=== PATIENT | female | born 1975 | race Caucasian/White ===

== ENCOUNTER 2021-09-09 14:38 | Emergency (ER) | payer BC, SELFPAY ==
[2021-09-09 14:47] VITALS: BP 154/91; PULSE 101; RESP 18; TEMP 36.1; O2SAT 96; BMI 39.4
[2021-09-09 15:07] LABS: MANUAL DIFF FLAG NO
[2021-09-09 15:17] LABS: Basophils Absolute Auto 0.1 X10*3/uL (0.0-0.2); Basophils Percent Auto 0.8 % (0-2); Eosinophils Absolute Auto 0.1 X10*3/uL (0.0-0.4); Eosinophils Percent Auto 1.2 % (0-4); Hematocrit 39.1 % (37.0-47.0); Hemoglobin 12.7 g/dl (12.0-16.0); Imm Gran Abs Auto 0.04 X10*3/uL (0.00-0.03); Imm Gran Pct Auto 0.4 % (0.0-0.4); Lymphocytes Absolute Auto 1.7 X10*3/uL (1.2-4.9); Lymphocytes Percent Auto 18.2 % (20-40); Mean Corpuscular HGB Conc 32.5 g/dl (31.0-35.0); Mean Corpuscular Hemoglobin 29.2 pg (27.0-33.0); Mean Corpuscular Volume 89.9 fL (80.0-98.0); Mean Platelet Volume 9.9 fL (9.4-12.3); Monocytes Absolute Auto 0.6 X10*3/uL (0.1-1.2); Monocytes Percent Auto 6.6 % (2-11); Neutrophils Absolute Auto 6.7 x10*3/uL (2.0-8.3); Neutrophils Percent Auto 72.8 % (45-73); Platelet Count 312 X10*3/uL (160-400); Red Blood Count 4.35 X10*6/uL (4.20-5.50); Red Cell Distribution Width 13.5 % (11.0-16.0); White Blood Count 9.3 X10*3/uL (4.8-10.8)
--- NOTE | 2021-09-09 15:17 | ED_ITS ---
HPI - Alcohol General Chief Complaint: ETOH/Substance Use Stated Complaint: Alcohol withdrawals sent by Alfreder Time Seen by Provider: 09/09/21 15:07 Source: patient and family Mode of arrival: ambulatory Limitations: no limitations History of Present Illness HPI narrative: 46 y/o female with history of chronic hypoxic respiratory failure on 2L NC at baseline, hx ARDS, hx PE in 2019 now off Coumadin, ADHD and alcohol use disorder who presents to the ER from her PCP's office seeking detox from alcohol. She re ports for almost one year now she has been drinking heavily, since the of her father. She drinks a bottle of tequila almost daily. It has had negative effects on her health and her marriage. Her psychiatrist recently started her on ativan PRN and she has been taking it while drinking. She was found on the bathroom floor 3 days in a row by her . Last drink was 4pm yesterday. She feels sweaty and like she may start to go through withdrawal soon. She has a history of withdrawal in the past but no alcohol related seizures. MD complaint: alcohol dependence, desires rehab and medical clearance for detox facility Last drink: Days (ago) (1) Amount of alcohol consumed: 1 bottle of tequila Chronic alcohol use: Yes Previous visits for alcohol intoxication: No Recent trauma: Yes Associated symptoms: diaphoresis and depression Treatments prior to arrival: none Related Data Allergies Allergy/AdvReac Type Severity Reaction Status Date / Time amoxicillin [AMOXICILLIN] Allergy Unknown RASH Verified 09/09/21 18:00 fluoxetine [From PROZAC] Allergy Unknown RASH Verified 09/09/21 18:00 heparin [HEPARIN] Allergy Unknown JAUN Verified 09/09/21 18:00 SYNDROME heparin (porcine) Allergy Unknown swelling, Verified 09/09/21 18:00 red hydrocodone [HYDROCODONE] Allergy Unknown PROJECTILE Verified 09/09/21 18:00 VOMITING omeprazole [OMEPRAZOLE] Allergy Unknown RASH, head Verified 09/09/21 18:00 to toe rash penicillin G [PENICILLIN G] Allergy Unknown RASH Verified 09/09/21 18:00 penicillin V Allergy Unknown rash Verified 09/09/21 18:00 piperacillin [From ZOSYN] Allergy Unknown RASH Verified 09/09/21 18:00 strawberry [STRAWBERRY] Allergy Unknown SOB,RASH, Verified 09/09/21 18:00 ANAPHYLAXISIS tazobactam [From ZOSYN] Allergy Unknown RASH Verified 09/09/21 18:00 walnut Allergy Unknown Difficulty Verified 09/09/21 18:00 Breathing Caramelized Food coloring Allergy Unknown Itching Uncoded 09/09/21 18:00 CARMALIZED FOOD COLORING Allergy Unknown RASH Uncoded 09/09/21 18:00 Hydrocodone Bitartrate Allergy Unknown severe Uncoded 09/09/21 18:00 vomiting Mangos Allergy Unknown Difficulty Uncoded 09/09/21 18:00 Breathing Piperacillin Sod-Tazobactam Allergy Unknown swelling Uncoded 09/09/21 18:00 So Strawberries Allergy Unknown Blister Uncoded 09/09/21 18:00 Review of Systems Review of Systems: Constitutional: No Fever, No Chills ENT/Mouth: No sore throat, No Rhinorrhea, No Swallowing Difficulty Eyes: No Eye Pain, No Swelling, No Redness Cardiovascular: No Chest Pain, + SOB, No Orthopnea, No Edema Respiratory: + Cough, No Sputum, No Wheezing, No dyspnea Gastrointestinal: No Nausea, No Vomiting, No Diarrhea, No abdominal Pain, No Hematochezia, No Melena Genitourinary: No Dysuria, No Urinary Frequency, No Hematuria Musculoskeletal: No joint pain, No Myalgias Skin: No Skin Lesions, No rash Neuro: No Weakness, No Numbness, No Dizziness, No Headache Psych: + Anxiety/Panic, + Depression Heme/Lymph: No Bruising, No Lymphadenopathy Endocrine: No Polyuria, No Polydipsia PMFSH Social History Social History Advance Directives: No Advance Directives Information Provided: No Physical Exam ED Vital Signs: Vital Signs - 24 hr 09/09/21 14:47 09/09/21 15:19 Temperature 97.0 F 98.4 F Pulse Rate 101 H 90 Respiratory Rate 18 18 Blood Pressure 154/91 H 140/85 H Pulse Oximetry 96 99 BMI result Body Mass Index 39.4 Appearance: Alert. Oriented X3. No acute distress. Eyes: Pupils equal, round and reactive to light. ENT: Pharynx normal. Neck: Normal inspection. Neck supple. CVS: Tachycardic, regular rhythm, HR 100s. Pulses normal. Respiratory: No respiratory distress. Breath sounds normal. Abdomen: Soft and nontender. +BS x4 Skin: Skin warm and dry. Normal skin color. Normal skin turgor. No rashes. Extremities: No lower extremity edema. Neuro: Oriented X 3. No motor deficit. No sensory deficit. CN II-XII intact. No tremor. Nonfocal. Makes eye contact. Appropriate insight and judgment Course Course Course Narrative: 46-year-old female with a history of alcohol use disorder who is seeking detox presents to the ER for evaluation. Her respiratory status is at her baseline, SpO2 on 2 L nasal cannula is 99%. Basic lab workup is pending. Jaguar from the recovery team is aware of her. Reevaluation(s) Reevaluation #1: Labs showing a mild transaminitis, likely related to alcohol abuse. Labs otherw ise unremarkable. She is hemodynamically stable and appropriate at this time. Physician observation started at 5pm. Patient placed in physician observation because patient is awaiting silver recovery operator evaluation for detox placement. At the time observation was started patient's vital signs were stable. Patient is alert and oriented. Neuro exam is non-focal. CV: RRR and lungs are clear. Will continue to monitor. MDM - Alcohol Lab Data Result diagrams: 09/09/21 15:01 09/09/21 15:01 Labs: Lab Results 09/09/21 09/09/21 09/09/21 Range/Units 15:01 15:01 15:01 WBC 9.3 (4.8-10.8) X10*3/uL RBC 4.35 (4.20-5.50) X10*6/uL Hgb 12.7 (12.0-16.0) g/dl Hct 39.1 (37.0-47.0) % MCV 89.9 (80.0-98.0) fL MCH 29.2 (27.0-33.0) pg MCHC 32.5 (31.0-35.0) g/dl RDW 13.5 (11.0-16.0) % Plt Count 312 (160-400) X10*3/uL MPV 9.9 (9.4-12.3) fL Immature Gran % (Auto) 0.4 (0.0-0.4) % Neut % (Auto) 72.8 (45-73) % Lymph % (Auto) 18.2 L (20-40) % [place] % (Auto) 6.6 (2-11) % Eos % (Auto) 1.2 (0-4) % Baso % (Auto) 0.8 (0-2) % Lymph # (Auto) 1.7 (1.2-4.9) X10*3/uL [place] # (Auto) 0.6 (0.1-1.2) X10*3/uL Eos # (Auto) 0.1 (0.0-0.4) X10*3/uL Baso # (Auto) 0.1 (0.0-0.2) X10*3/uL Abs Immat Gran (auto) 0.04 H (0.00-0.03) X10*3/uL Absolute Neuts (auto) 6.7 (2.0-8.3) x10*3/uL Absolute Nucleated RBC 0.000 (0.0-0.012) X10*3/uL Nucleated RBC % (auto) 0.0 (0.0-0.2) /100WBC Sodium 139 (135-145) mmol/L Potassium 4.1 (3.3-5.1) mmol/L Chloride 101 (96-108) mmol/L Carbon Dioxide 26 (22-29) mmol/L Anion Gap 16 (12-20) BUN 10 (9-16) mg/dL Creatinine 0.72 (0.5-1.4) mg/dL Estim Creat Clear Calc 112.5 Estimated GFR > 60 Random Glucose 112 (60-115) mg/dL Calcium 9.3 (8.4-10.2) mg/dL Total Bilirubin 0.8 (0.0-1.0) mg/dL AST 50 H (5-31) U/L ALT 38 H (0-31) U/L Alkaline Phosphatase 91 (39-117) U/L Total Protein 6.9 (6.5-8.0) g/dL Albumin 4.0 (3.5-5.0) g/dL Urine Test (NEGATIVE) Urine Opiates Screen (Not Detect) Urine Fentanyl Screen (Not Detect) Ur Barbiturates Screen (Not Detect) Ur Phencyclidine Scrn (Not Detect) Ur Amphetamines Screen (Not Detect) U Benzodiazepines Scrn (Not Detect) Urine Cocaine Screen (Not Detect) U Marijuana (THC) Screen (Not Detect) Ethyl Alcohol < 10 mg/dL 09/09/21 09/09/21 Range/Units 16:26 16:59 WBC (4.8-10.8) X10*3/uL RBC (4.20-5.50) X10*6/uL Hgb (12.0-16.0) g/dl Hct (37.0-47.0) % MCV (80.0-98.0) fL MCH (27.0-33.0) pg MCHC (31.0-35.0) g/dl RDW (11.0-16.0) % Plt Count (160-400) X10*3/uL MPV (9.4-12.3) fL Immature Gran % (Auto) (0.0-0.4) % Neut % (Auto) (45-73) % Lymph % (Auto) (20-40) % [place] % (Auto) (2-11) % Eos % (Auto) (0-4) % Baso % (Auto) (0-2) % Lymph # (Auto) (1.2-4.9) X10*3/uL [place] # (Auto) (0.1-1.2) X10*3/uL Eos # (Auto) (0.0-0.4) X10*3/uL Baso # (Auto) (0.0-0.2) X10*3/uL Abs Immat Gran (auto) (0.00-0.03) X10*3/uL Absolute Neuts (auto) (2.0-8.3) x10*3/uL Absolute Nucleated RBC (0.0-0.012) X10*3/uL Nucleated RBC % (auto) (0.0-0.2) /100WBC Sodium (135-145) mmol/L Potassium (3.3-5.1) mmol/L Chloride (96-108) mmol/L Carbon Dioxide (22-29) mmol/L Anion Gap (12-20) BUN (9-16) mg/dL Creatinine (0.5-1.4) mg/dL Estim Creat Clear Calc Estimated GFR Random Glucose (60-115) mg/dL Calcium (8.4-10.2) mg/dL Total Bilirubin (0.0-1.0) mg/dL AST (5-31) U/L ALT (0-31) U/L Alkaline Phosphatase (39-117) U/L Total Protein (6.5-8.0) g/dL Albumin (3.5-5.0) g/dL Urine Test NEGATIVE (NEGATIVE) Urine Opiates Screen Not Detected (Not Detect) Urine Fentanyl Screen Not Detected (Not Detect) Ur Barbiturates Screen Not Detected (Not Detect) Ur Phencyclidine Scrn Not Detected (Not Detect) Ur Amphetamines Screen POSITIVE H (Not Detect) U Benzodiazepines Scrn Not Detected (Not Detect) Urine Cocaine Screen Not Detected (Not Detect) U Marijuana (THC) Screen POSITIVE H (Not Detect) Ethyl Alcohol mg/dL Discharge Plan Discharge Clinical Impression: Alcohol use disorder, moderate, dependence Patient Disposition: Still a Patient
[2021-09-09 15:19] VITALS: BP 140/85; PULSE 90; RESP 18; TEMP 36.9; O2SAT 99
[2021-09-09 15:23] LABS: Ethanol < 10 mg/dL
[2021-09-09 15:25] LABS: Alanine Aminotransferase 38 U/L (0-31); Alkaline Phosphatase 91 U/L (39-117); Anion Gap 16 (12-20); Aspartate Amino Transferase 50 U/L (5-31); Bilirubin Total 0.8 mg/dL (0.0-1.0); Blood Urea Nitrogen 10 mg/dL (9-16); Calcium 9.3 mg/dL (8.4-10.2); Carbon Dioxide 26 mmol/L (22-29); Chloride 101 mmol/L (96-108); Creatinine Clr Calc Pharmacy 112.5; Estimated Glomerular Filt Rate > 60; Glucose Random 112 mg/dL (60-115); Potassium 4.1 mmol/L (3.3-5.1); Sodium 139 mmol/L (135-145); Total Protein 6.9 g/dL (6.5-8.0)
[2021-09-09 16:52] LABS: Amphetamine Screen Urine POSITIVE (Not Detect); Barbiturates, Urine Not Detected (Not Detect); Benzodiazepines Screen Urine Not Detected (Not Detect); Cannabinoid Screen Urine POSITIVE (Not Detect); Cocaine Screen Urine Not Detected (Not Detect); Fentanyl, urine Not Detected (Not Detect); Opiate Screen Urine Not Detected (Not Detect); Phencyclidine Screen Urine Not Detected (Not Detect)
[2021-09-09 17:09] LABS: UPreg QC Valid YES; Urine Pregnancy NEGATIVE (NEGATIVE)
--- NOTE | 2021-09-09 17:19 | MHC.RECOVSUP ---
Recovery Support note: Patient is a 46 year old Mauritian speaking female who presented to [facility] ED due to alcohol use and recent falls. Patient reports drinking half- a bottle of tequila a day. Patient is interested in going to detox. Patient is on oxygen due and for this reason will have to go to a level four detox. Patient referred to [facility] however no beds are available at this time. Discussed with patient and partner. Patient not comfortable discharging home to follow up with facility. Discussed case with ED provider. Plan for patient to remain in the ED overnight. This grant writer will follow up with patient and [facility] on 09/10.
[2021-09-09] MEDS: chlordiazePOXIDE HCl 25 MG CAPSULE PO (18:06)
[2021-09-09 18:48] VITALS: BP 143/75; PULSE 94; RESP 14; TEMP 36.7; O2SAT 96
[2021-09-09 23:57] VITALS: BP 139/79; PULSE 73; RESP 20; TEMP 36.8; O2SAT 100
[2021-09-10 04:01] VITALS: BP 114/64; PULSE 58; RESP 13; TEMP 36.7; O2SAT 98
[2021-09-10 06:02] VITALS: BP 124/69; PULSE 50; RESP 14; TEMP 36.8; O2SAT 97
[2021-09-10 07:12] LABS: COVID-19 Test Negative (Negative)
--- NOTE | 2021-09-10 09:05 | PHA.MEDREC ---
Pharmacy Consult ? Medication Reconciliation Pharmacy has completed the medication reconciliation. Patient just got started on adderal ir tid and escitalopram daily but hasn't taken any yet. She does want to start it here
--- NOTE | 2021-09-10 10:25 | MHC.RECOVSUP ---
Recovery Support note: Patient accepted to [facility]. Family to transport. Address and number provided to patient. Discussed with patient's RN.
== END 2021-09-10 10:33 | disposition other institution (70) ==
PROVIDERS: Emergency Provider Student in an Organized Health Care Education/Training Program; PCP Internal Medicine
DX: F10.20 Alcohol dependence, uncomplicated (principal); Y90.0 Blood alcohol level of less than 20 mg/100 ml; J96.10 Chronic respiratory failure, unspecified whether with hypoxia or hypercapnia; Z86.711 Personal history of pulmonary embolism; Z20.822 Contact with and (suspected) exposure to COVID-19
CPT/HCPCS: 80053; 80307; 81025; 82077; 85025; 87635; 99284

== ENCOUNTER 2023-01-25 08:42 | Inpatient (IN) | payer BC, MEDICARE, SELFPAY ==
--- NOTE | ~2023-01-25 | XR_ITS ---
EXAMINATION: XR BILATERAL HIPS WITH AP PELVIS CLINICAL INFORMATION: Psoriatic arthritis. COMPARISON: 01/16/2018. TECHNIQUE: AP view of the pelvis as well as AP and lateral views of the chest. FINDINGS: Possible degenerative changes and facet arthritis at the lower lumbar spine. Mild degenerative changes in the bilateral sacroiliac joints. Right Hip: Alignment preserved. Minimal degenerative changes. Minimal hypertrophic change. Left Hip: Alignment preserved. Minimal degenerative changes. Minimal hypertrophic change. XR/XR hips LYN min 3V IMPRESSION: Minimal degenerative changes in the bilateral hips. Additional imaging with CT scan or MRI should be considered for better visualization as these modalities are much more sensitive for detection of fracture or other underlying pathology.
--- NOTE | ~2023-01-25 | XR_ITS ---
EXAMINATION: XR KNEE, RIGHT CLINICAL INFORMATION: Psoriatic arthritis COMPARISON: 02/03/2019 TECHNIQUE: Four views of the right knee. FINDINGS: Suprapatellar effusion. Increased size of ossific bodies, largest 2.6 cm, along the superior lateral aspect of the patellofemoral compartment with persistent slight patellar tilt. Small marginal osteophytes at the knee. Tiny punctate density projecting over the medial femoral compartment, possibly representing a loose body. Mild lateral joint space narrowing. XR/XR knee RT 4V IMPRESSION: Suprapatellar effusion. Increased size of ossific bodies, largest 2.6 cm, along the superior lateral aspect of the patellofemoral compartment with degenerative changes as detailed above.
[2023-01-25 08:50] VITALS: BP 135/85; PULSE 92; RESP 18; TEMP 36.4; O2SAT 98; BMI 30.6
[2023-01-25 09:04] VITALS: O2SAT 98
--- NOTE | 2023-01-25 09:11 | ED.GENADULT ---
HPI - General Adult General Chief complaint: Psychiatric Symptoms Stated complaint: tried not to be here ? crisis Time Seen by Provider: 01/25/23 09:10 Source: patient and family (patient's ) Mode of arrival: ambulatory Limitations: no limitations History of Present Illness HPI narrative: Patient is a 47 year old assigned female at with a history of chronic oxygen use, ADHD, depression, and alcohol abuse presenting to the emergency department today with suicidal ideation. Patient states that she broke her 1 year of sobriety yesterday because she was very depressed and felt like talking to her father. Patient states that she has been having episodes of severe depression with days in a row of intense motivation to clean and be productive. Patient denies any dizziness, lightheadedness, abdominal pain, nausea, vomiting, fever, chills, blurry vision, double vision, loss of vision, chest pain, difficulty breathing, shortness of breath, back pain, night sweats, pain with urination, increased urinary frequency, increased urinary urgency, blood in her urine or stool, syncope or a near syncopal episode, recent trauma or falls, bowel incontinence, bladder incontinence, bowel retention, bladder retention, or any other complaints at this time. Relieving factors: none Exacerbating factors: none Associated symptoms: denies other symptoms Treatments prior to arrival: none Related Data Home Medications Medication Instructions Recorded Confirmed dextroamphetamine-amphetamine 10 1 tab PO TID 09/10/21 09/10/21 mg tablet escitalopram oxalate 10 mg tablet 1 tab PO QAM 09/10/21 09/10/21 Allergies Allergy/AdvReac Type Severity Reaction Status Date / Time amoxicillin [AMOXICILLIN] Allergy Unknown RASH Verified 09/09/21 18:00 fluoxetine [From PROZAC] Allergy Unknown RASH Verified 09/09/21 18:00 heparin [HEPARIN] Allergy Unknown JAUN Verified 09/09/21 18:00 SYNDROME heparin (porcine) Allergy Unknown swelling, Verified 09/09/21 18:00 red hydrocodone [HYDROCODONE] Allergy Unknown PROJECTILE Verified 09/09/21 18:00 VOMITING omeprazole [OMEPRAZOLE] Allergy Unknown RASH, head Verified 09/09/21 18:00 to toe rash penicillin G [PENICILLIN G] Allergy Unknown RASH Verified 09/09/21 18:00 penicillin V Allergy Unknown rash Verified 09/09/21 18:00 piperacillin [From ZOSYN] Allergy Unknown RASH Verified 09/09/21 18:00 strawberry [STRAWBERRY] Allergy Unknown SOB,RASH, Verified 09/09/21 18:00 ANAPHYLAXISIS tazobactam [From ZOSYN] Allergy Unknown RASH Verified 09/09/21 18:00 walnut Allergy Unknown Difficulty Verified 09/09/21 18:00 Breathing Caramelized Food coloring Allergy Unknown Itching Uncoded 09/09/21 18:00 CARMALIZED FOOD COLORING Allergy Unknown RASH Uncoded 09/09/21 18:00 Hydrocodone Bitartrate Allergy Unknown severe Uncoded 09/09/21 18:00 vomiting Mangos Allergy Unknown Difficulty Uncoded 09/09/21 18:00 Breathing Piperacillin Sod-Tazobactam Allergy Unknown swelling Uncoded 09/09/21 18:00 So Strawberries Allergy Unknown Blister Uncoded 09/09/21 18:00 Review of Systems Constitutional: Constitutional: Reports no additional constitutional complaints, Denies chills, Denies fever(s) and Denies night sweats Eyes: Eyes: Reports no additional eye complaints, Denies blurry vision, Denies change in vision, Denies diplopia, Denies eye discharge, Denies loss of vision and Denies eye pain ENT: Denies dizziness Cardiovascular: Cardiovascular: Reports no additional cardiovascular complaints, Denies chest pain, Denies lightheadedness, Denies Loss of Consciousness and Denies dyspnea Respiratory: Respiratory: Reports no additional respiratory complaints and Denies dyspnea Gastrointestinal: Gastrointestinal: Reports no additional gastrointestinal complaints, Denies abdominal pain, Denies melena, Denies hematochezia, Denies change in bowel habits and Denies change in stool character Genitourinary: Genitourinary: Denies hematuria, Denies urinary frequency, Denies dysuria, Denies urinary incontinence, Denies urinary hesitancy and Denies urinary urgency Musculoskeletal: Musculoskeletal: Reports no additional musculoskeletal complaints, Denies numbness and Denies tingling Neurologic: Denies dizziness, Denies loss of vision, Denies numbness and Denies tingling Psychiatric: Psychiatric: Reports depression, Reports mood swings and Reports suicidal ideation Endocrine: Endocrine: Reports no additional endocrine complaints Hematologic/Lymphatic: Hematologic/Lymphatic: Reports no additional hematologic/lymphatic complaints Allergic/Immunologic: Allergic/Immunologic: Reports no additional allergic/immunologic complaints PMFSH Past Medical History Attestation statement: The following information was validated with the patient. (all information validated with the patient's ) Source: old records reviewed, obtained from family (patient's provided additional history and confirmed the history provided by the patient.) and nursing notes reviewed Social History Social History Advance Directives: No Advance Directives Information Provided: Yes Physical Exam ED Vital Signs: Vital Signs - 24 hr 01/25/23 08:50 01/25/23 09:04 01/25/23 11:51 Temperature 97.5 F Pulse Rate 92 68 Respiratory Rate 18 16 Blood Pressure 135/85 130/84 Pulse Oximetry 98 98 100 Oxygen Delivery Method Room Air Nasal Cannula Nasal Cannula Oxygen Flow Rate 2 2 BMI result Body Mass Index 30.6 Const General: cooperative, no acute distress, alert and awake Nutritional Appearance: well nourished Orientation/consciousness: patient oriented x3 Limitations: no limitations HENMT Head: Yes normal to inspection and Yes atraumatic Ears: hearing grossly normal bilaterally and external ears normal General nose exam: Normal external nose present, no nasal discharge noted and no epistaxis Face and sinus: Yes normal facial exam, No abrasion and No laceration Mouth: Normal oral and palatal mucosa present, no drooling and no muffled voice Eyes General: appearance normal, both eyes and all related structures Periorbital: periorbital findings normal Eyelids: Yes eyelids normal Conjunctivae: conjunctivae normal Pupils: Equal, round and reactive pupils present EOM: EOMs intact bilaterally Neck Neck: Yes normal visual inspection, Yes full ROM and Yes no lymphadenopathy Chest Chest palpation & inspection: normal inspection of the chest Resp Other: patient on chronic nasal cannula oxygenation Effort & Inspection: normal respiratory effort and able to speak in complete sentences GI Inspection: Yes normal to inspection Neuro General: patient oriented x3 and moves all extremities Cranial nerves: Yes Equal, round and reactive pupils present Cognition (Neuro): normal cognition Motor exam (neuro): 5/5 motor strength present throughout Sensory Exam: Normal double simultaneous stimulation for sensation Coordination: [id number] test normal Extrem General: Yes normal to inspection, Yes full ROM and Yes capillary refill normal Psych Affect: Sad affect present Attitude: cooperative and Guarded attititude/behavior present Thought content: Suicidality present Medical Decision Making Medical Decision Making MDM Narrative: Patient is a 47 year old assigned female at with a history of ADHD, depression, anxiety, alcohol abuse, and oxygen dependence presenting to the emergency department today with suicidal ideation / depression. Patient's physical exam was as noted in the physical exam portion of this note. Patient's blood work was unremarkable. Patient's urine showed no acute process. Patient's EKG was unremarkable. I explained my physical exam findings as well as all test results to the patient and the patient's . I answered all questions asked by the patient and the patient's . Patient awaiting CARE team evaluation. CARE team evaluated patient and agrees to inpatient psychiatric admission. Differential Diagnosis Differential Diagnoses: The differential diagnosis associated with the presentation includes Suicidal ideation Depression Lab Data MDM Lab Attestation statement: I reviewed the patient's lab results. My interpretation of these studies and their corresponding values is that they are grossly normal. 01/25/23 10:21 01/25/23 10:21 Labs: Lab Results 01/25/23 01/25/23 Range/Units 10:21 11:49 WBC 9.5 (4.8-10.8) X10*3/uL RBC 4.33 (4.20-5.50) X10*6/uL Hgb 12.4 (12.0-16.0) g/dl Hct 38.3 (37.0-47.0) % MCV 88.5 (80.0-98.0) fL MCH 28.6 (27.0-33.0) pg MCHC 32.4 (31.0-35.0) g/dl RDW 14.6 (11.0-16.0) % Plt Count 243 (160-400) X10*3/uL MPV 9.5 (9.4-12.3) fL Immature Gran % (Auto) 0.4 (0.0-0.4) % Neut % (Auto) 72.5 (45-73) % Lymph % (Auto) 19.3 L (20-40) % [place] % (Auto) 6.4 (2-11) % Eos % (Auto) 1.0 (0-4) % Baso % (Auto) 0.4 (0-2) % Lymph # (Auto) 1.8 (1.2-4.9) X10*3/uL [place] # (Auto) 0.6 (0.1-1.2) X10*3/uL Eos # (Auto) 0.1 (0.0-0.4) X10*3/uL Baso # (Auto) 0.0 (0.0-0.2) X10*3/uL Abs Immat Gran (auto) 0.04 H (0.00-0.03) X10*3/uL Absolute Neuts (auto) 6.9 (2.0-8.3) x10*3/uL Absolute Nucleated RBC 0.000 (0.0-0.012) X10*3/uL Nucleated RBC % (auto) 0.0 (0.0-0.2) /100WBC Sodium 137 (135-145) mmol/L Potassium 4.2 (3.3-5.1) mmol/L Chloride 103 (96-108) mmol/L Carbon Dioxide 25 (22-29) mmol/L Anion Gap 13 (12-20) BUN 16 (9-16) mg/dL Creatinine 0.64 (0.5-1.4) mg/dL Estim Creat Clear Calc 109.2 Estimated GFR > 60 Random Glucose 91 (60-115) mg/dL Calcium 9.5 (8.4-10.2) mg/dL Total Bilirubin 0.5 (0.0-1.0) mg/dL AST 18 (5-31) U/L ALT 15 (0-31) U/L Alkaline Phosphatase 66 (39-117) U/L Total Protein 7.0 (6.5-8.0) g/dL Albumin 4.1 (3.5-5.0) g/dL Urine Color Yellow Urine Appearance Clear Urine pH 5.5 (5.0-9.0) Ur Specific [place] 1.025 (1.005-1.025) Urine Protein Negative (Neg-Trace) mg/dL Urine Glucose (UA) Negative (Negative) mg/dL Urine Ketones Trace (Negative) mg/dL Urine Blood Negative (Negative) Urine Nitrite Negative (Negative) Ur Leukocyte Esterase Negative (Negative) Urine Test NEGATIVE (NEGATIVE) Salicylates < 5.0 L (15-30) mg/dL Urine Opiates Screen Not Detected (Not Detect) Urine Fentanyl Screen Not Detected (Not Detect) Acetaminophen < 17 (<30) mcg/mL Ur Barbiturates Screen Not Detected (Not Detect) Ur Phencyclidine Scrn Not Detected (Not Detect) Ur Amphetamines Screen Not Detected (Not Detect) U Benzodiazepines Scrn Not Detected (Not Detect) Urine Cocaine Screen Not Detected (Not Detect) U Marijuana (THC) Screen Not Detected (Not Detect) Ethyl Alcohol < 10 mg/dL COVID-19 ([facility]LEY) Negative (Negative) COVID-19 Clin Com See Note Independent Interpretation I performed an independent interpretation of an: EKG Interpretation: Vent. Rate: 069 BPM Atrial Rate: 069 BPM P-R Int: 132 ms QRS Dur: 082 ms QT Int: 392 ms P-R-T Axes: 026 012 022 degrees QTc Int: 420 ms Normal sinus rhythm Normal ECG No previous ECGs available Electronically Signed By:DEZ KUMAR MD Dictated By: Kris Kumar MD Signed By: Electronically signed by Kris Kumar MD 01/25/23 3322 Independent Historian Clinical information obtained from an independent historian. History obtained from or confirmed by: Spouse (patient's provided additional history and confirmed the history provided by the patient.) Discharge Plan Discharge Clinical Impression: Suicidal ideation Patient Disposition: Still a Patient Prescriptions: No Action dextroamphetamine-amphetamine 10 mg tablet 1 tab PO TID escitalopram oxalate 10 mg tablet 1 tab PO QAM Interventions: [place]-Suicide Risk Severity Scale Last Done: 01/25/23 11:51
--- NOTE | 2023-01-25 09:16 | ECG_ITS ---
Test Reason : POLYPHARMACY Blood Pressure : / mmHG Vent. Rate : 069 BPM Atrial Rate : 069 BPM P-R Int : 132 ms QRS Dur : 082 ms QT Int : 392 ms P-R-T Axes : 026 012 022 degrees QTc Int : 420 ms Normal sinus rhythm Normal ECG No previous ECGs available Referred By: Alejandra Easton Electronically Signed By:DEZ KUMAR MD
--- OUTSIDE RECORDS SUMMARY | 2023-01-25 09:21 | XMS_ITS | Continuity of Care Document ---
Author Name Unknown Organization 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 shellfish projectile vomit sweating Ac tive Other Food Allergy face swells rash thr oat issues strawberries selwyn Active Egg Allergy itchy throat rash Active Medications Aerochamber USE WITH MDI'S FOR ASTHMA 493.9 ICD CODE, Inhalation, # 1 each, Maintenance, 02/23/11 15:39:21 Start Date: 02/23/11 Status: Ordered Concerta 27 mg oral tablet, extended release 1 tablet = 27 mg, By Mouth, Daily in AM, 0 Refills, Maintenance, 02/19/18 15:17:46 EST, ER Tablet Start Date: 02/19/18 Status: Ordered DULoxetine Capsule 1 tab, By Mouth, Daily at bedtime, 0 Refills, Maintenance, 02/19/18 15:18:33 EST Start Date: 02/19/18 Status: Ordered Lasix Tablet 1 tab, By Mouth, Daily, Maintenance, 12/12/12 14:21:02 EDT Start Date: 12/12/12 Status: Ordered LORazepam 0.5 mg oral tablet 2 tablet = 1 mg, By Mouth, 3 times a day, PRN for anxiety, 0 Refills, Maintenance, 02/19/18 15:20:10 EST, Tablet Start Date: 02/19/18 Status: Ordered meloxicam 7.5 mg oral tablet 1 tablet = 7.5 mg, By Mouth, Daily, PRN moderate pain, # 30 tablet, 0 Refills, Maintenance, Tablet Start Date: 05/12/11 Stop Date: 06/11/11 Status: Ordered Multivitamin 1 tab, By Mouth, Daily, 0 Refills, Maintenance, 02/19/18 15:20:34 EST Start Date: 02/19/18 Status: Ordered Potassium Chloride 1 tab, By Mouth, Daily, 0 Refills, Maintenance, 12/12/12 14:21:20 EDT Start Date: 12/12/12 Status: Ordered ProAir HFA 90 mcg/inh inhalation aerosol with adapter 2 puffs, Inhalation, 4 times a day, use with spacer chamber, # 1 each, 5 Refills, Maintenance Start Date: 02/23/11 Stop Date: 08/22/11 Status: Ordered Ritalin Tablet 10 mg, By Mouth, Daily, quick release, Refills 0, Tot. Refills 0, Maintenance, 12/12/12 14:20:55 EDT Start Date: 12/12/12 Status: Ordered Singulair 1 tab, By Mouth, Daily before dinner, 0 Refills, Maintenance, 12/12/12 14:20:35 EDT Start Date: 12/12/12 Status: Ordered tiZANidine 2 mg oral tablet 2 mg, By Mouth, 3 times a day, PRN, take one table by mouth every 8 hours for 5 days, then may takeevery 8 hours prn, # 30 tablet, Refills 0, Tot. Refills 0, Maintenance, Spasm, 03/05/18 10:26:03 EST, Print Requisition Start Date: 03/05/18 Status: Ordered Vitamin D3 oral tablet 1 tablet = 400 International_Units, By Mouth, Daily, # 30 tablet, 0 Refills, Maintenance, 02/19/18 15:20:56 EST, Tablet Start Date: 02/19/18 Status: Ordered Problem List Condition Confirmation Course Effective Dates Status Health St atus Informant ARDS Confirmed Active Morbid obesity Confirmed Active Respiratory failure Confirmed Active Restrictive lung disease Confirmed Active Patient Care team information Care Team Personnel Name: Félix Zelaya MD Position: Reference Physician Member Role: PCP Address: Address: [address] [place] [address] [place] [address]- Name: Jojo Castellano RN Position: S RN Member Role: Primary Care Nurse Care Team Related Persons Name: BLUEKIERRA Address: home [address] [place] [id number]
--- OUTSIDE RECORDS SUMMARY | 2023-01-25 09:21 | XMS_ITS | Patient Health Record ---
Author Name Unknown Organization Félix Zelaya MD Address [address] [place], [place] [id number] Care Team Providers Care Parole Supervisor Name Role Phone Félix Zelaya Primary Care Provider ALLERGIES Allergen (clinical drug ingredient) Drug/Non Drug Allergy documented on EMR Reaction Allergy Type Onset Date Status fluoxetine Prozac (uncoded) hives Allergy Ac tive sesame seed allergenic extract sesame seeds (uncoded) rash SOB Allergy Active walnuts (uncoded) rash SOB Allergy Ac tive amoxicillin amoxicillin (uncoded) rash Allergy Active ibuprofen Ibuprofen hives Drug Allergy Active [place] Flavor rash Drug Allergy Active piperacillin / tazobactam Piperacillin Sod-Tazobactam So swelling Drug Allergy Active Penicillin G Benzathine Rash Drug Allergy Active omeprazole Omeprazole only with the villa flavored Drug Allergy Active Lactose Diarrhea Drug Allergy Active Hydrocodone Bitartrate severe vomiting Drug Allergy Active Heparin (Porcine) in NaCl swelling Drug Allergy Active Caramel Flavor UTI Drug Allergy Ac tive selwyn (uncoded) hives Allergy Acti ve raspberries (uncoded) rash Allergy Active cherries (uncoded) tongue swelling Allergy Active REASON FOR REFERRAL No Information MEDICATIONS Medication SIG (Take, Route, Frequency, Duration) Notes Start Date End Date Status Escitalopram Oxalate 10 MG 1 tablet Orally Once a day for 30 day(s) Active LORazepam 0.5 MG 1 tablet at bedtime as needed Orally Once a day Active metOLazone 2.5 MG 1 tablet Orally Once a day for 30 Not-Taking DULoxetine HCl 60 MG TK 1 C PO QAM Oral for 60 Not-Taking Milk of Magnesia 400 MG/5ML 5 ml as needed Orally Four times a day Not-Taking Concerta 27 MG 1 tablet in the morn ing Orally Once a day Active Furosemide 20 MG 1 tablet Orally Once a day 10/02/2013 Not-Taking Tylenol Childrens 160 MG/5ML Orally Not-Taking traMADol HCl 50 MG TAKE 1 TABLET BY ISIAH TH EVERY DAY NEEDED for 7 01/22/2023 Active Tylenol 325 MG 1 tablet as needed Orally every 6 hrs Active Omeprazole 20 MG 1 capsule 30 minutes before morning meal Orally Once a day for 90 days 06/24/2020 Active Vitamin D-3 5000 UNIT 1 tablet Orally On ce a day Active Spiriva Respimat 2.5 MCG/ACT 2 puffs Inhalation Once a day for 30 days Active Vitron-C 65-125 MG Orally N ot-Taking Zithromax Z-Jose Cruz 250 MG 2 tablet on the irst day, then 1 tablet daily for 4 days Orally Once a day for 5 day(s) 07/28/2022 Active Clobetasol Propionate 0.05 % 1 application Externally Twice a day for 10 day(s) 11/23/2022 Active Symbicort 160-4.5 MCG/ACT 2 puffs Inhala tion Twice a day Not-Taking predniSONE 10 MG 1 tablet with food o r milk Orally 4 tabs for 3 days,3tabs for 3 days, 2 tabs for 3 days, and 1 tab for 3 days for 14 days 07/28/2022 Active Albuterol Sulfate (2.5 MG/3ML) 0.083% 3 ml as needed Inhalation every 4 hrs for 30 days 11/10/2010 Active EpiPen 2-Jose Cruz 0.3 MG/0.3ML as directed In jection once for 1 dose 08/14/2011 Not-Taking Diprolene AF 0.05 % 1 application to affected area Externally Once a day for 30 Not-Taking IMMUNIZATIONS Vaccine Route Administration Date Status Comme nts Flu Vaccine Unknown 12/08/2010 Administered PPSV23 (Pnemovax) Unknown 12/08/2010 Administered Flu Vaccine Unknown 01/28/[address] Trejo Passenger Interline Clerk Flu Vaccine IM Intramuscular 02/03/2014 Administered Fluarix Quadrivalent IM Intramuscular 01/04/2015 Administered PPSV23 (Pnemovax) IM Intramuscular 01/13/2016 Administered Flu Vaccine IM Intramuscular 01/25/2016 Administered pt wa s given the vaccine at [facility] in [place], it was multidose flu Fluarix Quadrivalent IM Intramuscular 02/26/2018 Administered pt was given th e vaccine at [facility] in [place]. Fluarix Quadrivalent Unknown 12/30/2019 Administered [facility] TDaP Unknown 12/30/2019 Administered [facility] Tetanus Unknown 12/30/2019 Administered SARS-COV-2 Moderna Unknown 07/23/2020 Administered SARS-COV-2 Moderna Unknown 08/20/2020 Administered Fluarix Quadrivalent IM Intramuscular 01/24/2022 Administered SOCIAL HISTORY Tobacco Use: Social History Observation Description Date Details (start date - stop date) Current Smoker NA - NA Sex Assigned At : Social History Observation Description Sex Assigned At Unknown Tobacco Use/Smoking Question Answer Notes Patient is a current smoker How often do you smoke cigarettes? some days, bu t not every day How many cigarettes a day do you smoke? 5 or les s How soon after you wake up d o you smoke your first cigarette? after 60 minutes Are you interested in quitting? Ready to quit Alcohol Screen Question Answer Notes Did you have a drink contain ing alcohol in the past year? Yes How often did you have a dri nk containing alcohol in the past year? 4 or more times a week (4 points) How many drinks did you have on a typical day when you were drinking in the past year? 10 or more drinks (4 points) Points 8 Interpretation Positive PROBLEMS Problem Type ICD Code Onset Dates Problem Status W/U Status Risk SNOMED Code Notes Problem Anxiety unspecified (300.00) Active confirmed Anxiety state (723072243) Problem Eczema (692.9) Active confirmed Eczema (31826869) Problem Hypokalemia (E87.6) Active confirmed 49529705 Problem Reflux esophagitis (K21.00) Active confirmed 705505874 Problem Vitamin D deficiency (E55.9) Active confirmed 64465814 Problem Chronic respiratory failure, unspecified whether with hypoxia or hypercapnia (J96.10) Active confirmed 29807255 Problem Other postprocedural complications and disorders of digestive system (K91.89) Active confirmed 919979016 Problem Loose body in knee, right knee (M23.41) Active confirmed 234414979472073 Problem Lumbar disc disease (M51.9) Active confirmed 244941394 Problem Psoriasis (L40.9) Active confirmed 9014 002 Problem History of pulmonary embolism (Z86.711) Active confirmed 454049971 Problem Environmental allergies (Z91.09) Active confirmed 703927075 Problem Alcohol abuse (F10.10) Active confirmed Alcohol abuse (60177457) Problem Psoriatic arthritis (L40.50) Active confirmed 855164263 Problem Morbid obesity due to excess calories (E66.01) Active confirmed 128102559 Problem Intrinsic eczema (L20.84) Active confirmed 92685540 Problem Leukocytosis, unspecified type (D72.829) Active confirmed 618712336 Problem Sleep apnea, unspecified type (G47.30) Active confirmed 07971641 Problem Moderate persistent asthmatic bronchitis with acute exacerbation (J45.41) Active confirmed 919096605778244 Problem Multiple subsegmental pulmonary emboli without acute cor pulmonale (I26.94) Active confirmed 59966524 Problem History of cholecystectomy (Z90.49) Active confirmed 665642223 Problem 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) Active confirmed 77608983 Problem Marginal ulcers (K28.9) Active confirmed 642913762 VITAL SIGNS Blood pressure diastolic 66 mm Hg 07/28/2022 markell ght at home is 171 Bp 119/66 no temp Height 66 in 07/28/2022 weight at home is 171 Bp 119/66 no temp Blood pressure systolic 119 mm Hg 07/28/2022 weig ht at home is 171 Bp 119/66 no temp Weight 171 lbs 07/28/2022 weight at home is 171 Bp 119/66 no temp BMI 27.60 kg/m2 07/28/2022 weight at home is 171 Bp 119/66 no temp Encounters Encounter Location Date Provider Diagnosis Félix Zelaya MD [address] [place] [address] [id number] 04/28/2022 Félix Zelaya COVID-19 U07.1 ; Psoriatic arthritis L40.50 and Marginal ulcers K28.9 Félix Zelaya MD [address] [place] [address] [id number] 03/13/2022 Félix Zelaya MD [address] [place] [address] [id number] 03/21/2022 Félix Zelaya MD [address] [place] [address] [id number] 11/24/2022 Félix Zelaya MD [address] [place] [address] [id number] 03/21/2022 Félix Zelaya Allergy, unspecified , initial encounter T78.40XA and COVID-19 U07.1 Félix Zelaya MD [address] [place] [address] [id number] 07/28/2022 Félix Zelaya Marginal ulcers K28. 9 and Moderate persistent asthmatic bronchitis with acute exacerbation J45.41 Félix Zelaya MD [address] [place] [address] [id number] 07/11/2022 Félix Zelaya Chronic respiratory failure, unspecified whether with hypoxia or hypercapnia J96.10 Félix Zelaya MD [address] [place] [address] [id number] 11/23/2022 Félix Zelaya Broken teeth S02.5XX A and Psoriasis L40.9 ASSESSMENTS Encounter Date Diagnosis Assessment Notes Treatment Notes Treatment Clinical Notes 04/28/2022 Psoriatic arthritis (ICD-10 - L40.50) taking tylenol. to watch her dosage 04/28/2022 COVID-19 (ICD-10 - U07.1) has recovered 03/21/2022 Allergy, unspecified, initial encounter (ICD-10 - T78.40XA) Patient verbalizes understanding of medications side effects, interactions and warnings. 03/21/2022 COVID-19 (ICD-10 - U07.1) will begin treatment with Paxlovid., Patient verbalizes understanding of medications side effects, interactions and warnings. 07/28/2022 Moderate persistent asthmatic bronchitis with acute exacerbation (ICD-10 - J45.41) will send in script and she won't use it unless she gets worse over the weekend 07/28/2022 Marginal ulcers (ICD-10 - K28.9) not having any problems 07/11/2022 Chronic respiratory failure, unspecified whether with hypoxia or hypercapnia (ICD-10 - J96.10) Patient verbalizes understanding of medications side effects, interactions and warnings. 11/23/2022 Psoriasis (ICD-10 - L40.9) Patient verbalizes understanding of medications side effects, interactions and warnings. 11/23/2022 Broken teeth (ICD-10 - S02.5XXA) is having difficulty getting the teeth removed. have discussed the concern with her previous alcohol abuse and the potential for restarting but the pain is too severe to not treat 04/28/2022 Marginal ulcers (ICD-10 - K28.9) will continue current regiment PLAN OF TREATMENT Pending Test Test Name Order Date MAMMOGRAM DIGITAL BILATERAL SCREEN 12/28 Insurance Providers Payer Name Payer Address Payer Phone Subscriber Number Group Number Insured Name Patient Relationship to Insured Coverage Start Date Coverage End Date [employer] [address] [place], [place] [phone] [id number] Dora Plunkett Self - patient is the insured MEDICARE NHIC [employer] [address] [place] [id number] Dora Plunkett Self - patient is the insured MEDICAL (GENERAL) HISTORY Medical History History ICD Code respiratory failure from flu Asthmatic bronchitis Nontraumatic rupture of tendons of bicep s (long head) Surgical History Surgery Date(Month/Year) Bariatric Operation 03/2016
[2023-01-25 10:26] LABS: MANUAL DIFF FLAG NO
[2023-01-25 10:29] LABS: Basophils Percent Auto 0.4 % (0-2); Eosinophils Absolute Auto 0.1 X10*3/uL (0.0-0.4); Hematocrit 38.3 % (37.0-47.0); Hemoglobin 12.4 g/dl (12.0-16.0); Imm Gran Abs Auto 0.04 X10*3/uL (0.00-0.03); Imm Gran Pct Auto 0.4 % (0.0-0.4); Lymphocytes Absolute Auto 1.8 X10*3/uL (1.2-4.9); Lymphocytes Percent Auto 19.3 % (20-40); Mean Corpuscular HGB Conc 32.4 g/dl (31.0-35.0); Mean Corpuscular Hemoglobin 28.6 pg (27.0-33.0); Mean Corpuscular Volume 88.5 fL (80.0-98.0); Mean Platelet Volume 9.5 fL (9.4-12.3); Monocytes Absolute Auto 0.6 X10*3/uL (0.1-1.2); Monocytes Percent Auto 6.4 % (2-11); Neutrophils Absolute Auto 6.9 x10*3/uL (2.0-8.3); Neutrophils Percent Auto 72.5 % (45-73); Platelet Count 243 X10*3/uL (160-400); Red Blood Count 4.33 X10*6/uL (4.20-5.50); Red Cell Distribution Width 14.6 % (11.0-16.0); White Blood Count 9.5 X10*3/uL (4.8-10.8)
[2023-01-25 10:44] LABS: Acetaminophen LAB < 17 mcg/mL (<30); Salicylate < 5.0 mg/dL (15-30)
[2023-01-25 10:45] LABS: COVID-19 Test Negative (Negative); IDNOW Serial# BCCEAD1C
[2023-01-25 10:46] LABS: Alanine Aminotransferase 15 U/L (0-31); Albumin Level 4.1 g/dL (3.5-5.0); Alkaline Phosphatase 66 U/L (39-117); Anion Gap 13 (12-20); Aspartate Amino Transferase 18 U/L (5-31); Bilirubin Total 0.5 mg/dL (0.0-1.0); Blood Urea Nitrogen 16 mg/dL (9-16); Calcium 9.5 mg/dL (8.4-10.2); Carbon Dioxide 25 mmol/L (22-29); Chloride 103 mmol/L (96-108); Creatinine Clr Calc Pharmacy 109.2; Estimated Glomerular Filt Rate > 60; Ethanol < 10 mg/dL; Glucose Random 91 mg/dL (60-115); Potassium 4.2 mmol/L (3.3-5.1); Sodium 137 mmol/L (135-145)
[2023-01-25 11:51] VITALS: BP 130/84; PULSE 68; RESP 16; O2SAT 100
--- NOTE | 2023-01-25 11:57 | PC.NURSE ---
ambulated to bathroom with steady gait to obtain urine sample, pending urine for care team to see patient. pt denies si/hi at this time, increased depression. family at bedside, call gonzalez within reach
[2023-01-25 12:06] LABS: Appearance Urine Clear; Color Urine Yellow; Glucose Urine UA Negative (Negative); Leukocyte Esterase Urine Negative (Negative); Nitrite Urine Negative (Negative); PH 5.5 (5.0-9.0); Specific Gravity - Urine 1.025 (1.005-1.025); Urine Blood Negative (Negative); Urine Ketones Trace mg/dL (Negative); Urine Protein Negative (Neg-Trace)
[2023-01-25 12:09] LABS: UPreg QC Valid YES; Urine Pregnancy NEGATIVE (NEGATIVE)
[2023-01-25 12:14] LABS: Amphetamine Screen Urine Not Detected (Not Detect); Barbiturates, Urine Not Detected (Not Detect); Benzodiazepines Screen Urine Not Detected (Not Detect); Cannabinoid Screen Urine Not Detected (Not Detect); Cocaine Screen Urine Not Detected (Not Detect); Fentanyl, urine Not Detected (Not Detect); Opiate Screen Urine Not Detected (Not Detect); Phencyclidine Screen Urine Not Detected (Not Detect)
--- NOTE | 2023-01-25 15:03 | MHC.CARE ---
Patient evaluated by the CARE Team and determined to need inpatient psychiatric treatment, she is voluntary for admission. Written assessment to follow. ED provider QUE Juarez updated and in agreement with plan.
[2023-01-25 17:00] VITALS: BP 133/87; PULSE 94; RESP 18; TEMP 36.2; O2SAT 98; BMI 30.6
[2023-01-25] MEDS: Acetaminophen 325 MG TABLET 650 MG PO (17:38)
--- NOTE | 2023-01-25 18:08 | PC.ADMIT ---
Dora is a 47 year old female who was admitted from the [facility] on a CV after presenting to the ED for depression and suicidal ideation. She is calm and cooperative with admission process and exhibits a linear, organized, and forward focused thought process. Dora reports recent life stress which has led to difficulty maintaining her house and managing day to day activities. Dora stated, I've been feeling useless lately, i let my life get out of order Reports that this led to a relapse in her alcohol use after 1 year of sobriety, states approximately 4 days of drinking over the past week and a half that culminated in buying vodka, driving home, and sitting in the bathroom and drinking until she passed out states, I didn't want to be on this earth anymore . Dora reports feeling better now that she knows that she is getting help, denies current SI, denies HI/AVH, states she would be able to engage with staff if she felt unsafe. Patient on close observation for equipment 2nd to chronic continuous oxygen dependence, skin check performed by Sun RN and [facility], patient oriented to unit.
[2023-01-25 20:20] VITALS: BP 112/60; PULSE 92; RESP 18; TEMP 36.3; O2SAT 99
[2023-01-25] MEDS: traZODone HCL 50 MG TABLET PO (21:37)
[2023-01-25] MEDS: LORazepam 0.5 MG TABLET PO (21:37)
[2023-01-26] MEDS: Omeprazole 20 MG CAPSULE.DR PO (07:16)
[2023-01-26 08:00] VITALS: BP 92/50; PULSE 87; RESP 20; TEMP 36.1; O2SAT 97
[2023-01-26] MEDS: Escitalopram Oxalate 10 MG TABLET PO (08:34)
[2023-01-26] MEDS: Acetaminophen 325 MG TABLET 650 MG PO ×3 (08:38→22:11)
[2023-01-26 09:00] LABS: Estimated Average Glucose 97 mg/dL
[2023-01-26 09:14] LABS: Alanine Aminotransferase 15 U/L (0-31); Albumin Level 3.8 g/dL (3.5-5.0); Alkaline Phosphatase 64 U/L (39-117); Anion Gap 14 (12-20); Aspartate Amino Transferase 18 U/L (5-31); Bilirubin Total 0.5 mg/dL (0.0-1.0); Blood Urea Nitrogen 13 mg/dL (9-16); Calcium 9.4 mg/dL (8.4-10.2); Carbon Dioxide 25 mmol/L (22-29); Chloride 104 mmol/L (96-108); Cholesterol 206 mg/dL (<200); Creatinine Clr Calc Pharmacy 120.5; Estimated Glomerular Filt Rate > 60; Glucose Fasting 90 mg/dL (60-99); HDL Cholesterol 79 mg/dL (>40); LDL Cholesterol Calculated 107 mg/dL (<100); Potassium 3.9 mmol/L (3.3-5.1); Sodium 139 mmol/L (135-145); Total Protein 6.5 g/dL (6.5-8.0); Triglycerides 101 mg/dL (<150)
[2023-01-26 09:24] LABS: Free T4 (Free Thyroxine) 0.87 ng/dL (0.71-1.85); Thyroid Stimulating Hormone 0.28 uIU/mL (0.32-4.0)
[2023-01-26 09:41] LABS: Folate 12.4 ng/mL (> or = 4.0); Vitamin B12 663 pg/mL (200-900)
--- NOTE | 2023-01-26 17:24 | HO.PSYADMNOT ---
HPI Date of Service: 01/26/23 Chief Complaint: SI Sources of Information: patient interviewed, chart reviewed and crisis/core team assessment reviewed HPI Subjective Notes: Conditional Voluntary Narrative: Patient is a 47 year old female with hx of MDD, ADHD and ETOH abuse who self presented to [facility] secondary to increased depression and suicidal ideation d/t relapsing on alcohol after a year in recovery. During admission assessment, pt presents alert and oriented, calm, cooperative. She reports increased feelings of depression d/t feeling disappointed in myself for relapsing . Patient stated, I relapsed on January 08 after finding a bottle of Vodka. My had found me passed out. After I relapsed I was worried everyone was disappointed in me. I went to the liquor store and bought 2 bottles of Vodka, drank a bottle of it then came to the hospital. I drank and didn't want to be alive because I'm disappointed . Patient denies any other substance use. denies any withdrawal symptoms. pt on chronic nasal cannula oxygenation. denies HI/VH/AH. Reports she would like to be connected with an outpatient therapist and attend a PHP. Past Psychiatric History: hx of detox in 2021. Does not have outpatient therapist. Prescriber: Aracely Pan Medical Evaluation Reviewed: Yes [facility] Family History: brother has bipolar d/o. Social History: Lives with . no children. unemployed. Substance History: ETOH abuse Trauma History: physical and verbal. Diagnostics Vital Signs (24Hr): Vital Signs - 24 hr 01/25/23 20:20 01/26/23 08:00 Temperature 97.4 F 97 F Pulse Rate 92 87 Respiratory Rate 18 20 Blood Pressure 112/60 92/50 L Pulse Oximetry 99 97 Oxygen Delivery Method Room Air BMI result Body Mass Index 30.6 Labs 01/25/23 10:21 01/26/23 08:21 Labs: Laboratory Results - last 48 hr 01/25/23 01/25/23 01/26/23 10:21 11:49 08:21 WBC 9.5 RBC 4.33 Hgb 12.4 Hct 38.3 MCV 88.5 MCH 28.6 MCHC 32.4 RDW 14.6 Plt Count 243 MPV 9.5 Immature Gran % (Auto) 0.4 Neut % (Auto) 72.5 Lymph % (Auto) 19.3 L [place] % (Auto) 6.4 Eos % (Auto) 1.0 Baso % (Auto) 0.4 Lymph # (Auto) 1.8 [place] # (Auto) 0.6 Eos # (Auto) 0.1 Baso # (Auto) 0.0 Abs Immat Gran (auto) 0.04 H Absolute Neuts (auto) 6.9 Absolute Nucleated RBC 0.000 Nucleated RBC % (auto) 0.0 Sodium 137 139 Potassium 4.2 3.9 Chloride 103 104 Carbon Dioxide 25 25 Anion Gap 13 14 BUN 16 13 Creatinine 0.64 0.58 Estim Creat Clear Calc 109.2 120.5 Estimated GFR > 60 > 60 Random Glucose 91 Fasting Glucose 90 Estimat Average Glucose 97 Hemoglobin A1c % 5.0 Calcium 9.5 9.4 Total Bilirubin 0.5 0.5 AST 18 18 ALT 15 15 Alkaline Phosphatase 66 64 Total Protein 7.0 6.5 Albumin 4.1 3.8 Triglycerides 101 Cholesterol 206 H LDL Cholesterol, Calc 107 H HDL Cholesterol 79 Vitamin B12 663 Folate 12.4 TSH 0.28 L Free T4 0.87 Urine Color Yellow Urine Appearance Clear Urine pH 5.5 Ur Specific [place] 1.025 Urine Protein Negative Urine Glucose (UA) Negative Urine Ketones Trace Urine Blood Negative Urine Nitrite Negative Ur Leukocyte Esterase Negative Urine Test NEGATIVE Salicylates < 5.0 L Urine Opiates Screen Not Detected Urine Fentanyl Screen Not Detected Acetaminophen < 17 Ur Barbiturates Screen Not Detected Ur Phencyclidine Scrn Not Detected Ur Amphetamines Screen Not Detected U Benzodiazepines Scrn Not Detected Urine Cocaine Screen Not Detected U Marijuana (THC) Screen Not Detected Ethyl Alcohol < 10 COVID-19 ([facility]) Negative COVID-19 Clin Com See Note Meds/Allergies Meds Home Medications Medication Instructions Recorded Confirmed Type escitalopram oxalate 10 mg tablet 10 mg PO DAILY 01/25/23 01/25/23 History lorazepam 0.5 mg tablet 0.5 mg PO DAILY PRN Anxiety 01/25/23 01/25/23 History methylphenidate HCl 27 mg 27 mg PO QAM 01/25/23 01/25/23 History tablet,extended release 24 hr (Concerta) methylphenidate HCl 27 mg 27 mg PO QAM 01/25/23 01/25/23 History tablet,extended release 24 hr (Concerta) omeprazole 20 mg capsule,delayed 10 mg PO DAILY 01/25/23 01/25/23 History release Allergies Allergies Allergy/AdvReac Type Severity Reaction Status Date / Time amoxicillin [AMOXICILLIN] Allergy Unknown RASH Verified 09/09/21 18:00 fluoxetine [From PROZAC] Allergy Unknown RASH Verified 09/09/21 18:00 heparin [HEPARIN] Allergy Unknown JAUN Verified 09/09/21 18:00 SYNDROME heparin (porcine) Allergy Unknown swelling, Verified 09/09/21 18:00 red hydrocodone [HYDROCODONE] Allergy Unknown PROJECTILE Verified 09/09/21 18:00 VOMITING omeprazole [OMEPRAZOLE] Allergy Unknown RASH, head Verified 09/09/21 18:00 to toe rash penicillin G [PENICILLIN G] Allergy Unknown RASH Verified 09/09/21 18:00 penicillin V Allergy Unknown rash Verified 09/09/21 18:00 piperacillin [From ZOSYN] Allergy Unknown RASH Verified 09/09/21 18:00 strawberry [STRAWBERRY] Allergy Unknown SOB,RASH, Verified 09/09/21 18:00 ANAPHYLAXISIS tazobactam [From ZOSYN] Allergy Unknown RASH Verified 09/09/21 18:00 walnut Allergy Unknown Difficulty Verified 09/09/21 18:00 Breathing Caramelized Food coloring Allergy Unknown Itching Uncoded 09/09/21 18:00 CARMALIZED FOOD COLORING Allergy Unknown RASH Uncoded 09/09/21 18:00 Hydrocodone Bitartrate Allergy Unknown severe Uncoded 09/09/21 18:00 vomiting Mangos Allergy Unknown Difficulty Uncoded 09/09/21 18:00 Breathing Piperacillin Sod-Tazobactam Allergy Unknown swelling Uncoded 09/09/21 18:00 So Strawberries Allergy Unknown Blister Uncoded 09/09/21 18:00 Mental Status Exam Mental Status Exam Narrative: Pt is alert and oriented; behavior is cooperative, friendly and calm; dressed in casual attire; mood is described as depressed ; eye contact appropriate; Speech is normal rate, volume and prosody and not pressured; no psychomotor agitation/retardation present; thought process is organized and goal directed; Thought content is on tx; otherwise pertinent to relevant topics and without any delusional content, paranoid ideations or grandiosity; denies HI. There is no evidence of perceptual disturbance. Patients insight and judgment are poor. Assessment & Plan Assessment & Plan (1) MDD (major depressive disorder): Status: Acute Code(s): F32.9 - Major depressive disorder, single episode, unspecified (2) ADHD (attention deficit hyperactivity disorder): Status: Acute Code(s): F90.9 - Attention-deficit hyperactivity disorder, unspecified type (3) Alcohol abuse: Status: Acute Code(s): F10.10 - Alcohol abuse, uncomplicated Plan Patient is a 47 year old female with hx of MDD, ADHD and ETOH abuse who self presented to [facility] secondary to increased depression and suicidal ideation d/t relapsing on alcohol after a year in recovery. Plan: CV continue home medications increase lexapro to 15mg PO daily referral to outpatient therapy referral to PHP. Patient educated on: diagnosis, medication risk/benefits, substance abuse, therapeutic strategies and medical condition Informed Consent: understands Reason for continued inpatient stay Substantial Risk for: harm to self and med/psych decompensation Statement Statement: I have reviewed the history and physical and performed a pertinent examination on my patient. No changes have occurred unless specified. If the History and Physical was not performed prior to admission, the Hospitalist's service will be consulted for completing the admission physical. Time Spent With Patient Time: Total time managing care of this patient today _60___ minutes.
[2023-01-26 19:20] VITALS: BP 111/51; PULSE 95; RESP 17; TEMP 36.2; O2SAT 96
[2023-01-26] MEDS: Milk of Magnesia 30 ML ORAL.SUSP PO (22:11)
[2023-01-26] MEDS: LORazepam 0.5 MG TABLET PO (22:11)
[2023-01-26] MEDS: traZODone HCL 50 MG TABLET PO (22:12)
[2023-01-27] MEDS: Omeprazole 20 MG CAPSULE.DR PO (06:39)
[2023-01-27] MEDS: Escitalopram Oxalate 5 MG TABLET 15 MG PO (08:36)
[2023-01-27 08:39] VITALS: BP 103/69; PULSE 77; RESP 20; O2SAT 98
[2023-01-27] MEDS: Acetaminophen 325 MG TABLET 650 MG PO ×2 (08:47→22:52)
[2023-01-27] MEDS: Milk of Magnesia 30 ML ORAL.SUSP PO (09:49)
--- NOTE | 2023-01-27 19:48 | HO.PSYCHPN ---
Subjective Subjective Date of Service: 01/27/23 Reason For Visit: SI Subjective Notes: Conditional Voluntary Interim History: pt severely depressed ruminating hopeless helpless despondent intense shame Mental Status Exam Mental Status Exam Narrative: preoccupied with guilt at relapse and multiple medical problems feeling overwhelmed stressed Patient Appearance: Well Grooomed Patient Orientation: Person, Place, Time and Situation Level of Consciousness: Awake and Appropriate Mood Description: Constricted, Depressed, Blunted and Apprehensive Affect Description: Appropriate, Constricted, Anxious and Sad Patient Cognition Impaired: No Ability to Follow Directions: Good Speech Pattern: Clear Memory Description: Intact Hallucinations: None Delusions: Not Present Thought Process: Intact and Goal Oriented Thought Content: positive for Goal Oriented, positive for Preoccupation, positive for Suicidal Ideation (Thoughts at times he might be better off overwhelmed stressed denies plan or intent in the setting) and negative for Homicidal Ideation Depressive Symptoms: Increased Anxiety, Increased Irritability, Hopelessness, Increased Fatigue, Loss of Energy and Difficulty Concentrating Judgement: Fair Judgement and Insight: In relation to intense shame difficulty asking for help Diagnostics Vital Signs (24Hr): Vital Signs - 24 hr 01/27/23 08:39 Pulse Rate 77 Respiratory Rate 20 Blood Pressure 103/69 Pulse Oximetry 98 Oxygen Delivery Method Room Air BMI result Body Mass Index 30.6 Labs 01/25/23 10:21 01/26/23 08:21 Labs: Laboratory Results - last 48 hr 01/26/23 08:21 Sodium 139 Potassium 3.9 Chloride 104 Carbon Dioxide 25 Anion Gap 14 BUN 13 Creatinine 0.58 Estim Creat Clear Calc 120.5 Estimated GFR > 60 Fasting Glucose 90 Estimat Average Glucose 97 Hemoglobin A1c % 5.0 Calcium 9.4 Total Bilirubin 0.5 AST 18 ALT 15 Alkaline Phosphatase 64 Total Protein 6.5 Albumin 3.8 Triglycerides 101 Cholesterol 206 H LDL Cholesterol, Calc 107 H HDL Cholesterol 79 Vitamin B12 663 Folate 12.4 TSH 0.28 L Free T4 0.87 Medications Medications Current Medications Acetaminophen (Acetaminophen 325 Mg Tablet) 650 mg PO Q6H PRN PRN Reason: Headache/Pain Mild Scale (1-3) Last Admin: 01/27/23 08:47 Dose: 650 mg Al Hydroxide/Mg Hydroxide (Magnesium Hydrox/Alum Hydrox 30 Ml Oral.Susp) 30 ml PO Q6H PRN PRN Reason: Heartburn/Nausea Escitalopram Oxalate (Escitalopram Oxalate 5 Mg Tablet) 15 mg PO DAILY [facility] Last Admin: 01/27/23 08:36 Dose: 15 mg Hydroxyzine HCl (Hydroxyzine Hcl 25 Mg Tablet) 25 mg PO Q6H PRN PRN Reason: Anxiety Lorazepam (Lorazepam 0.5 Mg Tablet) 0.5 mg PO DAILY PRN PRN Reason: Anxiety Last Admin: 01/26/23 22:11 Dose: 0.5 mg Magnesium Hydroxide (Milk Of Magnesia 30 Ml Oral.Susp) 30 ml PO DAILY PRN PRN Reason: Constipation Last Admin: 01/27/23 09:49 Dose: 30 ml Nicotine Polacrilex (Nicotine Polacrilex 2 Mg Gum) 4 mg BUCCAL Q2H PRN PRN Reason: Nicotine Cravings Non-Formulary Medication (Methylphenidate Hcl [Concerta]) 27 mg PO QAM [facility] Omeprazole (Omeprazole 20 Mg Capsule.Dr) 20 mg PO DAILY@0630 [facility] Last Admin: 01/27/23 06:39 Dose: 20 mg Trazodone HCl (Trazodone Hcl 50 Mg Tablet) 50 mg PO BEDTIME MRX1 PRN PRN Reason: Insomnia Last Admin: 01/26/23 22:12 Dose: 50 mg Allergies Allergies Allergy/AdvReac Type Severity Reaction Status Date / Time amoxicillin [AMOXICILLIN] Allergy Unknown RASH Verified 09/09/21 18:00 fluoxetine [From PROZAC] Allergy Unknown RASH Verified 09/09/21 18:00 heparin [HEPARIN] Allergy Unknown JAUN Verified 09/09/21 18:00 SYNDROME heparin (porcine) Allergy Unknown swelling, Verified 09/09/21 18:00 red hydrocodone [HYDROCODONE] Allergy Unknown PROJECTILE Verified 09/09/21 18:00 VOMITING omeprazole [OMEPRAZOLE] Allergy Unknown RASH, head Verified 09/09/21 18:00 to toe rash penicillin G [PENICILLIN G] Allergy Unknown RASH Verified 09/09/21 18:00 penicillin V Allergy Unknown rash Verified 09/09/21 18:00 piperacillin [From ZOSYN] Allergy Unknown RASH Verified 09/09/21 18:00 strawberry [STRAWBERRY] Allergy Unknown SOB,RASH, Verified 09/09/21 18:00 ANAPHYLAXISIS tazobactam [From ZOSYN] Allergy Unknown RASH Verified 09/09/21 18:00 walnut Allergy Unknown Difficulty Verified 09/09/21 18:00 Breathing Caramelized Food coloring Allergy Unknown Itching Uncoded 09/09/21 18:00 CARMALIZED FOOD COLORING Allergy Unknown RASH Uncoded 09/09/21 18:00 Hydrocodone Bitartrate Allergy Unknown severe Uncoded 09/09/21 18:00 vomiting Mangos Allergy Unknown Difficulty Uncoded 09/09/21 18:00 Breathing Piperacillin Sod-Tazobactam Allergy Unknown swelling Uncoded 09/09/21 18:00 So Strawberries Allergy Unknown Blister Uncoded 09/09/21 18:00 Assessment & Plan Assessment & Plan (1) MDD (major depressive disorder): Status: Acute Code(s): F32.9 - Major depressive disorder, single episode, unspecified (2) ADHD (attention deficit hyperactivity disorder): Status: Acute Code(s): F90.9 - Attention-deficit hyperactivity disorder, unspecified type (3) Alcohol abuse: Status: Acute Code(s): F10.10 - Alcohol abuse, uncomplicated Plan Patient is a 47 year old female with hx of MDD, ADHD and ETOH abuse who self presented to [facility] [place] [place] [facility] secondary to increased depression and suicidal ideation d/t relapsing on alcohol after a year in recovery. Plan: CV continue home medications increase lexapro to 15mg PO daily referral to outpatient therapy referral to [facility]. 01/27/2023 Patient quite depressed helpless hopeless overwhelmed with stress and recent relapse was feeling intensive suicidal thoughts in the context of overwhelming stress and despair. Patient with multiple medical concerns would most likely benefit from weekly psychotherapy partial hospital program referral consider Abilify for augmentation dealing with issues related to respiratory failure needing hip replacement psoriatic arthritis in managing medical system would benefit from case management if at all possible consider TMS Patient educated on: diagnosis, medication risk/benefits, therapeutic strategies and medical condition Reason for continued inpatient stay Substantial Risk for: harm to self and rapid decompensation Time Spent With Patient Time: Total time managing care of this patient today _36___ minutes.
[2023-01-27 22:36] VITALS: BP 125/73; PULSE 79; TEMP 36.5; O2SAT 98
[2023-01-27] MEDS: LORazepam 0.5 MG TABLET PO (22:52)
[2023-01-27] MEDS: traZODone HCL 50 MG TABLET PO (22:53)
[2023-01-28 06:00] VITALS: BP 100/59; PULSE 70; RESP 16; TEMP 36.3; O2SAT 100
[2023-01-28] MEDS: Omeprazole 20 MG CAPSULE.DR PO (06:40)
[2023-01-28] MEDS: Escitalopram Oxalate 5 MG TABLET 15 MG PO (08:22)
[2023-01-28] MEDS: Acetaminophen 325 MG TABLET 650 MG PO ×3 (08:31→23:30)
--- NOTE | 2023-01-28 10:45 | HO.PSYCHPN ---
Subjective Subjective Date of Service: 01/28/23 Reason For Visit: SI Subjective Notes: Conditional Voluntary Interim History: Patient present in the milieu active on continuous oxygen but does not appear in respiratory distress. Depressed anxious ruminating can get overwhelmed at times issues related to responsibilities shame regarding relapse and patient had recently drank with intention to overdose but passed out before she could. At present she states she is future oriented and is asking for help has neglected her health was being worked up for psoriatic arthritis treatment neglected hip treatment that have caused physical problems Medication Compliance: Yes Mental Status Exam Mental Status Exam Narrative: preoccupied with guilt at relapse and multiple medical problems feeling overwhelmed stressed ongoing Good eye contact cooperative with interview somewhat tearful at times denies active SI Patient Appearance: Well Grooomed Patient Orientation: Person, Place, Time and Situation Level of Consciousness: Awake and Appropriate Patient Behavior: Appropriate Mood Description: Constricted, Depressed, Blunted and Apprehensive Affect Description: Appropriate, Constricted, Anxious and Sad Patient Cognition Impaired: No Ability to Follow Directions: Good Speech Pattern: Clear Memory Description: Intact Hallucinations: None Delusions: Not Present Thought Process: Intact and Goal Oriented Thought Content: positive for Goal Oriented, positive for Preoccupation, positive for Suicidal Ideation (Thoughts at times he might be better off overwhelmed stressed denies plan or intent in the setting) and negative for Homicidal Ideation Depressive Symptoms: Increased Anxiety, Increased Irritability, Hopelessness, Increased Fatigue, Loss of Energy and Difficulty Concentrating Judgement: Fair Judgement and Insight: In relation to intense shame difficulty asking for help Diagnostics Vital Signs (24Hr): Vital Signs - 24 hr 01/27/23 22:36 01/28/23 06:00 Temperature 97.7 F 97.3 F Pulse Rate 79 70 Respiratory Rate 16 Blood Pressure 125/73 100/59 L Pulse Oximetry 98 100 Oxygen Delivery Method Room Air Nasal Cannula Oxygen Flow Rate 2 BMI result Body Mass Index 30.6 Labs 01/25/23 10:21 01/26/23 08:21 Medications Medications Current Medications Acetaminophen (Acetaminophen 325 Mg Tablet) 650 mg PO Q6H PRN PRN Reason: Headache/Pain Mild Scale (1-3) Last Admin: 01/28/23 08:31 Dose: 650 mg Al Hydroxide/Mg Hydroxide (Magnesium Hydrox/Alum Hydrox 30 Ml Oral.Susp) 30 ml PO Q6H PRN PRN Reason: Heartburn/Nausea Escitalopram Oxalate (Escitalopram Oxalate 5 Mg Tablet) 15 mg PO DAILY [facility] Last Admin: 01/28/23 08:22 Dose: 15 mg Hydroxyzine HCl (Hydroxyzine Hcl 25 Mg Tablet) 25 mg PO Q6H PRN PRN Reason: Anxiety Lorazepam (Lorazepam 0.5 Mg Tablet) 0.5 mg PO DAILY PRN PRN Reason: Anxiety Last Admin: 01/27/23 22:52 Dose: 0.5 mg Magnesium Hydroxide (Milk Of Magnesia 30 Ml Oral.Susp) 30 ml PO DAILY PRN PRN Reason: Constipation Last Admin: 01/27/23 09:49 Dose: 30 ml Nicotine Polacrilex (Nicotine Polacrilex 2 Mg Gum) 4 mg BUCCAL Q2H PRN PRN Reason: Nicotine Cravings Pt Own ( Methylphenidate Hcl [Concerta] 27 Mg Tablet Extended Release 24h 27 mg PO DAILY [facility] Last Admin: 01/28/23 08:25 Dose: 27 mg Omeprazole (Omeprazole 20 Mg Capsule.Dr) 20 mg PO DAILY@0630 [facility] Last Admin: 01/28/23 06:40 Dose: 20 mg Trazodone HCl (Trazodone Hcl 50 Mg Tablet) 50 mg PO BEDTIME MRX1 PRN PRN Reason: Insomnia Last Admin: 01/27/23 22:53 Dose: 50 mg Allergies Allergies Allergy/AdvReac Type Severity Reaction Status Date / Time amoxicillin [AMOXICILLIN] Allergy Unknown RASH Verified 09/09/21 18:00 fluoxetine [From PROZAC] Allergy Unknown RASH Verified 09/09/21 18:00 heparin [HEPARIN] Allergy Unknown JAUN Verified 09/09/21 18:00 SYNDROME heparin (porcine) Allergy Unknown swelling, Verified 09/09/21 18:00 red hydrocodone [HYDROCODONE] Allergy Unknown PROJECTILE Verified 09/09/21 18:00 VOMITING omeprazole [OMEPRAZOLE] Allergy Unknown RASH, head Verified 09/09/21 18:00 to toe rash penicillin G [PENICILLIN G] Allergy Unknown RASH Verified 09/09/21 18:00 penicillin V Allergy Unknown rash Verified 09/09/21 18:00 piperacillin [From ZOSYN] Allergy Unknown RASH Verified 09/09/21 18:00 strawberry [STRAWBERRY] Allergy Unknown SOB,RASH, Verified 09/09/21 18:00 ANAPHYLAXISIS tazobactam [From ZOSYN] Allergy Unknown RASH Verified 09/09/21 18:00 walnut Allergy Unknown Difficulty Verified 09/09/21 18:00 Breathing Caramelized Food coloring Allergy Unknown Itching Uncoded 09/09/21 18:00 CARMALIZED FOOD COLORING Allergy Unknown RASH Uncoded 09/09/21 18:00 Hydrocodone Bitartrate Allergy Unknown severe Uncoded 09/09/21 18:00 vomiting Mangos Allergy Unknown Difficulty Uncoded 09/09/21 18:00 Breathing Piperacillin Sod-Tazobactam Allergy Unknown swelling Uncoded 09/09/21 18:00 So Strawberries Allergy Unknown Blister Uncoded 09/09/21 18:00 Assessment & Plan Assessment & Plan (1) MDD (major depressive disorder): Status: Acute Code(s): F32.9 - Major depressive disorder, single episode, unspecified (2) ADHD (attention deficit hyperactivity disorder): Status: Acute Code(s): F90.9 - Attention-deficit hyperactivity disorder, unspecified type (3) Alcohol abuse: Status: Acute Code(s): F10.10 - Alcohol abuse, uncomplicated Plan Patient is a 47 year old female with hx of MDD, ADHD and ETOH abuse who self presented to [facility] [place] [facility] secondary to increased depression and suicidal ideation d/t relapsing on alcohol after a year in recovery. Plan: CV continue home medications increase lexapro to 15mg PO daily referral to outpatient therapy referral to PHP. 01/27/2023 Patient quite depressed helpless hopeless overwhelmed with stress and recent relapse was feeling intensive suicidal thoughts in the context of overwhelming stress and despair. Patient with multiple medical concerns would most likely benefit from weekly psychotherapy partial hospital program referral consider Abilify for augmentation dealing with issues related to respiratory failure needing hip replacement psoriatic arthritis in managing medical system would benefit from case management if at all possible consider TMS 01/28/2023 Continue plan of care increase Lexapro consider low-dose Abilify check hip films and right knee Reason for continued inpatient stay Substantial Risk for: harm to self Time Spent With Patient Time: Total time managing care of this patient today ____ minutes.
--- NOTE | 2023-01-28 10:46 | HO.OPPROGNO ---
Subjective Subjective Reason For Visit: SI Diagnostics Vital Signs (24Hr): Vital Signs - 24 hr 01/27/23 22:36 01/28/23 06:00 Temperature 97.7 F 97.3 F Pulse Rate 79 70 Respiratory Rate 16 Blood Pressure 125/73 100/59 L Pulse Oximetry 98 100 Oxygen Delivery Method Room Air Nasal Cannula Oxygen Flow Rate 2 BMI result Body Mass Index 30.6 Labs 01/25/23 10:21 01/26/23 08:21 Discharge Plan Discharge Referrals: Félix Zelaya MD [Primary Care Provider] - 1 Week Discharge Medications: No Action omeprazole 20 mg capsule,delayed release(DR/EC) 10 mg PO DAILY methylphenidate HCl [Concerta] 27 mg tablet extended release 24hr 27 mg PO QAM methylphenidate HCl [Concerta] 27 mg tablet extended release 24hr 27 mg PO QAM Patient Comments: last picked up on 01/08/23 escitalopram oxalate 10 mg tablet 10 mg PO DAILY lorazepam 0.5 mg tablet 0.5 mg PO DAILY PRN (Reason: Anxiety) Assessment & Plan Total time managing care of this patient today ____ minutes.
--- NOTE | 2023-01-28 10:51 | P.PNPSI_ITS ---
Subjective Subjective Reason For Visit: SI Diagnostics Vital Signs (24Hr): Vital Signs - 24 hr 01/27/23 22:36 01/28/23 06:00 Temperature 97.7 F 97.3 F Pulse Rate 79 70 Respiratory Rate 16 Blood Pressure 125/73 100/59 L Pulse Oximetry 98 100 Oxygen Delivery Method Room Air Nasal Cannula Oxygen Flow Rate 2 BMI result Body Mass Index 30.6 Labs 01/25/23 10:21 01/26/23 08:21 Medications Medications Current Medications Acetaminophen (Acetaminophen 325 Mg Tablet) 650 mg PO Q6H PRN PRN Reason: Headache/Pain Mild Scale (1-3) Last Admin: 01/28/23 08:31 Dose: 650 mg Al Hydroxide/Mg Hydroxide (Magnesium Hydrox/Alum Hydrox 30 Ml Oral.Susp) 30 ml PO Q6H PRN PRN Reason: Heartburn/Nausea Escitalopram Oxalate (Escitalopram Oxalate 5 Mg Tablet) 15 mg PO DAILY [facility] Last Admin: 01/28/23 08:22 Dose: 15 mg Hydroxyzine HCl (Hydroxyzine Hcl 25 Mg Tablet) 25 mg PO Q6H PRN PRN Reason: Anxiety Lorazepam (Lorazepam 0.5 Mg Tablet) 0.5 mg PO DAILY PRN PRN Reason: Anxiety Last Admin: 01/27/23 22:52 Dose: 0.5 mg Magnesium Hydroxide (Milk Of Magnesia 30 Ml Oral.Susp) 30 ml PO DAILY PRN PRN Reason: Constipation Last Admin: 01/27/23 09:49 Dose: 30 ml Nicotine Polacrilex (Nicotine Polacrilex 2 Mg Gum) 4 mg BUCCAL Q2H PRN PRN Reason: Nicotine Cravings Pt Own ( Methylphenidate Hcl [Concerta] 27 Mg Tablet Extended Release 24h 27 mg PO DAILY [facility] Last Admin: 01/28/23 08:25 Dose: 27 mg Omeprazole (Omeprazole 20 Mg Capsule.Dr) 20 mg PO DAILY@0630 [facility] Last Admin: 01/28/23 06:40 Dose: 20 mg Trazodone HCl (Trazodone Hcl 50 Mg Tablet) 50 mg PO BEDTIME MRX1 PRN PRN Reason: Insomnia Last Admin: 01/27/23 22:53 Dose: 50 mg Allergies Allergies Allergy/AdvReac Type Severity Reaction Status Date / Time amoxicillin [AMOXICILLIN] Allergy Unknown RASH Verified 09/09/21 18:00 fluoxetine [From PROZAC] Allergy Unknown RASH Verified 09/09/21 18:00 heparin [HEPARIN] Allergy Unknown JAUN Verified 09/09/21 18:00 SYNDROME heparin (porcine) Allergy Unknown swelling, Verified 09/09/21 18:00 red hydrocodone [HYDROCODONE] Allergy Unknown PROJECTILE Verified 09/09/21 18:00 VOMITING omeprazole [OMEPRAZOLE] Allergy Unknown RASH, head Verified 09/09/21 18:00 to toe rash penicillin G [PENICILLIN G] Allergy Unknown RASH Verified 09/09/21 18:00 penicillin V Allergy Unknown rash Verified 09/09/21 18:00 piperacillin [From ZOSYN] Allergy Unknown RASH Verified 09/09/21 18:00 strawberry [STRAWBERRY] Allergy Unknown SOB,RASH, Verified 09/09/21 18:00 ANAPHYLAXISIS tazobactam [From ZOSYN] Allergy Unknown RASH Verified 09/09/21 18:00 walnut Allergy Unknown Difficulty Verified 09/09/21 18:00 Breathing Caramelized Food coloring Allergy Unknown Itching Uncoded 09/09/21 18:00 CARMALIZED FOOD COLORING Allergy Unknown RASH Uncoded 09/09/21 18:00 Hydrocodone Bitartrate Allergy Unknown severe Uncoded 09/09/21 18:00 vomiting Mangos Allergy Unknown Difficulty Uncoded 09/09/21 18:00 Breathing Piperacillin Sod-Tazobactam Allergy Unknown swelling Uncoded 09/09/21 18:00 So Strawberries Allergy Unknown Blister Uncoded 09/09/21 18:00 Assessment & Plan Assessment & Plan (1) MDD (major depressive disorder): Status: Acute Code(s): F32.9 - Major depressive disorder, single episode, unspecified (2) ADHD (attention deficit hyperactivity disorder): Status: Acute Code(s): F90.9 - Attention-deficit hyperactivity disorder, unspecified type (3) Alcohol abuse: Status: Acute Code(s): F10.10 - Alcohol abuse, uncomplicated Plan Patient is a 47 year old female with hx of MDD, ADHD and ETOH abuse who self presented to [facility] secondary to increased depression and suicidal ideation d/t relapsing on alcohol after a year in recovery. Plan: CV continue home medications increase lexapro to 15mg PO daily referral to outpatient therapy referral to [facility]. 01/27/2023 Patient quite depressed helpless hopeless overwhelmed with stress and recent relapse was feeling intensive suicidal thoughts in the context of overwhelming stress and despair. Patient with multiple medical concerns would most likely benefit from weekly psychotherapy partial hospital program referral consider Abilify for augmentation dealing with issues related to respiratory failure needing hip replacement psoriatic arthritis in managing medical system would benefit from case management if at all possible consider TMS Time Spent With Patient Time: Total time managing care of this patient today ____ minutes.
[2023-01-28 20:00] VITALS: BP 118/77; PULSE 96; RESP 16; TEMP 36.7; O2SAT 98
[2023-01-28] MEDS: LORazepam 0.5 MG TABLET PO (23:29)
[2023-01-28] MEDS: traZODone HCL 50 MG TABLET PO (23:29)
[2023-01-29] MEDS: Omeprazole 20 MG CAPSULE.DR PO (06:48)
[2023-01-29 07:32] VITALS: BP 109/67; PULSE 72; RESP 16; TEMP 36.1; O2SAT 100
[2023-01-29] MEDS: Escitalopram Oxalate 5 MG TABLET 15 MG PO (08:30)
[2023-01-29] MEDS: Acetaminophen 325 MG TABLET 650 MG PO ×3 (09:19→23:35)
--- NOTE | 2023-01-29 14:34 | P.PNPSI_ITS ---
Subjective Subjective Date of Service: 01/29/23 Reason For Visit: SI Subjective Notes: Conditional Voluntary Interim History: Reviewed with . Patient reports she continues to feel depressed. Patient stated, I'm sad at myself then I don't think about it at all. It goes back and forth . She does report feeling better than when I first came here . Pt is hoping to attend [facility] once discharged; feels groups are helping. denies SI/HI/VH/AH. Medication Compliance: Yes Side effects from medications: No Attending Groups: Yes Review of Systems Constitutional: Reports as per HPI Eyes: Reports as per HPI Reports as per HPI Cardiovascular: Reports as per HPI Respiratory: Reports as per HPI Gastrointestinal: Reports as per HPI Genitourinary: Reports as per HPI Musculoskeletal: Reports as per HPI Skin/Breast: Reports as per HPI Reports as per HPI Psychiatric: Reports as per HPI Endocrine: Reports as per HPI Hematologic/Lymphatic: Reports as per HPI Allergic/Immunologic: Reports as per HPI Mental Status Exam Mental Status Exam Narrative: Pt is alert and oriented; behavior is cooperative, friendly and calm; dressed in casual attire; mood is described as sad ; eye contact appropriate; Speech is normal rate, volume and prosody and not pressured; no psychomotor agitation/retardation present; thought process is organized and goal directed; Thought content is on tx; otherwise pertinent to relevant topics and without any delusional content, paranoid ideations or grandiosity; denies SI/HI. There is no evidence of perceptual disturbance. Patients insight and judgment are poor but improving. Diagnostics Vital Signs (24Hr): Vital Signs - 24 hr 01/28/23 20:00 01/29/23 07:32 Temperature 98.0 F 97.0 F Pulse Rate 96 72 Respiratory Rate 16 16 Blood Pressure 118/77 109/67 Pulse Oximetry 98 100 Oxygen Delivery Method Nasal Cannula Nasal Cannula Oxygen Flow Rate 2 BMI result Body Mass Index 30.6 Labs 01/25/23 10:21 01/26/23 08:21 Medications Medications Current Medications Acetaminophen (Acetaminophen 325 Mg Tablet) 650 mg PO Q6H PRN PRN Reason: Headache/Pain Mild Scale (1-3) Last Admin: 01/29/23 09:19 Dose: 650 mg Al Hydroxide/Mg Hydroxide (Magnesium Hydrox/Alum Hydrox 30 Ml Oral.Susp) 30 ml PO Q6H PRN PRN Reason: Heartburn/Nausea Escitalopram Oxalate (Escitalopram Oxalate 5 Mg Tablet) 15 mg PO DAILY [facility] Last Admin: 01/29/23 08:30 Dose: 15 mg Hydroxyzine HCl (Hydroxyzine Hcl 25 Mg Tablet) 25 mg PO Q6H PRN PRN Reason: Anxiety Lorazepam (Lorazepam 0.5 Mg Tablet) 0.5 mg PO DAILY PRN PRN Reason: Anxiety Last Admin: 01/28/23 23:29 Dose: 0.5 mg Magnesium Hydroxide (Milk Of Magnesia 30 Ml Oral.Susp) 30 ml PO DAILY PRN PRN Reason: Constipation Last Admin: 01/27/23 09:49 Dose: 30 ml Nicotine Polacrilex (Nicotine Polacrilex 2 Mg Gum) 4 mg BUCCAL Q2H PRN PRN Reason: Nicotine Cravings Pt Own ( Methylphenidate Hcl [Concerta] 27 Mg Tablet Extended Release 24h 27 mg PO DAILY [facility] Last Admin: 01/29/23 08:30 Dose: 27 mg Omeprazole (Omeprazole 20 Mg Capsule.Dr) 20 mg PO DAILY@0630 [facility] Last Admin: 01/29/23 06:48 Dose: 20 mg Trazodone HCl (Trazodone Hcl 50 Mg Tablet) 50 mg PO BEDTIME MRX1 PRN PRN Reason: Insomnia Last Admin: 01/28/23 23:29 Dose: 50 mg Allergies Allergies Allergy/AdvReac Type Severity Reaction Status Date / Time amoxicillin [AMOXICILLIN] Allergy Unknown RASH Verified 09/09/21 18:00 fluoxetine [From PROZAC] Allergy Unknown RASH Verified 09/09/21 18:00 heparin [HEPARIN] Allergy Unknown JAUN Verified 09/09/21 18:00 SYNDROME heparin (porcine) Allergy Unknown swelling, Verified 09/09/21 18:00 red hydrocodone [HYDROCODONE] Allergy Unknown PROJECTILE Verified 09/09/21 18:00 VOMITING omeprazole [OMEPRAZOLE] Allergy Unknown RASH, head Verified 09/09/21 18:00 to toe rash penicillin G [PENICILLIN G] Allergy Unknown RASH Verified 09/09/21 18:00 penicillin V Allergy Unknown rash Verified 09/09/21 18:00 piperacillin [From ZOSYN] Allergy Unknown RASH Verified 09/09/21 18:00 strawberry [STRAWBERRY] Allergy Unknown SOB,RASH, Verified 09/09/21 18:00 ANAPHYLAXISIS tazobactam [From ZOSYN] Allergy Unknown RASH Verified 09/09/21 18:00 walnut Allergy Unknown Difficulty Verified 09/09/21 18:00 Breathing Caramelized Food coloring Allergy Unknown Itching Uncoded 09/09/21 18:00 CARMALIZED FOOD COLORING Allergy Unknown RASH Uncoded 09/09/21 18:00 Hydrocodone Bitartrate Allergy Unknown severe Uncoded 09/09/21 18:00 vomiting Mangos Allergy Unknown Difficulty Uncoded 09/09/21 18:00 Breathing Piperacillin Sod-Tazobactam Allergy Unknown swelling Uncoded 09/09/21 18:00 So Strawberries Allergy Unknown Blister Uncoded 09/09/21 18:00 Assessment & Plan Assessment & Plan (1) MDD (major depressive disorder): Status: Acute Code(s): F32.9 - Major depressive disorder, single episode, unspecified (2) ADHD (attention deficit hyperactivity disorder): Status: Acute Code(s): F90.9 - Attention-deficit hyperactivity disorder, unspecified type (3) Alcohol abuse: Status: Acute Code(s): F10.10 - Alcohol abuse, uncomplicated Plan Patient is a 47 year old female with hx of MDD, ADHD and ETOH abuse who self presented to [facility] secondary to increased depression and suicidal ideation d/t relapsing on alcohol after a year in recovery. Plan: CV continue home medications increase lexapro to 15mg PO daily referral to outpatient therapy referral to [facility]. 01/27: Patient quite depressed helpless hopeless overwhelmed with stress and recent relapse was feeling intensive suicidal thoughts in the context of overwhelming stress and despair. Patient with multiple medical concerns would most likely benefit from weekly psychotherapy partial hospital program referral consider Abilify for augmentation dealing with issues related to respiratory failure needing hip replacement psoriatic arthritis in managing medical system would benefit from case management if at all possible consider TMS. 01/29: Patient reports she continues to feel depressed. Patient stated, I'm sad at myself then I don't think about it at all. It goes back and forth . She does report feeling better than when I first came here . Pt is hoping to attend PHP once discharged; feels groups are helping. denies SI/HI/VH/AH. Patient educated on: diagnosis, medication risk/benefits, substance abuse and therapeutic strategies Informed Consent: understands Reason for continued inpatient stay Substantial Risk for: med/psych decompensation Time Spent With Patient Time: Total time managing care of this patient today _30___ minutes.
[2023-01-29 19:10] VITALS: BP 117/62; PULSE 85; RESP 15; TEMP 36.3; O2SAT 100
[2023-01-29] MEDS: hydrOXYzine HCL 25 MG TABLET PO (23:35)
[2023-01-29] MEDS: LORazepam 0.5 MG TABLET PO (23:35)
[2023-01-29] MEDS: traZODone HCL 50 MG TABLET PO (23:35)
[2023-01-30] MEDS: Omeprazole 20 MG CAPSULE.DR PO (06:52)
[2023-01-30] MEDS: Acetaminophen 325 MG TABLET 650 MG PO ×3 (09:14→22:40)
[2023-01-30] MEDS: Escitalopram Oxalate 5 MG TABLET 15 MG PO (09:15)
[2023-01-30 11:05] VITALS: BP 110/80; PULSE 92; RESP 18; TEMP 36.1; O2SAT 97
--- NOTE | 2023-01-30 11:46 | P.PNPSI_ITS ---
Subjective Subjective Date of Service: 01/30/23 Reason For Visit: SI Subjective Notes: Conditional Voluntary Interim History: Reviewed with . Patient reports she continues to feel depressed; reports anxiety low today. Pt reports she does not have a desire to drink alcohol at this time. Pt stated, I hope to go home soon because my will be home next week from work and I'd like to spend time with him . denies SI/HI. Medication Compliance: Yes Side effects from medications: No Attending Groups: Yes Review of Systems Constitutional: Reports as per HPI Eyes: Reports as per HPI Reports as per HPI Cardiovascular: Reports as per HPI Respiratory: Reports as per HPI Gastrointestinal: Reports as per HPI Genitourinary: Reports as per HPI Musculoskeletal: Reports as per HPI Skin/Breast: Reports as per HPI Reports as per HPI Psychiatric: Reports as per HPI Endocrine: Reports as per HPI Hematologic/Lymphatic: Reports as per HPI Allergic/Immunologic: Reports as per HPI Mental Status Exam Mental Status Exam Narrative: Pt is alert and oriented; behavior is cooperative, friendly and calm; dressed in casual attire; mood is described as okay ; eye contact appropriate; Speech is normal rate, volume and prosody and not pressured; no psychomotor agitation/retardation present; thought process is organized and goal directed; Thought content is on tx; otherwise pertinent to relevant topics and without any delusional content, paranoid ideations or grandiosity; denies SI/HI. There is no evidence of perceptual disturbance. Patients insight and judgment are poor but improving. Diagnostics Vital Signs (24Hr): Vital Signs - 24 hr 01/29/23 19:10 Temperature 97.3 F Pulse Rate 85 Respiratory Rate 15 Blood Pressure 117/62 Pulse Oximetry 100 Oxygen Delivery Method Room Air BMI result Body Mass Index 30.6 Labs 01/25/23 10:21 01/26/23 08:21 Medications Medications Current Medications Acetaminophen (Acetaminophen 325 Mg Tablet) 650 mg PO Q6H PRN PRN Reason: Headache/Pain Mild Scale (1-3) Last Admin: 01/30/23 09:14 Dose: 650 mg Al Hydroxide/Mg Hydroxide (Magnesium Hydrox/Alum Hydrox 30 Ml Oral.Susp) 30 ml PO Q6H PRN PRN Reason: Heartburn/Nausea Escitalopram Oxalate (Escitalopram Oxalate 5 Mg Tablet) 15 mg PO DAILY [facility] Last Admin: 01/30/23 09:15 Dose: 15 mg Hydroxyzine HCl (Hydroxyzine Hcl 25 Mg Tablet) 25 mg PO Q6H PRN PRN Reason: Anxiety Last Admin: 01/29/23 23:35 Dose: 25 mg Lorazepam (Lorazepam 0.5 Mg Tablet) 0.5 mg PO DAILY PRN PRN Reason: Anxiety Last Admin: 01/29/23 23:35 Dose: 0.5 mg Magnesium Hydroxide (Milk Of Magnesia 30 Ml Oral.Susp) 30 ml PO DAILY PRN PRN Reason: Constipation Last Admin: 01/27/23 09:49 Dose: 30 ml Nicotine Polacrilex (Nicotine Polacrilex 2 Mg Gum) 4 mg BUCCAL Q2H PRN PRN Reason: Nicotine Cravings Pt Own ( Methylphenidate Hcl [Concerta] 27 Mg Tablet Extended Release 24h 27 mg PO DAILY [facility] Last Admin: 01/30/23 09:16 Dose: 27 mg Omeprazole (Omeprazole 20 Mg Capsule.Dr) 20 mg PO DAILY@0630 [facility] Last Admin: 01/30/23 06:52 Dose: 20 mg Trazodone HCl (Trazodone Hcl 50 Mg Tablet) 50 mg PO BEDTIME MRX1 PRN PRN Reason: Insomnia Last Admin: 01/29/23 23:35 Dose: 50 mg Allergies Allergies Allergy/AdvReac Type Severity Reaction Status Date / Time amoxicillin [AMOXICILLIN] Allergy Unknown RASH Verified 09/09/21 18:00 fluoxetine [From PROZAC] Allergy Unknown RASH Verified 09/09/21 18:00 heparin [HEPARIN] Allergy Unknown JAUN Verified 09/09/21 18:00 SYNDROME heparin (porcine) Allergy Unknown swelling, Verified 09/09/21 18:00 red hydrocodone [HYDROCODONE] Allergy Unknown PROJECTILE Verified 09/09/21 18:00 VOMITING omeprazole [OMEPRAZOLE] Allergy Unknown RASH, head Verified 09/09/21 18:00 to toe rash penicillin G [PENICILLIN G] Allergy Unknown RASH Verified 09/09/21 18:00 penicillin V Allergy Unknown rash Verified 09/09/21 18:00 piperacillin [From ZOSYN] Allergy Unknown RASH Verified 09/09/21 18:00 strawberry [STRAWBERRY] Allergy Unknown SOB,RASH, Verified 09/09/21 18:00 ANAPHYLAXISIS tazobactam [From ZOSYN] Allergy Unknown RASH Verified 09/09/21 18:00 walnut Allergy Unknown Difficulty Verified 09/09/21 18:00 Breathing Caramelized Food coloring Allergy Unknown Itching Uncoded 09/09/21 18:00 CARMALIZED FOOD COLORING Allergy Unknown RASH Uncoded 09/09/21 18:00 Hydrocodone Bitartrate Allergy Unknown severe Uncoded 09/09/21 18:00 vomiting Mangos Allergy Unknown Difficulty Uncoded 09/09/21 18:00 Breathing Piperacillin Sod-Tazobactam Allergy Unknown swelling Uncoded 09/09/21 18:00 So Strawberries Allergy Unknown Blister Uncoded 09/09/21 18:00 Assessment & Plan Assessment & Plan (1) MDD (major depressive disorder): Status: Acute Code(s): F32.9 - Major depressive disorder, single episode, unspecified (2) ADHD (attention deficit hyperactivity disorder): Status: Acute Code(s): F90.9 - Attention-deficit hyperactivity disorder, unspecified type (3) Alcohol abuse: Status: Acute Code(s): F10.10 - Alcohol abuse, uncomplicated Plan Patient is a 47 year old female with hx of MDD, ADHD and ETOH abuse who self presented to [facility] secondary to increased depression and suicidal ideation d/t relapsing on alcohol after a year in recovery. Plan: CV continue home medications increase lexapro to 15mg PO daily referral to outpatient therapy referral to [facility]. 01/27: Patient quite depressed helpless hopeless overwhelmed with stress and recent relapse was feeling intensive suicidal thoughts in the context of overwhelming stress and despair. Patient with multiple medical concerns would most likely benefit from weekly psychotherapy partial hospital program referral consider Abilify for augmentation dealing with issues related to respiratory failure needing hip replacement psoriatic arthritis in managing medical system would benefit from case management if at all possible consider TMS. 01/29: Patient reports she continues to feel depressed. Patient stated, I'm sad at myself then I don't think about it at all. It goes back and forth . She does report feeling better than when I first came here . Pt is hoping to attend PHP once discharged; feels groups are helping. denies SI/HI/VH/AH. 01/30: Patient reports she continues to feel depressed; reports anxiety low today. Pt reports she does not have a desire to drink alcohol at this time. Pt stated, I hope to go home soon because my will be home next week from work and I'd like to spend time with him . denies SI/HI. Waiting on xray results. Patient educated on: diagnosis, medication risk/benefits, substance abuse and therapeutic strategies Informed Consent: understands Reason for continued inpatient stay Substantial Risk for: med/psych decompensation Time Spent With Patient Time: Total time managing care of this patient today _30___ minutes.
[2023-01-30 22:04] VITALS: BP 112/72; PULSE 88; TEMP 36.5; O2SAT 96
[2023-01-30] MEDS: traZODone HCL 50 MG TABLET PO (22:41)
[2023-01-30] MEDS: hydrOXYzine HCL 25 MG TABLET PO (22:41)
[2023-01-30] MEDS: LORazepam 0.5 MG TABLET PO (22:41)
--- NOTE | 2023-01-31 01:08 | PC.NURSE ---
xray of hips/knees still pending
[2023-01-31] MEDS: Omeprazole 20 MG CAPSULE.DR PO (06:50)
[2023-01-31] MEDS: Acetaminophen 325 MG TABLET 650 MG PO ×4 (06:50→22:42)
[2023-01-31 07:21] VITALS: BP 75/46; PULSE 64; RESP 16; TEMP 36.3; O2SAT 91
[2023-01-31 08:50] VITALS: BP 105/67; PULSE 75; RESP 18; TEMP 36.2; O2SAT 99
[2023-01-31] MEDS: Escitalopram Oxalate 5 MG TABLET 15 MG PO (08:52)
[2023-01-31] MEDS: ARIPiprazole 2 MG TABLET PO (08:52)
--- NOTE | 2023-01-31 12:21 | P.PNPSI_ITS ---
Subjective Subjective Date of Service: 01/31/23 Reason For Visit: SI Subjective Notes: Conditional Voluntary Interim History: Reviewed with . Patient reports she continues to feel depressed; pt stated, I felt sad when I woke up this morning and didn't want to get out of bed. I felt better after I came out of my room and started being social . T/W spoke with patients , Camron, who expressed concern about what he should do if patient is discharged and continues to present depressed. T/W stated that he should bring her to the nearest emergency room if he feels she is not safe at home. Medication Compliance: Yes Side effects from medications: No Attending Groups: Yes Review of Systems Constitutional: Reports as per HPI Eyes: Reports as per HPI Reports as per HPI Cardiovascular: Reports as per HPI Respiratory: Reports as per HPI Gastrointestinal: Reports as per HPI Genitourinary: Reports as per HPI Musculoskeletal: Reports as per HPI Skin/Breast: Reports as per HPI Reports as per HPI Psychiatric: Reports as per HPI Endocrine: Reports as per HPI Hematologic/Lymphatic: Reports as per HPI Allergic/Immunologic: Reports as per HPI Mental Status Exam Mental Status Exam Narrative: Pt is alert and oriented; behavior is cooperative and calm; dressed in casual attire; mood is described as sad ; eye contact appropriate; Speech is normal rate, volume and prosody and not pressured; no psychomotor agitation/retardation present; thought process is organized and goal directed; Thought content is on tx; otherwise pertinent to relevant topics and without any delusional content, paranoid ideations or grandiosity; denies SI/HI. There is no evidence of perceptual disturbance. Patients insight and judgment are poor but improving. Diagnostics Vital Signs (24Hr): Vital Signs - 24 hr 01/30/23 22:04 01/31/23 07:21 01/31/23 08:50 Temperature 97.7 F 97.4 F 97.2 F Pulse Rate 88 64 75 Respiratory Rate 16 18 Blood Pressure 112/72 75/46 L 105/67 Pulse Oximetry 96 91 L 99 Oxygen Delivery Method Nasal Cannula Nasal Cannula Nasal Cannula Oxygen Flow Rate 2 BMI result Body Mass Index 30.6 Labs 01/25/23 10:21 01/26/23 08:21 Imaging Radiology Impressions: ITS Impressions Knee X-Ray 01/29/23 22:35 IMPRESSION: Suprapatellar effusion. Increased size of ossific bodies, largest 2.6 cm, along the superior lateral aspect of the patellofemoral compartment with degenerative changes as detailed above. Medications Medications Current Medications Acetaminophen (Acetaminophen 325 Mg Tablet) 650 mg PO Q4H PRN PRN Reason: Headache/Pain Mild Scale (1-3) Last Admin: 01/31/23 11:36 Dose: 650 mg Al Hydroxide/Mg Hydroxide (Magnesium Hydrox/Alum Hydrox 30 Ml Oral.Susp) 30 ml PO Q6H PRN PRN Reason: Heartburn/Nausea Aripiprazole (Aripiprazole 2 Mg Tablet) 2 mg PO DAILY [facility] Last Admin: 01/31/23 08:52 Dose: 2 mg Escitalopram Oxalate (Escitalopram Oxalate 5 Mg Tablet) 15 mg PO DAILY [facility] Last Admin: 01/31/23 08:52 Dose: 15 mg Hydroxyzine HCl (Hydroxyzine Hcl 25 Mg Tablet) 25 mg PO Q6H PRN PRN Reason: Anxiety Last Admin: 01/30/23 22:41 Dose: 25 mg Lorazepam (Lorazepam 0.5 Mg Tablet) 0.5 mg PO DAILY PRN PRN Reason: Anxiety Last Admin: 01/30/23 22:41 Dose: 0.5 mg Magnesium Hydroxide (Milk Of Magnesia 30 Ml Oral.Susp) 30 ml PO DAILY PRN PRN Reason: Constipation Last Admin: 01/27/23 09:49 Dose: 30 ml Nicotine Polacrilex (Nicotine Polacrilex 2 Mg Gum) 4 mg BUCCAL Q2H PRN PRN Reason: Nicotine Cravings Pt Own ( Methylphenidate Hcl [Concerta] 27 Mg Tablet Extended Release 24h 27 mg PO DAILY [facility] Last Admin: 01/31/23 08:58 Dose: 27 mg Omeprazole (Omeprazole 20 Mg Capsule.Dr) 20 mg PO DAILY@0630 [facility] Last Admin: 01/31/23 06:50 Dose: 20 mg Trazodone HCl (Trazodone Hcl 50 Mg Tablet) 50 mg PO BEDTIME MRX1 PRN PRN Reason: Insomnia Last Admin: 01/30/23 22:41 Dose: 50 mg Allergies Allergies Allergy/AdvReac Type Severity Reaction Status Date / Time amoxicillin [AMOXICILLIN] Allergy Unknown RASH Verified 09/09/21 18:00 fluoxetine [From PROZAC] Allergy Unknown RASH Verified 09/09/21 18:00 heparin [HEPARIN] Allergy Unknown JAUN Verified 09/09/21 18:00 SYNDROME heparin (porcine) Allergy Unknown swelling, Verified 09/09/21 18:00 red hydrocodone [HYDROCODONE] Allergy Unknown PROJECTILE Verified 09/09/21 18:00 VOMITING ibuprofen [From Motrin] Allergy Unknown Shortness Verified 01/30/23 14:37 of Breath naproxen Allergy Unknown Stomach Verified 01/30/23 14:37 Upset omeprazole [OMEPRAZOLE] Allergy Unknown RASH, head Verified 09/09/21 18:00 to toe rash penicillin G [PENICILLIN G] Allergy Unknown RASH Verified 09/09/21 18:00 penicillin V Allergy Unknown rash Verified 09/09/21 18:00 piperacillin [From ZOSYN] Allergy Unknown RASH Verified 09/09/21 18:00 strawberry [STRAWBERRY] Allergy Unknown SOB,RASH, Verified 09/09/21 18:00 ANAPHYLAXISIS tazobactam [From ZOSYN] Allergy Unknown RASH Verified 09/09/21 18:00 walnut Allergy Unknown Difficulty Verified 09/09/21 18:00 Breathing Caramelized Food coloring Allergy Unknown Itching Uncoded 09/09/21 18:00 CARMALIZED FOOD COLORING Allergy Unknown RASH Uncoded 09/09/21 18:00 Hydrocodone Bitartrate Allergy Unknown severe Uncoded 09/09/21 18:00 vomiting Mangos Allergy Unknown Difficulty Uncoded 09/09/21 18:00 Breathing Piperacillin Sod-Tazobactam Allergy Unknown swelling Uncoded 09/09/21 18:00 So Strawberries Allergy Unknown Blister Uncoded 09/09/21 18:00 Assessment & Plan Assessment & Plan (1) MDD (major depressive disorder): Status: Acute Code(s): F32.9 - Major depressive disorder, single episode, unspecified (2) ADHD (attention deficit hyperactivity disorder): Status: Acute Code(s): F90.9 - Attention-deficit hyperactivity disorder, unspecified type (3) Alcohol abuse: Status: Acute Code(s): F10.10 - Alcohol abuse, uncomplicated Plan Patient is a 47 year old female with hx of MDD, ADHD and ETOH abuse who self presented to [facility] secondary to increased depression and suicidal ideation d/t relapsing on alcohol after a year in recovery. Plan: CV continue home medications increase lexapro to 15mg PO daily referral to outpatient therapy referral to PHP. 01/27: Patient quite depressed helpless hopeless overwhelmed with stress and recent relapse was feeling intensive suicidal thoughts in the context of overwhelming stress and despair. Patient with multiple medical concerns would most likely benefit from weekly psychotherapy partial hospital program referral consider Abilify for augmentation dealing with issues related to respiratory failure needing hip replacement psoriatic arthritis in managing medical system would benefit from case management if at all possible consider TMS. 01/29: Patient reports she continues to feel depressed. Patient stated, I'm sad at myself then I don't think about it at all. It goes back and forth . She does report feeling better than when I first came here . Pt is hoping to attend PHP once discharged; feels groups are helping. denies SI/HI/VH/AH. 01/30: Patient reports she continues to feel depressed; reports anxiety low today. Pt reports she does not have a desire to drink alcohol at this time. Pt stated, I hope to go home soon because my will be home next week from work and I'd like to spend time with him . denies SI/HI. Waiting on xray results. 01/31: Patient reports she continues to feel depressed; pt stated, I felt sad when I woke up this morning and didn't want to get out of bed. I felt better after I came out of my room and started being social . T/W spoke with patients , Camron, who expressed concern about what he should do if patient is discharged and continues to present depressed. T/W stated that he should bring her to the nearest emergency room if he feels she is not safe at home. Patient educated on: diagnosis, medication risk/benefits and therapeutic strategies Guardian/Caregiver educated on: diagnosis, medication risk/benefits and therapeutic strategies Informed Consent: understands Reason for continued inpatient stay Substantial Risk for: med/psych decompensation Time Spent With Patient Time: Total time managing care of this patient today _30___ minutes.
[2023-01-31 20:20] VITALS: BP 109/66; PULSE 77; RESP 16; TEMP 36.4; O2SAT 99
[2023-01-31] MEDS: traZODone HCL 50 MG TABLET PO (22:41)
[2023-01-31] MEDS: LORazepam 0.5 MG TABLET PO (22:41)
[2023-02-01] MEDS: Omeprazole 20 MG CAPSULE.DR PO (06:56)
[2023-02-01] MEDS: Acetaminophen 325 MG TABLET 650 MG PO ×4 (07:08→23:02)
[2023-02-01 07:10] VITALS: BP 100/60; PULSE 80; RESP 14; TEMP 36.2; O2SAT 99
[2023-02-01] MEDS: Escitalopram Oxalate 5 MG TABLET 15 MG PO (07:56)
[2023-02-01] MEDS: ARIPiprazole 2 MG TABLET PO (07:56)
--- NOTE | 2023-02-01 11:12 | P.PNPSI_ITS ---
Subjective Subjective Date of Service: 02/01/23 Reason For Visit: SI Subjective Notes: Conditional Voluntary Interim History: Patient seen psychiatric follow-up. Patient has lot of guilt and shame regarding recent relapse. She has never and a sponsor has done some of the steps. She is worried about how her family will react when she comes home. She of describes a history of intermittent significant depression words very hard to get out of bed motivate herself to function other periods where she is quite active and since she became more disabled has been very hard for her to distract herself appears she is to working many years week had a habit of overly pleasing others denies active SI mood anxious dysphoric Medication Compliance: Yes Mental Status Exam Mental Status Exam Narrative: Casually dressed using oxygen with nasal cannula Patient Orientation: Person, Place, Time and Situation Level of Consciousness: Awake and Appropriate Patient Behavior: Appropriate Mood Description: Depressed, Blunted, Nervous and Apprehensive Affect Description: Constricted and Apprehensive Patient Cognition Impaired: No Ability to Follow Directions: Good Speech Pattern: Clear Memory Description: Intact Hallucinations: None Delusions: Not Present Thought Process: Intact and Goal Oriented Thought Content: positive for Goal Oriented, positive for Preoccupation, negative for Suicidal Ideation or negative for Homicidal Ideation Depressive Symptoms: Increased Anxiety, Hopelessness, Feelings of Guilt, Thoughts of /Suicide and Difficulty Concentrating Judgement: Fair Judgement and Insight: Feelings of shame and guilt some degree of racing thoughts regarding how her family in will react to her Diagnostics Vital Signs (24Hr): Vital Signs - 24 hr 01/31/23 20:20 02/01/23 07:10 Temperature 97.6 F 97.2 F Pulse Rate 77 80 Respiratory Rate 16 14 Blood Pressure 109/66 100/60 Pulse Oximetry 99 99 Oxygen Delivery Method Room Air Nasal Cannula BMI result Body Mass Index 30.6 Labs 01/25/23 10:21 01/26/23 08:21 Imaging Radiology Impressions: ITS Impressions Hip X-Ray 01/29/23 21:58 IMPRESSION: Minimal degenerative changes in the bilateral hips. Additional imaging with CT scan or MRI should be considered for better visualization as these modalities are much more sensitive for detection of fracture or other underlying pathology. Knee X-Ray 01/29/23 22:35 IMPRESSION: Suprapatellar effusion. Increased size of ossific bodies, largest 2.6 cm, along the superior lateral aspect of the patellofemoral compartment with degenerative changes as detailed above. Medications Medications Current Medications Acetaminophen (Acetaminophen 325 Mg Tablet) 650 mg PO Q4H PRN PRN Reason: Headache/Pain Mild Scale (1-3) Last Admin: 02/01/23 07:08 Dose: 650 mg Al Hydroxide/Mg Hydroxide (Magnesium Hydrox/Alum Hydrox 30 Ml Oral.Susp) 30 ml PO Q6H PRN PRN Reason: Heartburn/Nausea Aripiprazole (Aripiprazole 2 Mg Tablet) 2 mg PO DAILY [facility] Last Admin: 02/01/23 07:56 Dose: 2 mg Escitalopram Oxalate (Escitalopram Oxalate 5 Mg Tablet) 15 mg PO DAILY [facility] Last Admin: 02/01/23 07:56 Dose: 15 mg Hydroxyzine HCl (Hydroxyzine Hcl 25 Mg Tablet) 25 mg PO Q6H PRN PRN Reason: Anxiety Last Admin: 01/30/23 22:41 Dose: 25 mg Lorazepam (Lorazepam 0.5 Mg Tablet) 0.5 mg PO DAILY PRN PRN Reason: Anxiety Last Admin: 01/31/23 22:41 Dose: 0.5 mg Magnesium Hydroxide (Milk Of Magnesia 30 Ml Oral.Susp) 30 ml PO DAILY PRN PRN Reason: Constipation Last Admin: 01/27/23 09:49 Dose: 30 ml Nicotine Polacrilex (Nicotine Polacrilex 2 Mg Gum) 4 mg BUCCAL Q2H PRN PRN Reason: Nicotine Cravings Pt Own ( Methylphenidate Hcl [Concerta] 27 Mg Tablet Extended Release 24h 27 mg PO DAILY [facility] Last Admin: 02/01/23 07:54 Dose: 27 mg Omeprazole (Omeprazole 20 Mg Capsule.Dr) 20 mg PO DAILY@0630 [facility] Last Admin: 02/01/23 06:56 Dose: 20 mg Trazodone HCl (Trazodone Hcl 50 Mg Tablet) 50 mg PO BEDTIME MRX1 PRN PRN Reason: Insomnia Last Admin: 01/31/23 22:41 Dose: 50 mg Allergies Allergies Allergy/AdvReac Type Severity Reaction Status Date / Time amoxicillin [AMOXICILLIN] Allergy Unknown RASH Verified 09/09/21 18:00 fluoxetine [From PROZAC] Allergy Unknown RASH Verified 09/09/21 18:00 heparin [HEPARIN] Allergy Unknown JAUN Verified 09/09/21 18:00 SYNDROME heparin (porcine) Allergy Unknown swelling, Verified 09/09/21 18:00 red hydrocodone [HYDROCODONE] Allergy Unknown PROJECTILE Verified 09/09/21 18:00 VOMITING ibuprofen [From Motrin] Allergy Unknown Shortness Verified 01/30/23 14:37 of Breath naproxen Allergy Unknown Stomach Verified 01/30/23 14:37 Upset omeprazole [OMEPRAZOLE] Allergy Unknown RASH, head Verified 09/09/21 18:00 to toe rash penicillin G [PENICILLIN G] Allergy Unknown RASH Verified 09/09/21 18:00 penicillin V Allergy Unknown rash Verified 09/09/21 18:00 piperacillin [From ZOSYN] Allergy Unknown RASH Verified 09/09/21 18:00 strawberry [STRAWBERRY] Allergy Unknown SOB,RASH, Verified 09/09/21 18:00 ANAPHYLAXISIS tazobactam [From ZOSYN] Allergy Unknown RASH Verified 09/09/21 18:00 walnut Allergy Unknown Difficulty Verified 09/09/21 18:00 Breathing Caramelized Food coloring Allergy Unknown Itching Uncoded 09/09/21 18:00 CARMALIZED FOOD COLORING Allergy Unknown RASH Uncoded 09/09/21 18:00 Hydrocodone Bitartrate Allergy Unknown severe Uncoded 09/09/21 18:00 vomiting Mangos Allergy Unknown Difficulty Uncoded 09/09/21 18:00 Breathing Piperacillin Sod-Tazobactam Allergy Unknown swelling Uncoded 09/09/21 18:00 So Strawberries Allergy Unknown Blister Uncoded 09/09/21 18:00 Assessment & Plan Assessment & Plan (1) MDD (major depressive disorder): Status: Acute Code(s): F32.9 - Major depressive disorder, single episode, unspecified (2) ADHD (attention deficit hyperactivity disorder): Status: Acute Code(s): F90.9 - Attention-deficit hyperactivity disorder, unspecified type (3) Alcohol abuse: Status: Acute Code(s): F10.10 - Alcohol abuse, uncomplicated Plan Patient is a 47 year old female with hx of MDD, ADHD and ETOH abuse who self presented to [facility] secondary to increased depression and suicidal ideation d/t relapsing on alcohol after a year in recovery. Plan: CV continue home medications increase lexapro to 15mg PO daily referral to outpatient therapy referral to PHP. 01/27: Patient quite depressed helpless hopeless overwhelmed with stress and recent relapse was feeling intensive suicidal thoughts in the context of overwhelming stress and despair. Patient with multiple medical concerns would most likely benefit from weekly psychotherapy partial hospital program referral consider Abilify for augmentation dealing with issues related to respiratory failure needing hip replacement psoriatic arthritis in managing medical system would benefit from case management if at all possible consider TMS. 01/29: Patient reports she continues to feel depressed. Patient stated, I'm sad at myself then I don't think about it at all. It goes back and forth . She does report feeling better than when I first came here . Pt is hoping to attend [facility] once discharged; feels groups are helping. denies SI/HI/VH/AH. 01/30: Patient reports she continues to feel depressed; reports anxiety low today. Pt reports she does not have a desire to drink alcohol at this time. Pt stated, I hope to go home soon because my will be home next week from work and I'd like to spend time with him . denies SI/HI. Waiting on xray results. 01/31: Patient reports she continues to feel depressed; pt stated, I felt sad when I woke up this morning and didn't want to get out of bed. I felt better after I came out of my room and started being social . T/W spoke with patients , Camron, who expressed concern about what he should do if patient is discharged and continues to present depressed. T/W stated that he should bring her to the nearest emergency room if he feels she is not safe at home. 02/01/2023 Patient seen psychiatric follow-up. Patient started on Abilify continues depressed anxious. There was no evidence of significant degenerative disease in hip patient does describe history of psoriatic arthritis but no marked inflammatory changes noted would benefit from for referral to Rheumatology at discharge Referral to [facility] dual diagnosis program consider Topamax for cravings and anxiety Abilify increased to 4 mg daily monitor for side effects Lexapro increased to 20 mg daily would benefit from anxiety management strategies to deal with family in 's reaction to her relapse denies active SI Reason for continued inpatient stay Substantial Risk for: harm to self Time Spent With Patient Time: Total time managing care of this patient today ____ minutes.
[2023-02-01] MEDS: hydrOXYzine HCL 25 MG TABLET PO ×2 (12:13→23:10)
[2023-02-01] MEDS: Milk of Magnesia 30 ML ORAL.SUSP PO (18:14)
[2023-02-01 19:50] VITALS: BP 109/67; PULSE 82; RESP 18; TEMP 36.2; O2SAT 99
[2023-02-01] MEDS: traZODone HCL 50 MG TABLET PO (23:03)
[2023-02-01] MEDS: LORazepam 0.5 MG TABLET PO (23:04)
[2023-02-02] MEDS: Acetaminophen 325 MG TABLET 650 MG PO ×4 (05:00→21:14)
[2023-02-02 08:06] VITALS: BP 98/52; PULSE 74; TEMP 36.1; O2SAT 99
[2023-02-02] MEDS: Omeprazole 20 MG CAPSULE.DR PO (08:32)
[2023-02-02] MEDS: ARIPiprazole 2 MG TABLET 4 MG PO (08:33)
[2023-02-02] MEDS: Escitalopram Oxalate 20 MG TABLET PO (08:34)
[2023-02-02] MEDS: hydrOXYzine HCL 25 MG TABLET PO ×2 (09:01→21:13)
--- NOTE | 2023-02-02 09:19 | HO.PSYCHPN ---
Subjective Subjective Date of Service: 02/02/23 Reason For Visit: SI Subjective Notes: Conditional Voluntary Interim History: Pt mostly focused on somatic complaints- chronic hip pain mostly on right side, asks about cortisone shot, pt explained she can follow up with outpatient pain management. She also reports dry skin, states she uses Eucerin- ordered. Pt reports she is starting to feel better in terms of her mood. Pt reports she has been working on identifying her triggers and writing them down, hopes her family will understand them better. She denies SI/HI. Tendency to divert conversation about her mood and improvement to more superficial conversations. Per nursing, pt slept through the night. Visible on the unit, social with select peers. Diagnostics Vital Signs (24Hr): Vital Signs - 24 hr 02/01/23 19:50 02/02/23 08:06 Temperature 97.1 F 96.9 F Pulse Rate 82 74 Respiratory Rate 18 Blood Pressure 109/67 98/52 L Pulse Oximetry 99 99 Oxygen Delivery Method Room Air High Flow Nasal Cannula BMI result Body Mass Index 30.6 Labs 01/25/23 10:21 01/26/23 08:21 Imaging Radiology Impressions: ITS Impressions Hip X-Ray 01/29/23 21:58 IMPRESSION: Minimal degenerative changes in the bilateral hips. Additional imaging with CT scan or MRI should be considered for better visualization as these modalities are much more sensitive for detection of fracture or other underlying pathology. Knee X-Ray 01/29/23 22:35 IMPRESSION: Suprapatellar effusion. Increased size of ossific bodies, largest 2.6 cm, along the superior lateral aspect of the patellofemoral compartment with degenerative changes as detailed above. Medications Medications Current Medications Acetaminophen (Acetaminophen 325 Mg Tablet) 650 mg PO Q4H PRN PRN Reason: Headache/Pain Mild Scale (1-3) Last Admin: 02/02/23 09:01 Dose: 650 mg Al Hydroxide/Mg Hydroxide (Magnesium Hydrox/Alum Hydrox 30 Ml Oral.Susp) 30 ml PO Q6H PRN PRN Reason: Heartburn/Nausea Aripiprazole (Aripiprazole 2 Mg Tablet) 4 mg PO DAILY PEGGY Last Admin: 02/02/23 08:33 Dose: 4 mg Escitalopram Oxalate (Escitalopram Oxalate 20 Mg Tablet) 20 mg PO DAILY PEGGY Last Admin: 02/02/23 08:34 Dose: 20 mg Hydroxyzine HCl (Hydroxyzine Hcl 25 Mg Tablet) 25 mg PO Q6H PRN PRN Reason: Anxiety Last Admin: 02/02/23 09:01 Dose: 25 mg Lorazepam (Lorazepam 0.5 Mg Tablet) 0.5 mg PO DAILY PRN PRN Reason: Anxiety Last Admin: 02/01/23 23:04 Dose: 0.5 mg Magnesium Hydroxide (Milk Of Magnesia 30 Ml Oral.Susp) 30 ml PO DAILY PRN PRN Reason: Constipation Last Admin: 02/01/23 18:14 Dose: 30 ml Nicotine Polacrilex (Nicotine Polacrilex 2 Mg Gum) 4 mg BUCCAL Q2H PRN PRN Reason: Nicotine Cravings Pt Own ( Methylphenidate Hcl [Concerta] 27 Mg Tablet Extended Release 24h 27 mg PO DAILY PEGGY Last Admin: 02/02/23 08:34 Dose: 27 mg Omeprazole (Omeprazole 20 Mg Capsule.Dr) 20 mg PO DAILY@0630 [facility] Last Admin: 02/02/23 08:32 Dose: 20 mg Trazodone HCl (Trazodone Hcl 50 Mg Tablet) 50 mg PO BEDTIME MRX1 PRN PRN Reason: Insomnia Last Admin: 02/01/23 23:03 Dose: 50 mg Allergies Allergies Allergy/AdvReac Type Severity Reaction Status Date / Time amoxicillin [AMOXICILLIN] Allergy Unknown RASH Verified 09/09/21 18:00 fluoxetine [From PROZAC] Allergy Unknown RASH Verified 09/09/21 18:00 heparin [HEPARIN] Allergy Unknown JAUN Verified 09/09/21 18:00 SYNDROME heparin (porcine) Allergy Unknown swelling, Verified 09/09/21 18:00 red hydrocodone [HYDROCODONE] Allergy Unknown PROJECTILE Verified 09/09/21 18:00 VOMITING ibuprofen [From Motrin] Allergy Unknown Shortness Verified 01/30/23 14:37 of Breath naproxen Allergy Unknown Stomach Verified 01/30/23 14:37 Upset omeprazole [OMEPRAZOLE] Allergy Unknown RASH, head Verified 09/09/21 18:00 to toe rash penicillin G [PENICILLIN G] Allergy Unknown RASH Verified 09/09/21 18:00 penicillin V Allergy Unknown rash Verified 09/09/21 18:00 piperacillin [From ZOSYN] Allergy Unknown RASH Verified 09/09/21 18:00 strawberry [STRAWBERRY] Allergy Unknown SOB,RASH, Verified 09/09/21 18:00 ANAPHYLAXISIS tazobactam [From ZOSYN] Allergy Unknown RASH Verified 09/09/21 18:00 walnut Allergy Unknown Difficulty Verified 09/09/21 18:00 Breathing Caramelized Food coloring Allergy Unknown Itching Uncoded 09/09/21 18:00 CARMALIZED FOOD COLORING Allergy Unknown RASH Uncoded 09/09/21 18:00 Hydrocodone Bitartrate Allergy Unknown severe Uncoded 09/09/21 18:00 vomiting Mangos Allergy Unknown Difficulty Uncoded 09/09/21 18:00 Breathing Piperacillin Sod-Tazobactam Allergy Unknown swelling Uncoded 09/09/21 18:00 So Strawberries Allergy Unknown Blister Uncoded 09/09/21 18:00 Assessment & Plan Assessment & Plan (1) MDD (major depressive disorder): Status: Acute Code(s): F32.9 - Major depressive disorder, single episode, unspecified (2) ADHD (attention deficit hyperactivity disorder): Status: Acute Code(s): F90.9 - Attention-deficit hyperactivity disorder, unspecified type (3) Alcohol abuse: Status: Acute Code(s): F10.10 - Alcohol abuse, uncomplicated Plan Patient is a 47 year old female with hx of MDD, ADHD and ETOH abuse who self presented to [facility] secondary to increased depression and suicidal ideation d/t relapsing on alcohol after a year in recovery. Plan: CV continue home medications increase lexapro to 15mg PO daily referral to outpatient therapy referral to [facility]. 01/27: Patient quite depressed helpless hopeless overwhelmed with stress and recent relapse was feeling intensive suicidal thoughts in the context of overwhelming stress and despair. Patient with multiple medical concerns would most likely benefit from weekly psychotherapy partial hospital program referral consider Abilify for augmentation dealing with issues related to respiratory failure needing hip replacement psoriatic arthritis in managing medical system would benefit from case management if at all possible consider TMS. 01/29: Patient reports she continues to feel depressed. Patient stated, I'm sad at myself then I don't think about it at all. It goes back and forth . She does report feeling better than when I first came here . Pt is hoping to attend PHP once discharged; feels groups are helping. denies SI/HI/VH/AH. 01/30: Patient reports she continues to feel depressed; reports anxiety low today. Pt reports she does not have a desire to drink alcohol at this time. Pt stated, I hope to go home soon because my will be home next week from work and I'd like to spend time with him . denies SI/HI. Waiting on xray results. 01/31: Patient reports she continues to feel depressed; pt stated, I felt sad when I woke up this morning and didn't want to get out of bed. I felt better after I came out of my room and started being social . T/W spoke with patients , Camron, who expressed concern about what he should do if patient is discharged and continues to present depressed. T/W stated that he should bring her to the nearest emergency room if he feels she is not safe at home. 02/01/2023 Patient seen psychiatric follow-up. Patient started on Abilify continues depressed anxious. There was no evidence of significant degenerative disease in hip patient does describe history of psoriatic arthritis but no marked inflammatory changes noted would benefit from for referral to Rheumatology at discharge Referral to [facility] dual diagnosis program consider Topamax for cravings and anxiety Abilify increased to 4 mg daily monitor for side effects Lexapro increased to 20 mg daily would benefit from anxiety management strategies to deal with family in 's reaction to her relapse denies active SI 02/02- continue tx. added eucerin for dry skin, plan for d/c next week. Reason for continued inpatient stay Substantial Risk for: inability to function Time Spent With Patient Time: Total time managing care of this patient today ____ minutes.
[2023-02-02 18:00] VITALS: BP 136/73; PULSE 69; TEMP 36.4; O2SAT 100
[2023-02-02] MEDS: Milk of Magnesia 30 ML ORAL.SUSP PO (18:17)
[2023-02-02] MEDS: Mineral Oil/Petrolatum,White 106 GM Tube 1 APPL TOPICAL (18:18)
[2023-02-02] MEDS: traZODone HCL 50 MG TABLET PO (21:13)
[2023-02-02] MEDS: LORazepam 0.5 MG TABLET PO (21:13)
[2023-02-03] MEDS: Acetaminophen 325 MG TABLET 650 MG PO ×2 (07:17→21:44)
[2023-02-03] MEDS: Omeprazole 20 MG CAPSULE.DR PO (07:17)
[2023-02-03 08:00] VITALS: BP 113/65; PULSE 81; RESP 16; TEMP 36.3; O2SAT 99
[2023-02-03] MEDS: Mineral Oil/Petrolatum,White 106 GM Tube 1 APPL TOPICAL (08:15)
[2023-02-03] MEDS: Escitalopram Oxalate 20 MG TABLET PO (08:28)
[2023-02-03] MEDS: ARIPiprazole 2 MG TABLET 4 MG PO (08:28)
--- NOTE | 2023-02-03 10:35 | P.PNPSI_ITS ---
Subjective Subjective Date of Service: 02/03/23 Reason For Visit: SI Subjective Notes: Conditional Voluntary Interim History: Patient was seen and discussed in rounds today. Records and plans were reviewed. She continues to be on one-to-one because of her oxygen. She has been feeling a little better eating and sleeping adequately. No complaints or side effects. No changes were made today Review of Systems Review of Systems Yes all other systems are reviewed and are negative Mental Status Exam Mental Status Exam Narrative: In today's visit she is alert, oriented and pleasant. Normal speech. Good eye contact. Affect is appropriate and constricted. No signs of psychosis. No SI. Cognitively intact. Judgment is intact Diagnostics Vital Signs (24Hr): Vital Signs - 24 hr 02/02/23 18:00 Temperature 97.6 F Pulse Rate 69 Blood Pressure 136/73 Pulse Oximetry 100 Oxygen Delivery Method Room Air BMI result Body Mass Index 30.6 Labs 01/25/23 10:21 01/26/23 08:21 Imaging Radiology Impressions: ITS Impressions Hip X-Ray 01/29/23 21:58 IMPRESSION: Minimal degenerative changes in the bilateral hips. Additional imaging with CT scan or MRI should be considered for better visualization as these modalities are much more sensitive for detection of fracture or other underlying pathology. Knee X-Ray 01/29/23 22:35 IMPRESSION: Suprapatellar effusion. Increased size of ossific bodies, largest 2.6 cm, along the superior lateral aspect of the patellofemoral compartment with degenerative changes as detailed above. Medications Medications Current Medications Acetaminophen (Acetaminophen 325 Mg Tablet) 650 mg PO Q4H PRN PRN Reason: Headache/Pain Mild Scale (1-3) Last Admin: 02/03/23 07:17 Dose: 650 mg Al Hydroxide/Mg Hydroxide (Magnesium Hydrox/Alum Hydrox 30 Ml Oral.Susp) 30 ml PO Q6H PRN PRN Reason: Heartburn/Nausea Aripiprazole (Aripiprazole 2 Mg Tablet) 4 mg PO DAILY PEGGY Last Admin: 02/03/23 08:28 Dose: 4 mg Escitalopram Oxalate (Escitalopram Oxalate 20 Mg Tablet) 20 mg PO DAILY PEGGY Last Admin: 02/03/23 08:28 Dose: 20 mg Hydroxyzine HCl (Hydroxyzine Hcl 25 Mg Tablet) 25 mg PO Q6H PRN PRN Reason: Anxiety Last Admin: 02/02/23 21:13 Dose: 25 mg Lorazepam (Lorazepam 0.5 Mg Tablet) 0.5 mg PO DAILY PRN PRN Reason: Anxiety Last Admin: 02/02/23 21:13 Dose: 0.5 mg Magnesium Hydroxide (Milk Of Magnesia 30 Ml Oral.Susp) 30 ml PO DAILY PRN PRN Reason: Constipation Last Admin: 02/02/23 18:17 Dose: 30 ml Multi-Ingred Cream/Lotion/Oil/Oint (Mineral Oil/Petrolatum,White 106 Gm Tube) 1 appl TOPICAL DAILY PEGGY; Protocol Last Admin: 02/03/23 08:15 Dose: 1 appl Nicotine Polacrilex (Nicotine Polacrilex 2 Mg Gum) 4 mg BUCCAL Q2H PRN PRN Reason: Nicotine Cravings Pt Own ( Methylphenidate Hcl [Concerta] 27 Mg Tablet Extended Release 24h 27 mg PO DAILY PEGGY Last Admin: 02/03/23 08:29 Dose: 27 mg Omeprazole (Omeprazole 20 Mg Capsule.Dr) 20 mg PO DAILY@0630 [facility] Last Admin: 02/03/23 07:17 Dose: 20 mg Trazodone HCl (Trazodone Hcl 50 Mg Tablet) 50 mg PO BEDTIME MRX1 PRN PRN Reason: Insomnia Last Admin: 02/02/23 21:13 Dose: 50 mg Allergies Allergies Allergy/AdvReac Type Severity Reaction Status Date / Time amoxicillin [AMOXICILLIN] Allergy Unknown RASH Verified 09/09/21 18:00 fluoxetine [From PROZAC] Allergy Unknown RASH Verified 09/09/21 18:00 heparin [HEPARIN] Allergy Unknown JAUN Verified 09/09/21 18:00 SYNDROME heparin (porcine) Allergy Unknown swelling, Verified 09/09/21 18:00 red hydrocodone [HYDROCODONE] Allergy Unknown PROJECTILE Verified 09/09/21 18:00 VOMITING ibuprofen [From Motrin] Allergy Unknown Shortness Verified 01/30/23 14:37 of Breath naproxen Allergy Unknown Stomach Verified 01/30/23 14:37 Upset omeprazole [OMEPRAZOLE] Allergy Unknown RASH, head Verified 09/09/21 18:00 to toe rash penicillin G [PENICILLIN G] Allergy Unknown RASH Verified 09/09/21 18:00 penicillin V Allergy Unknown rash Verified 09/09/21 18:00 piperacillin [From ZOSYN] Allergy Unknown RASH Verified 09/09/21 18:00 strawberry [STRAWBERRY] Allergy Unknown SOB,RASH, Verified 09/09/21 18:00 ANAPHYLAXISIS tazobactam [From ZOSYN] Allergy Unknown RASH Verified 09/09/21 18:00 walnut Allergy Unknown Difficulty Verified 09/09/21 18:00 Breathing Caramelized Food coloring Allergy Unknown Itching Uncoded 09/09/21 18:00 CARMALIZED FOOD COLORING Allergy Unknown RASH Uncoded 09/09/21 18:00 Hydrocodone Bitartrate Allergy Unknown severe Uncoded 09/09/21 18:00 vomiting Mangos Allergy Unknown Difficulty Uncoded 09/09/21 18:00 Breathing Piperacillin Sod-Tazobactam Allergy Unknown swelling Uncoded 09/09/21 18:00 So Strawberries Allergy Unknown Blister Uncoded 09/09/21 18:00 Assessment & Plan Assessment & Plan (1) MDD (major depressive disorder): Status: Acute Code(s): F32.9 - Major depressive disorder, single episode, unspecified (2) ADHD (attention deficit hyperactivity disorder): Status: Acute Code(s): F90.9 - Attention-deficit hyperactivity disorder, unspecified type (3) Alcohol abuse: Status: Acute Code(s): F10.10 - Alcohol abuse, uncomplicated Plan Patient is a 47 year old female with hx of MDD, ADHD and ETOH abuse who self presented to [facility] secondary to increased depression and suicidal ideation d/t relapsing on alcohol after a year in recovery. Plan: CV continue home medications increase lexapro to 15mg PO daily referral to outpatient therapy referral to [facility]. 01/27: Patient quite depressed helpless hopeless overwhelmed with stress and recent relapse was feeling intensive suicidal thoughts in the context of overwhelming stress and despair. Patient with multiple medical concerns would most likely benefit from weekly psychotherapy partial hospital program referral consider Abilify for augmentation dealing with issues related to respiratory failure needing hip replacement psoriatic arthritis in managing medical system would benefit from case management if at all possible consider TMS. 01/29: Patient reports she continues to feel depressed. Patient stated, I'm sad at myself then I don't think about it at all. It goes back and forth . She does report feeling better than when I first came here . Pt is hoping to attend [facility] once discharged; feels groups are helping. denies SI/HI/VH/AH. 01/30: Patient reports she continues to feel depressed; reports anxiety low today. Pt reports she does not have a desire to drink alcohol at this time. Pt stated, I hope to go home soon because my will be home next week from work and I'd like to spend time with him . denies SI/HI. Waiting on xray results. 01/31: Patient reports she continues to feel depressed; pt stated, I felt sad when I woke up this morning and didn't want to get out of bed. I felt better after I came out of my room and started being social . T/W spoke with patients , Camron, who expressed concern about what he should do if patient is discharged and continues to present depressed. T/W stated that he should bring her to the nearest emergency room if he feels she is not safe at home. 02/01/2023 Patient seen psychiatric follow-up. Patient started on Abilify continues depressed anxious. There was no evidence of significant degenerative disease in hip patient does describe history of psoriatic arthritis but no marked inflammatory changes noted would benefit from for referral to Rheumatology at discharge Referral to [facility] dual diagnosis program consider Topamax for cravings and anxiety Abilify increased to 4 mg daily monitor for side effects Lexapro increased to 20 mg daily would benefit from anxiety management strategies to deal with family in 's reaction to her relapse denies active SI 02/02- continue tx. added eucerin for dry skin, plan for d/c next week. 02/03: Continue current regimen and plans Reason for continued inpatient stay Substantial Risk for: med/psych decompensation Time Spent With Patient Time: Total time managing care of this patient today ____ minutes.
[2023-02-03] MEDS: hydrOXYzine HCL 25 MG TABLET PO ×2 (11:08→21:45)
[2023-02-03 11:14] VITALS: BP 102/67; BP 106/66; PULSE 94
[2023-02-03] MEDS: LORazepam 0.5 MG TABLET PO (13:34)
[2023-02-03 19:30] VITALS: BP 115/71; PULSE 81; RESP 16; TEMP 36.6; O2SAT 99
[2023-02-03] MEDS: traZODone HCL 50 MG TABLET PO (21:45)
[2023-02-04] MEDS: Omeprazole 20 MG CAPSULE.DR PO (06:47)
[2023-02-04 08:30] VITALS: BP 96/53; PULSE 68; RESP 16; TEMP 36.2; O2SAT 98
[2023-02-04] MEDS: ARIPiprazole 2 MG TABLET 4 MG PO (08:45)
[2023-02-04] MEDS: Escitalopram Oxalate 20 MG TABLET PO (08:45)
[2023-02-04] MEDS: Acetaminophen 325 MG TABLET 650 MG PO ×3 (08:52→22:54)
[2023-02-04] MEDS: hydrOXYzine HCL 25 MG TABLET PO ×3 (08:53→22:53)
[2023-02-04] MEDS: Mineral Oil/Petrolatum,White 106 GM Tube 1 APPL TOPICAL (08:53)
--- NOTE | 2023-02-04 09:28 | HO.PSYCHPN ---
Subjective Subjective Date of Service: 02/04/23 Reason For Visit: SI Subjective Notes: Conditional Voluntary Interim History: Patient was seen and discussed in rounds today. Records and plans were reviewed. She continues to be very somatically preoccupied. She is using Tylenol for his hip pain. Denies any side effects. Slept 6 hours but stated that she is not sleeping well!. Continues to be on oxygen on one-to-one observation. No changes were made today Review of Systems Review of Systems Hip pain Yes all other systems are reviewed and are negative Mental Status Exam Mental Status Exam Narrative: In today's visit she is alert, oriented and pleasant. Normal speech. Good eye contact. Affect is appropriate and constricted. No signs of psychosis. No SI. Cognitively intact. Judgment is intact Diagnostics Vital Signs (24Hr): Vital Signs - 24 hr 02/03/23 11:14 02/03/23 11:14 02/03/23 19:30 Temperature 97.8 F Pulse Rate 94 94 81 Respiratory Rate 16 Blood Pressure 106/66 102/67 115/71 Pulse Oximetry 99 Oxygen Delivery Method Room Air BMI result Body Mass Index 30.6 Labs 01/25/23 10:21 01/26/23 08:21 Imaging Radiology Impressions: ITS Impressions Hip X-Ray 01/29/23 21:58 IMPRESSION: Minimal degenerative changes in the bilateral hips. Additional imaging with CT scan or MRI should be considered for better visualization as these modalities are much more sensitive for detection of fracture or other underlying pathology. Knee X-Ray 01/29/23 22:35 IMPRESSION: Suprapatellar effusion. Increased size of ossific bodies, largest 2.6 cm, along the superior lateral aspect of the patellofemoral compartment with degenerative changes as detailed above. Medications Medications Current Medications Acetaminophen (Acetaminophen 325 Mg Tablet) 650 mg PO Q4H PRN PRN Reason: Headache/Pain Mild Scale (1-3) Last Admin: 02/04/23 08:52 Dose: 650 mg Al Hydroxide/Mg Hydroxide (Magnesium Hydrox/Alum Hydrox 30 Ml Oral.Susp) 30 ml PO Q6H PRN PRN Reason: Heartburn/Nausea Aripiprazole (Aripiprazole 2 Mg Tablet) 4 mg PO DAILY [facility] Last Admin: 02/04/23 08:45 Dose: 4 mg Escitalopram Oxalate (Escitalopram Oxalate 20 Mg Tablet) 20 mg PO DAILY [facility] Last Admin: 02/04/23 08:45 Dose: 20 mg Hydroxyzine HCl (Hydroxyzine Hcl 25 Mg Tablet) 25 mg PO Q6H PRN PRN Reason: Anxiety Last Admin: 02/04/23 08:53 Dose: 25 mg Lorazepam (Lorazepam 0.5 Mg Tablet) 0.5 mg PO DAILY PRN PRN Reason: Anxiety Last Admin: 02/03/23 13:34 Dose: 0.5 mg Magnesium Hydroxide (Milk Of Magnesia 30 Ml Oral.Susp) 30 ml PO DAILY PRN PRN Reason: Constipation Last Admin: 02/02/23 18:17 Dose: 30 ml Multi-Ingred Cream/Lotion/Oil/Oint (Mineral Oil/Petrolatum,White 106 Gm Tube) 1 appl TOPICAL DAILY PEGG[facility]; Protocol Last Admin: 02/04/23 08:53 Dose: 1 appl Nicotine Polacrilex (Nicotine Polacrilex 2 Mg Gum) 4 mg BUCCAL Q2H PRN PRN Reason: Nicotine Cravings Pt Own ( Methylphenidate Hcl [Concerta] 27 Mg Tablet Extended Release 24h 27 mg PO DAILY [facility] Last Admin: 02/04/23 08:47 Dose: 27 mg Omeprazole (Omeprazole 20 Mg Capsule.Dr) 20 mg PO DAILY@0630 [facility] Last Admin: 02/04/23 06:47 Dose: 20 mg Trazodone HCl (Trazodone Hcl 50 Mg Tablet) 50 mg PO BEDTIME MRX1 PRN PRN Reason: Insomnia Last Admin: 02/03/23 21:45 Dose: 50 mg Allergies Allergies Allergy/AdvReac Type Severity Reaction Status Date / Time amoxicillin [AMOXICILLIN] Allergy Unknown RASH Verified 09/09/21 18:00 fluoxetine [From PROZAC] Allergy Unknown RASH Verified 09/09/21 18:00 heparin [HEPARIN] Allergy Unknown JANU Verified 09/09/21 18:00 SYNDROME heparin (porcine) Allergy Unknown swelling, Verified 09/09/21 18:00 red hydrocodone [HYDROCODONE] Allergy Unknown PROJECTILE Verified 09/09/21 18:00 VOMITING ibuprofen [From Motrin] Allergy Unknown Shortness Verified 01/30/23 14:37 of Breath naproxen Allergy Unknown Stomach Verified 01/30/23 14:37 Upset omeprazole [OMEPRAZOLE] Allergy Unknown RASH, head Verified 09/09/21 18:00 to toe rash penicillin G [PENICILLIN G] Allergy Unknown RASH Verified 09/09/21 18:00 penicillin V Allergy Unknown rash Verified 09/09/21 18:00 piperacillin [From ZOSYN] Allergy Unknown RASH Verified 09/09/21 18:00 strawberry [STRAWBERRY] Allergy Unknown SOB,RASH, Verified 09/09/21 18:00 ANAPHYLAXISIS tazobactam [From ZOSYN] Allergy Unknown RASH Verified 09/09/21 18:00 walnut Allergy Unknown Difficulty Verified 09/09/21 18:00 Breathing Caramelized Food coloring Allergy Unknown Itching Uncoded 09/09/21 18:00 CARMALIZED FOOD COLORING Allergy Unknown RASH Uncoded 09/09/21 18:00 Hydrocodone Bitartrate Allergy Unknown severe Uncoded 09/09/21 18:00 vomiting Mangos Allergy Unknown Difficulty Uncoded 09/09/21 18:00 Breathing Piperacillin Sod-Tazobactam Allergy Unknown swelling Uncoded 09/09/21 18:00 So Strawberries Allergy Unknown Blister Uncoded 09/09/21 18:00 Assessment & Plan Assessment & Plan (1) MDD (major depressive disorder): Status: Acute Code(s): F32.9 - Major depressive disorder, single episode, unspecified (2) ADHD (attention deficit hyperactivity disorder): Status: Acute Code(s): F90.9 - Attention-deficit hyperactivity disorder, unspecified type (3) Alcohol abuse: Status: Acute Code(s): F10.10 - Alcohol abuse, uncomplicated Plan Patient is a 47 year old female with hx of MDD, ADHD and ETOH abuse who self presented to [facility] ER secondary to increased depression and suicidal ideation d/t relapsing on alcohol after a year in recovery. Plan: CV continue home medications increase lexapro to 15mg PO daily referral to outpatient therapy referral to [facility]. 01/27: Patient quite depressed helpless hopeless overwhelmed with stress and recent relapse was feeling intensive suicidal thoughts in the context of overwhelming stress and despair. Patient with multiple medical concerns would most likely benefit from weekly psychotherapy partial hospital program referral consider Abilify for augmentation dealing with issues related to respiratory failure needing hip replacement psoriatic arthritis in managing medical system would benefit from case management if at all possible consider TMS. 01/29: Patient reports she continues to feel depressed. Patient stated, I'm sad at myself then I don't think about it at all. It goes back and forth . She does report feeling better than when I first came here . Pt is hoping to attend [facility] once discharged; feels groups are helping. denies SI/HI/VH/AH. 01/30: Patient reports she continues to feel depressed; reports anxiety low today. Pt reports she does not have a desire to drink alcohol at this time. Pt stated, I hope to go home soon because my will be home next week from work and I'd like to spend time with him . denies SI/HI. Waiting on xray results. 01/31: Patient reports she continues to feel depressed; pt stated, I felt sad when I woke up this morning and didn't want to get out of bed. I felt better after I came out of my room and started being social . T/W spoke with patients , Camron, who expressed concern about what he should do if patient is discharged and continues to present depressed. T/W stated that he should bring her to the nearest emergency room if he feels she is not safe at home. 02/01/2023 Patient seen psychiatric follow-up. Patient started on Abilify continues depressed anxious. There was no evidence of significant degenerative disease in hip patient does describe history of psoriatic arthritis but no marked inflammatory changes noted would benefit from for referral to Rheumatology at discharge Referral to [facility] dual diagnosis program consider Topamax for cravings and anxiety Abilify increased to 4 mg daily monitor for side effects Lexapro increased to 20 mg daily would benefit from anxiety management strategies to deal with family in 's reaction to her relapse denies active SI 02/02- continue tx. added eucerin for dry skin, plan for d/c next week. 02/03: Continue current regimen and plans 02/04: Continue current plans and regimen Reason for continued inpatient stay Substantial Risk for: med/psych decompensation Time Spent With Patient Time: Total time managing care of this patient today ____ minutes.
[2023-02-04 22:30] VITALS: BP 121/70; PULSE 78; TEMP 36.7; O2SAT 98
[2023-02-04] MEDS: traZODone HCL 50 MG TABLET PO (22:54)
[2023-02-04] MEDS: LORazepam 0.5 MG TABLET PO (23:00)
[2023-02-05] MEDS: traZODone HCL 50 MG TABLET PO (02:32)
[2023-02-05] MEDS: Acetaminophen 325 MG TABLET 650 MG PO ×2 (06:36→11:14)
[2023-02-05] MEDS: Omeprazole 20 MG CAPSULE.DR PO (06:37)
[2023-02-05 07:25] VITALS: BP 100/63; PULSE 85; RESP 14; TEMP 36.2; O2SAT 100
[2023-02-05] MEDS: ARIPiprazole 2 MG TABLET 4 MG PO (08:09)
[2023-02-05] MEDS: Escitalopram Oxalate 20 MG TABLET PO (08:10)
[2023-02-05] MEDS: hydrOXYzine HCL 25 MG TABLET PO (08:10)
[2023-02-05] MEDS: Mineral Oil/Petrolatum,White 106 GM Tube 1 APPL TOPICAL (08:29)
--- NOTE | 2023-02-05 09:15 | HO.PSYCHPN ---
Subjective Subjective Reason For Visit: SI Diagnostics Vital Signs (24Hr): Vital Signs - 24 hr 02/04/23 22:30 02/05/23 07:25 Temperature 98.0 F 97.1 F Pulse Rate 78 85 Respiratory Rate 14 Blood Pressure 121/70 100/63 Pulse Oximetry 98 100 Oxygen Delivery Method Nasal Cannula Nasal Cannula BMI result Body Mass Index 30.6 Labs 01/25/23 10:21 01/26/23 08:21 Imaging Radiology Impressions: ITS Impressions Hip X-Ray 01/29/23 21:58 IMPRESSION: Minimal degenerative changes in the bilateral hips. Additional imaging with CT scan or MRI should be considered for better visualization as these modalities are much more sensitive for detection of fracture or other underlying pathology. Knee X-Ray 01/29/23 22:35 IMPRESSION: Suprapatellar effusion. Increased size of ossific bodies, largest 2.6 cm, along the superior lateral aspect of the patellofemoral compartment with degenerative changes as detailed above. Medications Medications Current Medications Acetaminophen (Acetaminophen 325 Mg Tablet) 650 mg PO Q4H PRN PRN Reason: Headache/Pain Mild Scale (1-3) Last Admin: 02/05/23 06:36 Dose: 650 mg Al Hydroxide/Mg Hydroxide (Magnesium Hydrox/Alum Hydrox 30 Ml Oral.Susp) 30 ml PO Q6H PRN PRN Reason: Heartburn/Nausea Aripiprazole (Aripiprazole 2 Mg Tablet) 4 mg PO DAILY [facility] Last Admin: 02/05/23 08:09 Dose: 4 mg Escitalopram Oxalate (Escitalopram Oxalate 20 Mg Tablet) 20 mg PO DAILY [facility] Last Admin: 02/05/23 08:10 Dose: 20 mg Hydroxyzine HCl (Hydroxyzine Hcl 25 Mg Tablet) 25 mg PO Q6H PRN PRN Reason: Anxiety Last Admin: 02/05/23 08:10 Dose: 25 mg Lorazepam (Lorazepam 0.5 Mg Tablet) 0.5 mg PO DAILY PRN PRN Reason: anxiety Last Admin: 02/04/23 23:00 Dose: 0.5 mg Magnesium Hydroxide (Milk Of Magnesia 30 Ml Oral.Susp) 30 ml PO DAILY PRN PRN Reason: Constipation Last Admin: 02/02/23 18:17 Dose: 30 ml Multi-Ingred Cream/Lotion/Oil/Oint (Mineral Oil/Petrolatum,White 106 Gm Tube) 1 appl TOPICAL DAILY [facility]GG[facility]; Protocol Last Admin: 02/05/23 08:29 Dose: 1 appl Nicotine Polacrilex (Nicotine Polacrilex 2 Mg Gum) 4 mg BUCCAL Q2H PRN PRN Reason: Nicotine Cravings Pt Own ( Methylphenidate Hcl [Concerta] 27 Mg Tablet Extended Release 24h 27 mg PO DAILY [facility] Last Admin: 02/05/23 08:10 Dose: 27 mg Omeprazole (Omeprazole 20 Mg Capsule.Dr) 20 mg PO DAILY@0630 [facility] Last Admin: 02/05/23 06:37 Dose: 20 mg Trazodone HCl (Trazodone Hcl 50 Mg Tablet) 50 mg PO BEDTIME MRX1 PRN PRN Reason: Insomnia Last Admin: 02/05/23 02:32 Dose: 50 mg Allergies Allergies Allergy/AdvReac Type Severity Reaction Status Date / Time amoxicillin [AMOXICILLIN] Allergy Unknown RASH Verified 09/09/21 18:00 fluoxetine [From PROZAC] Allergy Unknown RASH Verified 09/09/21 18:00 heparin [HEPARIN] Allergy Unknown JAUN Verified 09/09/21 18:00 SYNDROME heparin (porcine) Allergy Unknown swelling, Verified 09/09/21 18:00 red hydrocodone [HYDROCODONE] Allergy Unknown PROJECTILE Verified 09/09/21 18:00 VOMITING ibuprofen [From Motrin] Allergy Unknown Shortness Verified 01/30/23 14:37 of Breath naproxen Allergy Unknown Stomach Verified 01/30/23 14:37 Upset omeprazole [OMEPRAZOLE] Allergy Unknown RASH, head Verified 09/09/21 18:00 to toe rash penicillin G [PENICILLIN G] Allergy Unknown RASH Verified 09/09/21 18:00 penicillin V Allergy Unknown rash Verified 09/09/21 18:00 piperacillin [From ZOSYN] Allergy Unknown RASH Verified 09/09/21 18:00 strawberry [STRAWBERRY] Allergy Unknown SOB,RASH, Verified 09/09/21 18:00 ANAPHYLAXISIS tazobactam [From ZOSYN] Allergy Unknown RASH Verified 09/09/21 18:00 walnut Allergy Unknown Difficulty Verified 09/09/21 18:00 Breathing Caramelized Food coloring Allergy Unknown Itching Uncoded 09/09/21 18:00 CARMALIZED FOOD COLORING Allergy Unknown RASH Uncoded 09/09/21 18:00 Hydrocodone Bitartrate Allergy Unknown severe Uncoded 09/09/21 18:00 vomiting Mangos Allergy Unknown Difficulty Uncoded 09/09/21 18:00 Breathing Piperacillin Sod-Tazobactam Allergy Unknown swelling Uncoded 09/09/21 18:00 So Strawberries Allergy Unknown Blister Uncoded 09/09/21 18:00 Assessment & Plan Assessment & Plan (1) MDD (major depressive disorder): Status: Acute Code(s): F32.9 - Major depressive disorder, single episode, unspecified (2) ADHD (attention deficit hyperactivity disorder): Status: Acute Code(s): F90.9 - Attention-deficit hyperactivity disorder, unspecified type (3) Alcohol abuse: Status: Acute Code(s): F10.10 - Alcohol abuse, uncomplicated Plan Patient is a 47 year old female with hx of MDD, ADHD and ETOH abuse who self presented to [facility] ER secondary to increased depression and suicidal ideation d/t relapsing on alcohol after a year in recovery. Plan: CV continue home medications increase lexapro to 15mg PO daily referral to outpatient therapy referral to [facility]. 01/27: Patient quite depressed helpless hopeless overwhelmed with stress and recent relapse was feeling intensive suicidal thoughts in the context of overwhelming stress and despair. Patient with multiple medical concerns would most likely benefit from weekly psychotherapy partial hospital program referral consider Abilify for augmentation dealing with issues related to respiratory failure needing hip replacement psoriatic arthritis in managing medical system would benefit from case management if at all possible consider TMS. 01/29: Patient reports she continues to feel depressed. Patient stated, I'm sad at myself then I don't think about it at all. It goes back and forth . She does report feeling better than when I first came here . Pt is hoping to attend [facility] once discharged; feels groups are helping. denies SI/HI/VH/AH. 01/30: Patient reports she continues to feel depressed; reports anxiety low today. Pt reports she does not have a desire to drink alcohol at this time. Pt stated, I hope to go home soon because my will be home next week from work and I'd like to spend time with him . denies SI/HI. Waiting on xray results. 01/31: Patient reports she continues to feel depressed; pt stated, I felt sad when I woke up this morning and didn't want to get out of bed. I felt better after I came out of my room and started being social . T/W spoke with patients , Camron, who expressed concern about what he should do if patient is discharged and continues to present depressed. T/W stated that he should bring her to the nearest emergency room if he feels she is not safe at home. 02/01/2023 Patient seen psychiatric follow-up. Patient started on Abilify continues depressed anxious. There was no evidence of significant degenerative disease in hip patient does describe history of psoriatic arthritis but no marked inflammatory changes noted would benefit from for referral to Rheumatology at discharge Referral to [facility] dual diagnosis program consider Topamax for cravings and anxiety Abilify increased to 4 mg daily monitor for side effects Lexapro increased to 20 mg daily would benefit from anxiety management strategies to deal with family in 's reaction to her relapse denies active SI 02/02- continue tx. added eucerin for dry skin, plan for d/c next week. 02/03: Continue current regimen and plans 02/04: Continue current plans and regimen Time Spent With Patient Time: Total time managing care of this patient today ____ minutes.
--- NOTE | 2023-02-05 10:20 | P.DS_ITS ---
DS: Providers Provider Date of Service: 02/05/23 Date of admission: 01/25/23 16:13 Date of discharge: 02/05/23 Primary care physician: Félix Zelaya MD DS: Diagnosis Discharge Diagnosis (1) MDD (major depressive disorder): Status: Acute (2) ADHD (attention deficit hyperactivity disorder): Status: Acute (3) Alcohol abuse: Status: Acute DS: Medications Discharge Medications Home Medications: Home Medications Medication Instructions Recorded Confirmed lorazepam 0.5 mg tablet 0.5 mg PO DAILY PRN Anxiety 01/25/23 01/25/23 methylphenidate HCl 27 mg 27 mg PO QAM 01/25/23 01/25/23 tablet,extended release 24 hr (Concerta) methylphenidate HCl 27 mg 27 mg PO QAM 01/25/23 01/25/23 tablet,extended release 24 hr (Concerta) Previous Rx's Medication Instructions Recorded aripiprazole 2 mg tablet (Abilify) 4 mg (2 x 2 mg) PO DAILY #60 tabs 02/05/23 escitalopram oxalate 20 mg tablet 20 mg PO DAILY #30 tabs 02/05/23 omeprazole 20 mg capsule,delayed 20 mg PO DAILY@0630 #30 caps 02/05/23 release trazodone 50 mg tablet 50 mg PO BEDTIME PRN Insomnia #30 02/05/23 tabs white petrolatum-mineral oil 1 appl topical DAILY #0 grams 02/05/23 topical cream (Dermacerin topical cream) Mental Status Exam Mental Status Exam Narrative: No SI/HI future oriented Patient Appearance: Well Grooomed Patient Orientation: Person, Place, Time and Situation Level of Consciousness: Appropriate Patient Behavior: Appropriate and Cooperative Mood Description: Calm and Appropriate Affect Description: Calm Speech Pattern: Clear, Appropriate and Spontaneous Speech Memory Description: Intact Hallucinations: None Delusions: Not Present Thought Process: Intact Thought Content: positive for Intact (related to going home) Judgement: Fair Data Imaging Diagnostic Imaging Impressions Hip X-Ray 01/29/23 21:58 IMPRESSION: Minimal degenerative changes in the bilateral hips. Additional imaging with CT scan or MRI should be considered for better visualization as these modalities are much more sensitive for detection of fracture or other underlying pathology. Knee X-Ray 01/29/23 22:35 IMPRESSION: Suprapatellar effusion. Increased size of ossific bodies, largest 2.6 cm, along the superior lateral aspect of the patellofemoral compartment with degenerative changes as detailed above. DS: Summary Hospital Course Hospital Course: HPI: Patient is a 47 year old female with hx of MDD, ADHD and ETOH abuse who self presented to [facility] ER secondary to increased depression and suicidal ideation d/t relapsing on alcohol after a year in recovery. During admission assessment, pt presents alert and oriented, calm, cooperative. She reports increased feelings of depression d/t feeling disappointed in myself for relapsing . Patient stated, I relapsed on January 08 after finding a bottle of Vodka. My had found me passed out. After I relapsed I was worried everyone was disappointed in me. I went to the liquor store and bought 2 bottles of Vodka, drank a bottle of it then came to the hospital. I drank and didn't want to be alive because I'm disappointed . Patient denies any other substance use. denies any withdrawal symptoms. pt on chronic nasal cannula oxygenation. denies HI/VH/AH. Reports she would like to be connected with an outpatient therapist and attend a PHP. Past Psychiatric History: hx of detox in 2021. Does not have outpatient therapist. Prescriber: Aracely Pan Medical Evaluation Reviewed: Yes HOSPITAL COURSE On the unit, pt was admitted on a CV and placed on 15 minutes checks for safety. Pt was continued on lexapro which was titrated to 20mg po daily. She was also initiated on abilify 4mg po daily to boost antidepressant effect. She was visible on the unit, social with select peers. She denied SI/HI. No signs of psychosis or delusions. Collateral information gathered from her who denied any safety concerns at time of discharged. There were no incidences of disruptive behaviors nor need for restraints. Pt continue to report motivation to continue recovery. No medication to decrease alcohol cravings was prescribed. Pt advised to consider with outpatient provider. Time Spent with Patient Time attestation: Total time managing care of this patient today ____ minutes. Discharge Plan Discharge Anticipated Discharge Date/Time: 02/05/23 10:11 Patient Disposition: Home, Self-Care Discharge Diagnosis: MDD, recurrent, moderate Alcohol Use Disorder Referrals: Partial Hospitalization Program (PHP) [Other] - 02/16/23 1:00 pm (INTAKE APPOINTMENT -You will be placed on the cancellation list. Intake staff at the program will reach out to you on your cell phone if and when a sooner intake appointment becomes available. ) Skye Bryant (Therapy) [Other] - 02/08/23 3:00 pm (IN OFFICE INTAKE APPOINTMENT) Debo Pan (Psychiatry) [Other] - 1 Week (Please follow up with your prescriber to obtain a follow up appointment. ) Félix Zelaya MD [Primary Care Provider] - 1 Week Discharge Medications: New escitalopram oxalate 20 mg Tablet 20 mg PO DAILY Qty: 30 0RF aripiprazole [Abilify] 2 mg Tablet 4 mg PO DAILY Qty: 60 0RF omeprazole 20 mg Capsule,Delayed Release(Dr/Ec) 20 mg PO DAILY@0630 Qty: 30 0RF trazodone 50 mg Tablet 50 mg PO BEDTIME PRN (Reason: Insomnia) Qty: 30 0RF Dermacerin Cream 1 appl topical DAILY Qty: 0 0RF Protocol: Apply to: Apply to: face and other dry areas Continued methylphenidate HCl [Concerta] 27 mg tablet extended release 24hr 27 mg PO QAM methylphenidate HCl [Concerta] 27 mg tablet extended release 24hr 27 mg PO QAM Patient Comments: last picked up on 01/08/23 lorazepam 0.5 mg tablet 0.5 mg PO DAILY PRN (Reason: Anxiety) Discontinued omeprazole 20 mg capsule,delayed release(DR/EC) 10 mg PO DAILY escitalopram oxalate 10 mg tablet 10 mg PO DAILY Discharge Orders: Discharge Order (Routine); Ordered 02/05/23 Ordered By: Nakita Rashid Diet: Regular diet Activity on Discharge: As tolerated Stand Alone Forms: Patient Portal Discharge page Care Plan Goals: 1. Maintain mood 2. No SI/HI. 3. Harm reduction: continue working on recovery Health Concerns: Follow up with PCP Plan of Treatment: 1. Take medications as prescribed 2. Go to nearest ED or call 911 in event of emergency Assessment: Pt presents with brighter, non labile affect. No SI/HI. Future oriented. Sleep is fair. Eating well. No aggression towards self or others. continue working on recovery.
== END 2023-02-05 14:00 | disposition home or self-care (01) | DRG 751 ==
LOC: HO.ED 13:21 → HO.PADLT16 16:26
PROVIDERS: Physician Assistant Medical; Admitting Provider Psychiatry & Neurology Psychiatry; Emergency Provider Emergency Medicine Emergency Medical Services; PCP Internal Medicine; Responsible Provider Registered Nurse; Visit Provider Psychiatry & Neurology Psychiatry
DX: F33.1 Major depressive disorder, recurrent, moderate (principal); R45.851 Suicidal ideations; F10.10 Alcohol abuse, uncomplicated; F90.9 Attention-deficit hyperactivity disorder, unspecified type; F17.210 Nicotine dependence, cigarettes, uncomplicated; Z98.84 Bariatric surgery status; Z23 Encounter for immunization; Z20.822 Contact with and (suspected) exposure to COVID-19; Z71.6 Tobacco abuse counseling; Z79.899 Other long term (current) drug therapy
CPT/HCPCS: 36415; 73522; 73564; 80053; 80061; 80143; 80179; 80307; 81003; 81025; 82607; 82746; 83036; 84439; 84443; 85025; 87635; 90686; 93005; 99285; S9485

== ENCOUNTER → 2023-01-25 16:13 | Outpatient (BNV) | payer BC, MEDICARE, SELFPAY | PROVIDERS: Admitting Provider Psychiatry & Neurology Psychiatry; Emergency Provider Emergency Medicine Emergency Medical Services; PCP Internal Medicine; Responsible Provider Registered Nurse; Visit Provider Social Worker | DX: F33.2 Major depressive disorder, recurrent severe without psychotic features (principal); F90.9 Attention-deficit hyperactivity disorder, unspecified type; F10.10 Alcohol abuse, uncomplicated | CPT/HCPCS: 99231; 99238 ==

== ENCOUNTER → 2023-01-25 16:13 | Outpatient (BNV) | payer BC, MEDICARE, SELFPAY | PROVIDERS: Admitting Provider Psychiatry & Neurology Psychiatry; Emergency Provider Emergency Medicine Emergency Medical Services; PCP Internal Medicine; Responsible Provider Registered Nurse; Visit Provider Psychiatry & Neurology Psychiatry | DX: F33.2 Major depressive disorder, recurrent severe without psychotic features (principal); F90.9 Attention-deficit hyperactivity disorder, unspecified type; F10.10 Alcohol abuse, uncomplicated | CPT/HCPCS: 90792; 99231; 99232 ==

== ENCOUNTER → 2023-02-09 11:00 | Outpatient (BNV) | payer BC, MEDICARE, SELFPAY | PROVIDERS: Visit Provider Psychiatry & Neurology Psychiatry | DX: F33.2 Major depressive disorder, recurrent severe without psychotic features (principal) | CPT/HCPCS: 90792; 99213 ==

== ENCOUNTER 2023-02-22 12:00 | Outpatient (RCR) | payer BC, MEDICARE, SELFPAY ==
[2023-02-09 10:38] VITALS: BP 98/62; PULSE 84; TEMP 36.6
[2023-02-09 10:45] VITALS: BMI 30.6
--- NOTE | 2023-02-09 11:42 | PC.ADMIT ---
Patient is a 47 year old female who was referred to [facility] by [facility] inpatient behavioral health unit d/t increased depression and relapse on ETOH drinking Vodka daily from January 08-January 23 or 2022 after over a year sobriety. Stated she started drinking after seeing reminders of her father who in 2019. She also reported she stopped taking her medications in the begining of January 2023 with the exception of Ativan which she was mixing with ETOH. She stated she knew she should not be mixing these medications together. She also stated she was abusing OTC medications including Nyquil, Benadryl, and Tylenol. Dora stated her and her sister are administering her medications for the next few weeks to make sure she is taking them as prescribed. Per records patient was assessed by the care team on 09/28/22 seeking detox and was referred to detox at [facility] in [facility]. Patient on O2 continuous 2 liters. Reports history of COPD. Patient is alert and oriented x4. Calm and cooperative. Presented with depressed mood and affect. Denied SI. Patient given a copy of her safety plan if needed and I reviewed the plan with her. Medications reconciled with patient and patient's discharge inpatient medical record. She reports taking medications as prescribed.
--- NOTE | 2023-02-09 15:12 | HO.PS.ADMBH ---
HPI Date of Service: 02/09/23 Chief Complaint: MDD Sources of Information: patient interviewed, chart reviewed and crisis/core team assessment reviewed HPI Narrative: Patient is a 47 year old female with depression, alcoholism and complex medical problems including COPD/ARDS on O2 and mobility issues secondary to bilateral femoral necrosis, who is stepped down from [facility] at [facility] with diagnoses of MDD, ADHD, Alcohol Use Disorder. This was her first psychiatric hospitalization following a suicide attempt 3 weeks ago in context of recent relapse, medication non-compliance and complex bereavement. I haven't dealt with my dad's loss...I just wanted to talk to him. To be with him. I didn;t want to be on this Earth anymore . She reports that she had started drinking about 3 years as a means of coping with her father's . She found alcohol to be helpful way to numb the emotional pain from the loss and also with the overthinking related to OCD stuff , which she describes as more in line with OCPD tendencies rather than OCD. She reports she had had the intention and plan to end her life but wound up drinking until the point she passed out in her bathroom, ultimately waking up and confiding in her sister who encouraged her to get help. She is working through a lot of emotions with her family including her whom she lives at home with and had no clue she was suicidal nor that she had relapsed since Jan 08 (after being sober for past 15 months). She says she has a lot of work ahead of her including regaining the trust of her family. She continues to be monitored by her as well as her mother and sister who live close by. She has a psychaitrist that she sees regularly, though not frequently, but admits she did not disclose to her provider about her relapse nor did she reach out to the provider to inform her about worsening depression and suicidal thinking because I was embarrassed by my thoughts... I didnt want to tell anybody . Denies any current thoughts of harming self or others. Denies any AH or VH. Sleep issues are chronic, appetite variable. She is trying to take better care of herself she says. She expresses intention to stick to recovery and medication adherence. She had been prescribed Lexapro at 5 mg by her outpatient provider since 2020, and only since being inpatient these past couple of weeks was the dose of Lexapro increased to 20 mg and Abilify was added for augmentation. So far she has tolerated medications well and feels they are helpful. She also spent a considerable part of the discussion detailing her many acute medical issues which complicate her life and cause her considerable stress and physical and functional impairment. Current Medications: escitalopram 20 mg qd Abilify 4 mg qd Concerta 27 mg qd methylphenidate 10 mg qd PRN trazodone 100 mg qHS hydroxyzine 25 mg TID PRN anxiety omeprazole Tylenol 325 q 4-6 hrs PRN pain vitamin D3 vitamin B complex Mg-Ca-Zn complex Multivitamin Past Psychiatric History: History of one suicide attempt, which lead to first IPLOC in 01/2023 (@[facility] x 12 days) First time in [facility] Detox admission in 2021. Reportedly was dx with ADHD at age 6, neuropsych testing in childhood, currently treated for ADHD Prescriber: Aracely Pan Does not have outpatient therapist. Previous medication trials includes: escitalopram (current) duloxetine (AE) fluoxetine (in childhood) Wellbutrin (headaches) gabapentin (rxed for pain, weened self off) Zoloft clonazepam acamprosate (has not been on NTX, disulfarim) trazodone, hydroxyzine (current) Abilify (current) no other AED or NL mood stabilizers in the past [facility] Medical History (Updated 02/12/23 @ 09:13 by Nadia Perez MD) History of pulmonary embolism History of GI bleed History of sepsis Foreign body (FB) in soft tissue Psoriatic arthritis Avascular necrosis COPD (chronic obstructive pulmonary disease) ARDS (adult respiratory distress syndrome) Narrative: Also reports history: Osteoarthritis (in addition to Psoriatic Arthritis) Psoriasis Eczema Narcolepsy BETHANY Foreign body in knee, active issue (pending surgical repair) Multiple environmental and drug allergies (as noted below) Nulligravid G0 Surgical History History of cholecystectomy History of back surgery History of gastric bypass History of tracheostomy Family History: Brother has bipolar disorder. Aunt with schizophrenic illness. Uncle with bipolar disorder, alcoholism and hx of suicide attempts. No suicides in family. Social History: Lives with . no children. unemployed. Disabled. Other supports include sister and mother who live nearby. Substance History: Alcohol abuse starting around age 44. Prior to this she reports alcohol use was in moderation and social use. No legal history or DUIs. Had been sober for past year until relapse in Jan. Last drink Jan 23. Nicotine use: occasion cigarette use. Has had 4 cigs in past 2 months. Keeps pack in her fridge, turns off oxygen and will enjoy a few puffs outside on occasion to relax (limits self to 1/2 cig) Cannabis: occasionally has used THC gummies to help with pain, but causes moodiness Denies any cocaine, hallucinogen or other illicit substance use. No hx of IVDA No regular caffeine use. Trauma History: physical and verbal. Diagnostics Vital Signs (24Hr): Vital Signs - 24 hr 02/09/23 10:38 Temperature 98 F Pulse Rate 84 Blood Pressure 98/62 BMI result Body Mass Index 30.6 Meds/Allergies Meds Home Medications Medication Instructions Recorded Confirmed Type lorazepam 0.5 mg tablet 0.5 mg PO DAILY PRN Anxiety 01/25/23 02/09/23 History methylphenidate HCl 27 mg 27 mg PO QAM 01/25/23 02/09/23 History tablet,extended release 24 hr (Concerta) Allergies Allergies Allergy/AdvReac Type Severity Reaction Status Date / Time amoxicillin [AMOXICILLIN] Allergy Unknown RASH Verified 09/09/21 18:00 fluoxetine [From PROZAC] Allergy Unknown RASH Verified 09/09/21 18:00 heparin [HEPARIN] Allergy Unknown JAUN Verified 09/09/21 18:00 SYNDROME heparin (porcine) Allergy Unknown swelling, Verified 09/09/21 18:00 red hydrocodone [HYDROCODONE] Allergy Unknown PROJECTILE Verified 09/09/21 18:00 VOMITING ibuprofen [From Motrin] Allergy Unknown Shortness Verified 01/30/23 14:37 of Breath naproxen Allergy Unknown Stomach Verified 01/30/23 14:37 Upset omeprazole [OMEPRAZOLE] Allergy Unknown RASH, head Verified 09/09/21 18:00 to toe rash penicillin G [PENICILLIN G] Allergy Unknown RASH Verified 09/09/21 18:00 penicillin V Allergy Unknown rash Verified 09/09/21 18:00 piperacillin [From ZOSYN] Allergy Unknown RASH Verified 09/09/21 18:00 strawberry [STRAWBERRY] Allergy Unknown SOB,RASH, Verified 09/09/21 18:00 ANAPHYLAXISIS tazobactam [From ZOSYN] Allergy Unknown RASH Verified 09/09/21 18:00 walnut Allergy Unknown Difficulty Verified 09/09/21 18:00 Breathing Caramelized Food coloring Allergy Unknown Itching Uncoded 09/09/21 18:00 CARMALIZED FOOD COLORING Allergy Unknown RASH Uncoded 09/09/21 18:00 Hydrocodone Bitartrate Allergy Unknown severe Uncoded 09/09/21 18:00 vomiting Mangos Allergy Unknown Difficulty Uncoded 09/09/21 18:00 Breathing Piperacillin Sod-Tazobactam Allergy Unknown swelling Uncoded 09/09/21 18:00 So Strawberries Allergy Unknown Blister Uncoded 09/09/21 18:00 Mental Status Exam Mental Status Exam Narrative: Alert, oriented x3. On oxygen with nasal canula. Able to speak in complete sentances without dyspnea. In no acute distress. Pleasant, casually dressed in loose layered apparel. Grooming fair, unkempt, hygiene intact. Engaged, cooperative, forthcoming. Speech intact with regular rate and rhythm, moderate prosody, talkative but paced. No latency or pressure. Calm, moves slowly but deliberately, no neurovegetative retardation. Mood is depressed but improving , affect is subdued, congruent, reactive. Thought content linear, coherent. Thought content relative to stressors. No evidence of fox or psychosis. No perceptual disturbance. Cognition grossly intact. Sensorium clear. Insight fair, judgment fair but adequate. Assessment & Plan Assessment & Plan (1) MDD (major depressive disorder): Status: Acute Qualifiers: Active/Remission status: remission status unspecified Major depression recurrence: recurrent Qualified Code(s): F33.9 - Major depressive disorder, recurrent, unspecified Code(s): F32.9 - Major depressive disorder, single episode, unspecified (2) Alcohol abuse: Status: Acute Code(s): F10.10 - Alcohol abuse, uncomplicated (3) ADHD (attention deficit hyperactivity disorder): Status: Acute Qualifiers: Attention deficit-hyperactivity disorder type: unspecified Qualified Code(s): F90.9 - Attention-deficit hyperactivity disorder, unspecified type Code(s): F90.9 - Attention-deficit hyperactivity disorder, unspecified type Plan Admit to PHP Continue current medications for now (She is at ABilify 4 mg (two 2 mg tablets) which is awkward for dosing and will likely require 2 scripts. She is agreeable to bumping up to 5 mg when refill is due, given an adjustment on the Abilify is not warranted earlier) Will continue to monitor She has an outpatient psychaitry appointment with Debo Pan scheduled for March 07. Patient educated on: diagnosis and medication risk/benefits Informed Consent: understands Reason for continued partial hosp. stay Substantial Risk for: inability to function and med/psych decompensation Certification I certify that partial hospital treatment is medically necessary due to the symptoms and problems resulting from the patient's mental illness and the failure to treat the patient at the partial hospital level of care would likely result in the patient requiring inpatient psychiatric care which could not be prevented at a less intensive level of care. Time Spent With Patient Time: Total time managing care of this patient today _60___ minutes.
--- NOTE | 2023-02-15 15:19 | HO.PHP ---
The clients case was reviewed and opened in treatment team.
--- NOTE | 2023-02-16 22:15 | P.PNPSP_ITS ---
Subjective Subjective Date of Service: 02/16/23 Reason For Visit: MDD Interim History: Patient seen for follow-up today. No acute concerns or issues. Reports she is doing well, discusses struggles with ADHD and feels stimulants are very helpful and necessary for daily functioning. Says her provider neglected to refill the MPH correctly and is now running low. Says she is prescribed Concerta 27 mg/ MPH 10mg/ MPH 10 mg. Alternatively is allowed to take MPH 10 mg TID for days where she wakes too late to take the long-acting stimulant. She agree to contact her outpatient provider regarding the MPH refill, as she was seen recently and perhaps there may have been a miscommunication in dosing. She agrees to update me if there are any changes. She is also due for refill on Abilify and likes the idea of just being bumped up from 4 mg to 5 mg of Abilify for ease of dosing and feels she could benefit from the modest increase in terms of running thoughts, constant internal dialoguing and just wanting to feel a little more grounded and settled. Reports mood as euthymic, anxiety mostly in regards to stressors, and feeling family is constantly monitoring her, she feels good overall and expresses some frustration with monitoring feeling a little but too much , but says she understand why she is in this predicament. Denies any SI, HI. No evidence of fox or psychosis. Med compliant, family monitoring scripts as per safety planning. Well-tolerated, denies any adverse effects. Medication Compliance: Yes Side effects from medications: No Review of Systems Acute medical concerns: No Mental Status Exam Mental Status Exam Narrative: Alert, oriented x3. On oxygen with nasal canula. Speech in complete sentances without dyspnea. In no acute distress. Pleasant, casually dressed in loose layered apparel. Grooming fair, unkempt, hygiene intact. Engaged, cooperative, forthcoming. Speech as noted above, otherwise intact with regular rate and rhythm, moderate prosody, talkative but paced. No latency or pressure. Calm, moves slowly but deliberately, no neurovegetative retardation. Mood is neutral, affect is subdued, congruent with moments of brightening, reactive. Thought content linear, coherent. Thought content relative to stressors. No SI or HI on inquiry. No evidence of fox or psychosis. No perceptual disturbance. Cognition grossly intact. Sensorium clear. Insight fair, judgment fair but adequate. Diagnostics Vital Signs (24Hr): BMI result Body Mass Index 30.6 Assessment & Plan Assessment & Plan (1) MDD (major depressive disorder): Qualifiers: Active/Remission status: remission status unspecified Major depression recurrence: recurrent Qualified Code(s): F33.9 - Major depressive disorder, recurrent, unspecified Status: Acute Code(s): F32.9 - Major depressive disorder, single episode, unspecified (2) Alcohol abuse: Status: Acute Code(s): F10.10 - Alcohol abuse, uncomplicated (3) ADHD (attention deficit hyperactivity disorder): Qualifiers: Attention deficit-hyperactivity disorder type: unspecified Qualified Code(s): F90.9 - Attention-deficit hyperactivity disorder, unspecified type Status: Acute Code(s): F90.9 - Attention-deficit hyperactivity disorder, unspecified type Plan Abilify bumped to 5 mg, refill sent to pharmacy. No other changes to treatment plan Continue in PHP Continue to monitor Patient educated on: diagnosis, medication risk/benefits, substance abuse, therapeutic strategies and medical condition Informed Consent: understands Reason for contiued partial hosp. stay Substantial Risk for: inability to function, rapid decompensation and med/psych decompensation Certification I certify that partial hospital treatment is medically necessary due to the s ymptoms and problems resulting from the patient's mental illness and the failure to treat the patient at the partial hospital level of care would likely result in the patient requiring inpatient psychiatric care which could not be prevented at a less intensive level of care. Total time managing care of this patient today __30__ minutes. Discharge Plan Discharge Attending provider: Nadia Perez Medications: New nicotine 7 mg/24 hr patch 24 hour 1 patch transdermal Q24H 14 Days Qty: 14 0RF Rx Instructions: remove patch daily in evening aripiprazole 5 mg tablet 5 mg PO DAILY Qty: 14 0RF Continued methylphenidate HCl [Concerta] 27 mg tablet extended release 24hr 27 mg PO QAM Patient Comments: last picked up on 01/08/23 escitalopram oxalate 20 mg Tablet 20 mg PO DAILY Qty: 30 0RF omeprazole 20 mg Capsule,Delayed Release(Dr/Ec) 20 mg PO DAILY@0630 Qty: 30 0RF trazodone 50 mg Tablet 50 mg PO BEDTIME PRN (Reason: Insomnia) Qty: 30 0RF Dermacerin Cream 1 appl topical DAILY Qty: 0 0RF Protocol: Apply to: Apply to: face and other dry areas hydroxyzine HCl 25 mg tablet 25 mg PO TID PRN (Reason: anxiety) Qty: 90 0RF Discontinued aripiprazole [Abilify] 2 mg Tablet 4 mg PO DAILY Qty: 60 0RF No Action lorazepam 0.5 mg tablet 0.5 mg PO DAILY PRN (Reason: Anxiety)
--- NOTE | 2023-02-22 21:41 | HO.PHPPROGNO ---
Subjective Subjective Date of Service: 02/22/23 Reason For Visit: MDD Interim History: This is is a follow-up visit with Dora as part of her partial hospital engagement. She is being discharged today. Her mood is good, anxiety better. Denies any current thoughts of harming self or others. She is accompanied by her sister who came in to to pick her up. Sister has been managing Dora's medication due to safety concerns. Dora would like her sister to continue to hold/dispense her medications. She feels it improves medication complaince. Sister says she is okay with this plan for now. She continues on ABilify, Lexapro, and prn lorazepam, hydroxyzine and trazodone. We reviewed discussion re: benzodiazepine use, potentiala for addiction/dependence and relationship between alcohol and BZD use/abuse. She still has some lorazepam, I encourage her to discuss further with her OP provider. I will not be sendning any refills as she is not taking regularly, and still has supply at home. She also asking again for refill on short acting MPh, however I point out that, per [facility], this has not been filled since October, and in the interim only ER formulation has been filled by OP provider. I suggest she discuss this medication (and refill) with her provider. I will send refills on the Abilify and Lexapro. She denies any side effects. No changes were made today. Medication Compliance: Yes Side effects from medications: No Attending Groups: Yes Review of Systems Acute medical concerns: No Mental Status Exam Mental Status Exam Narrative: Alert, oriented x3. On oxygen with nasal canula. Speech in complete sentances without dyspnea. In no acute distress. Pleasant, casually dressed in loose layered apparel. Engaged, cooperative, forthcoming. Speech intact without latency or pressure. Calm, no psychomotor agitation or neurovegetative retardation. Mood euthymic, affect full range, reactive. No evidence of thought disorder. No SI or HI on inquiry. No evidence of fox or psychosis. No perceptual disturbance. Cognition grossly intact. Sensorium clear. Insight fair, judgment fair but adequate. Diagnostics Vital Signs (24Hr): BMI result Body Mass Index 30.6 Assessment & Plan Patient educated on: diagnosis, medication risk/benefits and substance abuse Informed Consent: understands Reason for contiued partial hosp. stay Substantial Risk for: stable for discharge Certification I certify that partial hospital treatment is medically necessary due to the symptoms and problems resulting from the patient's mental illness and the failure to treat the patient at the partial hospital level of care would likely result in the patient requiring inpatient psychiatric care which could not be prevented at a less intensive level of care. Total time managing care of this patient today __30__ minutes. Discharge Plan Discharge Attending provider: Nadia Perez Medications: New nicotine 7 mg/24 hr patch 24 hour 1 patch transdermal Q24H 14 Days Qty: 14 0RF Rx Instructions: remove patch daily in evening aripiprazole 5 mg tablet 5 mg PO DAILY Qty: 14 0RF Continued methylphenidate HCl [Concerta] 27 mg tablet extended release 24hr 27 mg PO QAM Patient Comments: last picked up on 01/08/23 escitalopram oxalate 20 mg Tablet 20 mg PO DAILY Qty: 30 0RF omeprazole 20 mg Capsule,Delayed Release(Dr/Ec) 20 mg PO DAILY@0630 Qty: 30 0RF trazodone 50 mg Tablet 50 mg PO BEDTIME PRN (Reason: Insomnia) Qty: 30 0RF Dermacerin Cream 1 appl topical DAILY Qty: 0 0RF Protocol: Apply to: Apply to: face and other dry areas hydroxyzine HCl 25 mg tablet 25 mg PO TID PRN (Reason: anxiety) Qty: 90 0RF Discontinued aripiprazole [Abilify] 2 mg Tablet 4 mg PO DAILY Qty: 60 0RF No Action lorazepam 0.5 mg tablet 0.5 mg PO DAILY PRN (Reason: Anxiety) Stand Alone Forms: Patient Portal Discharge page Patient Education: Depression (DC), Alcohol Use Disorder (DC)
== END 2023-02-22 23:59 | disposition home or self-care (01) ==
LOC: HO.PHPA 12:00
PROVIDERS: Visit Provider Psychiatry & Neurology Psychiatry
DX: F33.9 Major depressive disorder, recurrent, unspecified (principal); F90.9 Attention-deficit hyperactivity disorder, unspecified type; F10.10 Alcohol abuse, uncomplicated
CPT/HCPCS: 90791; 90853

== ENCOUNTER 2023-04-17 09:46 | Outpatient (AMB) | payer OTHER, BC, SELFPAY ==
--- NOTE | 2023-04-17 09:55 | A.OFFVIS_ITS ---
Intake Vital Signs 04/17/23 10:00 Height 5 ft 4 in Weight 180 lb BMI 30.9 Intake Visit Reasons: New Pt - bilateral hip pain Intake Note: Dora is a 47 year old who presents today as a new patient for a evaluation for her bilateral hip pain. Patient reports ongoing pain for 4 years. No hx of injections/PT. Hx of Avascular necrosis of the bone. She states that her left hip is worse then the right hip, however both are equal to pain. Pain is worse when laying down at night. Also she did ice baths and it gives her hips relief. Allergies amoxicillin [AMOXICILLIN] Allergy (Unknown, Verified 04/17/23 10:00) RASH fluoxetine [From PROZAC] Allergy (Unknown, Verified 04/17/23 10:00) RASH heparin [HEPARIN] Allergy (Unknown, Verified 04/17/23 10:00) JAUN SYNDROME heparin (porcine) Allergy (Unknown, Verified 04/17/23 10:00) swelling, red hydrocodone [HYDROCODONE] Allergy (Unknown, Verified 04/17/23 10:00) PROJECTILE VOMITING ibuprofen [From Motrin] Allergy (Unknown, Verified 04/17/23 10:00) Shortness of Breath naproxen Allergy (Unknown, Verified 04/17/23 10:00) Stomach Upset omeprazole [OMEPRAZOLE] Allergy (Unknown, Verified 04/17/23 10:00) RASH, head to toe rash penicillin G [PENICILLIN G] Allergy (Unknown, Verified 04/17/23 10:00) RASH penicillin V Allergy (Unknown, Verified 04/17/23 10:00) rash piperacillin [From ZOSYN] Allergy (Unknown, Verified 04/17/23 10:00) RASH strawberry [STRAWBERRY] Allergy (Unknown, Verified 04/17/23 10:00) SOB,RASH, ANAPHYLAXISIS tazobactam [From ZOSYN] Allergy (Unknown, Verified 04/17/23 10:00) RASH walnut Allergy (Unknown, Verified 04/17/23 10:00) Difficulty Breathing Caramelized Food coloring Allergy (Unknown, Uncoded 09/09/21 18:00) Itching CARMALIZED FOOD COLORING Allergy (Unknown, Uncoded 09/09/21 18:00) RASH Hydrocodone Bitartrate Allergy (Unknown, Uncoded 09/09/21 18:00) severe vomiting Mangos Allergy (Unknown, Uncoded 09/09/21 18:00) Difficulty Breathing Piperacillin Sod-Tazobactam So Allergy (Unknown, Uncoded 09/09/21 18:00) swelling Strawberries Allergy (Unknown, Uncoded 09/09/21 18:00) Blister HPI New Pt - bilateral hip pain HPI Details 47-year-old female who presents in the [facility] today, as a new patient, for an evaluation of bilateral hip pain. The patient reports ongoing pain for 4 years, since 2018. She states the left hip is worse then the right hip. However she states her pain level is equal. She states she has an increase in pain when laying down at night. She denies attending physical therapy or an attempting injections. She has tried ice baths which gives her some relief. She states the pain radiates into the groin. She states this pain has been this bad for the past year. She states she has difficulty with going down stairs due to pain and limited ROM. The patient reports pain in the right knee. She reports having clips in her stomach for a GI bleed. 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 She has a history of chronic oxygen use. Patient has a significant medical history of Pulmonary embolism, COPD, and Adult respiratory distress syndrome. [facility] Medical History (Updated 04/17/23 @ 10:19 by Coco Sotelo) History of pulmonary embolism History of GI bleed History of sepsis Foreign body (FB) in soft tissue Psoriatic arthritis Avascular necrosis COPD (chronic obstructive pulmonary disease) ARDS (adult respiratory distress syndrome) Surgical History History of cholecystectomy History of back surgery History of gastric bypass History of tracheostomy Social History Household Members: Spouse Housing: House Do you presently have visiting nurse or other home services: No Patient Tobacco Use Status: Current everyday Tobacco user Tobacco use type: Cigarette Cigarettes Per Day: 5 Second Hand Smoke Exposure: No service: No Sexual orientation: Straight/Heterosexual Review of Systems Const All systems reviewed & are unremarkable except as noted in HPI and below Physical Exam Vital Signs: BMI result Body Mass Index 30.9 Const General: cooperative and no acute distress Orientation/consciousness: patient oriented x3 Resp Effort & Inspection: normal respiratory effort and able to speak in complete sentences Cardio Peripheral pulses: Peripheral pulses 2+ throughout Skin General skin exam: no rashes or lesions noted Neuro General: patient oriented x3 Extrem Other: Bilateral hips: Normal to inspection. Full hip ROM in all planes but reports groin back and lower back pain with internal and external rotation. Tenderness to palpation over the greater trochanteric bursa bilaterally. Able to perform straight leg raise. NVI. Right knee: Palpable loose body to the lateral aspect of the superior patella. Tenderness to palpation over the loose body. Full extension and flexion. NVI. Assessment & Plan Assessment & Plan (1) Avascular necrosis of bone of right hip: Code(s): M87.051 - Idiopathic aseptic necrosis of right femur (2) Avascular necrosis of bone of left hip: Code(s): M87.052 - Idiopathic aseptic necrosis of left femur Plan Ms. Plunkett is a 47-year-old female who presents in the office today, as a new patient, for an evaluation of bilateral hip pain. The patient reports ongoing pain for 4 years, since 2018. She states the left hip is worse then the right hip. However she states her pain level is equal. She states she has an increase in pain when laying down at night. She denies attending physical therapy or an attempting injections. She has tried ice baths which gives her some relief. She states the pain radiates into the groin. She states this pain has been this bad for the past year. She states she has difficulty with going down stairs due to pain and limited ROM. The patient reports pain in the right knee. She reports having clips in her stomach for a GI bleed. 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 She has a history of chronic oxygen use. Patient has a significant medical history of Pulmonary embolism, COPD, and Adult respiratory distress syndrome. Bilateral hips: I will place a referral for an MRI. Should the patient having clips in her stomach make it to where she is unable to obtained the MRI we will order a CT scan. Follow up will be after the MRI is obtained with Dr. Bach, or sooner if needed. Right knee: The patient has seen Dr. Bach in the past for right knee calcium loose body. She requested a knee brace. She will be given a genumed knee brace, off the shelf, while in the office today. Follow up will be PRN, or sooner if needed. X-rays of the bilateral hips, obtained on 01/29/2023, revealed: Minimal degenerative changes in the bilateral hips. Additional imaging with CT scan or MRI should be considered for better visualization as these modalities are much more sensitive for detection of fracture or other underlying pathology. Orders: Orders MR pelvis wo con Today M87.00 - Idiopathic aseptic necrosis of unspecified bone Patient Instructions: Scribed for Sarah Montemayor PA-C by Coco Sotelo medical supply technician, on 04/17/2023 at 9:49 am, EST. Coding Level of Care Code New Pt Level 4 (47471) Diagnoses Avascular necrosis of bone of right hip M87.051 Avascular necrosis of bone of left hip M87.052
[2023-04-17 10:00] VITALS: BMI 30.9
== END 2023-04-17 10:29 | disposition home or self-care (01) ==
PROVIDERS: PCP Internal Medicine; Visit Provider Physician Assistant
DX: M87.051 Idiopathic aseptic necrosis of right femur (principal); M87.052 Idiopathic aseptic necrosis of left femur; M23.41 Loose body in knee, right knee
CPT/HCPCS: 99203

== ENCOUNTER → 2023-04-17 09:46 | Outpatient (BNVA) | payer BC, MEDICARE, SELFPAY | PROVIDERS: Visit Provider Physician Assistant ==

== ENCOUNTER 2023-04-30 13:21 | Outpatient (AMB) | payer BC, OTHER, SELFPAY ==
--- NOTE | 2023-04-30 13:25 | A.OFFVIS_ITS ---
Intake Vital Signs 04/30/23 13:32 Height 5 ft 4 in Weight 180 lb BMI 30.9 BP 112/60 Blood Pressure Location Lt brachial Position Sitting Pulse 89 Pulse Source Pulse Oximeter Pulse Oximetry (%) 99 Oxygen Delivery Method Nasal Cannula Intake Visit Reasons: ENP-BETHANY on CPAP CONF Intake Note: Patient presents for BETHANY. having trouble sleeping and breathing. CPAP machine was recalled Allergies amoxicillin [AMOXICILLIN] Allergy (Unknown, Verified 05/07/23 14:24) RASH fluoxetine [From PROZAC] Allergy (Unknown, Verified 05/07/23 14:24) RASH heparin [HEPARIN] Allergy (Unknown, Verified 05/07/23 14:24) JAUN SYNDROME heparin (porcine) Allergy (Unknown, Verified 05/07/23 14:24) swelling, red hydrocodone [HYDROCODONE] Allergy (Unknown, Verified 05/07/23 14:24) PROJECTILE VOMITING ibuprofen [From Motrin] Allergy (Unknown, Verified 05/07/23 14:24) Shortness of Breath naproxen Allergy (Unknown, Verified 05/07/23 14:24) Stomach Upset omeprazole [OMEPRAZOLE] Allergy (Unknown, Verified 05/07/23 14:24) RASH, head to toe rash penicillin G [PENICILLIN G] Allergy (Unknown, Verified 05/07/23 14:24) RASH penicillin V Allergy (Unknown, Verified 05/07/23 14:24) rash piperacillin [From ZOSYN] Allergy (Unknown, Verified 05/07/23 14:24) RASH strawberry [STRAWBERRY] Allergy (Unknown, Verified 05/07/23 14:24) SOB,RASH, ANAPHYLAXISIS tazobactam [From ZOSYN] Allergy (Unknown, Verified 05/07/23 14:24) RASH walnut Allergy (Unknown, Verified 05/07/23 14:24) Difficulty Breathing Caramelized Food coloring Allergy (Unknown, Uncoded 05/07/23 14:24) Itching CARMALIZED FOOD COLORING Allergy (Unknown, Uncoded 05/07/23 14:24) RASH Hydrocodone Bitartrate Allergy (Unknown, Uncoded 05/07/23 14:24) severe vomiting Mangos Allergy (Unknown, Uncoded 05/07/23 14:24) Difficulty Breathing Piperacillin Sod-Tazobactam So Allergy (Unknown, Uncoded 05/07/23 14:24) swelling Strawberries Allergy (Unknown, Uncoded 05/07/23 14:24) Blister HPI HPI Comments History of Present Illness Details 47 y/o female patient presents for new i n-person visit to manage sleep apnea. Pt reports she was diagnosed sleep apnea and used BiPAP. However, her BiPAP had recalled and she stopped using it. She had a repeat sleep study done during COVID pandemic, but did not get new BiPAP. Pt has hx of collapsed lung, and chronic O2 dependant. She uses continuous supplement O2 at 2 L. 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 She lost 150 lb since the first sleep study in 2010. Sleep questionnaire: Have you ever been diagnosed with a sleep disorder? Have you ever had a sleep study in the past? Have you ever been treated for a sleep disorder? Do you take medications for a sleep disorder? trazodone 100 mg. Do you snore? Yes. Do you wake up gasping at night? Yes. Do you have episodes of apneas? Yes. If yes, are they witnessed? Yes. Do you have episodes of nocturnal chest pain or dyspnea? No, she is on continuous O2. Do you have difficulty initiating sleep? Yes. Do you have difficulty maintaining sleep? Yes. Do you wake up tired? Yes. Do you have headaches upon awakening? Yes. Do you wake up with dry mouth or throat? Yes. Do you have GERD? No. Do you have nocturia? No. Do you have nocturnal leg cramps? Yes. Do you have symptoms of restless legs? Yes. Do you act out your dreams? No. Sleep hygiene questionnaire: What is your usual sleep routine? Usual bedtime is at 10 pm; Usual wake up time is at 5 am. Do you take naps? Yes, Is your sleep environment cool, dark, and quiet? Yes. Do you exercise? No. Do you take caffeine or other stimulants? Three cups of coffee throughout the day. Do you use electronics in bed? Yes. What is your work schedule? N/A. Hypersomnolence questionnaire: Do you have daytime tiredness or fatigue? Yes. Do you easily fall asleep when inactive? Yes. Have you ever had episodes of sudden weakness? No. Have you ever had episodes of sudden weakness associated with strong emotions? No. [facility] Medical History (Updated 05/16/23 @ 10:29 by Joan Fermin CNP) History of pulmonary embolism History of GI bleed History of sepsis Foreign body (FB) in soft tissue Psoriatic arthritis Avascular necrosis COPD (chronic obstructive pulmonary disease) ARDS (adult respiratory distress syndrome) Surgical History History of cholecystectomy History of back surgery History of gastric bypass History of tracheostomy Social History Household Members: Spouse Housing: House Do you presently have visiting nurse or other home services: No Patient Tobacco Use Status: Current everyday Tobacco user Tobacco use type: Cigarette Cigarettes Per Day: 5 Second Hand Smoke Exposure: No service: No Sexual orientation: Straight/Heterosexual Review of Systems Const All systems reviewed & are unremarkable except as noted in HPI and below Physical Exam Vital Signs: Last Vital Signs Pulse 89 04/30/23 13:32 BP 112/60 04/30/23 13:32 Pulse Ox 99 04/30/23 13:32 Oxygen Delivery Method Nasal Cannula 04/30/23 13:32 BMI result Body Mass Index 30.9 Const General: cooperative Nutritional Appearance: obese Orientation/consciousness: patient oriented x3 Neck Neck: Yes full ROM and Yes supple Neuro General: patient oriented x3 and moves all extremities Cranial nerves: Yes CN's II-XII intact bilaterally Cognition (Neuro): normal cognition Psych Appearance: grossly normal Mental Status: mental status grossly normal Speech and movement: Normal speech and movement present Affect: normal affect Attitude: cooperative Assessment & Plan Assessment & Plan (1) BETHANY (obstructive sleep apnea): Comment: Pt was on BiPAP Code(s): G47.33 - Obstructive sleep apnea (adult) (pediatric) Plan Pt is advised to undergo in lab sleep study to assess for sleep apnea. Will f/u with pt after study to discuss results and appropriate treatment options. Sleep hygiene education provided. Pt to call with any worsening concerns or questions. Orders: Orders RT PSG in-lab sleep study 04/30/23 G47.33 - Obstructive sleep apnea (adult) (pediatric), J80 - Acute respiratory distress syndrome Coding Level of Care Code New Pt Level 3 (76401) Diagnoses BETHANY (obstructive sleep apnea) G47.33
[2023-04-30 13:32] VITALS: BP 112/60; PULSE 89; O2SAT 99; BMI 30.9
== END 2023-04-30 14:09 | disposition home or self-care (01) ==
PROVIDERS: PCP Internal Medicine; Visit Provider Nurse Practitioner Family
DX: G47.33 Obstructive sleep apnea (adult) (pediatric) (principal)
CPT/HCPCS: 99203

== ENCOUNTER → 2023-04-30 13:21 | Outpatient (BNVA) | payer BC, OTHER, SELFPAY | PROVIDERS: Visit Provider Nurse Practitioner Family ==

== ENCOUNTER 2023-05-01 14:25 | Outpatient (REF) | payer BC, OTHER, SELFPAY ==
--- NOTE | ~2023-05-01 | MR_ITS ---
EXAMINATION: MR PELVIS WITHOUT CONTRAST CLINICAL INFORMATION: Avascular necrosis of both femurs. Pain in both hips. COMPARISON: Radiograph dated 01/29/2023. TECHNIQUE: Multiplanar MR was obtained through the pelvis on a 1.5 Ginny magnet without intravenous contrast administration. FINDINGS: BONES AND ARTICULAR CARTILAGE: Chronic avascular necrosis is evident at both femoral heads anterosuperiorly, measuring 2.2 x 3.5 cm in area on the right and 2 x 3.3 cm in area on the left. No findings of articular cortical collapse or fragmentation. No surrounding marrow edema signal. Articular cartilage at the hip joints appears relatively well-preserved. Mild chondral thinning is possible as sensitivity is somewhat limited on large [id number], whole pelvis images. Small osteophytes of the right acetabulum. No fractures or stress reactions. No aggressive osseous lesions. SI joints are unremarkable. Degenerative disc disease is evident in the lower lumbar spine at L5-S1 with associated facet arthropathy. MUSCLES AND TENDONS: There is [id number] fatty atrophy of the gluteus teresita muscles bilaterally. Tendons are intact without tears, tendinosis, or tenosynovitis. JOINT FLUID AND BURSAE: No bursitis. No apparent loose bodies within the joint. INTRAPELVIC SOFT TISSUES: Assessment of the central pelvic soft tissues is somewhat limited by susceptibility artifact, likely related to bowel gas. No intraperitoneal free fluid is identified. No adenopathy. SUPERFICIAL SOFT TISSUES: No adenopathy. MR/MR pelvis wo con IMPRESSION: 1. Chronic avascular necrosis of both femoral heads without evidence of articular cortical collapse or fragmentation. No significant marrow edema signal at the femoral heads to indicate impending collapse. 2. Minimal osteoarthritis in the hips. 3. Degenerative disc disease and facet arthropathy in the lower lumbar spine at L5-S1.
== END 2023-05-01 14:26 | disposition home or self-care (01) ==
LOC: HO.MRI 14:25
PROVIDERS: PCP Internal Medicine; Visit Provider Physician Assistant
DX: M87.9 Osteonecrosis, unspecified (principal)
CPT/HCPCS: 72195

== ENCOUNTER 2023-05-07 14:19 | Outpatient (AMB) | payer BC, OTHER, SELFPAY ==
--- NOTE | 2023-05-07 14:23 | MHC.OFFVIS ---
Intake Intake Visit Reasons: OV - MRI review Pelvis Per Intake Note: Dora is a 47 year old female who presents today for a MRI review of her pelvis for concerns of bilateral hip AVN Allergies amoxicillin [AMOXICILLIN] Allergy (Unknown, Verified 05/07/23 14:24) RASH fluoxetine [From PROZAC] Allergy (Unknown, Verified 05/07/23 14:24) RASH heparin [HEPARIN] Allergy (Unknown, Verified 05/07/23 14:24) JAUN SYNDROME heparin (porcine) Allergy (Unknown, Verified 05/07/23 14:24) swelling, red hydrocodone [HYDROCODONE] Allergy (Unknown, Verified 05/07/23 14:24) PROJECTILE VOMITING ibuprofen [From Motrin] Allergy (Unknown, Verified 05/07/23 14:24) Shortness of Breath naproxen Allergy (Unknown, Verified 05/07/23 14:24) Stomach Upset omeprazole [OMEPRAZOLE] Allergy (Unknown, Verified 05/07/23 14:24) RASH, head to toe rash penicillin G [PENICILLIN G] Allergy (Unknown, Verified 05/07/23 14:24) RASH penicillin V Allergy (Unknown, Verified 05/07/23 14:24) rash piperacillin [From ZOSYN] Allergy (Unknown, Verified 05/07/23 14:24) RASH strawberry [STRAWBERRY] Allergy (Unknown, Verified 05/07/23 14:24) SOB,RASH, ANAPHYLAXISIS tazobactam [From ZOSYN] Allergy (Unknown, Verified 05/07/23 14:24) RASH walnut Allergy (Unknown, Verified 05/07/23 14:24) Difficulty Breathing Caramelized Food coloring Allergy (Unknown, Uncoded 05/07/23 14:24) Itching CARMALIZED FOOD COLORING Allergy (Unknown, Uncoded 05/07/23 14:24) RASH Hydrocodone Bitartrate Allergy (Unknown, Uncoded 05/07/23 14:24) severe vomiting Mangos Allergy (Unknown, Uncoded 05/07/23 14:24) Difficulty Breathing Piperacillin Sod-Tazobactam So Allergy (Unknown, Uncoded 05/07/23 14:24) swelling Strawberries Allergy (Unknown, Uncoded 05/07/23 14:24) Blister HPI OV - MRI review Pelvis Per HPI Details Dora is a 47 year old woman who presents for an MRI review of her bilateral hip AVN. She complains of back pain and says hip pain but points to her SI region. She states she does have occasional groin pain. She describes a long history of back pain. She is oxygen dependant and has a history of PE, GI bleed and suicidal ideation. She describes difficulty with many daily tasks including stairs and ambulation. The discomfort, however, is identified with her back more than her hips. She obtained a MRI recently which showed bilateral hip AVN without collapse and without associated bony edema. [facility] Medical History (Updated 04/30/23 @ 13:51 by Joan Fermin CNP) History of pulmonary embolism History of GI bleed History of sepsis Foreign body (FB) in soft tissue Psoriatic arthritis Avascular necrosis COPD (chronic obstructive pulmonary disease) ARDS (adult respiratory distress syndrome) Surgical History History of cholecystectomy History of back surgery History of gastric bypass History of tracheostomy Social History Household Members: Spouse Housing: House Do you presently have visiting nurse or other home services: No Patient Tobacco Use Status: Current everyday Tobacco user Tobacco use type: Cigarette Cigarettes Per Day: 5 Second Hand Smoke Exposure: No service: No Sexual orientation: Straight/Heterosexual Review of Systems Const All systems reviewed & are unremarkable except as noted in HPI and below Physical Exam Const Other: Oxygen depoendant General: no acute distress, alert and awake Orientation/consciousness: patient oriented x3 HEENT Head: Yes normocephalic and Yes atraumatic Eyes EOM: EOMs intact bilaterally Resp Effort & Inspection: normal respiratory effort and able to speak in complete sentences Cardio Jugular venous distension: no JVD Skin General skin exam: turgor normal Rashes: no rashes Neuro General: patient oriented x3 Extrem Other: Mild groin pain with hyper IR while flexed and adducted on the left. Minimal on the right. No gait antalgia Psych Appearance: grossly normal Affect: normal affect Attitude: cooperative Results Reviewed Results Reviewed: I personally reviewed the MR images. Chronic avascular necrosis of both femoral heads without evidence of articular cortical collapse or fragmentation. No significant marrow edema signal at the femoral heads to indicate impending collapse. 2. Minimal osteoarthritis in the hips. 3. Degenerative disc disease and facet arthropathy in the lower lumbar spine at L5-S1. I personally reviewed relevant radiographs. No evidence of AVN or collaps on plain films Assessment & Plan Assessment & Plan (1) Avascular necrosis of bone of left hip: Code(s): M87.052 - Idiopathic aseptic necrosis of left femur Plan: No evidence of collapse and clinical symptoms are minimal. I have referred her to Spine for non operative treatment. (2) Avascular necrosis of bone of right hip: Code(s): M87.051 - Idiopathic aseptic necrosis of right femur Plan: No evidence of collapse and clinical symptoms are minimal. I have referred her to Spine for non operative treatment. Plan Prepared for Brandt Bach MD by Eyal Hagen, certified medical coding specialist, on 05/07/23 at 2:31 PM, EST. Coding Level of Care Code Est Pt Level 4 (80757) Diagnoses Avascular necrosis of bone of left hip M87.052 Avascular necrosis of bone of right hip M87.051
== END 2023-05-07 15:04 | disposition home or self-care (01) ==
PROVIDERS: PCP Internal Medicine; Visit Provider Orthopaedic Surgery
DX: M87.052 Idiopathic aseptic necrosis of left femur (principal); M87.051 Idiopathic aseptic necrosis of right femur
CPT/HCPCS: 99213

== ENCOUNTER → 2023-05-07 14:19 | Outpatient (BNVA) | payer BC, OTHER, SELFPAY | PROVIDERS: PCP Internal Medicine; Visit Provider Orthopaedic Surgery ==

== ENCOUNTER 2023-06-07 09:00 | Outpatient (AMB) | payer BC, OTHER, SELFPAY ==
--- NOTE | 2023-06-07 09:25 | A.OFFVIS_ITS ---
Intake Vital Signs 06/07/23 09:40 Height 5 ft 4 in Weight 185 lb BMI 31.8 BP 116/68 Blood Pressure Location Lt brachial Position Sitting Respiration 14 Pulse 85 Pulse Source Pulse Oximeter Pulse Oximetry (%) 98 Oxygen Delivery Method Nasal Cannula Oxygen Flow Rate 2 Intake Visit Reasons: aseptic necrosis of ann marie femur/ confirm Intake Note: Patient comes in for initial visit was referred by [facility]. Reports pain 11/16. Allergies amoxicillin [AMOXICILLIN] Allergy (Unknown, Verified 06/07/23 09:39) RASH fluoxetine [From PROZAC] Allergy (Unknown, Verified 06/07/23 09:39) RASH heparin [HEPARIN] Allergy (Unknown, Verified 06/07/23 09:39) JAUN SYNDROME heparin (porcine) Allergy (Unknown, Verified 06/07/23 09:39) swelling, red hydrocodone [HYDROCODONE] Allergy (Unknown, Verified 06/07/23 09:39) PROJECTILE VOMITING ibuprofen [From Motrin] Allergy (Unknown, Verified 06/07/23 09:39) Shortness of Breath naproxen Allergy (Unknown, Verified 06/07/23 09:39) Stomach Upset omeprazole [OMEPRAZOLE] Allergy (Unknown, Verified 06/07/23 09:39) RASH, head to toe rash penicillin G [PENICILLIN G] Allergy (Unknown, Verified 06/07/23 09:39) RASH penicillin V Allergy (Unknown, Verified 06/07/23 09:39) rash piperacillin [From ZOSYN] Allergy (Unknown, Verified 06/07/23 09:39) RASH strawberry [STRAWBERRY] Allergy (Unknown, Verified 06/07/23 09:39) SOB,RASH, ANAPHYLAXISIS tazobactam [From ZOSYN] Allergy (Unknown, Verified 06/07/23 09:39) RASH walnut Allergy (Unknown, Verified 06/07/23 09:39) Difficulty Breathing Caramelized Food coloring Allergy (Unknown, Uncoded 05/07/23 14:24) Itching CARMALIZED FOOD COLORING Allergy (Unknown, Uncoded 05/07/23 14:24) RASH Hydrocodone Bitartrate Allergy (Unknown, Uncoded 05/07/23 14:24) severe vomiting Mangos Allergy (Unknown, Uncoded 05/07/23 14:24) Difficulty Breathing Piperacillin Sod-Tazobactam So Allergy (Unknown, Uncoded 05/07/23 14:24) swelling Strawberries Allergy (Unknown, Uncoded 05/07/23 14:24) Blister HPI HPI Comments History of Present Illness Details Dora is very pleasant 47 years old female who presents in my office with complains on pain in the lower back with radiation into the bilateral hips more to the left and less to the right as well as into bilateral groins as well more to the left and less to the right. She reports that she is suffering from this pain for many years. She has difficulty walking sleeping at night climbing upstairs and downstairs. She was diagnosed with avascular necrosis, she was sent to orthopedic surgery, Dr. Bach referred her to us for further evaluation. Her avascular necrosis currently is stable. She reports that she can not sleep normally because of her pain can not do activities of daily living she can partially care of herself but she can not function normally she is on permanent disability. Last time she worked was March of 2011. Weather changes in movements aggravate her pain. Cold application decreases her pain. The pain is most severe in the morning and less severe in the afternoon. She reports her pain in terms of tissue damage as jumping, flushing, shooting, tingling, stinging, dull, hurting, heavy, tiring, exhausting, spreading, radiating, piercing. She had x-rays and MRIs dictated as below. She had physical therapy very extensive course without any significant help. She currently taking Tylenol for her pain. NSAIDs and steroids are contraindicated for this patient because of avascular necrosis of the hips. She is also currently on multiple psychiatric medications such as escitalopram Abilify and trazodone. She is also taking Methylphenidate. Her past medical history significant for headaches fatigue dizziness and fainting history of alcohol abuse anemia COPD and asthma history of UTIs history of gallstones history of psoriasis and psoriatic arthritis. Her past surgical history is significant for gallbladder surgery gastric surgery and surgery in the back . In 2010 she had ARDS secondary to the sepsis and infection. She was intubated and she was with tracheostomy and G-tube a long period of time. She stopped smoking 2 months ago, she stopped drinking alcohol for month ago. Apparently she was sober for 1 year but 1 month ago she took 2 drinks. She did not drink since. She drinks caffeinated beverage and she denies recreational drugs. [facility] Medical History (Updated 06/07/23 @ 10:03 by Lisandro Adam MD) History of pulmonary embolism History of GI bleed History of sepsis Foreign body (FB) in soft tissue Psoriatic arthritis Avascular necrosis COPD (chronic obstructive pulmonary disease) ARDS (adult respiratory distress syndrome) Surgical History History of cholecystectomy History of back surgery History of gastric bypass History of tracheostomy Social History Household Members: Spouse Housing: House Do you presently have visiting nurse or other home services: No Patient Tobacco Use Status: Current everyday Tobacco user Tobacco use type: Cigarette Cigarettes Per Day: 5 Second Hand Smoke Exposure: No service: No Sexual orientation: Straight/Heterosexual Review of Systems Const Denies chills and Denies fever(s) Eyes Denies blurry vision, Denies exophthalmos and Denies diplopia Card Denies chest pain, Denies chest pain at rest, Denies chest pain with activity, Reports diaphoresis, Denies rapid heart rate, Denies pedal edema and Denies edema Resp Denies chest congestion, Denies cough, Denies hemoptysis, Denies excessive phlegm production, Denies pain on inspiration and Denies pain with cough GI Denies abdominal pain, Denies belching, Denies melena and Denies bloating Denies urinary incontinence Musc Denies as per HPI and Reports back pain Neuro Reports behavioral changes Psych Reports anxiety, Reports behavioral changes and Reports suicidal ideation Physical Exam Vital Signs: Last Vital Signs Pulse 85 06/07/23 09:40 Resp 14 06/07/23 09:40 BP 116/68 06/07/23 09:40 Pulse Ox 98 06/07/23 09:40 Oxygen Delivery Method Nasal Cannula 06/07/23 09:40 Oxygen Flow Rate 2 06/07/23 09:40 BMI result Body Mass Index 31.8 Const Other: Oxygen depoendant General: no acute distress, alert and awake Orientation/consciousness: patient oriented x3 HEENT Head: Yes normocephalic and Yes atraumatic Eyes EOM: EOMs intact bilaterally Resp Effort & Inspection: normal respiratory effort and able to speak in complete sentences Cardio Jugular venous distension: no JVD Back/Spine/Pelvis Other: Tenderness on palpation and paraspinal spinal region of the most lower lumbar spine. Unable to stand on bilateral tiptoes mostly because of the severe pain in the lower back. Tenderness on palpation on the left sacroiliac joint. Fourteen finger test is positive. Gaenslen test is positive on the left. Ruben test is positive on the left. SLR is negative bilaterally. Less soaked test is negative bilaterally. Reports numbness of the left lower extremity/left foot. Skin General skin exam: turgor normal Rashes: no rashes Neuro General: patient oriented x3 Extrem Other: Mild groin pain with hyper IR while flexed and adducted on the left. Minimal on the right. No gait antalgia Psych Appearance: grossly normal Affect: normal affect Attitude: cooperative Results Reviewed Results Reviewed: Chronic avascular necrosis is evident at both femoral heads anterosuperiorly, measuring 2.2 x 3.5 cm in area on the right and 2 x 3.3 cm in area on the left. No findings of articular cortical collapse or fragmentation. No surrounding marrow edema signal. Articular cartilage at the hip joints appears relatively well-preserved. Mild chondral thinning is possible as sensitivity is somewhat limited on large [id number], whole pelvis images. Small osteophytes of the right acetabulum. No fractures or stress reactions. No aggressive osseous lesions. SI joints are unremarkable. Degenerative disc disease is evident in the lower lumbar spine at L5-S1 with associated facet arthropathy. MUSCLES AND TENDONS: There is [id number]-ompdahty fatty atrophy of the gluteus teresita muscles bilaterally. Tendons are intact without tears, tendinosis, or tenosynovitis. JOINT FLUID AND BURSAE: No bursitis. No apparent loose bodies within the joint. INTRAPELVIC SOFT TISSUES: Assessment of the central pelvic soft tissues is somewhat limited by susceptibility artifact, likely related to bowel gas. No intraperitoneal free fluid is identified. No adenopathy. SUPERFICIAL SOFT TISSUES: No adenopathy. IMPRESSION: 1. Chronic avascular necrosis of both femoral heads without evidence of articular cortical collapse or fragmentation. No significant marrow edema signal at the femoral heads to indicate impending collapse. 2. Minimal osteoarthritis in the hips. 3. Degenerative disc disease and facet arthropathy in the lower lumbar spine at L5-S1. Assessment & Plan Assessment & Plan (1) Avascular necrosis of bone of left hip: Code(s): M87.052 - Idiopathic aseptic necrosis of left femur (2) Chronic left sacroiliac joint pain: Code(s): M53.3 - Sacrococcygeal disorders, not elsewhere classified; G89.29 - Other c hronic pain (3) Sacroiliitis: Code(s): M46.1 - Sacroiliitis, not elsewhere classified (4) Spondylosis of lumbar region without myelopathy or radiculopathy: Code(s): M47.816 - Spondylosis without myelopathy or radiculopathy, lumbar region Plan I will schedule this patient for diagnostic left sacroiliac joint injection. I will evaluate her after the diagnostic sacroiliac joint injection. Her psychiatric conditions certainly presents a challenge for us in terms of neuromodulation. It remains to be seen whether she will be able to past psychological evaluation. If she will be able to past psychological evaluation we can discuss treatment of her lower back pain with neuromodulation. Treatment of the arthritis pain in bilateral hips maybe considered with platelet rich plasma. Coding Level of Care Code New Pt Level 4 (48637) Diagnoses Avascular necrosis of bone of left hip M87.052 Chronic left sacroiliac joint pain M53.3; G89.29 Sacroiliitis M46.1 Spondylosis of lumbar region without myelopathy or radiculopathy M47.816
[2023-06-07 09:40] VITALS: BP 116/68; PULSE 85; RESP 14; O2SAT 98; BMI 31.8
== END 2023-06-07 10:19 | disposition home or self-care (01) ==
PROVIDERS: PCP Internal Medicine; Referring Provider Orthopaedic Surgery; Visit Provider Anesthesiology
DX: M87.052 Idiopathic aseptic necrosis of left femur (principal); M53.3 Sacrococcygeal disorders, not elsewhere classified; G89.29 Other chronic pain; M46.1 Sacroiliitis, not elsewhere classified; M47.816 Spondylosis without myelopathy or radiculopathy, lumbar region
CPT/HCPCS: 99204

== ENCOUNTER → 2023-06-07 09:00 | Outpatient (BNVA) | payer BC, OTHER, SELFPAY | PROVIDERS: PCP Internal Medicine; Referring Provider Orthopaedic Surgery; Visit Provider Anesthesiology ==

== ENCOUNTER → 2023-06-08 20:30 | Outpatient (REF) | payer BC, OTHER, SELFPAY | LOC: HO.SL 20:30 | PROVIDERS: PCP Internal Medicine; Visit Provider Nurse Practitioner Family | DX: G47.33 Obstructive sleep apnea (adult) (pediatric) (principal); J80 Acute respiratory distress syndrome | CPT/HCPCS: 95810 ==

== ENCOUNTER → 2023-06-09 01:09 | Outpatient (BNV) | payer BC, OTHER, SELFPAY | PROVIDERS: PCP Internal Medicine; Visit Provider Psychiatry & Neurology Neurology | DX: R06.83 Snoring (principal) | CPT/HCPCS: 95810 ==

== ENCOUNTER 2023-07-03 06:15 | Outpatient (REF) | payer BC, OTHER, SELFPAY ==
--- NOTE | ~2023-07-03 | FL_ITS ---
EXAMINATION: XR FLUOROSCOPY WITH IMAGES CLINICAL INFORMATION: Sacroiliitis COMPARISON: None available. TECHNIQUE: Fluoroscopy Supervised By: Dr. Lisandro Adam. Fluoroscopy Time: 0.1 minutes. Cumulative Dose: 3.78 mGy. DAP: 0.0656 Gycm2. Images: 1. FINDINGS: Fluoroscopic imaging guidance was utilized for procedure. A needle is positioned over the left sacroiliac joint and there has been contrast injection. FL/FL guidance in treatment room IMPRESSION: Fluoroscopic guidance for procedure. For further detail regarding findings and procedure please refer to procedural report.
== END 2023-07-03 06:16 | disposition home or self-care (01) ==
LOC: CF 06:15
PROVIDERS: Visit Provider Anesthesiology
DX: M46.1 Sacroiliitis, not elsewhere classified (principal); M53.3 Sacrococcygeal disorders, not elsewhere classified; G89.29 Other chronic pain
CPT/HCPCS: 27096; J2795; Q9967

== ENCOUNTER 2023-07-03 13:11 | Outpatient (AMB) | payer BC, OTHER, SELFPAY ==
--- NOTE | 2023-07-03 13:20 | MHC.OFFVIS ---
Intake Vital Signs 07/03/23 13:21 07/03/23 14:06 Height 5 ft 4 in Weight 185 lb BMI 31.8 BP 122/64 116/76 Blood Pressure Location Lt brachial Lt brachial Position Sitting Sitting Respiration 18 18 Pulse 74 70 Pulse Source Pulse Oximeter Pulse Oximeter Pulse Oximetry (%) 100 98 Oxygen Delivery Method Room Air Room Air Comment Pre-Op Post-Op Intake Visit Reasons: LEFT DIAGNOSTIC SIJ INJECTION Allergies amoxicillin [AMOXICILLIN] Allergy (Unknown, Verified 06/07/23 09:39) RASH fluoxetine [From PROZAC] Allergy (Unknown, Verified 06/07/23 09:39) RASH heparin [HEPARIN] Allergy (Unknown, Verified 06/07/23 09:39) JAUN SYNDROME heparin (porcine) Allergy (Unknown, Verified 06/07/23 09:39) swelling, red hydrocodone [HYDROCODONE] Allergy (Unknown, Verified 06/07/23 09:39) PROJECTILE VOMITING ibuprofen [From Motrin] Allergy (Unknown, Verified 06/07/23 09:39) Shortness of Breath naproxen Allergy (Unknown, Verified 06/07/23 09:39) Stomach Upset omeprazole [OMEPRAZOLE] Allergy (Unknown, Verified 06/07/23 09:39) RASH, head to toe rash penicillin G [PENICILLIN G] Allergy (Unknown, Verified 06/07/23 09:39) RASH penicillin V Allergy (Unknown, Verified 06/07/23 09:39) rash piperacillin [From ZOSYN] Allergy (Unknown, Verified 06/07/23 09:39) RASH strawberry [STRAWBERRY] Allergy (Unknown, Verified 06/07/23 09:39) SOB,RASH, ANAPHYLAXISIS tazobactam [From ZOSYN] Allergy (Unknown, Verified 06/07/23 09:39) RASH walnut Allergy (Unknown, Verified 06/07/23 09:39) Difficulty Breathing Caramelized Food coloring Allergy (Unknown, Uncoded 05/07/23 14:24) Itching CARMALIZED FOOD COLORING Allergy (Unknown, Uncoded 05/07/23 14:24) RASH Hydrocodone Bitartrate Allergy (Unknown, Uncoded 05/07/23 14:24) severe vomiting Mangos Allergy (Unknown, Uncoded 05/07/23 14:24) Difficulty Breathing Piperacillin Sod-Tazobactam So Allergy (Unknown, Uncoded 05/07/23 14:24) swelling Strawberries Allergy (Unknown, Uncoded 05/07/23 14:24) Blister [facility] Medical History (Updated 06/07/23 @ 10:03 by Lisandro Adam MD) History of pulmonary embolism History of GI bleed History of sepsis Foreign body (FB) in soft tissue Psoriatic arthritis Avascular necrosis COPD (chronic obstructive pulmonary disease) ARDS (adult respiratory distress syndrome) Surgical History History of cholecystectomy History of back surgery History of gastric bypass History of tracheostomy Social History Household Members: Spouse Housing: House Do you presently have visiting nurse or other home services: No Patient Tobacco Use Status: Current everyday Tobacco user Tobacco use type: Cigarette Cigarettes Per Day: 5 Second Hand Smoke Exposure: No service: No Sexual orientation: Straight/Heterosexual Physical Exam Vital Signs: Last Vital Signs Pulse 70 07/03/23 14:06 Resp 18 07/03/23 14:06 BP 116/76 07/03/23 14:06 Pulse Ox 98 07/03/23 14:06 Oxygen Delivery Method Room Air 07/03/23 14:06 BMI result Body Mass Index 31.8 Assessment & Plan Assessment & Plan (1) Sacroiliitis: Code(s): M46.1 - Sacroiliitis, not elsewhere classified (2) Chronic left sacroiliac joint pain: Code(s): M53.3 - Sacrococcygeal disorders, not elsewhere classified; G89.29 - Other chronic pain Plan Left diagnostic sacroiliac joint injection Informed consent was explained thoroughly to the patient. All questions about benefits and risks for the procedure were answered. Patient came to the operating room and was positioned prone on the operating table with the pillow under the pelvis. Time out was performed delineating name and of the patient, allergies and the nature of the procedure. The lower back and buttocks of the patient were prepped with ChloraPrep prepped and draped with sterile utility towels. C-arm was brought over the operating field and sq picture of patient's pelvis was demonstrated on the screen. For the left joint tilting C-arm contralateral to the site of the joint the most posterior portion of the joints was superimposed with anterior silhouette of the joint. Skin was injected in the projection of the joint slightly medial to the location of the joint with 25 gauge 1/2 inch needle using local lidocaine 2% .After that 22 gauge 3 and 1/2 inch needle was driven to the right joint in tunnel vision fashion. When needle entered the joint capsule injection of the contrast was performed demonstrating intra-articular and minimally periarticular spread of the contrast. After that 4 cc. of ropivacaine 0.5% was injected into the joint. Upon completion of the injections the needle was removed Sterile dressing was applied. Upon completion of the injection patient was taken outside of the operating room to the recovery room where recovered uneventfully. Orders: Orders FL guidance in treatment room Today M46.1 - Sacroiliitis, not elsewhere classified Coding Level of Care Code Procedure Only Diagnoses Sacroiliitis M46.1 Chronic left sacroiliac joint pain M53.3; G89.29
[2023-07-03 13:21] VITALS: BP 122/64; PULSE 74; RESP 18; O2SAT 100; BMI 31.8
[2023-07-03 14:06] VITALS: BP 116/76; PULSE 70; RESP 18; O2SAT 98
== END 2023-07-03 14:05 | disposition home or self-care (01) ==
LOC: HO.PMCPRC 13:11
PROVIDERS: PCP Internal Medicine; Visit Provider Anesthesiology
DX: M46.1 Sacroiliitis, not elsewhere classified (principal); M53.3 Sacrococcygeal disorders, not elsewhere classified; G89.29 Other chronic pain
CPT/HCPCS: 27096

== ENCOUNTER 2023-07-09 13:22 | Outpatient (AMB) | payer BC, OTHER, SELFPAY ==
--- NOTE | 2023-07-09 13:31 | A.OFFVIS_ITS ---
Intake Vital Signs 07/09/23 13:35 Height 5 ft 4 in Weight 185 lb BMI 31.8 BP 126/74 Blood Pressure Location Lt radial Position Sitting Respiration 14 Pulse 81 Pulse Source Pulse Oximeter Pulse Oximetry (%) 96 Oxygen Delivery Method Room Air Intake Visit Reasons: LEFT DIAGNOSTIC SIJ INJECTION Intake Note: Patient comes in for post-op appointment. Reports pain 7.5/10. Allergies amoxicillin [AMOXICILLIN] Allergy (Unknown, Verified 07/09/23 13:35) RASH fluoxetine [From PROZAC] Allergy (Unknown, Verified 07/09/23 13:35) RASH heparin [HEPARIN] Allergy (Unknown, Verified 07/09/23 13:35) JAUN SYNDROME heparin (porcine) Allergy (Unknown, Verified 07/09/23 13:35) swelling, red hydrocodone [HYDROCODONE] Allergy (Unknown, Verified 07/09/23 13:35) PROJECTILE VOMITING ibuprofen [From Motrin] Allergy (Unknown, Verified 07/09/23 13:35) Shortness of Breath naproxen Allergy (Unknown, Verified 07/09/23 13:35) Stomach Upset omeprazole [OMEPRAZOLE] Allergy (Unknown, Verified 07/09/23 13:35) RASH, head to toe rash penicillin G [PENICILLIN G] Allergy (Unknown, Verified 07/09/23 13:35) RASH penicillin V Allergy (Unknown, Verified 07/09/23 13:35) rash piperacillin [From ZOSYN] Allergy (Unknown, Verified 07/09/23 13:35) RASH strawberry [STRAWBERRY] Allergy (Unknown, Verified 07/09/23 13:35) SOB,RASH, ANAPHYLAXISIS tazobactam [From ZOSYN] Allergy (Unknown, Verified 07/09/23 13:35) RASH walnut Allergy (Unknown, Verified 07/09/23 13:35) Difficulty Breathing Caramelized Food coloring Allergy (Unknown, Uncoded 05/07/23 14:24) Itching CARMALIZED FOOD COLORING Allergy (Unknown, Uncoded 05/07/23 14:24) RASH Hydrocodone Bitartrate Allergy (Unknown, Uncoded 05/07/23 14:24) severe vomiting Mangos Allergy (Unknown, Uncoded 05/07/23 14:24) Difficulty Breathing Piperacillin Sod-Tazobactam So Allergy (Unknown, Uncoded 05/07/23 14:24) swelling Strawberries Allergy (Unknown, Uncoded 05/07/23 14:24) Blister HPI HPI Comments History of Present Illness Details Dora is back in my office after diagnostic sacroiliac joint injection which was performed on 07/03/2023. She reports at least 60% of pain improvement for the 1st 5 hours after the procedure. After that pain started to slowly come back. 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 I explained to the patient that steroid injections most likely will not be main modality to treat her pain in this office. I will send her to psychological evaluation to prepare her for cure on X PNS. If she will not be able to past psychological evaluation I would like to consider fusion. Her pulmonary condition is getting better and her oxygen is more stable now. Therefore I do not mind to try SI joint fusion. Sacroiliac joint injection with platelet rich plasma also was mentioned in the conversation today. Prior: very pleasant 47 years old female who presents in my office with complains on pain in the lower back with radiation into the bilateral hips more to the left and less to the right as well as into bilateral groins as well more to the left and less to the right. She reports that she is suffering from this pain for many years. Dr. Bach referred her to us for further evaluation. Her av ascular necrosis currently is stable. . She had x-rays and MRIs dictated as below. She had physical therapy very extensive course without any significant help. She currently taking Tylenol for her pain. NSAIDs and steroids are contraindicated for this patient because of avascular necrosis of the hips. She is also currently on multiple psychiatric medications such as escitalopram Abilify and trazodone. She is also taking Methylphenidate. Her past medical history significant for headaches fatigue dizziness and fainting history of alcohol abuse anemia COPD and asthma history of UTIs history of gallstones history of psoriasis and psoriatic arthritis. Her past surgical history is significant for gallbladder surgery gastric surgery and surgery in the back . In 2010 she had ARDS secondary to the sepsis and infection. She was intubated and she was with tracheostomy and G-tube a long period of time. She stopped smoking 2 months ago, she stopped drinking alcohol for month ago. Apparently she was sober for 1 year but 1 month ago she took 2 drinks. She did not drink since. She drinks caffeinated beverage and she denies recreational drugs. [facility] Medical History (Updated 06/07/23 @ 10:03 by Lisandro Adam MD) History of pulmonary embolism History of GI bleed History of sepsis Foreign body (FB) in soft tissue Psoriatic arthritis Avascular necrosis COPD (chronic obstructive pulmonary disease) ARDS (adult respiratory distress syndrome) Surgical History History of cholecystectomy History of back surgery History of gastric bypass History of tracheostomy Social History Household Members: Spouse Housing: House Do you presently have visiting nurse or other home services: No Patient Tobacco Use Status: Current everyday Tobacco user Tobacco use type: Cigarette Cigarettes Per Day: 5 Second Hand Smoke Exposure: No service: No Sexual orientation: Straight/Heterosexual Review of Systems Const All systems reviewed & are unremarkable except as noted in HPI and below Physical Exam Vital Signs: Last Vital Signs Pulse 81 07/09/23 13:35 Resp 14 07/09/23 13:35 BP 126/74 07/09/23 13:35 Pulse Ox 96 07/09/23 13:35 Oxygen Delivery Method Room Air 07/09/23 13:35 BMI result Body Mass Index 31.8 Const Other: Oxygen depoendant General: no acute distress, alert and awake Orientation/consciousness: patient oriented x3 HEENT Head: Yes normocephalic and Yes atraumatic Eyes EOM: EOMs intact bilaterally Resp Effort & Inspection: normal respiratory effort and able to speak in complete sentences Cardio Jugular venous distension: no JVD Back/Spine/Pelvis Other: Tenderness on palpation and paraspinal spinal region of the most lower lumbar spine. Unable to stand on bilateral tiptoes mostly because of the severe pain in the lower back. Tenderness on palpation on the left sacroiliac joint. Fourteen finger test is positive. Gaenslen test is positive on the left. Ruben test is positive on the left. SLR is negative bilaterally. Less soaked test is negative bilaterally. Reports numbness of the left lower extremity/left foot. Skin General skin exam: turgor normal Rashes: no rashes Neuro General: patient oriented x3 Extrem Other: Mild groin pain with hyper IR while flexed and adducted on the left. Minimal on the right. No gait antalgia Psych Appearance: grossly normal Affect: normal affect Attitude: cooperative Results Reviewed Results Reviewed: Chronic avascular necrosis is evident at both femoral heads anterosuperiorly, measuring 2.2 x 3.5 cm in area on the right and 2 x 3.3 cm in area on the left. No findings of articular cortical collapse or fragmentation. No surrounding marrow edema signal. Articular cartilage at the hip joints appears relatively well-preserved. Mild chondral thinning is possible as sensitivity is somewhat limited on large [id number], whole pelvis images. Small osteophytes of the right acetabulum. No fractures or stress reactions. No aggressive osseous lesions. SI joints are unremarkable. Degenerative disc disease is evident in the lower lumbar spine at L5-S1 with associated facet arthropathy. MUSCLES AND TENDONS: There is [id number]-yflspixs fatty atrophy of the gluteus teresita muscles bilaterally. Tendons are intact without tears, tendinosis, or tenosynovitis. JOINT FLUID AND BURSAE: No bursitis. No apparent loose bodies within the joint. INTRAPELVIC SOFT TISSUES: Assessment of the central pelvic soft tissues is somewhat limited by susceptibility artifact, likely related to bowel gas. No intraperitoneal free fluid is identified. No adenopathy. SUPERFICIAL SOFT TISSUES: No adenopathy. IMPRESSION: 1. Chronic avascular necrosis of both femoral heads without evidence of articular cortical collapse or fragmentation. No significant marrow edema signal at the femoral heads to indicate impending collapse. 2. Minimal osteoarthritis in the hips. 3. Degenerative disc disease and facet arthropathy in the lower lumbar spine at L5-S1. Assessment & Plan Assessment & Plan (1) Avascular necrosis of bone of left hip: Code(s): M87.052 - Idiopathic aseptic necrosis of left femur (2) Chronic left sacroiliac joint pain: Code(s): M53.3 - Sacrococcygeal disorders, not elsewhere classified; G89.29 - Other chronic pain (3) Sacroiliitis: Code(s): M46.1 - Sacroiliitis, not elsewhere classified (4) Spondylosis of lumbar region without myelopathy or radiculopathy: Code(s): M47.816 - Spondylosis without myelopathy or radiculopathy, lumbar region Plan Diagnostic left SI joint injection 60% of pain improvement for the 1st 5 hours c orresponding to the time ropivacaine usually works. Now a personally believe that left sacroiliac joint inflammation/sacroiliitis is the main cause of this patient. I will schedule her for sacroiliac joint injection with steroids now. I also will schedule her for psychological evaluation to prepare her for cure on X PNS. I will see this patient in my office after she will past psychological ev aluation, sooner if needed. Coding Level of Care Code Est Pt Level 3 (93741) Diagnoses Avascular necrosis of bone of left hip M87.052 Chronic left sacroiliac joint pain M53.3; G89.29 Sacroiliitis M46.1 Spondylosis of lumbar region without myelopathy or radiculopathy M47.816
[2023-07-09 13:35] VITALS: BP 126/74; PULSE 81; RESP 14; O2SAT 96; BMI 31.8
== END 2023-07-09 13:55 | disposition home or self-care (01) ==
PROVIDERS: PCP Internal Medicine; Visit Provider Anesthesiology
DX: M87.052 Idiopathic aseptic necrosis of left femur (principal); M53.3 Sacrococcygeal disorders, not elsewhere classified; G89.29 Other chronic pain; M46.1 Sacroiliitis, not elsewhere classified; M47.816 Spondylosis without myelopathy or radiculopathy, lumbar region
CPT/HCPCS: 99213

== ENCOUNTER → 2023-07-09 13:22 | Outpatient (BNVA) | payer BC, OTHER, SELFPAY | PROVIDERS: PCP Internal Medicine; Visit Provider Anesthesiology ==

== ENCOUNTER 2023-08-14 06:06 | Outpatient (REF) | payer BC, OTHER, SELFPAY ==
--- NOTE | ~2023-08-14 | FL_ITS ---
EXAMINATION: XR FLUOROSCOPY WITH IMAGES CLINICAL INFORMATION: Sacroiliitis. COMPARISON: None available. TECHNIQUE: Fluoroscopy Supervised By: Dr. Lisandro Adam. Fluoroscopy Time: 0.2 min. Cumulative Dose: 2.95 mGy. DAP: 0.0512 Gycm2. Images: 2. FINDINGS: Intraoperative fluoroscopy and spot films were performed during a procedure in the OR. Images demonstrate needles in the left SI joint with surrounding contrast. Please see Dr. Lisandro Adam's report for complete details. FL/FL guidance in treatment room IMPRESSION: Intraoperative fluoroscopy and spot films were obtained. Please see Dr. Lisandro Adam's report for complete details.
== END 2023-08-14 06:07 | disposition home or self-care (01) ==
LOC: CF 06:06
PROVIDERS: Visit Provider Anesthesiology
DX: M46.1 Sacroiliitis, not elsewhere classified (principal); M53.3 Sacrococcygeal disorders, not elsewhere classified; G89.29 Other chronic pain
CPT/HCPCS: 27096; J2795; J3301; Q9967

== ENCOUNTER 2023-08-14 07:10 | Outpatient (AMB) | payer BC, OTHER, SELFPAY ==
--- NOTE | 2023-08-14 07:44 | A.OFFVIS_ITS ---
Vital Signs 08/14/23 08:02 08/14/23 08:03 Height 5 ft 4 in Weight 185 lb BMI 31.8 BP 130/76 120/70 Blood Pressure Location Lt brachial Lt brachial Position Sitting Sitting Respiration 16 18 Pulse 92 90 Pulse Source Pulse Oximeter Pulse Oximeter Pulse Oximetry (%) 98 97 Oxygen Delivery Method Room Air Room Air Comment Pre-Op Post-Op Intake Visit Reasons: Left theraputic SIJ inj Allergies amoxicillin [AMOXICILLIN] Allergy (Unknown, Verified 07/09/23 13:35) RASH fluoxetine [From PROZAC] Allergy (Unknown, Verified 07/09/23 13:35) RASH heparin [HEPARIN] Allergy (Unknown, Verified 07/09/23 13:35) JAUN SYNDROME heparin (porcine) Allergy (Unknown, Verified 07/09/23 13:35) swelling, red hydrocodone [HYDROCODONE] Allergy (Unknown, Verified 07/09/23 13:35) PROJECTILE VOMITING ibuprofen [From Motrin] Allergy (Unknown, Verified 07/09/23 13:35) Shortness of Breath naproxen Allergy (Unknown, Verified 07/09/23 13:35) Stomach Upset omeprazole [OMEPRAZOLE] Allergy (Unknown, Verified 07/09/23 13:35) RASH, head to toe rash penicillin G [PENICILLIN G] Allergy (Unknown, Verified 07/09/23 13:35) RASH penicillin V Allergy (Unknown, Verified 07/09/23 13:35) rash piperacillin [From ZOSYN] Allergy (Unknown, Verified 07/09/23 13:35) RASH strawberry [STRAWBERRY] Allergy (Unknown, Verified 07/09/23 13:35) SOB,RASH, ANAPHYLAXISIS tazobactam [From ZOSYN] Allergy (Unknown, Verified 07/09/23 13:35) RASH walnut Allergy (Unknown, Verified 07/09/23 13:35) Difficulty Breathing Caramelized Food coloring Allergy (Unknown, Uncoded 05/07/23 14:24) Itching CARMALIZED FOOD COLORING Allergy (Unknown, Uncoded 05/07/23 14:24) RASH Hydrocodone Bitartrate Allergy (Unknown, Uncoded 05/07/23 14:24) severe vomiting Mangos Allergy (Unknown, Uncoded 05/07/23 14:24) Difficulty Breathing Piperacillin Sod-Tazobactam So Allergy (Unknown, Uncoded 05/07/23 14:24) swelling Strawberries Allergy (Unknown, Uncoded 05/07/23 14:24) Blister [facility] Medical History (Updated 06/07/23 @ 10:03 by Lisandro Adam MD) History of pulmonary embolism History of GI bleed History of sepsis Foreign body (FB) in soft tissue Psoriatic arthritis Avascular necrosis COPD (chronic obstructive pulmonary disease) ARDS (adult respiratory distress syndrome) Surgical History History of cholecystectomy History of back surgery History of gastric bypass History of tracheostomy Social History Household Members: Spouse Housing: House Do you presently have visiting nurse or other home services: No Patient Tobacco Use Status: Current everyday Tobacco user Tobacco use type: Cigarette Cigarettes Per Day: 5 Second Hand Smoke Exposure: No service: No Sexual orientation: Straight/Heterosexual Physical Exam Vital Signs: Last Vital Signs Pulse 90 08/14/23 08:03 Resp 18 08/14/23 08:03 BP 120/70 08/14/23 08:03 Pulse Ox 97 08/14/23 08:03 Oxygen Delivery Method Room Air 08/14/23 08:03 BMI result Body Mass Index 31.8 Assessment & Plan Assessment & Plan (1) Sacroiliitis: Code(s): M46.1 - Sacroiliitis, not elsewhere classified Category: Medical (2) Chronic left sacroiliac joint pain: Code(s): M53.3 - Sacrococcygeal disorders, not elsewhere classified; G89.29 - Other chronic pain Category: Medical Plan Left therapeutic sacroiliac joint injection Informed consent was explained thoroughly to the patient. All questions about benefits and risks for the procedure were answered. Patient came to the operating room and was positioned prone on the operating table with the pillow under the pelvis. Time out was performed delineating name and of the patient, allergies and the nature of the procedure. The lower back and buttocks of the patient were prepped with ChloraPrep prepped and draped with sterile utility towels. C-arm was brought over the operating field and sq picture of patient's pelvis was demonstrated on the screen. For the left joint tilting C-arm contralateral to the site of the joint the most posterior portion of the joints was superimposed with anterior silhouette of the joint. Skin was injected in the projection of the joint slightly medial to the location of the joint with 25 gauge 1/2 inch needle using local lidocaine 2% .After that 22 gauge 3 and 1/2 inch needle was driven to the right joint in tunnel vision fashion. When needle entered the joint capsule injection of the contrast was performed demonstrating intra-articular and minimally periarticular spread of the contrast. After that 4 cc. of ropivacaine 0.5% mixed with Kenalog 40 mg was injected into the joint. Upon completion of the injections the needle was removed Sterile dressing was applied. Upon completion of the injection patient was taken outside of the operating room to the recovery room where recovered uneventfully. Orders: Orders FL guidance in treatment room Today M46.1 - Sacroiliitis, not elsewhere classified Coding Level of Care Code Procedure Only Diagnoses Sacroiliitis M46.1 Chronic left sacroiliac joint pain M53.3; G89.29
[2023-08-14 08:02] VITALS: BP 130/76; PULSE 92; RESP 16; O2SAT 98; BMI 31.8
[2023-08-14 08:03] VITALS: BP 120/70; PULSE 90; RESP 18; O2SAT 97
== END 2023-08-14 08:07 | disposition home or self-care (01) ==
LOC: HO.PMCPRC 07:10
PROVIDERS: PCP Internal Medicine; Visit Provider Anesthesiology
DX: M46.1 Sacroiliitis, not elsewhere classified (principal); M53.3 Sacrococcygeal disorders, not elsewhere classified; G89.29 Other chronic pain
CPT/HCPCS: 27096

== ENCOUNTER 2023-09-13 13:16 | Outpatient (AMB) | payer BC, OTHER, SELFPAY ==
--- NOTE | 2023-09-13 13:21 | A.OFFVIS_ITS ---
Vital Signs 09/13/23 13:28 Height 5 ft 4 in Weight 190 lb BMI 32.6 BP 108/68 Blood Pressure Location Lt brachial Position Sitting Respiration 16 Pulse 89 Pulse Source Pulse Oximeter Pulse Oximetry (%) 95 Oxygen Delivery Method Room Air Intake Visit Reasons: s/p left theraputic SIJ inj Intake Note: Patient comes in for post-op appointment. Reports pain 07/17. Allergies amoxicillin [AMOXICILLIN] Allergy (Unknown, Verified 09/13/23 13:28) RASH fluoxetine [From PROZAC] Allergy (Unknown, Verified 09/13/23 13:28) RASH heparin [HEPARIN] Allergy (Unknown, Verified 09/13/23 13:28) JAUN SYNDROME heparin (porcine) Allergy (Unknown, Verified 09/13/23 13:28) swelling, red hydrocodone [HYDROCODONE] Allergy (Unknown, Verified 09/13/23 13:28) PROJECTILE VOMITING ibuprofen [From Motrin] Allergy (Unknown, Verified 09/13/23 13:28) Shortness of Breath naproxen Allergy (Unknown, Verified 09/13/23 13:28) Stomach Upset omeprazole [OMEPRAZOLE] Allergy (Unknown, Verified 09/13/23 13:28) RASH, head to toe rash penicillin G [PENICILLIN G] Allergy (Unknown, Verified 09/13/23 13:28) RASH penicillin V Allergy (Unknown, Verified 09/13/23 13:28) rash piperacillin [From ZOSYN] Allergy (Unknown, Verified 09/13/23 13:28) RASH strawberry [STRAWBERRY] Allergy (Unknown, Verified 09/13/23 13:28) SOB,RASH, ANAPHYLAXISIS tazobactam [From ZOSYN] Allergy (Unknown, Verified 09/13/23 13:28) RASH walnut Allergy (Unknown, Verified 09/13/23 13:28) Difficulty Breathing Caramelized Food coloring Allergy (Unknown, Uncoded 05/07/23 14:24) Itching CARMALIZED FOOD COLORING Allergy (Unknown, Uncoded 05/07/23 14:24) RASH Hydrocodone Bitartrate Allergy (Unknown, Uncoded 05/07/23 14:24) severe vomiting Mangos Allergy (Unknown, Uncoded 05/07/23 14:24) Difficulty Breathing Piperacillin Sod-Tazobactam So Allergy (Unknown, Uncoded 05/07/23 14:24) swelling Strawberries Allergy (Unknown, Uncoded 05/07/23 14:24) Blister HPI Comments Details: Dora is back in my office after therapeutic sacroiliac joint injection which was performed on 08/14/2023. She reports excellent pain relief related to her sacroiliac joint. She reports on the background of relief sacroiliac joint pain she has exacerbated pain in bilateral knees and bilateral hips. She has bilateral avascular necrosis of bilateral hips. She reports clicking sensation in bilateral knees she states that this is annoying. She received diagnostic sacroiliac joint injection which was performed on 07/03/2023. She reports at least 60% of pain improvement for the 1st 5 hours after the procedure. After that pain started to slowly come back. We agreed that she will go for psychological evaluation and after that I will be scheduling her for trial of curonix PNS Prior: very pleasant 47 years old female who presents in my office with complains on pain in the lower back with radiation into the bilateral hips more to the left and less to the right as well as into bilateral groins as well more to the left and less to the right. She reports that she is suffering from this pain for many years. Dr. Bach referred her to us for further evaluation. Her avascular necrosis currently is stable. . She had x-rays and MRIs dictated as below. She had physical therapy very extensive course without any significant help. She currently taking Tylenol for her pain. NSAIDs and steroids are contraindicated for this patient because of avascular necrosis of the hips. She is also currently on multiple psychiatric medications such as escitalopram Abilify and trazodone. She is also taking Methylphenidate. Her past medical history significant for headaches fatigue dizziness and fainting history of alcohol abuse anemia COPD and asthma history of UTIs history of gallstones history of psoriasis and psoriatic arthritis. Her past surgical history is significant for gallbladder surgery gastric surgery and surgery in the back . In 2010 she had ARDS secondary to the sepsis and infection. She was intubated and she was with tracheostomy and G-tube a long period of time. She stopped smoking 2 months ago, she stopped drinking alcohol for month ago. Apparently she was sober for 1 year but 1 month ago she took 2 drinks. She did not drink since. She drinks caffeinated beverage and she denies recreational drugs. [facility] Medical History (Updated 06/07/23 @ 10:03 by Lisandro Adam MD) History of pulmonary embolism History of GI bleed History of sepsis Foreign body (FB) in soft tissue Psoriatic arthritis Avascular necrosis COPD (chronic obstructive pulmonary disease) ARDS (adult respiratory distress syndrome) Surgical History History of cholecystectomy History of back surgery History of gastric bypass History of tracheostomy Social History Household Members: Spouse Housing: House Do you presently have visiting nurse or other home services: No Patient Tobacco Use Status: Current everyday Tobacco user Tobacco use type: Cigarette Cigarettes Per Day: 5 Second Hand Smoke Exposure: No service: No Sexual orientation: Straight/Heterosexual Review of Systems Const All systems reviewed & are unremarkable except as noted in HPI and below Physical Exam Vital Signs: Last Vital Signs Pulse 89 09/13/23 13:28 Resp 16 09/13/23 13:28 BP 108/68 09/13/23 13:28 Pulse Ox 95 09/13/23 13:28 Oxygen Delivery Method Room Air 09/13/23 13:28 BMI result Body Mass Index 32.6 Const Other: Oxygen depoendant General: no acute distress, alert and awake Orientation/consciousness: patient oriented x3 HEENT Head: Yes normocephalic and Yes atraumatic Eyes EOM: EOMs intact bilaterally Resp Effort & Inspection: normal respiratory effort and able to speak in complete sentences Cardio Jugular venous distension: no JVD Back/Spine/Pelvis Other: Tenderness on palpation and paraspinal spinal region of the most lower lumbar spine. Unable to stand on bilateral tiptoes mostly because of the severe pain in the lower back. Tenderness on palpation on the left sacroiliac joint. Fourteen finger test is positive. Gaenslen test is positive on the left. Ruben test is positive on the left. SLR is negative bilaterally. Lassegue test is negative bilaterally. Reports numbness of the left lower extremity/left foot. Skin General skin exam: turgor normal Rashes: no rashes Neuro General: patient oriented x3 Extrem Other: Mild groin pain with hyper IR while flexed and adducted on the left. Minimal on the right. No gait antalgia Psych Appearance: grossly normal Affect: normal affect Attitude: cooperative Results Reviewed Results Reviewed: Chronic avascular necrosis is evident at both femoral heads anterosuperiorly, measuring 2.2 x 3.5 cm in area on the right and 2 x 3.3 cm in area on the left. No findings of articular cortical collapse or fragmentation. No surrounding marrow edema signal. Articular cartilage at the hip joints appears relatively well-preserved. Mild chondral thinning is possible as sensitivity is somewhat limited on large [id number], whole pelvis images. Small osteophytes of the right acetabulum. No fractures or stress reactions. No aggressive osseous lesions. SI joints are unremarkable. Degenerative disc disease is evident in the lower lumbar spine at L5-S1 with associated facet arthropathy. MUSCLES AND TENDONS: There is [id number] fatty atrophy of the gluteus teresita muscles bilaterally. Tendons are intact without tears, tendinosis, or tenosynovitis. JOINT FLUID AND BURSAE: No bursitis. No apparent loose bodies within the joint. INTRAPELVIC SOFT TISSUES: Assessment of the central pelvic soft tissues is somewhat limited by susceptibility artifact, likely related to bowel gas. No intraperitoneal free fluid is identified. No adenopathy. SUPERFICIAL SOFT TISSUES: No adenopathy. IMPRESSION: 1. Chronic avascular necrosis of both femoral heads without evidence of articular cortical collapse or fragmentation. No significant marrow edema signal at the femoral heads to indicate impending collapse. 2. Minimal osteoarthritis in the hips. 3. Degenerative disc disease and facet arthropathy in the lower lumbar spine at L5-S1. Assessment & Plan Assessment & Plan (1) Avascular necrosis of bone of left hip: Code(s): M87.052 - Idiopathic aseptic necrosis of left femur Category: Medical (2) Chronic left sacroiliac joint pain: Code(s): M53.3 - Sacrococcygeal disorders, not elsewhere classified; G89.29 - Other chronic pain Category: Medical (3) Sacroiliitis: Code(s): M46.1 - Sacroiliitis, not elsewhere classified Category: Medical (4) Spondylosis of lumbar region without myelopathy or radiculopathy: Code(s): M47.816 - Spondylosis without myelopathy or radiculopathy, lumbar region Category: Medical Plan Diagnostic left SI joint injection 60% of pain improvement for the 1st 5 hours corresponding to the time ropivacaine usually works. Therapeutic left sacroiliac joint injection resulted in 1 month of the pain relief, she reports pain in sacroiliac joint is 1/10. She reports on the background of reduced sacroiliac joint pain significant aggravation of the pain in her bilateral knees and bilateral hips where she has avascular necrosis. We discussed in the past treatment of her sacroiliac joint pain with cure on X PNS, she needs to go for psychological evaluation. The referral was made. She was given today the telephone number to call [facility] to schedule the psychological evaluation. After that will schedule her for the trial of left sacroiliac joint innervation stimulation by curonix. Patient Instructions: I hereby testify that I spent 30 minutes in conversation with this patient, evaluating her prior records, evaluating her diagnostic studies, planning her care, organizing this note. Coding Level of Care Code Est Pt Level 4 (06428) Diagnoses Avascular necrosis of bone of left hip M87.052 Chronic left sacroiliac joint pain M53.3; G89.29 Sacroiliitis M46.1 Spondylosis of lumbar region without myelopathy or radiculopathy M47.816
[2023-09-13 13:28] VITALS: BP 108/68; PULSE 89; RESP 16; O2SAT 95; BMI 32.6
== END 2023-09-13 13:46 | disposition home or self-care (01) ==
PROVIDERS: PCP Internal Medicine; Visit Provider Anesthesiology
DX: M87.052 Idiopathic aseptic necrosis of left femur (principal); M53.3 Sacrococcygeal disorders, not elsewhere classified; G89.29 Other chronic pain; M46.1 Sacroiliitis, not elsewhere classified; M47.816 Spondylosis without myelopathy or radiculopathy, lumbar region
CPT/HCPCS: 99214

== ENCOUNTER → 2023-09-13 13:16 | Outpatient (BNVA) | payer BC, OTHER, SELFPAY | PROVIDERS: PCP Internal Medicine; Visit Provider Anesthesiology ==

== ENCOUNTER 2024-06-15 13:12 | Emergency (ER) | payer BC, OTHER, SELFPAY ==
--- NOTE | ~2024-06-15 | XR_ITS ---
CLINICAL HISTORY: RME: SHoulder pain 3 view right shoulder Comparison: None Findings: Coarse calcification within the soft tissues adjacent to the greater tuberosity of the humerus. No acute fracture. No dislocation. No significant loss of joint space or osteophytes. No erosions. No radiopaque foreign body. IMPRESSION: Calcific tendinitis of the rotator cuff. This document has been electronically signed by: Kamilla Gonzalez MD on 06/15/2024 15:02:29
--- NOTE | ~2024-06-15 | XR_ITS ---
CLINICAL HISTORY: pain 3 view right elbow Comparison: None Findings: No acute fractures or dislocations. No significant arthritic change or erosions. No joint effusion. No radiopaque foreign body. IMPRESSION: 1. No acute findings This document has been electronically signed by: Kamilla Gonzalez MD on 06/15/2024 15:00:59
--- NOTE | ~2024-06-15 | XR_ITS ---
CLINICAL HISTORY: pain 2 view right forearm Comparison: None Findings: No fractures or dislocations. No joint effusion. No significant arthritic change. No radiopaque foreign body. IMPRESSION: 1. Normal right forearm This document has been electronically signed by: Kamilla Gonzalez MD on 06/15/2024 14:59:57
[2024-06-15 13:20] VITALS: BP 117/69; PULSE 70; RESP 20; TEMP 36.8; O2SAT 100; BMI 30.9
--- NOTE | 2024-06-15 13:27 | ED_ITS ---
HPI - Extremity Problem General Chief complaint: Extremity Injury, Upper Stated complaint: arm inj Time Seen by Provider: 06/15/24 16:10 Source: patient Mode of arrival: ambulatory Limitations: no limitations History of Present Illness ED Provider: David Fountain HPI Narrative: 48 yold female with pmh of BETHANY, avascular necrosis, ARDS, ADHD, Depression presents to the ED for right shoulder pain for the past 4 days without any trauma. Patient states right shoulder pain that is now difficult to move due to pain. Patient states pain radiating down arm. Related Data Home Medications ?Medication ?Instructions ?Recorded ?Confirmed methylphenidate HCl 27 mg 27 mg PO QAM 01/25/23 02/09/23 tablet,extended release 24 hr (Concerta) fluticasone fur. 200 mcg-umeclid 1 ea inhalation DAILY 06/07/23 62.5 mcg-vilant 25 mcg inhalat.powder (Trelegy Ellipta) Previous Rx's ?Medication ?Instructions ?Recorded escitalopram oxalate 20 mg tablet 20 mg PO DAILY #30 tabs 02/05/23 hydroxyzine HCl 25 mg tablet 25 mg PO TID PRN anxiety #90 tabs 02/05/23 omeprazole 20 mg capsule,delayed 20 mg PO DAILY@0630 #30 caps 02/05/23 release trazodone 50 mg tablet 50 mg PO BEDTIME PRN Insomnia #30 02/05/23 tabs white petrolatum-mineral oil 1 appl topical DAILY #0 grams 02/05/23 topical cream (Dermacerin topical cream) nicotine 7 mg/24 hr daily 1 patch transdermal Q24H 14 days 02/12/23 transdermal patch #14 ea aripiprazole 5 mg tablet 5 mg PO DAILY #14 tabs 02/16/23 acetaminophen 325 mg tablet 650 mg (2 x 325 mg) PO QID PRN 06/15/24 (Tylenol) pain #56 tabs prednisone 20 mg tablet 40 mg (2 x 20 mg) PO DAILY 5 days 06/15/24 #10 tabs Allergies Allergy/AdvReac Type Severity Reaction Status Date / Time amoxicillin [AMOXICILLIN] Allergy Unknown RASH Verified 06/15/24 13:23 fluoxetine [From PROZAC] Allergy Unknown RASH Verified 06/15/24 13:23 heparin [HEPARIN] Allergy Unknown JAUN Verified 06/15/24 13:23 SYNDROME heparin (porcine) Allergy Unknown swelling, Verified 06/15/24 13:23 red hydrocodone [HYDROCODONE] Allergy Unknown PROJECTILE Verified 06/15/24 13:23 VOMITING ibuprofen [From Motrin] Allergy Unknown Shortness Verified 06/15/24 13:23 of Breath naproxen Allergy Unknown Stomach Verified 06/15/24 13:23 Upset omeprazole [OMEPRAZOLE] Allergy Unknown RASH, head Verified 06/15/24 13:23 to toe rash penicillin G [PENICILLIN G] Allergy Unknown RASH Verified 06/15/24 13:23 penicillin V Allergy Unknown rash Verified 06/15/24 13:23 piperacillin [From ZOSYN] Allergy Unknown RASH Verified 06/15/24 13:23 strawberry [STRAWBERRY] Allergy Unknown SOB,RASH, Verified 06/15/24 13:23 ANAPHYLAXISIS tazobactam [From ZOSYN] Allergy Unknown RASH Verified 06/15/24 13:23 walnut Allergy Unknown Difficulty Verified 06/15/24 13:23 Breathing Caramelized Food coloring Allergy Unknown Itching Uncoded 05/07/23 14:24 CARMALIZED FOOD COLORING Allergy Unknown RASH Uncoded 05/07/23 14:24 Hydrocodone Bitartrate Allergy Unknown severe Uncoded 05/07/23 14:24 vomiting Mangos Allergy Unknown Difficulty Uncoded 05/07/23 14:24 Breathing Piperacillin Sod-Tazobactam Allergy Unknown swelling Uncoded 05/07/23 14:24 So Strawberries Allergy Unknown Blister Uncoded 05/07/23 14:24 Review of Systems 2 Review of Systems: Right shoulder pain Yes all other systems are reviewed and are negative PMFSH Past Medical History Medical History (Updated 06/15/24 @ 16:29 by QUE Taylor) History of pulmonary embolism History of GI bleed History of sepsis Foreign body (FB) in soft tissue Psoriatic arthritis Avascular necrosis COPD (chronic obstructive pulmonary disease) ARDS (adult respiratory distress syndrome) Surgical History History of cholecystectomy History of back surgery History of gastric bypass History of tracheostomy Social History Social History Household Members: Spouse Housing: House Do you presently have visiting nurse or other home services: No Patient Tobacco Use Status: Current everyday Tobacco user Tobacco use type: Cigarette Cigarettes Per Day: 5 Second Hand Smoke Exposure: No Advance Directives: No Advance Directives Information Provided: Yes Do you have a plan to hurt others: No Plan service: No Sexual orientation: Straight/Heterosexual Physical Exam 2 Vital Signs: Vital Signs: Last Vital Signs Temp 98.3 F 06/15/24 16:42 Pulse 70 06/15/24 16:42 Resp 20 06/15/24 16:42 BP 117/69 06/15/24 16:42 Pulse Ox 100 06/15/24 16:42 O2 Del Method Room Air 06/15/24 16:42 BMI result Body Mass Index 30.9 Const: General: cooperative, healthy appearing, comfortable, no acute distress, well developed, alert, awake and Physically active O rientation/consciousness: patient oriented x3 HEENT: Head: Yes normal to inspection, Yes No palpable skull fracture present, Yes normocephalic and Yes atraumatic Eyes: General: appearance normal, both eyes and all related structures Neck: Neck: Yes normal visual inspection, Yes full ROM, Yes no lymphadenopathy, Yes no meningeal signs, Yes trachea midline, Yes supple, No anterior neck swelling and No tender Chest: Chest palpation & inspection: normal inspection of the chest and normal palpation of entire chest wall Resp: Effort & Inspection: normal respiratory effort and able to speak in complete sentences Auscultation: clear to auscultation bilaterally Cardio: Jugular venous distension: no JVD Heart sounds: S1 normal heart sound present and S2 normal heart sound present GI: Inspection: Yes normal to inspection Palpation (GI): Soft to palpation, not firm, nontender, no guarding and not rigid : General: Yes no CVA tenderness Back/Spine/Pelvis: Back: no CVA tenderness and No back tenderness Skin: General skin exam: no rashes or lesions noted, elasticity normal and turgor normal Neuro: General: patient oriented x3, gait normal, tone normal, moves all extremities, Normal light touch and pain sensation, no meningeal signs, no focal motor deficits, CN's II-XI intact bilaterally and normal sensation to monofilament Extrem: General: Yes normal to inspection, Yes full ROM and Yes capillary refill normal Shoulder/upper arm images: 1. Positive for tenderness on palpation. Vascular neuro exam is intact. Motor exam limited due to pain. Negative for any swelling, erythema, or ecchymosis. Negative for crepitus 2. Positive for slight tenderness on pal pation. Vascular motor neuro exam intact. Negative for any swelling or erythema or ecchymosis. Negative for crepitus. Psych: Appearance: grossly normal, well kempt and not disheveled Course Course Course Narrative: RME: 48 yold female presents to the ED for Right shoulder arm pain since sunday without any trauma. Patient denies any swelling. Patient states now severe pain in the shoulder with frozen not able to move shoulder radiating down elbow into wrist. Patient denies any fever chills. Images x-ray ordered. Vascular neuro exam intact. Motor exam limited due to pain Medical Decision Making Medical Decision Making MDM Narrative: 48 yold female presents to ED for right shoulder pain without any trauma. Patient denies any swelling, redness, red streaks, fever, chills, abdominal/tingling. Vascular neuro exam intact. Motor exam limited due to pain. X-ray shows calcific tendinitis. Not suspecting DVT, septic joint, compartment syndrome, arterial occlusion, necrotizing fasciitis, osteomyelitis, or any other life threatneing etiologies. Patient explained worrisome signs and informed to return to the ED immediately. Patient informed to follow up with PCP and orthopedic surgeon. Differential Diagnosis Differential Diagnoses: The differential diagnosis associated with the presentation includes (Fracture, dislocation, arthritis) Admission/Observation Consideration of admission/observation: Escalation of care including admission/observation considered Independent Interpretation I performed an independent interpretation of an: Plain X-Ray Radiology Impression Discussion of test interpretation with radiology: I have reviewed the radiologist's reading. Independent Historian Clinical information obtained from an independent historian. History obtained from or confirmed by: Other (Patient) Prescription Management I considered prescription management with: Pain Medication Discharge Plan Discharge Clinical Impression: Rotator cuff tendonitis Patient Disposition: Home, Self-Care Instructions: Rotator Cuff Tendinitis (ED), Shoulder Manipulation (DC) Additional Instructions: X-ray shows rotator cuff tendinitis. Recommend follow up with primary care provider and orthopedic surgeon. You will need to be referred to physical therapy. Recommend doing daily movement of shoulder to prevent stiffness. Return to the ED immediately right upper extremity swelling, severe pain, redness, fever, chills, bluish black discoloration, numbness/tingling, or any other concerning symptoms. CLINICAL HISTORY: RME: [place]oulder pain 3 view right shoulder Comparison: None Findings: Coarse calcification within the soft tissues adjacent to the greater tuberosity of the humerus. No acute fracture. No dislocation. No significant loss of joint space or osteophytes. No erosions. No radiopaque foreign body. IMPRESSION: Calcific tendinitis of the rotator cuff. This document has been electronically signed by: Kamilla Gonzalez MD on 06/15/2024 15:02:29 Prescriptions: New prednisone 20 mg tablet 40 mg PO DAILY 5 Days Qty: 10 0RF acetaminophen [Tylenol] 325 mg tablet 650 mg PO QID PRN (Reason: pain) Qty: 56 0RF No Action methylphenidate HCl [Concerta] 27 mg tablet extended release 24hr 27 mg PO QAM Patient Comments: last picked up on 01/08/23 escitalopram oxalate 20 mg Tablet 20 mg PO DAILY Qty: 30 0RF omeprazole 20 mg Capsule,Delayed Release(Dr/Ec) 20 mg PO DAILY@0630 Qty: 30 0RF trazodone 50 mg Tablet 50 mg PO BEDTIME PRN (Reason: Insomnia) Qty: 30 0RF Dermacerin Cream 1 appl topical DAILY Qty: 0 0RF Protocol: Apply to: Apply to: face and other dry areas hydroxyzine HCl 25 mg tablet 25 mg PO TID PRN (Reason: anxiety) Qty: 90 0RF nicotine 7 mg/24 hr patch 24 hour 1 patch transdermal Q24H 14 Days Qty: 14 0RF Rx Instructions: remove patch daily in evening aripiprazole 5 mg tablet 5 mg PO DAILY Qty: 14 0RF Trelegy Ellipta 200-62.5-25 mcg blister with device 1 ea inhalation DAILY Referrals: [facility] [place] Group] (Rotator cuff tendinitis) Félix Zelaya MD [Primary Care Provider] - (Rotator cuff tendinitis) Stand Alone Forms: Work/School Release Interventions: ED Discharge Assessment Last Done: 06/15/24 16:42 Discharge Date/Time: 06/15/24 16:42 Print Language: Tunisian
[2024-06-15 16:42] VITALS: BP 117/69; PULSE 70; RESP 20; TEMP 36.8; O2SAT 100
== END 2024-06-15 16:42 | disposition home or self-care (01) ==
PROVIDERS: Emergency Provider Emergency Medicine; PCP Internal Medicine
DX: M75.31 Calcific tendinitis of right shoulder (principal); M25.511 Pain in right shoulder; F17.210 Nicotine dependence, cigarettes, uncomplicated; Z79.899 Other long term (current) drug therapy
CPT/HCPCS: 73030; 73080; 73090; 99282; 99283

== ENCOUNTER → 2024-06-15 13:27 | Outpatient (BNV) | payer BC, OTHER, SELFPAY | PROVIDERS: PCP Internal Medicine; Visit Provider Radiology Diagnostic Radiology | DX: M25.521 Pain in right elbow (principal); M75.31 Calcific tendinitis of right shoulder; M79.631 Pain in right forearm | CPT/HCPCS: 73030; 73080; 73090 ==

== ENCOUNTER 2024-08-22 09:34 | Outpatient (AMB) | payer BC, SELFPAY ==
--- NOTE | 2024-08-22 09:38 | MHC.OFFVIS ---
Vital Signs 08/22/24 09:47 Height 5 ft 4 in Weight 180 lb BMI 30.9 Handedness Right Intake Visit Reasons: New prob - right shoulder pain Intake Note: Dora is a 49 year old right hand dominant female who presents today for a evaluation of her right shoulder pain. Hx of being in a coma for 3 months back in 2010. No hx of injury. Patient reports ongoing pain for about 2 - 3 months. She mentions that her pain is on the lateral aspect of the shoulder. Patient notices that her ROM is limited. She states that she has been doing at home exercises and it gave her mild improvement. Patient hasn't tried any medications to help with the pain. IMPRESSION: Calcific tendinitis of the rotator cuff. Allergies amoxicillin [AMOXICILLIN] Allergy (Unknown, Verified 08/22/24 09:41) RASH fluoxetine [From PROZAC] Allergy (Unknown, Verified 08/22/24 09:41) RASH heparin [HEPARIN] Allergy (Unknown, Verified 08/22/24 09:41) JAUN SYNDROME heparin (porcine) Allergy (Unknown, Verified 08/22/24 09:41) swelling, red hydrocodone [HYDROCODONE] Allergy (Unknown, Verified 08/22/24 09:41) PROJECTILE VOMITING ibuprofen [From Motrin] Allergy (Unknown, Verified 08/22/24 09:41) Shortness of Breath naproxen Allergy (Unknown, Verified 08/22/24 09:41) Stomach Upset omeprazole [OMEPRAZOLE] Allergy (Unknown, Verified 08/22/24 09:41) RASH, head to toe rash penicillin G [PENICILLIN G] Allergy (Unknown, Verified 08/22/24 09:41) RASH penicillin V Allergy (Unknown, Verified 08/22/24 09:41) rash piperacillin [From ZOSYN] Allergy (Unknown, Verified 08/22/24 09:41) RASH strawberry [STRAWBERRY] Allergy (Unknown, Verified 08/22/24 09:41) SOB,RASH, ANAPHYLAXISIS tazobactam [From ZOSYN] Allergy (Unknown, Verified 08/22/24 09:41) RASH walnut Allergy (Unknown, Verified 08/22/24 09:41) Difficulty Breathing Caramelized Food coloring Allergy (Unknown, Uncoded 05/07/23 14:24) Itching CARMALIZED FOOD COLORING Allergy (Unknown, Uncoded 05/07/23 14:24) RASH Hydrocodone Bitartrate Allergy (Unknown, Uncoded 05/07/23 14:24) severe vomiting Mangos Allergy (Unknown, Uncoded 05/07/23 14:24) Difficulty Breathing Piperacillin Sod-Tazobactam So Allergy (Unknown, Uncoded 05/07/23 14:24) swelling Strawberries Allergy (Unknown, Uncoded 05/07/23 14:24) Blister HPI HPI New prob - right shoulder pain: Details: Ms. Plunkett is a 49 year old right hand dominant female who presents today for a evaluation of right shoulder pain. Patient denies any injury or trauma to the right shoulder. She reports the patient has been present for the past 2-3 months. Pain is located along the lateral aspect of the shoulder causing limitations with her range of motion. She did state that she is doing a home exercise program. She did have a trial of prednisone which helped her slightly. After she had completed the trial of prednisone her pain returned. [facility] Medical History (Updated 08/22/24 @ 10:14 by Sarah Montemayor PA-C) History of pulmonary embolism History of GI bleed History of sepsis Foreign body (FB) in soft tissue Psoriatic arthritis Avascular necrosis COPD (chronic obstructive pulmonary disease) ARDS (adult respiratory distress syndrome) Surgical History History of cholecystectomy History of back surgery History of gastric bypass History of tracheostomy Social History (Updated 08/22/24 @ 09:47 by Jaylen Loya) Household Members: Spouse Housing: House Do you presently have visiting nurse or other home services: No Alcohol intake: never Patient Tobacco Use Status: Former Tobacco user Tobacco use type: Cigarette Second Hand Smoke Exposure: No service: No Current occupational status: unemployed Current occupation: right hand dominant Sexual orientation: Straight/Heterosexual Physical Exam Vital Signs: BMI result Body Mass Index 30.9 Const General: cooperative, healthy appearing and no acute distress Resp Effort & Inspection: normal respiratory effort and able to speak in complete sentences Extrem Other: Right shoulder: Forward flexion and abduction to 90 degrees. Pain with cross-body reach. 3-5 strength with empty can. NVI. Office Procedures AMB Joint Injection/Aspiration Joint Injection/Aspiration Primary Site: right shoulder Prep: site was prepped using aseptic technique, ethochloride spray was applied and injection warnings given Injected: 80 mg of, DepoMedrol, with 8 mL of (2% plain lido ) and in the joint Approach Used: posterolateral Procedure: The patient tolerated the procedure well, but had some pain with the injection and there was some relief with the local anesthesia Coding - Large joint Procedure code (CPT) selection complete Assessment & Plan Assessment & Plan (1) Calcific tendinitis of right shoulder: Code(s): M75.31 - Calcific tendinitis of right shoulder Category: Medical Plan The patient was offered a cortisone injection in the right shoulder with 80 mg of DepoMedrol. The patient was explained the risks, benefits, and alternatives to receiving this injection. After receiving consent for the injection, the patient had the procedure done while in the office today. The patient tolerated the procedure well with no complications. Additionally, I recommended physical therapy however the patient states that she is doing a home exercise program that she has found online. I have printed off shoulder exercises for her to follow at home. Follow-up will be PRN, or sooner if needed X-rays that were obtained on June 15 2024 are negative for any acute fracture dislocation but do show calcific tendinitis. Coding Level of Care Code Est Pt Level 3 (40040) Diagnoses Calcific tendinitis of right shoulder M75.31 CPT Codes Coding - Large joint: 57311 - Large joint ([id number])
[2024-08-22 09:47] VITALS: BMI 30.9
--- OUTSIDE RECORDS SUMMARY | 2024-08-22 09:52 | XMS_ITS | Encounter Summary ---
Author Organization [employer] Address [address] [place] [address] [address] [place] [address] Care Team Providers Care Hemmer Lockstitch Name Role Phone Unavailable Primary Care Provider Unavailabl e Reason for Visit * Reason Onset Date Comments insurance 10/31/2022 Encounter Details Date Type Department Care Team ([facility] st Contact Info) Description 10/31/2022 Telephone C [facility] [address] [place] [address] Nolan Morrison DDS [address] [place] [address] insurance Social History Tobacco Use Types Packs/Day Years Used Date Smoking Tobacco: Never Assessed Comments Unknown Sex and Gender Information Value Date Recorded Sex Assigned at Female 10/31/2022 10:06 AM EDT Legal Sex Female 10:05 AM EDT Gender Identity Female 10/31/2022 10:06 AM EDT Sexual Orientation Choose not to disclose 2022 8:30 AM EDT documented as of this encounter Miscellaneous Notes * Telephone Encounter - Debby Ravi - 11/02/2022 11:48 AM EDT Tc from pt requesting for a referral to be sent to a different facility to get extraction done . Ptrequested referral to be sent to [facility] located on [address] [place] [address] [address] [place] [address] . and fax # [phone]. Please call pt once referral is completed . * Telephone Encounter - Brii Kirby - 10/31/2022 10:09 AM EDT I recahed out to billing because the patient states to have [facility] and provided ID number [id number] but when I went to add the insurance only [facility] was coming up as an option, unless Walt missing something. Mykel told me to reach out to Elida to open a ticket so that the [facility] option could be added. Patient is calling in tomorrow morning for an emergency visit and was getting chart ready for her pending visit. documented in this encounter Plan of Treatment Not on file documented as of this encounter Visit Diagnoses Not on filedocumented in this encounter
--- OUTSIDE RECORDS SUMMARY | 2024-08-22 09:53 | XMS_ITS | Clinical Summary ---
Author Organization [employer] Address [address] [place] [address] [address] [place] [address] Care Team Providers Care Shipping & Receiving Lead Name Role Phone Unavailable Primary Care Provider Unavailabl e Allergies Active Allergy Reactions Criticality Noted Date Comments [place] Flavoring Agent (Non-Screening) Rash Low 07/27/2022 Hydrocodone 07/27/2022 Other reaction(s): severe vomiting Penicillin G Benzathine Rash Low 07/27/2022 Shellfish Allergy 11/01/2022 Other reaction(s): projectile vomit sweating [place] Flavoring Agent (Non-Screening) Rash Low 07/27/2022 Medications omeprazole (PriLOSEC) [address] capsule 10/25/2022 Activ e tiotropium (Spiriva Respimat) 2.5 MCG/ACT inhaler daily. Acti ve methylphenidate ER (Concerta) 27 MG CR tablet Take 27 mg by mouth in the morning. 09/20/2022 Active LORazepam (Ativan) 0.5 MG tablet daily. 02/19/2018 Active albuterol (2.5 MG/3ML) 0.083% nebulizer solution 3 ml as needed 11/10/2010 Active azithromycin (Zithromax) 250 MG tablet Take 2 tabs on day one followed by one tab once daily from day two until gone. 6 tablet 11/01/2022 Active Social History Tobacco Use Types Packs/Day Years Used Date Smoking Tobacco: Never Assessed Comments Unknown Sex and Gender Information Value Date Recorded Sex Assigned at Female 10/31/2022 10:06 AM EDT Legal Sex Female 10:05 AM EDT Gender Identity Female 10/31/2022 10:06 AM EDT Sexual Orientation Choose not to disclose 2022 8:30 AM EDT Plan of Treatment Health Maintenance Due Date Last Done Comments CT Colonography 1973 Colonoscopy 1973 Colorectal Cancer Screening 1973 Dental Oral Exam 1973 Dental Prophylaxis 1973 Dental X-Ray: Full Mouth 1973 Depression Screening 1973 FIT DNA/Cologuard 1973 FIT 1975 FOBT 1975 HIV Screening 1975 Lipid Panel 1973 SDOH Screening 1973 Sigmoidoscopy 1973 Alcohol/Substance Use Screening 1985 Tobacco Screening 1985 Family Planning (PISQ) 1988 Hepatitis C Screening 07/19/1991 Hepatitis B Vaccines (1 of 3 - 19+ 3-dose series) 1992 Pap Smear 1994 Cervical Cancer Screening 07/19/2003 HPV/Cotest 07/19/2003 Mammogram 2013 Pneumococcal Vaccine: 50+ Years (2 of 2 - PCV) 07/19/2023 01/13/2016 Zoster Vaccines (1 of 2) 07/19/2023 Dental X-Ray: Bitewings 11/03/2023 11/01/2022, 11/01 COVID-19 Vaccine ( - season) 2023 08/20/2020, 07/23/2020 Influenza Vaccine (#1) 2023 , 12/30/2019, 02/26/2018, Additional history exists DTaP/Tdap/Td Vaccines (2 - Td or Tdap) 12/29/2029 12/30/2019 RSV Patients and Patients Aged 60 years or older (1 - 1-dose 75+ series) 2048 HIB Vaccines Aged Out No longer eligi ble based on patient's age to complete this topic HPV Vaccines Aged Out No longer eligi ble based on patient's age to complete this topic Hepatitis A Vaccines Aged Out No long er eligible based on patient's age to complete this topic IPV Vaccines Aged Out No longer eligi ble based on patient's age to complete this topic Meningococcal B Vaccine Aged Out No l onger eligible based on patient's age to complete this topic Meningococcal Vaccine Aged Out No robert viviane eligible based on patient's age to complete this topic RSV under 20 months Aged Out No longe r eligible based on patient's age to complete this topic Rotavirus Vaccines Aged Out No longer eligible based on patient's age to complete this topic Procedures Procedure Name Priority Date/Time Associated Diagnosis Comments BITEWING - SINGLE RADIOGRAPHIC IMAGE Routine 11/01/2022 11:30 AM EDT from Last 3 Months or Most Recently Relevant to Health Maintenance Insurance DENTAL - [facility]
--- OUTSIDE RECORDS SUMMARY | 2024-08-22 09:53 | XMS_ITS ---
Author Organization Félix Zelaya MD Address [address] [place], [place] [id number] Care Team Providers Care Nuclear Medicine Specialist Name Role Phone Félix Zelaya Primary Care Provider Allergies Allergen (clinical drug ingredient) Drug/Non Drug Allergy documented on EMR Reaction Allergy Type Onset Date Status cherries (uncoded) tongue swelling Allergy Active fluoxetine Prozac (uncoded) hives Allergy Ac tive sesame seed allergenic extract sesame seeds (uncoded) rash SOB Allergy Active walnuts (uncoded) rash SOB Allergy Ac tive amoxicillin amoxicillin (uncoded) rash Allergy Active ibuprofen Ibuprofen hives Drug Allergy Active [place] Flavor rash Drug Allergy Active piperacillin / [...] Acti ve raspberries (uncoded) rash Allergy Active REASON FOR VISIT 3 month, c/o productive cough, SOB, diarrhea. tested negative for Covid this AM but friend tested positive 2 dysa ago, Video [phone], c/o whole body rash appeared 2 days ago Medications Medication SIG (Take, Route, Frequency, Duration) Notes Start Date End Date Status traZODone HCl 100 MG 1 tablet at bedtime Orally Once a day for 30 day(s) Active hydrOXYzine HCl 25 MG 1 tablet as needed Orally Once a day for 30 day(s) Active Methylphenidate HCl 10 MG 3tablet on emp ty stomach Orally Once a day Active Abilify 2 MG 0.5 tablet Orally On ce a day Active Concerta 27 MG 1 tablet in the morning Orally Once a day Active DULoxetine HCl 60 MG TK 1 C PO QAM Oral for 60 Not-Taking Furosemide 20 MG 1 tablet Orally Once a day 10/02/2013 Not-Taking Gabapentin 100 MG 1 capsule Orally twi ce a day Active metOLazone 2.5 MG 1 tablet Orally Once a day for 30 Not-Taking Diprolene AF 0.05 % 1 application to affected area Externally Once a day for 30 Not-Taking Vitron-C 65-125 MG Orally N ot-Taking Milk of Magnesia 400 MG/5ML 5 ml as needed Orally Four times a day Not-Taking Omeprazole 20 MG 1 capsule 30 minutes before morning meal Orally Once a day for 90 days 06/24/2020 Active Spiriva Respimat 2.5 MCG/ACT 2 puffs Inhalation Once a day for 30 days Active Clobetasol Propionate 0.05 % 1 application Externally Twice a day for 10 day(s) 11/23/2022 Active Symbicort 160-4.5 MCG/ACT 2 puffs Inhala tion Twice a day Active Tylenol Childrens 160 MG/5ML Orally Active EpiPen 2-Jose Cruz 0.3 MG/0.3ML as directed In jection once for 1 dose 08/14/2011 Active Zithromax Z-Jose Cruz 250 MG 2 tablet on the f irst day, then 1 tablet daily for 4 days Orally Once a day for 5 day(s) 10/30/2023 Active Albuterol Sulfate (2.5 MG/3ML) 0.083% 3 ml as needed Inhalation every 4 hrs for 30 days 11/10/2010 Active predniSONE 10 MG 1 tablet with food o r milk Orally 4 tabs for 4 days, 3 tabs for 4 days, 2 tbs for 4 days, and 1 tab for 4 days for 14 days 10/30/2023 Active Vitamin D-3 5000 UNIT 1 tablet Orally On ce a day Active Tylenol 325 MG 1 tablet as needed Orally every 6 hrs Active Escitalopram Oxalate 20 MG 1 tablet Oral ly Once a day Active Vital Signs Height 66 in 10/30/2023 Weight 184 lbs 10/30/2023 BMI 29.70 kg/m2 10/30/2023 weight at home is 184 BP not taken at home today no temp Encounters Encounter Location Date Provider Diagnosis Félix Zelaya MD [address] [place] [address] [address] [place], [place] [id number] 10/30/2023 Félix Zelaya Acute bronchitis, unspecified organism J20.9 and Pruritic rash L28.2 Assessments Encounter Date Diagnosis (ICD Code) Assessment Notes Treatment Notes Treatment Clinical Notes Section Notes 10/30/2023 Acute bronchitis, unspecified organism (ICD-10 - J20.9) should also check covid again in next few days/ would use molnupiravir if necessary. patient verbalized understanding of medications and directions for use 10/30/2023 Pruritic rash (ICD-10 - L28.2) Plan Of Treatment Medication Medication Name Sig Start Date Stop Date Notes Zithromax Z-Jose Cruz 250 MG 2 tablet on the f irst day, then 1 tablet daily for 4 days Orally Once a day for 5 day(s) 10/30/2023 predniSONE 10 MG 1 tablet with food o r milk Orally 4 tabs for 4 days, 3 tabs for 4 days, 2 tbs for 4 days, and 1 tab for 4 days for 14 days 10/30/2023 Treatment Notes Assessment Notes Acute bronchitis, unspecified organism s hould also check covid again in next few days/ would use molnupiravir if necessary. patient verbalized understanding of medications and directions for use Progress Notes * Nina PLUNKETT:1975 (48 yo F)Acc No.[id number]:10/30/2023 Patient:?Dora Plunkett Provider:?Félix Zelaya MD :1975???Age:48 Y???Sex:Female D ate:10/30/2023 Address:[facility] [address], [facility] Subjective: * Chief Complaints: * ???3 monthc/o productive cou gh, SOB, diarrhea. tested negative for Covid this AM but friend tested positive 2 dysa agoVideo [phone]/o whole body rash appeared 2 days ago * HPI: ???Symptom(s):?Telehealth?Location of provider rendering services:?[address], [address],?Location of patient:?at address listed in demographics for today's visit,?Patient identification confirmed using:?Name, , SSN, Insurance information,?Telehealth method:?Video conference where patient is visible to the provider of care,?Consent:?Patient verbally consented to treatment, Patient verbally consented to billing insurance company, Patient informed of any privacy concerns related to method of visit.? patient is a 48 yo female video telehealth visit, scheduled for 3 month follow up visit, now complaoning she started to get sick 3 days ago. friend has covid but she has not been near her for 10 days. complaining of cough, SOB, diarrhea, tested negative fr covid, also body rash that appeared two days ago. * ROS:?General/Constitutional:?Denies?Chills.?Denies?Fatigue.?Denies?Fever.?Denies?Headache.?ENT:?Patient denies?decreased sense of smell, any loss of taste, sore throat.?Denies?Sore throat.?Respiratory:?Admits?Cough.?Admits?Shortness of breath at rest.?Admits?Shortness of breath with exertion.?Admits?Sputum production.?Admits?Wheezing.?Gastrointestinal:?Denies?Diarrhea.?Denies?Nausea.?Musculoskeletal:?Patient denies?muscle aches.?Peripheral Vascular:?Patient denies?red and blue toes.? * Medical History:? * Surgical History:? * Hospitalization/Major Diagno stic Procedure:? * Medications:?TakingGabapenti n 100 MG Capsule 1 capsule Orally twice a daytraZODone HCl 100 MG Tablet 1 tablet at bedtime Orally Once a dayhydrOXYzine HCl 25 MG Tablet 1 tablet as needed Orally Once a dayMethylphenidate HCl 10 MG Tablet 3tablet on empty stomach Orally Once a dayAbilify 2 MG Tablet 0.5 tablet Orally Once a dayConcerta 27 MG Tablet Extended Release 1 tablet in the morning Orally Once a dayEscitalopram Oxalate 20 MG Tablet 1 tablet Orally Once a dayAlbuterol Sulfate (2.5 MG/3ML) 0.083% Nebulization Solution 3 ml as needed Inhalation every 4 hrsVitamin D-3 5000 UNIT Tablet 1 tablet Orally Once a dayTylenol 325 MG Tablet 1 tablet as needed Orally every 6 hrsSpiriva Respimat 2.5 MCG/ACT Aerosol Solution 2 puffs Inhalation Once a dayClobetasol Propionate 0.05 % Cream 1 application Externally Twice a daySymbicort 160-4.5 MCG/ACT Aerosol 2 puffs Inhalation Twice a dayTylenol Childrens 160 MG/5ML Suspension Orally EpiPen 2-Jose Cruz 0.3 MG/0.3ML Device as directed Injection onceOmeprazole 20 MG Capsule Delayed Release 1 capsule 30 minutes before morning meal Orally Once a dayTaking Gabapentin 100 MG Capsule 1 capsule Orally twice a dayTaking traZODone HCl 100 MG Tablet 1 tablet at bedtime Orally Once a dayTaking hydrOXYzine HCl 25 MG Tablet 1 tablet as needed Orally Once a dayTaking Methylphenidate HCl 10 MG Tablet 3tablet on empty stomach Orally Once a dayTaking Abilify 2 MG Tablet 0.5 tablet Orally Once a dayTaking Concerta 27 MG Tablet Extended Release 1 tablet in the morning Orally Once a dayTaking Escitalopram Oxalate 20 MG Tablet 1 tablet Orally Once a dayTaking Albuterol Sulfate (2.5 MG/3ML) 0.083% Nebulization Solution 3 ml as needed Inhalation every 4 hrsTaking Vitamin D-3 5000 UNIT Tablet 1 tablet Orally Once a dayTaking Tylenol 325 MG Tablet 1 tablet as needed Orally every 6 hrsTaking Spiriva Respimat 2.5 MCG/ACT Aerosol Solution 2 puffs Inhalation Once a dayTaking Clobetasol Propionate 0.05 % Cream 1 application Externally Twice a dayTaking Symbicort 160-4.5 MCG/ACT Aerosol 2 puffs Inhalation Twice a dayTaking Tylenol Childrens 160 MG/5ML Suspension Orally Taking EpiPen 2-Jose Cruz 0.3 MG/0.3ML Device as directed Injection onceTaking Omeprazole 20 MG Capsule Delayed Release 1 capsule 30 minutes before morning meal Orally Once a dayNot-Taking/PRNVitron-C 65-125 MG Tablet Orally Milk of Magnesia 400 MG/5ML Suspension 5 ml as needed Orally Four times a dayDULoxetine HCl 60 MG Capsule Delayed Release Particles TK 1 C PO QAM Oral Furosemide 20 MG Tablet 1 tablet Orally Once a daymetOLazone 2.5 MG Tablet 1 tablet Orally Once a dayDiprolene AF 0.05 % Cream 1 application to affected area Externally Once a dayNot- Taking/PRN Vitron-C 65-125 MG Tablet Orally Not-Taking/PRN Milk of Magnesia 400 MG/5ML Suspension 5 ml as needed Orally Four times a dayNot-Taking/PRN DULoxetine HCl 60 MG Capsule Delayed Release Particles TK 1 C PO QAM Oral Not-Taking/PRN Furosemide 20 MG Tablet 1 tablet Orally Once a dayNot-Taking/PRN metOLazone 2.5 MG Tablet 1 tablet Orally Once a dayNot-Taking/PRN Diprolene AF 0.05 % Cream 1 application to affected area Externally Once a dayDiscontinuedNicoderm CQ 14 MG/24HR Patch 24 Hour 1 patch to skin Transdermal Once a dayNicoderm CQ 7 MG/24HR Patch 24 Hour 1 patch to skin Transdermal Once a dayMedication List reviewed and reconciled with the patientDiscontinued Nicoderm CQ 14 MG/24HR Patch 24 Hour 1 patch to skin Transdermal Once a dayDiscontinued Nicoderm CQ 7 MG/24HR Patch 24 Hour 1 patch to skin Transdermal Once a dayMedication List reviewed and reconciled with the patient * Allergies:?Caramel Flavor: U TILactose: DiarrheaPiperacillin Sod-Tazobactam So: swellingHeparin (Porcine) in NaCl: swellingStrawberry Flavor: rashamoxicillin: rashwalnuts: rash SOBsesame seeds: rash SOBProzac: hivescherries: tongue swellingraspberries: rashPenicillin G Benzathine: RashHydrocodone Bitartrate: severe vomitingOmeprazole: only with the [place] flavoredmango: hivesIbuprofen: hivesyes[Allergies Verified] Objective: * Vitals:?Ht: 66, Wt:184, BMI: 29.70 weight at home is 184 BP not taken at home today no temp. * Examination: ???General Examination: ?GENERAL APPEARANCE:? alert, well hydrated, in no distress .?HEAD:?normocephalic.?SKIN:? abnormal with diffuse rash on arms and legs.? Assessment: * Assessment: 1.?Acute bronchitis, unspeci fied organism - J20.9 (Primary)?2.?Pruritic rash - L28.2? Plan: * Treatment: * Procedure Codes:? * * Sign off status: Completed true * Provider:?Félix Zelaya MD Date:?0 10/30/2023 Generated for Ofe garza/Sarina/eTransmitting on:?08/22/2024 09:53 AM EDT History and Physical Notes * HPI (History of Present Illness) Category Sub-Category Detail Notes Category Not es Symptom(s) Telehealth Location of [facility] services:: [address], [address] patient is a 48 yo female video telehealth visit, scheduled for 3 month follow up visit, now complaoning she started to get sick 3 days ago. friend has covid but she has not been near her for 10 days. complaining of cough, SOB, diarrhea, tested negative fr covid, also body rash that appeared two days ago Location of patient:: at address listed in demographics for today's visit Patient identification confirmed using:: Name, , SSN, Insurance information Telehealth method:: Video co nference where patient is visible to the provider of care Consent:: Patient verbally c onsented to treatment, Patient verbally consented to billing insurance company, Patient informed of any privacy concerns related to method of visit Examination Category Sub-Category Detail Notes Category Not es General Examination GENERAL APPEARANCE: alert, w ell hydrated, in no distress HEAD: normocephalic SKIN: abnormal with diffus e rash on arms and legs
--- OUTSIDE RECORDS SUMMARY | 2024-08-22 09:53 | XMS_ITS ---
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 Name Role Phone Félix Zelaya Primary Care [...] Active ibuprofen Ibuprofen hives Drug Allergy Active [place] Flavor rash Drug Allergy Active piperacillin / [...] (uncoded) rash Allergy Active REASON FOR VISIT follow up appt for [facility] visit/ Right shoulder pain, went to [facility] Er 06-15-24 Medications Medication SIG (Take, Route, Frequency, Duration) Notes Start Date End Date Status predniSONE 10 MG 1 tablet with food o r milk Orally 4 tabs for 3 days,3tabs for 3 days, 2 tabs for 3 days, and 1 tab for 3 days for 14 days 06/19/2024 Active Diprolene AF 0.05 % 1 application to affected area Externally Once a day for 30 Not-Taking metOLazone 2.5 MG 1 tablet Orally Once a day for 30 Not-Taking Furosemide 20 MG 1 tablet Orally Once a day 10/02/2013 Not-Taking DULoxetine HCl 60 MG TK 1 C PO QAM Oral for 60 Not-Taking Milk of Magnesia 400 MG/5ML 5 ml as needed Orally Four times a day Not-Taking Abilify 2 MG 0.5 tablet Orally On ce a day Not-Taking Omeprazole 20 MG 1 capsule 30 minutes before morning meal Orally Once a day for 90 days 06/24/2020 Active EpiPen 2-Jose Cruz 0.3 MG/0.3ML as directed In jection once for 1 dose 08/14/2011 Active Tylenol Childrens 160 MG/5ML Orally Active Spiriva Respimat 2.5 MCG/ACT 2 puffs Inhalation Once a day for 30 days Active Tylenol 325 MG 1 tablet as needed Orally every 6 hrs Active Vitamin D-3 5000 UNIT 1 tablet Orally On ce a day Active Symbicort 160-4.5 MCG/ACT 2 puffs Inhala tion Twice a day Active Clobetasol Propionate 0.05 % 1 application Externally Twice a day for 10 day(s) 11/23/2022 Active Escitalopram Oxalate 20 MG 1 tablet Oral ly Once a day Active Concerta 27 MG 1 tablet in the morning Orally Once a day Active Methylphenidate HCl 10 MG 3tablet on emp ty stomach Orally Once a day Active hydrOXYzine HCl 25 MG 1 tablet as needed Orally Once a day for 30 day(s) Active Albuterol Sulfate (2.5 MG/3ML) 0.083% 3 ml as needed Inhalation every 4 hrs for 30 days 11/10/2010 Active traZODone HCl 100 MG 1 tablet at bedtime Orally Once a day for 30 day(s) Active Gabapentin 100 MG 1 capsule Orally twi ce a day Active predniSONE 20 MG 1 tablet with food o r milk Orally Once a day Active Vital Signs Blood pressure systolic 118 mm Hg 06/20/19 25 Blood pressure diastolic 76 mm Hg 025 Height 66 in 06/19/2024 Weight 180 lbs 06/19/2024 BMI 29.05 kg/m2 06/19/2024 weight is down 4 pounds [facility] e 10-30-23 Encounters Encounter Location Date Provider Diagnosis Félix Zelaya MD [address] [place] [address] Drive [address] [place] [phone] 06/19/2024 Félix Zelaya Shoulder pain M25.519 Assessments Encounter Date Diagnosis (ICD Code) Assessment Notes Treatment Notes Treatment Clinical Notes Section Notes 06/19/2024 Shoulder pain (ICD-10 - M25.519) has improved with the prednisone so will taper off and send her to walkin at [facility] Plan Of Treatment Medication Medication Name Sig Start Date Stop Date Notes predniSONE 10 MG 1 tablet with food o r milk Orally 4 tabs for 3 days,3tabs for 3 days, 2 tabs for 3 days, and 1 tab for 3 days for 14 days 06/19/2024 Treatment Notes Assessment Notes Shoulder pain has improved with th e prednisone so will taper off and send her to walkin at [facility] Progress Notes * Stacey PLUNKETTB:1975 (48 yo F)Acc No.[id number]:06/19/2024 Progress Notes Patient:?Dora PLUNKETT Provider:?Félix Zelaya MD :1975???Age:48 Y???Sex:Female D ate:06/19/2024 Address:[facility] [id number] Subjective: * Chief Complaints: * ???follow up appt for [facility] visit/ Right shoulder painwent to [facility] 06-15-24 * HPI: ???Symptom(s):?patient is a 48 yo female here for follow up to recent ER visit, went to er because could not? move her arm in the middle of night. * ROS:?General/Constitutional:?Denies?Chills.?Denies?Fatigue.?Denies?Fever.?Denies?Headache.?ENT:?Patient denies?decreased sense of smell, any loss of taste, sore throat.?Denies?Sore throat.?Respiratory:?Denies?Cough.?Denies?Shortness of breath at rest.?Denies?Shortness of breath with exertion.?Gastrointestinal:?Denies?Diarrhea.?Denies?Nausea.?Musculoskeletal:?Patient denies?muscle aches.?Peripheral Vascular:?Patient denies?red and blue toes.? * Medical History:? * Surgical History:? * Hospitalization/Major Diagno stic Procedure:? * Medications:?TakingpredniSON E 20 MG Tablet 1 tablet with food or milk Orally Once a day Gabapentin 100 MG Capsule 1 capsule Orally twice a day traZODone HCl 100 MG Tablet 1 tablet at bedtime Orally Once a day hydrOXYzine HCl 25 MG Tablet 1 tablet as needed Orally Once a day Methylphenidate HCl 10 MG Tablet 3tablet on empty stomach Orally Once a day Concerta 27 MG Tablet Extended Release 1 tablet in the morning Orally Once a day Escitalopram Oxalate 20 MG Tablet 1 tablet Orally Once a day Albuterol Sulfate (2.5 MG/3ML) 0.083% Nebulization Solution 3 ml as needed Inhalation every 4 hrs Vitamin D-3 5000 UNIT Tablet 1 tablet Orally Once a day Tylenol 325 MG Tablet 1 tablet as needed Orally every 6 hrs Spiriva Respimat 2.5 MCG/ACT Aerosol Solution 2 puffs Inhalation Once a day Clobetasol Propionate 0.05 % Cream 1 application Externally Twice a day Symbicort 160-4.5 MCG/ACT Aerosol 2 puffs Inhalation Twice a day Tylenol Childrens 160 MG/5ML Suspension Orally EpiPen 2- Jose Cruz 0.3 MG/0.3ML Device as directed Injection once Omeprazole 20 MG Capsule Delayed Release 1 capsule 30 minutes before morning meal Orally Once a day Taking predniSONE 20 MG Tablet 1 tablet with food or milk Orally Once a day Taking Gabapentin 100 MG Capsule 1 capsule Orally twice a day Taking traZODone HCl 100 MG Tablet 1 tablet at bedtime Orally Once a day Taking hydrOXYzine HCl 25 MG Tablet 1 tablet as needed Orally Once a day Taking Methylphenidate HCl 10 MG Tablet 3tablet on empty stomach Orally Once a day Taking Concerta 27 MG Tablet Extended Release 1 tablet in the morning Orally Once a day Taking Escitalopram Oxalate 20 MG Tablet 1 tablet Orally Once a day Taking Albuterol Sulfate (2.5 MG/3ML) 0.083% Nebulization Solution 3 ml as needed Inhalation every 4 hrs Taking Vitamin D-3 5000 UNIT Tablet 1 tablet Orally Once a day Taking Tylenol 325 MG Tablet 1 tablet as needed Orally every 6 hrs Taking Spiriva Respimat 2.5 MCG/ACT Aerosol Solution 2 puffs Inhalation Once a day Taking Clobetasol Propionate 0.05 % Cream 1 application Externally Twice a day Taking Symbicort 160-4.5 MCG/ACT Aerosol 2 puffs Inhalation Twice a day Taking Tylenol Childrens 160 MG/5ML Suspension Orally Taking EpiPen 2-Jose Cruz 0.3 MG/0.3ML Device as directed Injection once Taking Omeprazole 20 MG Capsule Delayed Release 1 capsule 30 minutes before morning meal Orally Once a day Not-Taking/PRNAbilify 2 MG Tablet 0.5 tablet Orally Once a day Milk of Magnesia 400 MG/5ML Suspension 5 ml as needed Orally Four times a day DULoxetine HCl 60 MG Capsule Delayed Release Particles TK 1 C PO QAM Oral Furosemide 20 MG Tablet 1 tablet Orally Once a day metOLazone 2.5 MG Tablet 1 tablet Orally Once a day Diprolene AF 0.05 % Cream 1 application to affected area Externally Once a day Medication List reviewed and reconciled with the patientNot-Taking/PRN Abilify 2 MG Tablet 0.5 tablet Orally Once a day Not- Taking/PRN Milk of Magnesia 400 MG/5ML Suspension 5 ml as needed Orally Four times a day Not-Taking/PRN DULoxetine HCl 60 MG Capsule Delayed Release Particles TK 1 C PO QAM Oral Not-Taking/PRN Furosemide 20 MG Tablet 1 tablet Orally Once a day Not- Taking/PRN metOLazone 2.5 MG Tablet 1 tablet Orally Once a day Not-Taking/PRN Diprolene AF 0.05 % Cream 1 application to affected area Externally Once a day Medication List reviewed and reconciled with the patient * Allergies:?Caramel Flavor: U TILactose: DiarrheaPiperacillin Sod-Tazobactam So: swellingHeparin (Porcine) in NaCl: swellingStrawberry Flavor: rashamoxicillin: rashwalnuts: rash SOBsesame seeds: rash SOBProzac: hivescherries: tongue swellingraspberries: rashPenicillin G Benzathine: RashHydrocodone Bitartrate: severe vomitingOmeprazole: only with the villa flavoredmango: hivesIbuprofen: hivesyes[Allergies Verified] Objective: * Vitals:?Ht: 66, Wt: 180, BMI :29.05, BP:118/76, Wt-k.65. weight is down 4 pounds since 10-30-23. * Examination: ???General Examination: ?GENERAL APPEARANCE:?alert, well hydrated, in no distress.?HEAD:?normocephalic.?SKIN:?good turgor.?HEART:?no murmurs, rubs, gallops, regular rate and rhythm.?LUNGS:?no wheezes, rales, rhonchi, good air movement, clear to auscultation bilaterally.?MUSCULOSKELETAL:?severe pain with movement of shoulder.? Assessment: * Assessment: 1.?Shoulder pain - M25.519 ( Primary)??? Plan: * Treatment: * Procedure Codes:? * * Sign off status: Completed true * Provider:?Félix Zelaya MD Date:?0 06/19/2024 Generated for Ofe garza/Sarina/Mary Carmen on:?08/22/2024 09:53 AM EDT History and Physical Notes * HPI (History of Present Illness) Category Sub-Category Detail Notes Category Not es Symptom(s) patient is a 48 yo female here for follow up to recent ER visit, went to er because could not move her arm in the middle of night. Examination Category Sub-Category Detail Notes Category Not es General Examination GENERAL APPEARANCE: alert, w ell hydrated, in no distress HEAD: normocephalic HEART: no murmurs, rubs, ga llops, regular rate and rhythm LUNGS: no wheezes, rales, r honchi, good air movement, clear to auscultation bilaterally SKIN: good turgor MUSCULOSKELETAL: severe pain with mov ement of shoulder
--- OUTSIDE RECORDS SUMMARY | 2024-08-22 09:53 | XMS_ITS | Data Portability ---
Author Organization [facility] [address] Address [address] [place] [address] Assessment No assessment recorded. Plan of Treatment Reminders Order Date Submit Date Provider Last Modified By Organization Details Last Modified Time Details Appointments None recorded. Lab None recorded. Referral None recorded. Procedures None recorded. Surgeries None recorded. Imaging None recorded. Medication Orders prednisone 20 mg tablet 2022 023 [facility]/Pharmacy #[id number], [address] [place], [address], 18:10:49 Zithromax Z-Jose Cruz 250 mg tablet 2022 023 [facility]/Pharmacy #[id number], [address] [place], [address], 18:10:49 Patient TargetsNo targets recorded. Patient Instructions Encounter Date Encounter Id Patient Instructions Last Modified By Organization Details Last Modified Time 01/11/2023 [id number] Treatment is antibiotics as prescribed, inhaler and cough medication as needed, supportive, including, rest, fluids, humidifier, and sometimes cough suppressants and/or nasal decongestants to help reduce symptoms until your body's immune system kills the virus and the both self-recovers Breathing warm, moist air helps loosen the sticky mucus that may make you feel like you are choking. Other things that may also help include: Placing a warm, wet washcloth loosely near your nose and mouth. Filling a humidifier with warm water and breathing in the warm mist. Coughing helps clear your airways. Take a couple of deep breaths, 2 to 3 times every hour. Deep breaths help open up your lungs. While lying down, tap your chest gently a few times a day. This helps bring up mucus from the lungs. If you smoke, now is the time to quit. Do not allow smoking in your home. Drink plenty of liquids, as long as your provider says it is OK. Drink water, juice, or weak tea. Drink at least 6 to 10 cups (1.5 to 2.5 liters) a day. Do not drink alcohol. Get plenty of rest when you go home. If you have trouble sleeping at night, take naps during the day. Go to Emergency room for new or worsening concerning symptoms. If breathing is: Getting harder Faster than before Shallow and you cannot get a deep breath Also call your provider if you have any of the following: Need to lean forward when sitting to breathe more easily Have chest pain when you take a deep breath Headaches more often than usual Feel sleepy or confused Fever returns Coughing up dark mucus or blood Fingertips or the skin around your fingernails is blue If symptoms worsen, return to clinic. If you develop any chest pain, worsening symptoms, worsening shortness of breath, fevers unrelieved with OTC tylenol or ibuprofen go to the nearest emergency room, or call 911. Contact office for any questions. Follow-up with your PCP in 2 weeks for a recheck. If you are not seeing improvement within 48-72 hours I would recommend a reevaluation with a chest xray. Recheck chest xray in 1 month with PCP is recommended to verify pneumonia has resolved. [email or web address] Not available 01/11/2023 18:10:46 Reason for Referral None Reported. Problems Name Problem SNOMED Code Status Onset Date Resolution Date Notes Provider Name and Address Organization Details Recorded Time Disorder of lung 37529933 Active 2022 h/o pneumonia, scarring cdc couldn;t figure out since 2010--pt is on O2 continuous BUDDY roca PA Rai [facility] 17:49:53 Attention deficit hyperactiv ity disorder 444735726 Active 2022 BUDDY roca PA - [facility] 17:52:47 Osteonecro sis 528503816 Active 2022 BUDDY roca PA - [facility] 17:53:07 Psoriatic arthritis 618449250 Active 2022 BUDDY roca, PA - [facility] 17:53:15 Problem Notes None recorded. Medical Equipment None Reported. Allergies Allergen ID Allergen Name Allergen Category Reaction Reaction Severity Criticality Documentation Date Start Date Code Code System Note Provider Name and Address Organization Details Recorded Time 758886 ibuprofen medicatio n anaphylax is Not available Not available 01/11/2023 5640 RxNorm BUDDY roca, PA - [facility] 17:50:23 107091 heparin medicatio n other Not available Not available 01/11/2023 5224 RxNorm whole body swell ed redm an syndr ome BUDDY roca, PA - [facility] 17:51:01 Medications Name Sig Start Date Stop Date Status Note LastModified by Organization Details LastModified Time fluconazole 100 mg tablet TAKE 1 TABLET BY MOUTH EVERY DAY FOR 5 DAYS active Not Available Not Available No t Available prednisone 10 mg tablet PLEASE SEE ATTACHED FOR DETAILED DIRECTION S 01/11 completed Not Available Not Available Not Available doxycycline hyclate 100 mg capsule TAKE 1 CAPSULE BY MOUTH EVERY DAY FOR 10 DAYS 01/11 completed Not Available Not Available Not Available methylpheni date 10 mg tablet TAKE 1 TABLET BY MOUTH THREE TIMES A DAY active Not Available Not Available No t Available prednisone 20 mg tablet Take 2 tablets every day by oral route in the morning for 4 days. 2022 active Not Available Not Available Not Avai lable clobetasol 0.05 % topical cream APPLY TO AFFECTED AREA TWICE A DAY active Not Available Not Available No t Available Zithromax Z-Jose Cruz 250 mg tablet Take 2 tablets 1 time a day for 1 day then one tablet daily for 4 days 2022 active Not Available Not Available Not Avai lable tramadol 50 mg tablet TAKE 1 TABLET BY MOUTH EVERY DAY NEEDED 01/11 completed Not Available Not Available Not Available acetaminoph en 500 mg tablet TAKE 1 TABLET (500 MG) BY MOUTH EVERY 8 (EIGHT) HOURS IF NEEDED FOR MILD PAIN FOR UP TO 7 DAYS. active Not Available Not Available No t Available lorazepam 0.5 mg tablet TAKE 1 TABLET BY MOUTH EVERY DAY NEEDED active Not Available Not Available No t Available omeprazole 20 mg capsule,del ayed release TAKE 1 CAPSULE BY MOUTH EVERY DAY 30 MINUTES BEFORE MORNING MEAL FOR 90 DAYS active Not Available Not Available No t Available Concerta 27 mg tablet,exte nded release TAKE 1 TABLET BY MOUTH EVERY DAY IN THE MORNING active Not Available Not Available No t Available escitalopra m 10 mg tablet TAKE 1 TABLET BY MOUTH EVERY DAY IN THE MORNING active Not Available Not Available No t Available Spiriva Respimat 2.5 mcg/actuati on solution for inhalation INHALE 2 PUFFS INTO THE LUNGS EVERY DAY FOR 30 DAYS active Not Available Not Available No t Available Paxlovid 300 mg (150 mg x 2)-100 mg tablets in a dose pack TAKE 3 TABLETS BY MOUTH TWICE A DAY DIRECTED FOR 5 DAYS 01/11 completed Not Available Not Available Not Available Vitals Date Recorded Body height Body mass index (BMI) Body weight Respiratory rate Body temperature Oxygen saturation Oxygen saturation in Arterial blood by Pulse oximetry Inhaled oxygen flow rate Heart rate Pain severity - 0-10 verbal numeric rating [Score] - Reported Systolic blood pressure Diastolic blood pressure Provider Name and Address Organization Details Last Updated DateTime 3 162.56 cm 29.5 kg/m2 13023.8 9 g 18 /min 97.3 [degF] 95 % 95 % 2 L/min 99 /min 5 107 mm[Hg] 77 mm[Hg] BUDDY GOMEZ PA [facility] 17:56:59 Social History Question Answer Notes LastModified by [employer] Details LastModified Time Tobacco Smoking Status Never Smoker BUDDY roca PA [facility] 01/11/2023 17:54:31 Have You Recently Traveled Abroad? No [email or web address] Information not available 01/11/2023 Sex: Unknown Functional Status Question Answer Note LastModified by [employer] Details LastModified Time Do you use any illicit or recreational drugs? No [email or web address] Information not available 01/11/2023 Do you or have you ever used any other forms of tobacco or nicotine? No [email or web address] Information not available 01/11/2023 What is your level of alcohol consumption? None [email or web address] Information not available 01/11/2023 Mental Status None recorded. Family History Relationship Description Onset Age of this Age Resolved Age Notes LastModified by Organization Details LastModified Time Brother Bipolar disorder [email or web address] Not available 2022 17:53:36 Father Heart disease iscemi c heart valve d/t agent orange [email or web address] Not available 01/11/2023 17:54:14 Medical History No medical history recorded. Gynecological History Statement/Question Response Date of LMP Obstetrics History GPAL:G 0 P 0 0 0 0 Past Encounters Encounter ID Performer Location Encounter Start Date Encounter Closed Date Diagnosis/Indication Diagnosis SNOMED-CT Code Diagnosis ICD10 Code Diagnosis Note [id number] [address] [place] [address] 03/07/2021 12:21:54 03/07/2021 15:44:35 [id number] [place] [address] [place] [address] 01/11/2023 17:27:57 01/11/2023 18:14:11 Acute lower respiratory tract infection 674780948 J22 Health Concerns Section Related Observation LastModified by Organization Detai ls LastModified Time None Recorded Concern Status LastModified by Organization Details LastModified Time None Recorded Advance Directives Directive None Recorded Payers Insurance Date Sequence Insurance Name Policy Number Policy Sunshine Covered Member ID Sunshine Member ID Guarantor Name 01/11/2023 1 [facility] [employer] ([employer]) Camron Plunkett [id number] Dora Plunkett 01/11/2023 2 MEDICARE B-[place]: [facility] Dora Plunkett [id number] Dora Plunkett Notes Date Note Type Note Provider Name and Address Organization Details Recorded Time 01/11/2023 text/html Ear Pain Brief HPIReported bypatient.Location :bilateral; 47 year old female presented stating she has chronic lung disease and is on oxygen continuous 2 liters. explaining when she get allergies ,sinusitis or productive cough she is usually put on 12 day prednisone taper and z-jose cruz otherwise there is high risk of developing pneumonia. her PCP on vacation. denies any fever or SOB, chest pain. Onset/Timing:new onset; started 3days ago; sudden onset Duration:occurs daily Quality:no itching; no discharge from the ears; no burning;aching pain Severity:getting worse; no fever;interferes with daily activities;interfe res with ability to sleep Context:no recent trauma; no recent swimming; no dental problems; no recent airplane travel; no scuba diving; non-smoker;recent URI;recent ear infection;immunoco mpromise Alleviating factors:oral antibiotics; antihistamine; decongestant Aggravating factors:cold weather; sinus infections; allergies Associated Symptoms:no jaw popping or clicking; No decreased appetite; no discharge from ear; no hearing loss; no sore throat; no dental pain; no jaw pain; no tinnitus;Cough;christian al congestion;sense of fullness/pressure; no decreased hearing; no muffled hearing Greald Grullon NP [address] [place], [address], PA - [facility] 01/11/2023 18:11:20 OBGyn Episode No OBEpisode recorded.
--- OUTSIDE RECORDS SUMMARY | 2024-08-22 09:53 | XMS_ITS | Clinical Summary ---
Author Organization [facility] Address [address] [place] [address] Care Team Providers Care Carpet Finishing Supervisor Name Role Phone Félix Zelaya MD Primary Care Provider Surgical History Surgery Date Site/Laterality Comments OTHER SURGICAL HISTORY 04/2010 PROCEDURE: HISTORY OTHER; COMMENT: tracheotomy OTHER SURGICAL HISTORY 04/2010 PROCEDURE: GASTROSTOMY/JEJUNOSTOMY TUBE OTHER SURGICAL HISTORY PROCEDURE: HISTORY OTHER; COMMENT: bariatric surgery Medical History Medical History Date Comments History of bariatric surgery 05/08/2018 DX: History of bariatric surgery Interstitial lung disease (C PR/HCC V24, CMS/HCC V28) 02/20/2018 DX:Interstitial lung disease (HCC) BETHANY (obstructive sleep apnea) 02/20/2018 DX :BETHANY (obstructive sleep apnea); COMMENT: [facility] [place] study. Date 04/17/2018. SE 78 % SM 91 %; spent 22 % of the study in REM. On CPAP @ 12; RDI 1.7 (AHI 1.7), Central apneas 1; Obstructive apneas 0; Mixed apneas 0; hypopneas 0; RERAs 0; and, average oxygen saturation was 95%. For the entire study, PLMs -21. Psoriatic arthritis (CMS/HCC V24, CMS/HCC V28) 02/20/2018 DX:Psoriatic arthritis (HCC) Restrictive lung disease 02/20/2018 DX:Rest rictive lung disease Supplemental oxygen dependent 05/08/2018 DX :Supplemental oxygen dependent; COMMENT: 02/2018 With moderate activity and at night only Family History Medical History Relation Name Comments Stomach cancer Aunt w/metastasis Other: Other, reverse chest Brother at 1month Coronary artery disease Father [place] Relation Name Status Comments Aunt Brother Father Alive Mother Alive Social History Tobacco Use Types Packs/Day Years Used Date Smoking Tobacco: Former Smokeless Tobacco: Never Alcohol Use Standard Drinks/Week Comments No 0 (1 standard drink = 0.6 oz pur e alcohol) Comments Unknown Sex and Gender Information Value Date Recorded Sex Assigned at Not on file Legal Sex Female 9:21 PM EST Gender Identity Not on file Sexual Orientation Not on file Obstetrics History Last Filed Vital Signs Vital Sign Reading Time Taken Comments Blood Pressure 116/80 07/20/2023 11:54 AM EDT Pulse 79 07/20/2023 11:54 AM EDT Temperature - - Respiratory Rate - - Oxygen Saturation 98% 05/31/2023 2:28 PM EST on 2L Inhaled Oxygen Concentration - - Weight 83.9 kg (185 lb) 07/20/2023 11:54 AM EDT Height 162.6 cm (5' 4 ) 07/20/2023 11:54 AM EDT Body Mass Index 31.75 07/20/2023 11:54 AM EDT Plan of Treatment Health Maintenance Due Date Last Done Comments Breast Cancer Screening 1975 DTaP,Tdap,and Td Vaccines (1 - Tdap) 1992 Hepatitis B Vaccines (1 of 3 - 19+ 3-dose series) 1992 Cervical Cancer Screening: P ap Smear 1994 Colorectal Cancer Screening: Colonoscopy 03/11/2022 Depression Screening 03/11/2022 HIV Screening 03/11/2022 Hepatitis C Screening 03/11/2022 Social Influencers of Health Screening 03/11/2022 Pneumococcal Vaccine: 50+ Ye ars (1 of 1 - PCV) 07/19/2023 Zoster Vaccines (1 of 2) 07/19/2023 COVID-19 Vaccine ( - 2023-2 5 season) 2023 Influenza Vaccine (Season Ended) 2024 HIB Vaccines Aged Out No longer eligi [...] on patient's age to complete this topic MMR Vaccines Aged Out No longer eligi ble based on patient's age to complete this topic Meningococcal ACWY Vaccine Aged Out N o longer eligible based on patient's age to complete this topic Meningococcal B Vaccine Aged Out No l onger eligible based on patient's age to complete this topic Pneumococcal Vaccine: Pediat rics (0 to 5 Years) and At-Risk Patients (6 to 64 Years) Aged Out No longer eligible b ased on patient's age to complete this topic RSV Immunization Patients Un yenny 20 months Aged Out No longer eligible b ased on patient's age to complete this topic Varicella Vaccines Aged Out No longer eligible based on patient's age to complete this topic Advance Directives Documents on File Type Date Recorded Patient Slip Cover Sewer Expl anation Health Care Decision (hx) 06/02/2010 AD MARTINEZ DIRECTIVE Health Care Decision (hx) 06/02/2010 AD MARTINEZ DIRECTIVE Health Care Decision (hx) 06/02/2010 AD MARTINEZ DIRECTIVE Care Teams Carpet Finishing Supervisor Relationship Specialty Start Date End Date Félix Zelaya MD PCP - General Internal Medicine 01/17/18
--- OUTSIDE RECORDS SUMMARY | 2024-08-22 09:53 | XMS_ITS ---
Author Organization Félix Zelaya MD Address [address] [place] [phone] Care Team Providers Care Heating And Ventilating Drafter Name Role Phone Félix Zelaya Primary Care Provider REASON FOR VISIT referral Encounters Encounter Location Date Provider Diagnosis Félix Zelaya MD [address] [place] [phone] 11/02/2023 Félix Zelaya Plan Of Treatment No Information Progress Notes * Nina PLUNKETT:1975 (48 yo F)Acc No.[id number]:11/02/2023 Patient:?Kiarra Dora :1975???Age:48 Y???Sex:Female Address:[address] [place], [place] [address]ns [facility] [place] [address] * true * Date:? Generated for Ofe garza/Sarina/Christianitting on:?08/22/2024 09:53 AM EDT
--- OUTSIDE RECORDS SUMMARY | 2024-08-22 09:54 | XMS_ITS | Patient Health Record ---
Author Organization Félix Zelaya MD Address [address] [place], [place] [id number] Care Team Providers Care Planning Division Superintendent Name Role Phone Félix Zelaya Primary Care [...] Active ibuprofen Ibuprofen hives Drug Allergy Active [place] Flavor rash Drug Allergy Active piperacillin / [...] Acti ve raspberries (uncoded) rash Allergy Active Results Component Value Reference Range Notes XR shoulder RT min 2V Reviewed date:06/16/2024 12:46:55 PM Interpretation: Performing Lab: Notes/Report: [address] [address] XRay Report Signed Patient: Dora Plunkett MR#: [id number] : 1975 Acct:[id number] Age/Sex: 48 / F ADM Date: 06/15/24 Loc: .ED Attending Dr: Ordering Physician: David Fountain Date of Service: 06/15/24 Procedure(s): XR shoulder RT min 2V Accession Number(s): [id number] cc: David Fountain; Félix Zelaya MD CLINICAL HISTORY: RME: SHoulder pain 3 view right shoulder Comparison: None Findings: Coarse calcification within the soft tissues adjacent to the greater tuberosity of the humerus. No acute fracture. No dislocation. No significant loss of joint space or osteophytes. No erosions. No radiopaque foreign body. IMPRESSION: Calcific tendinitis of the rotator cuff. This document has been electronically signed by: Kamilla Gonzalez MD on 06/15/2024 15:02:29 Dictated By: Kamilla Gonzalez MD Signed By: <Electronically signed by Kamilla Gonzalez MD in OV> 06/15/24 1503 DD/ 1502 TD/TT: 06/15/24 1502 Hand Paint Mixer: [address] [address] XRay Report Signed Patient: Chris Plunkett MR#: [id number] : 1975 Acct:[id number] Age/Sex: 48 / F ADM Date: 06/15/24 Loc: .ED Attending Dr: Ordering Physician: David Fountain Date of Service: 06/15/24 Procedure(s): XR rishi ulder RT min 2V Accession Number(s): [id number] cc: David Fountain; Félix Zelaya MD CLINICAL HISTORY: RM E: SHoulder pain 3 view right shoulder Comparison: None Findings: Coarse calcification within the soft tissues adjacent to the greater tuberosity of the hu merus. No acute fracture. No dislocation. No significant loss of joint space or osteophytes. No erosions. No radi opaque foreign body. IMPRESSION: Calcific tendinitis of the rotator cuff. This document has be en electronically signed by: Kamilla Gonzalez MD on 06/15/2024 15:02:29 Dictated By: Kamilla Gonzalez MD Signed By: <Electro nically signed by Kamilla Gonzalez MD in OV> 06/15/24 1503 DD/ 1502 TD/TT: 06/15/24 1502 Hand Paint Mixer: XR forearm RT 2V Reviewed date:06/16/2024 12:47:32 PM Interpretation: Performing Lab: Notes/Report: [address] [address] XRay Report Signed Patient: Dora Plunkett MR#: [id number] : 1975 Acct:[id number] Age/Sex: 48 / F ADM Date: 06/15/24 Loc: HO.ED Attending Dr: Ordering Physician: David Fountain Date of Service: 06/15/24 Procedure(s): XR forearm RT 2V Accession Number(s): [id number] cc: David Fountain; Félix Zelaya MD CLINICAL HISTORY: pain 2 view right forearm Comparison: None Findings: No fractures or dislocations. No joint effusion. No significant arthritic change. No radiopaque foreign body. IMPRESSION: 1. Normal right forearm This document has been electronically signed by: Kamilla Gonzalez MD on 06/15/2024 14:59:57 Dictated By: Kamilla Gonzalez MD Signed By: <Electronically signed by Kamilla Gonzalez MD in OV> 06/15/24 1501 DD/ 1459 TD/TT: 06/15/24 145 Hand Paint Mixer: [address] [address] XRay Report Signed Patient: Chris Plunkett MR#: [id number] : 1975 Acct:[id number] Age/Sex: 48 / F ADM Date: 06/15/24 Loc: HO.ED Attending Dr: Ordering Physician: David Fountain Date of Service: 06/15/24 Procedure(s): XR forearm RT 2V Accession Number(s): [id number] cc: David Fountain; Félix Zelaya MD CLINICAL HISTORY: pain 2 view right forearm Comparison: None Findings: No fractures or dislocations. No joint effusion. No significant arthr itic change. No radiopaque foreign body. IMPRESSION: 1. Normal right forearm This document has be en electronically signed by: Kamilla Gonzalez MD on 06/15/2024 14:59:57 Dictated By: Kamilla Gonzalez MD Signed By: <Electron juan carlos signed by Kamilla Gonzalez MD in OV> 06/15/24 1501 DD/ 1459 TD/TT: 06/15/24 1459 Hand Paint Mixer: XR elbow RT min 3V Reviewed date:06/16/2024 12:47:14 PM Interpretation: Performing Lab: Notes/Report: [address] [address] XRay Report Signed Patient: Dora Plunkett MR#: [id number] : 1975 Acct:[id number] Age/Sex: 48 / F ADM Date: 06/15/24 Loc: HO.ED Attending Dr: Ordering Physician: David Fountain Date of Service: 06/15/24 Procedure(s): XR elbow RT min 3V Accession Number(s): [id number] cc: David Fountain; Félix Zelaya MD CLINICAL HISTORY: pain 3 view right elbow Comparison: None Findings: No acute fractures or dislocations. No significant arthritic change or erosions. No joint effusion. No radiopaque foreign body. IMPRESSION: 1. No acute findings This document has been electronically signed by: Kamilla Gonzalez MD on 06/15/2024 15:00:59 Dictated By: Kamilla Gonzalez MD Signed By: <Electronically signed by Kamilla Gonzalez MD in OV> 06/15/24 1502 DD/ 1500 TD/TT: 06/15/24 1500 Hand Paint Mixer: [address] [address] XRay Report Signed Patient: Chris Plunkett MR#: [id number] : 1975 Acct:[id number] Age/Sex: 48 / F ADM Date: 06/15/24 Loc: HO.ED Attending Dr: Ordering Physician: David Fountain Date of Service: 06/15/24 Procedure(s): XR elb ow RT min 3V Accession Number(s): [id number] cc: David Fountain; Félix Zelaya MD CLINICAL HISTORY: pain 3 view right elbow Comparison: None Findings: No acute fractures o r dislocations. No significant arthr itic change or erosions. No joint effusion. No radiopaque foreign body. IMPRESSION: 1. No acute findings This document has be en electronically signed by: Kamilla Gonzalez MD on 06/15/2024 15:00:59 Dictated By: Kamilla Gonzalez MD Signed By: <Florencio rangel signed by Kamilla Gonzalez MD in OV> 06/15/24 1502 DD/ 1500 TD/TT: 06/15/24 1500 Hand Paint Mixer: Reason For Referral No Information Medications Medication SIG (Take, Route, Frequency, Duration) Notes Start Date End Date Status traZODone HCl 100 MG 1 tablet at bedtime Orally Once a day for 30 day(s) Active Gabapentin 100 MG 1 capsule Orally twi ce a day Active Symbicort 160-4.5 MCG/ACT 2 puffs Inhala tion Twice a day Active predniSONE 20 MG 1 tablet with food o r milk Orally Once a day Active Clobetasol Propionate 0.05 % 1 application Externally Twice a day for 10 day(s) 11/23/2022 Active Escitalopram Oxalate 20 MG 1 tablet Oral ly Once a day Active Milk of Magnesia 400 MG/5ML 5 ml as needed Orally Four times a day Not-Taking Concerta 27 MG 1 tablet in the morning Orally Once a day Active Abilify 2 MG 0.5 tablet Orally On ce a day Not-Taking predniSONE 10 MG 1 tablet with food o r milk Orally 4 tabs for 3 days,3tabs for 3 days, 2 tabs for 3 days, and 1 tab for 3 days for 14 days 06/19/2024 Active Methylphenidate HCl 10 MG 3tablet on emp ty stomach Orally Once a day Active Omeprazole 20 MG 1 capsule 30 minutes before morning meal Orally Once a day for 90 days 06/24/2020 Active hydrOXYzine HCl 25 MG 1 tablet as needed Orally Once a day for 30 day(s) Active EpiPen 2-Jose Cruz 0.3 MG/0.3ML as directed In jection once for 1 dose 08/14/2011 Active Spiriva Respimat 2.5 MCG/ACT 2 puffs Inhalation Once a day for 30 days Active Diprolene AF 0.05 % 1 application to affected area Externally Once a day for 30 Not-Taking Tylenol 325 MG 1 tablet as needed Orally every 6 hrs Active metOLazone 2.5 MG 1 tablet Orally Once a day for 30 Not-Taking Vitamin D-3 5000 UNIT 1 tablet Orally On ce a day Active Furosemide 20 MG 1 tablet Orally Once a day 10/02/2013 Not-Taking Albuterol Sulfate (2.5 MG/3ML) 0.083% 3 ml as needed Inhalation every 4 hrs for 30 days 11/10/2010 Active DULoxetine HCl 60 MG TK 1 C PO QAM Oral for 60 Not-Taking Tylenol Childrens 160 MG/5ML Orally Active Immunizations Vaccine Route Administration Date Status Comme nts Flu Vaccine Unknown 12/08/2010 Administered PPSV23 (Pnemovax) Unknown 12/08/2010 Administered Flu Vaccine Unknown 01/28/[address] Trejo Certified Phlebotomy Technician Flu Vaccine IM Intramuscular 02/03/2014 Administered Fluarix Quadrivalent IM Intramuscular 01/04/2015 Administered PPSV23 (Pnemovax) IM Intramuscular 01/13/2016 Administered Flu Vaccine IM Intramuscular 01/25/2016 Administered pt wa s given the vaccine at [facility] [place] [facility], it was multidose flu Fluarix Quadrivalent IM Intramuscular 02/26/2018 Administered pt was given th e vaccine at [facility] [place] [facility]. Fluarix Quadrivalent Unknown 12/30/2019 Administered [facility] TDaP Unknown 12/30/2019 Administered [facility] Tetanus Unknown 12/30/2019 Administered SARS-COV-2 Moderna Unknown 07/23/2020 Administered SARS-COV-2 Moderna Unknown 08/20/2020 Administered Fluarix Quadrivalent IM Intramuscular 01/24/2022 Administered Social History Tobacco Use: Social History Observation Description Date Details (start date - stop date) Current Smoker NA - NA Tobacco Use/Smoking Question Answer Notes Patient is [...] drinks (4 points) Points 8 Interpretation Positive Section Notes: Drinks Tequila 1 bottle a da y straight out of the bottle x 1 year Problems Problem Type SNOMED Code ICD Code Onset Dates Problem Status W/U Status Risk Notes Problem Anxiety state (882476654) Anxiety unspecified (300.00) Active confirmed Problem Eczema (91920568) Eczema (692.9) Active confirm ed Problem 30518969 Hypokalemia (E87.6) Active confirmed Problem 268201414 Reflux esophagit is (K21.00) Active confirmed Problem 18233540 Vitamin D deficiency (E55.9) Active confirmed Problem 69348207 Chronic respiratory failure, unspecified whether with hypoxia or hypercapnia (J96.10) Active confirmed Problem 984546169 Other postprocedural complications and disorders of digestive system (K91.89) Active confirmed Problem 330429428892050 Loose body in knee, right knee (M23.41) Active confirmed Problem 288159680 Lumbar disc disease (M51.9) Active confirmed Problem 631454059 AVN (avascular necrosis of bone) (M87.00) Active confirmed Problem 5150480 Psoriasis (L40.9) Active confirmed Problem 802749883 History of pulmonary embolism (Z86.711) Active confirmed Problem 542302271 Environmental allergies (Z91.09) Active confirmed Problem Alcohol abuse (14014322) Alcohol abuse (F10.10) Active confirmed Problem 575023211 Psoriatic arthritis (L40.50) Active confirmed Problem 538239102 Morbid obesity d ue to excess calories (E66.01) Active confirmed Problem 88280457 Intrinsic eczema (L20.84) Active confirmed Problem 92801511 Current smoker (F17.200) Active confirmed Problem 563260566 Leukocytosis, unspecified type (D72.829) Active confirmed Problem 68754939 Sleep apnea, unspecified type (G47.30) Active confirmed Problem 965041054694912 Moderate persistent asthmatic bronchitis with acute exacerbation (J45.41) Active confirmed Problem 96326386 Multiple subsegmental pulmonary emboli without acute cor pulmonale (I26.94) Active confirmed Problem 988183467 History of cholecystectomy (Z90.49) Active confirmed Problem 71912037 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) Active confirmed Problem 797514538 Marginal ulcers (K28.9) Active confirmed Problem 93083464 BETHANY on CPAP (G47.33) Active confirmed Vital Signs Blood pressure diastolic 76 mm Hg 06/19/2024 markell ght is down 4 pounds since 10-30-23 Height 66 in 06/19/2024 weight is down 4 pounds since 10-30-23 Blood pressure systolic 118 mm Hg 06/19/2024 weig ht is down 4 pounds since 10-30-23 Weight 180 lbs 06/19/2024 weight is down 4 pounds since 10-30-23 BMI 29.05 kg/m2 06/19/2024 weight is down 4 pounds since 10-30-23 Encounters Encounter Location Date Provider Diagnosis Félix Zelaya MD [address] [place] [phone] 10/30/2023 Félix Zelaya Acute bronchitis, unspecified organism J20.9 and Pruritic rash L28.2 Félix Zelaya MD [address] [place] [phone] 06/19/2024 Félix Zelaya Shoulder pain M25.519 Félix Zelaya MD [address] [place] [id number] 09/25/2023 Félix Zelaya MD [address] [place] [address] Drive [address] [place] [phone] 11/02/2023 Félix Zelaya Assessments Encounter Date Diagnosis (ICD Code) Assessment Notes Treatment Notes Treatment Clinical Notes Section Notes 10/30/2023 Acute bronchitis, unspecified organism (ICD-10 - J20.9) should also check covid again in next few days/ would use molnupiravir if necessary. patient verbalized understanding of medications and directions for use 10/30/2023 Pruritic rash (ICD-10 - L28.2) 06/19/2024 Shoulder pain (ICD-10 - M25.519) has improved with the prednisone so will taper off and send her to walkin at [facility] Plan Of Treatment Pending Test Test Name Order Date MAMMOGRAM DIGITAL BILATERAL SCREEN 12/28 Insurance Providers Payer Name Payer Address Payer Phone Subscriber Number Group Number Insured Name Patient Relationship to Insured Coverage Start Date Coverage End Date [employer] [address] [place], [place] [phone] [id number] Dora Plunkett Self - patient is the insured [facility] [place] [employer] [address] [place] [phone] [id number] Dora Plunkett Self - patient is the insured Medical (General) History Medical History History ICD Code respiratory failure from flu Asthmatic bronchitis Nontraumatic rupture of tendons of bicep s (long head) Surgical History Surgery Date(Month/Year) Bariatric Operation 03/2016
== END 2024-08-22 10:39 | disposition home or self-care (01) ==
LOC: HO.HOS 09:35
PROVIDERS: PCP Internal Medicine; Visit Provider Physician Assistant
DX: M75.31 Calcific tendinitis of right shoulder (principal)
CPT/HCPCS: 20610; 99213

== ENCOUNTER → 2024-08-22 09:34 | Outpatient (BNVA) | payer BC, SELFPAY | PROVIDERS: PCP Internal Medicine; Visit Provider Physician Assistant | DX: M75.31 Calcific tendinitis of right shoulder (principal) | CPT/HCPCS: 20610; J1010; J2003 ==

== ENCOUNTER 2024-09-22 15:07 | Emergency (ER) | payer BC, MEDICARE, SELFPAY ==
--- NOTE | ~2024-09-22 | XR_ITS ---
EXAMINATION: XR ABDOMEN KUB CLINICAL INDICATION: Constipation. COMPARISON: None available. TECHNIQUE: AP view of the abdomen. FINDINGS: Bowel gas pattern is normal/nonspecific. There is no focally dilated loop. There is no significant stool burden present within the colon. No organomegaly. Lung bases are clear. No abnormal soft tissue calcifications. Numerous surgical clips in the epigastric region, right mid abdomen, and right upper quadrant. No bony abnormalities. XR/XR KUB IMPRESSION: No significant constipation or evidence of bowel obstruction. No acute findings. Electronically signed by: Jaguar Velasquez MD 09/22/2024 04:02 PM EDT
--- NOTE | ~2024-09-22 | CT_ITS ---
CLINICAL HISTORY: upper abd miles CT abdomen and pelvis with IV contrast. COMPARISON: None FINDINGS: Mild bronchiectasis and septal thickening along the lung bases. Small hiatal hernia. No focal hepatic lesion. Cholecystectomy. Normal spleen. Normal adrenal glands. Symmetric renal enhancement. No hydronephrosis. Status post gastric bypass. There is mild edema along the gastric remnant and pancreas. Pancreatic duct is not dilated. No pancreatic head mass identified Normal appendix. Mild colonic stool burden. No bowel obstruction. Multiple normal-sized and enlarged mesenteric lymph nodes primarily along the mesenteric root. For example mesenteric lymph node measuring 1.5 x 1.3 x 2.6 cm (series 4, image 301). Mild aortoiliac atherosclerotic vascular calcifications. Normal appearance of the urinary bladder. No adnexal mass. No acute fracture or suspicious bone lesion. Mild lower lumbar spondylosis. IMPRESSION: 1. Mild edema along the gastric remnant and pancreas may possibly represent gastritis (favored) versus mild pancreatitis. No free intraperitoneal air or organizing fluid collection. Pancreatic duct is not dilated. No evidence of pancreatic head mass. 2. Multiple normal-sized and enlarged mesenteric lymph nodes primarily along the mesenteric root. These are most likely reactive in the absence of known malignancy. Recommend correlation clinically. 3. Mild pulmonary fibrosis along the partially visualized lung bases. This document has been electronically signed by: Urbano Steward MD on 09/22/2024 18:41:43
[2024-09-22 15:22] VITALS: BP 145/78; PULSE 66; RESP 18; O2SAT 97; BMI 36.8
--- NOTE | 2024-09-22 15:39 | ECG_ITS ---
Test Reason : epigastric pain Blood Pressure : */* mmHG Vent. Rate : 63 BPM Atrial Rate : 63 BPM P-R Int : 138 ms QRS Dur : 80 ms QT Int : 396 ms P-R-T Axes : 36 3 16 degrees QTcB Int : 405 ms Normal sinus rhythm Nonspecific T wave abnormality Abnormal ECG When compared with ECG of 25-Jan-2023 09:39, No significant change was found Referred By: Alejandra Easton Electronically Signed By: Alexi Sanchez
--- NOTE | 2024-09-22 15:39 | ED.ABDPAIN ---
HPI - Abdominal Pain General Chief Complaint: Abdominal Pain Stated Complaint: abd and rib pain constipation x2 wks Time Seen by Provider: 09/22/24 16:56 Source: patient Mode of arrival: ambulatory Limitations: no limitations History of Present Illness ED Provider: HPI narrative: Patient with History of anxiety depression sleep apnea status post gastric sleeve surgery in 2016 and cholecystectomy comes here for diffuse upper abdominal pain mostly in the left side for last 2 weeks unable to move her bowels having only small amount of stool not eating much fever no chills no urinary complaints no blood in his Related Data Home Medications ?Medication ?Instructions ?Recorded ?Confirmed methylphenidate HCl 27 mg 27 mg PO QAM 01/25/23 02/09/23 tablet,extended release 24 hr (Concerta) fluticasone fur. 200 mcg-umeclid 1 ea inhalation DAILY 06/07/23 62.5 mcg-vilant 25 mcg inhalat.powder (Trelegy Ellipta) dextroamphetamine-amphetamine ER 1 cap PO DAILY 08/22/24 30 mg 24hr capsule,extend release gabapentin 100 mg capsule mg PO 08/22/24 Previous Rx's ?Medication ?Instructions ?Recorded escitalopram oxalate 20 mg tablet 20 mg PO DAILY #30 tabs 02/05/23 hydroxyzine HCl 25 mg tablet 25 mg PO TID PRN anxiety #90 tabs 02/05/23 omeprazole 20 mg capsule,delayed 20 mg PO DAILY@0630 #30 caps 02/05/23 release trazodone 50 mg tablet 50 mg PO BEDTIME PRN Insomnia #30 02/05/23 tabs white petrolatum-mineral oil 1 appl topical DAILY #0 grams 02/05/23 topical cream (Dermacerin topical cream) nicotine 7 mg/24 hr daily 1 patch transdermal Q24H 14 days 02/12/23 transdermal patch #14 ea aripiprazole 5 mg tablet 5 mg PO DAILY #14 tabs 02/16/23 acetaminophen 325 mg tablet 650 mg (2 x 325 mg) PO QID PRN 06/15/24 (Tylenol) pain #56 tabs prednisone 20 mg tablet 40 mg (2 x 20 mg) PO DAILY 5 days 06/15/24 #10 tabs sucralfate 100 mg/mL oral 10 ml PO QID #500 mL 09/22/24 suspension (Carafate) Allergies Allergy/AdvReac Type Severity Reaction Status Date / Time amoxicillin [AMOXICILLIN] Allergy Unknown RASH Verified 09/22/24 15:24 fluoxetine [From PROZAC] Allergy Unknown RASH Verified 09/22/24 15:24 heparin [HEPARIN] Allergy Unknown JAUN Verified 09/22/24 15:24 SYNDROME heparin (porcine) Allergy Unknown swelling, Verified 09/22/24 15:24 red hydrocodone [HYDROCODONE] Allergy Unknown PROJECTILE Verified 09/22/24 15:24 VOMITING ibuprofen [From Motrin] Allergy Unknown Shortness Verified 09/22/24 15:24 of Breath naproxen Allergy Unknown Stomach Verified 09/22/24 15:24 Upset omeprazole [OMEPRAZOLE] Allergy Unknown RASH, head Verified 09/22/24 15:24 to toe rash penicillin G [PENICILLIN G] Allergy Unknown RASH Verified 09/22/24 15:24 penicillin V Allergy Unknown rash Verified 09/22/24 15:24 piperacillin [From ZOSYN] Allergy Unknown RASH Verified 09/22/24 15:24 strawberry [STRAWBERRY] Allergy Unknown SOB,RASH, Verified 09/22/24 15:24 ANAPHYLAXISIS tazobactam [From ZOSYN] Allergy Unknown RASH Verified 09/22/24 15:24 walnut Allergy Unknown Difficulty Verified 09/22/24 15:24 Breathing Caramelized Food coloring Allergy Unknown Itching Uncoded 05/07/23 14:24 CARMALIZED FOOD COLORING Allergy Unknown RASH Uncoded 05/07/23 14:24 Hydrocodone Bitartrate Allergy Unknown severe Uncoded 05/07/23 14:24 vomiting Mangos Allergy Unknown Difficulty Uncoded 05/07/23 14:24 Breathing Piperacillin Sod-Tazobactam Allergy Unknown swelling Uncoded 05/07/23 14:24 So Strawberries Allergy Unknown Blister Uncoded 05/07/23 14:24 Review of Systems Review of Systems Yes all other systems are reviewed and are negative PMFSH Past Medical History Medical History History of pulmonary embolism History of GI bleed History of sepsis Foreign body (FB) in soft tissue Psoriatic arthritis Avascular necrosis COPD (chronic obstructive pulmonary disease) ARDS (adult respiratory distress syndrome) Surgical History History of cholecystectomy History of back surgery History of gastric bypass History of tracheostomy Social History Social History Household Members: Spouse Housing: House Do you presently have visiting nurse or other home services: No Alcohol intake: never Patient Tobacco Use Status: Former Tobacco user Tobacco use type: Cigarette Smoked in Last 30 Days: Yes Second Hand Smoke Exposure: No Use of substances other than those prescribed or required for medical reasons: No Advance Directives: No Advance Directives Information Provided: No service: No Current occupational status: unemployed Current occupation: right hand dominant Sexual orientation: Straight/Heterosexual Physical Exam ED Vital Signs: Vital Signs - 24 hr 09/22/24 15:22 09/22/24 17:00 09/22/24 18:13 Temperature 97.8 F 97.6 F Pulse Rate 66 64 64 Respiratory Rate 18 18 16 Blood Pressure 145/78 H 143/80 H 123/67 Pulse Oximetry 97 99 92 Oxygen Delivery Method Room Air Room Air Room Air BMI result Body Mass Index 36.8 Appearance: Alert. Oriented X3. No acute distress. Eyes: No pallor or icterus ENT: Pharynx normal. Oral Mucosa moist Neck: Normal inspection. Neck supple. CVS: Normal heart rate and rhythm. Pulses normal. Respiratory: No respiratory distress. Equal air entry bilateral, no wheezing/rales/rhonchi Abdomen: Soft and tenderness in epigastric and left upper abdomen no rebound tenderness or guarding Bowel sounds are present, no mass palpable, no CVA tenderness Skin: Skin warm and dry. Normal skin color. Normal skin turgor. Extremities: No lower extremity edema. No calf tenderness Neuro: Oriented X 3. No motor deficit. No sensory deficit.No cerebellar signs , cranial nerves II-XII intact Course Course Course Narrative: RME performed by Alejandra Easton PA-C. Patient is a 49 year old assigned female at presenting to the emergency department with abdominal pain. Detailed physical exam and review of systems are deferred to the day treatment clinician/art therapist. Labs ordered. Patient placed back in the waiting room pending room availability and results. Medical Decision Making Lab Data MDM Lab Attestation statement: I reviewed the patient's lab results. 09/22/24 15:34 09/22/24 15:34 Labs: Lab Results 09/22/24 09/22/24 09/22/24 Range/Units 15:34 15:57 16:59 WBC 6.5 (4.8-10.8) X10*3/uL RBC 4.19 L (4.20-5.50) X10*6/uL Hgb 12.1 (12.0-16.0) g/dl Hct 35.9 L (37.0-47.0) % MCV 85.7 (80.0-98.0) fL MCH 28.9 (27.0-33.0) pg MCHC 33.7 (31.0-35.0) g/dl RDW 13.2 (11.0-16.0) % Plt Count 248 (160-400) X10*3/uL MPV 9.2 L (9.4-12.3) fL Immature Gran % (Auto) 0.5 H (0.0-0.4) % Neut % (Auto) 58.9 (45-73) % Lymph % (Auto) 29.3 (20-40) % Caswell % (Auto) 8.4 (2-11) % Eos % (Auto) 2.3 (0-4) % Baso % (Auto) 0.6 (0-2) % Lymph # (Auto) 1.9 (1.2-4.9) X10*3/uL Caswell # (Auto) 0.5 (0.1-1.2) X10*3/uL Eos # (Auto) 0.2 (0.0-0.4) X10*3/uL Baso # (Auto) 0.0 (0.0-0.2) X10*3/uL Abs Immat Gran (auto) 0.03 (0.00-0.03) X10*3/uL Absolute Neuts (auto) 3.8 (2.0-8.3) x10*3/uL Absolute Nucleated RBC 0.000 (0.0-0.012) X10*3/uL Nucleated RBC % (auto) 0.0 (0.0-0.2) /100WBC Sodium 143 (135-145) mmol/L Potassium 4.2 (3.3-5.1) mmol/L Chloride 107 (96-108) mmol/L Carbon Dioxide 28 (22-29) mmol/L Anion Gap 12 (12-20) BUN 8 L (9-16) mg/dL Creatinine 0.73 (0.5-1.4) mg/dL Estim Creat Clear Calc 103.2 Estimated GFR > 60 Random Glucose 90 (60-115) mg/dL Calcium 8.9 (8.4-10.2) mg/dL Magnesium 1.8 (1.6-2.6) mg/dL Total Bilirubin 0.3 (0.0-1.0) mg/dL AST 18 (5-31) U/L ALT 10 (0-31) U/L Alkaline Phosphatase 65 (39-117) U/L Troponin I High Sens < 2.7 (<3.5-17.0) ng/L Total Protein 6.1 L (6.5-8.0) g/dL Albumin 3.6 (3.5-5.0) g/dL Lipase 11 (8-78) U/L Urine Color Yellow Urine Appearance Clear Urine pH >= 9.0 (5.0-9.0) Ur Specific [place] 1.020 (1.005-1.025) Urine Protein 30 (1+) H (Neg-Trace) mg/dL Urine Glucose (UA) Negative (Negative) mg/dL Urine Ketones Negative (Negative) mg/dL Urine Blood Negative (Negative) Urine Nitrite Negative (Negative) Ur Leukocyte Esterase Negative (Negative) Urine RBC 0-2 (0-2) /HPF Urine WBC 0-5 (0-5) /HPF Ur Squamous Epith Cells 6-10 (0-2) /HPF Urine Bacteria None Seen (None Seen) Hyaline Casts 0-2 (0-2) /LPF Medications Administered Discontinued Medications Generic Name Dose Route Start Last Admin Trade Name Freq PRN Reason Stop Dose Admin Al Hydroxide/Mg Hydroxide 30 ml 09/22/24 19:43 09/22/24 19:47 Magnesium Hydrox/Alum Hydrox 30 Ml Oral.Susp PO 09/22/24 19:44 30 ml ONCE ONE Administration Famotidine 20 mg 09/22/24 17:16 09/22/24 17:28 Famotidine/Pf 20 Mg/2 Ml Vial IVPUSH 09/22/24 17:17 20 mg ONCE ONE Administration Sodium Chloride 1,000 mls @ 999 mls/hr 09/22/24 17:16 09/22/24 19:51 Ns IV 06/16/25 18:16 Infused .Q1H1M ONE Infusion Iohexol 100 ml 09/22/24 18:07 09/22/24 18:07 Iohexol 350 Mg/Ml 100 Ml Infus..Btl IV 09/22/24 18:08 85 ml ONCE ONE Administration Lidocaine HCl 15 ml 09/22/24 19:43 09/22/24 19:47 Lidocaine Hcl Viscous 2 % 15 Ml Solution MUCOUS MEM 09/22/24 19:44 15 ml ONCE ONE Administration Morphine Sulfate 4 mg 09/22/24 17:16 09/22/24 17:28 Morphine Sulfate 4 Mg/Ml Cartridge IVPUSH 09/22/24 17:17 4 mg ONCE ONE Administration Protocol Ondansetron HCl 4 mg 09/22/24 17:16 09/22/24 17:28 Ondansetron Hcl 4 Mg/2 Ml Vial IVPUSH 09/22/24 17:17 4 mg ONCE ONE Administration Discharge Plan Discharge Clinical Impression: Acute gastritis, Abdominal pain Patient Disposition: Home, Self-Care Instructions: Gastritis (ED), Abdominal Pain (ED) Additional Instructions: Increase the dose of omeprazole to 40 mg daily Also start taking sucralfate 10 ml 4 times a day before half an before meals Follow up your alarm installation technician/bariatric surgeon Prescriptions: New sucralfate [Carafate] 100 mg/mL suspension 10 ml PO QID Qty: 500 0RF Rx Instructions: swish in mouth and swallow; use after food/drink No Action methylphenidate HCl [Concerta] 27 mg tablet extended release 24hr 27 mg PO QAM Patient Comments: last picked up on 01/08/23 escitalopram oxalate 20 mg Tablet 20 mg PO DAILY Qty: 30 0RF omeprazole 20 mg Capsule,Delayed Release(Dr/Ec) 20 mg PO DAILY@0630 Qty: 30 0RF trazodone 50 mg Tablet 50 mg PO BEDTIME PRN (Reason: Insomnia) Qty: 30 0RF Dermacerin Cream 1 appl topical DAILY Qty: 0 0RF Protocol: Apply to: Apply to: face and other dry areas hydroxyzine HCl 25 mg tablet 25 mg PO TID PRN (Reason: anxiety) Qty: 90 0RF prednisone 20 mg tablet 40 mg PO DAILY 5 Days Qty: 10 0RF acetaminophen [Tylenol] 325 mg tablet 650 mg PO QID PRN (Reason: pain) Qty: 56 0RF nicotine 7 mg/24 hr patch 24 hour 1 patch transdermal Q24H 14 Days Qty: 14 0RF Rx Instructions: remove patch daily in evening aripiprazole 5 mg tablet 5 mg PO DAILY Qty: 14 0RF Trelegy Ellipta 200-62.5-25 mcg blister with device 1 ea inhalation DAILY dextroamphetamine-amphetamine 30 mg capsule,extended release 24hr 1 cap PO DAILY gabapentin 100 mg capsule PO Print Language: Romanian
[2024-09-22 15:41] LABS: MANUAL DIFF FLAG NO
[2024-09-22 15:42] LABS: Basophils Percent Auto 0.6 % (0-2); Eosinophils Absolute Auto 0.2 X10*3/uL (0.0-0.4); Eosinophils Percent Auto 2.3 % (0-4); Hematocrit 35.9 % (37.0-47.0); Hemoglobin 12.1 g/dl (12.0-16.0); Imm Gran Abs Auto 0.03 X10*3/uL (0.00-0.03); Imm Gran Pct Auto 0.5 % (0.0-0.4); Lymphocytes Absolute Auto 1.9 X10*3/uL (1.2-4.9); Lymphocytes Percent Auto 29.3 % (20-40); Mean Corpuscular HGB Conc 33.7 g/dl (31.0-35.0); Mean Corpuscular Hemoglobin 28.9 pg (27.0-33.0); Mean Corpuscular Volume 85.7 fL (80.0-98.0); Mean Platelet Volume 9.2 fL (9.4-12.3); Monocytes Absolute Auto 0.5 X10*3/uL (0.1-1.2); Monocytes Percent Auto 8.4 % (2-11); Neutrophils Absolute Auto 3.8 x10*3/uL (2.0-8.3); Neutrophils Percent Auto 58.9 % (45-73); Platelet Count 248 X10*3/uL (160-400); Red Blood Count 4.19 X10*6/uL (4.20-5.50); Red Cell Distribution Width 13.2 % (11.0-16.0); White Blood Count 6.5 X10*3/uL (4.8-10.8)
[2024-09-22 15:56] LABS: Alanine Aminotransferase 10 U/L (0-31); Albumin Level 3.6 g/dL (3.5-5.0); Alkaline Phosphatase 65 U/L (39-117); Anion Gap 12 (12-20); Aspartate Amino Transferase 18 U/L (5-31); Bilirubin Total 0.3 mg/dL (0.0-1.0); Blood Urea Nitrogen 8 mg/dL (9-16); Calcium 8.9 mg/dL (8.4-10.2); Carbon Dioxide 28 mmol/L (22-29); Chloride 107 mmol/L (96-108); Creatinine Clr Calc Pharmacy 103.2; Estimated Glomerular Filt Rate > 60; Glucose Random 90 mg/dL (60-115); Lipase 11 U/L (8-78); Magnesium 1.8 mg/dL (1.6-2.6); Potassium 4.2 mmol/L (3.3-5.1); Sodium 143 mmol/L (135-145); Total Protein 6.1 g/dL (6.5-8.0)
[2024-09-22 16:28] LABS: Troponin-I High Sensitivity < 2.7 ng/L (<3.5-17.0)
[2024-09-22 17:00] VITALS: BP 143/80; PULSE 64; RESP 18; TEMP 36.6; O2SAT 99
[2024-09-22 17:07] LABS: Appearance Urine Clear; Color Urine Yellow; Glucose Urine UA Negative (Negative); Leukocyte Esterase Urine Negative (Negative); Nitrite Urine Negative (Negative); PH >= 9.0 (5.0-9.0); UMIC TRIGGER UACC YES; Urine Blood Negative (Negative); Urine Ketones Negative (Negative); Urine Protein 30 (1+) mg/dL (Neg-Trace)
[2024-09-22 17:12] LABS: Bacteria Urine None Seen (None Seen); Hyaline Casts Urine 0-2 /LPF (0-2); RBC Urine 0-2 /HPF (0-2); WBC Urine 0-5 /HPF (0-5)
[2024-09-22] MEDS: 0.9 % Sodium Chloride 1,000 ML 999 ML IV (17:22)
[2024-09-22] MEDS: ondansetron HCL 4 MG/2 ML VIAL IVPUSH (17:28)
[2024-09-22] MEDS: Famotidine/PF 20 MG/2 ML VIAL IVPUSH (17:28)
[2024-09-22] MEDS: Morphine Sulfate 4 MG/ML CARTRIDGE IVPUSH (17:28)
--- NOTE | 2024-09-22 17:46 | PC.NURSE ---
Pt to ED for abd pain x 2 weeks, a/o x 3. Calm and cooperative with care, reports pain in abdomen 10/10. Reports nausea and vomiting. #20IV placed in LFA, IVF infusing per MAR.
--- OUTSIDE RECORDS SUMMARY | 2024-09-22 18:06 | XMS_ITS ---
Author Organization Félix Zelaya MD Address [address] [place], [place] [id number] Care Team Providers Care Landcare Officer Name Role Phone Félix Zelaya Primary Care Provider [phone] Allergies Allergen (clinical drug ingredient) Drug/Non Drug Allergy documented on EMR Reaction Allergy Type Onset Date Status cherries (uncoded) tongue swelling Allergy Active fluoxetine Prozac (uncoded) hives Allergy Ac tive sesame seed allergenic extract sesame seeds (uncoded) rash SOB Allergy Active walnuts (uncoded) rash SOB Allergy Ac tive amoxicillin amoxicillin (uncoded) rash Allergy Active ibuprofen Ibuprofen hives Drug Allergy Active Burr Flavor rash Drug Allergy Active piperacillin / [...] (uncoded) rash Allergy Active REASON FOR VISIT constipation x 2 weeks slivers or liquid Medications Medication SIG (Take, Route, Frequency, Duration) Notes Start Date End Date Status Furosemide 20 MG 1 tablet Orally Once a day 10/02/2013 Not-Taking DULoxetine HCl 60 MG TK 1 C PO QAM Oral for 60 Not-Taking Milk of Magnesia 400 MG/5ML 5 ml as needed Orally Four times a day Not-Taking Diprolene AF 0.05 % 1 application to affected area Externally Once a day for 30 Not-Taking metOLazone 2.5 MG 1 tablet Orally Once a day for 30 Not-Taking Abilify 2 MG 0.5 tablet Orally On ce a day Not-Taking EpiPen 2-Jose Cruz 0.3 MG/0.3ML as directed In jection once for 1 dose 08/14/2011 Active Tylenol Childrens 160 MG/5ML Orally Active Tylenol 325 MG 1 tablet as needed Orally every 6 hrs Active Vitamin D-3 5000 UNIT 1 tablet Orally On ce a day Active Clobetasol Propionate 0.05 % 1 application Externally Twice a day for 10 day(s) 11/23/2022 Active Spiriva Respimat 2.5 MCG/ACT 2 puffs Inhalation Once a day for 30 days Active Albuterol Sulfate (2.5 MG/3ML) 0.083% 3 ml as needed Inhalation every 4 hrs for 30 days 11/10/2010 Active Escitalopram Oxalate 20 MG 1 tablet Oral ly Once a day Active Concerta 27 MG 1 tablet in the morning Orally Once a day Active Methylphenidate HCl 10 MG 3tablet on emp ty stomach Orally Once a day Active hydrOXYzine HCl 25 MG 1 tablet as needed Orally Once a day for 30 day(s) Active traZODone HCl 100 MG 1 tablet at bedtime Orally Once a day for 30 day(s) Active Problems Problem Type SNOMED Code ICD Code Onset Dates Problem Status W/U Status Risk Notes Problem Constipation (40489382) Constipation (K59.00) Active confirmed Vital Signs Blood pressure systolic 128 mm Hg 09/23/19 25 Blood pressure diastolic 84 mm Hg 025 Height 66 in 09/22/2024 Weight 214 lbs 09/22/2024 BMI 34.54 kg/m2 09/22/2024 weight is up 34 pounds since 06-19-24 Encounters Encounter Location Date Provider Diagnosis Félix Zelaya MD [address] [facility] [address] [place], [place] [id number] 09/22/2024 Félix Zelaya Abdominal pain R10.9 ; Constipation K59.00 and Dehydration E86.0 Assessments Encounter Date Diagnosis (ICD Code) Assessment Notes Treatment Notes Treatment Clinical Notes Section Notes 09/22/2024 Abdominal pain (ICD-10 - R10.9) needs iv fluids 09/22/2024 Constipation (ICD-10 - K59.00) will need some xrays 09/22/2024 Dehydration (ICD-10 - E86.0) will send to the er for evaluation Plan Of Treatment Treatment Notes Assessment Notes Abdominal pain needs iv fluids Constipation will need some xrays Dehydration will send to the er for evaluation Progress Notes * Stacey PLUNKETTB:1975 (49 yo F)Acc No.[id number]:09/22/2024 Progress Notes Patient:?Dora PLUNKETT Provider:?Félix Zelaya MD :1975???Age:49 Y???Sex:Female D ate:09/22/2024 Address:[address] [place], [place] [id number] Subjective: * Chief Complaints: * ???1. Constipation x 2 weeks slivers or liquid. * HPI: ???Symptom(s):?patient is a 49 yo female here for complaint of constipation/ having pain in epigastrum to ribs. is vomiting as well. taking na bicarb. * ROS:?General/Constitutional:?Denies?Chills.?Denies?Fatigue.?Denies?Fever.?Denies?Headache.?ENT:?Denies?Sore throat.?Respiratory:?Denies?Cough.?Denies?Shortness of breath at rest.?Denies?Shortness of breath with exertion.?Gastrointestinal:?Admits?Abdominal pain.?Admits?Change in bowel habits.?Admits?Constipation.?Admits?Decreased appetite.?Denies?Diarrhea.?Admits?Heartburn.?Admits?Nausea.?Admits?Vomiting,?dry heeves.? * Medical History:?Respiratory failure from flu, Asthmatic bronchitis, Nontraumatic rupture of tendons of biceps (long head). * Medications:?Taking traZODon e HCl 100 MG Tablet 1 tablet at bedtime Orally Once a day , Taking hydrOXYzine HCl 25 MG Tablet 1 tablet as needed Orally Once a day , Taking Methylphenidate HCl 10 MG Tablet 3tablet on empty stomach Orally Once a day , Taking Concerta 27 MG Tablet Extended Release 1 tablet in the morning Orally Once a day , Taking Escitalopram Oxalate 20 MG Tablet 1 tablet Orally Once a day , Taking Albuterol Sulfate (2.5 MG/3ML) 0.083% Nebulization Solution 3 ml as needed Inhalation every 4 hrs , Taking Vitamin D-3 5000 UNIT Tablet 1 tablet Orally Once a day , Taking Tylenol 325 MG Tablet 1 tablet as needed Orally every 6 hrs , Taking Spiriva Respimat 2.5 MCG/ACT Aerosol Solution 2 puffs Inhalation Once a day , Taking Clobetasol Propionate 0.05 % Cream 1 application Externally Twice a day , Taking Tylenol Childrens 160 MG/5ML Suspension Orally , Taking EpiPen 2-Jose Cruz 0.3 MG/0.3ML Device as directed Injection once , Not-Taking/PRN Abilify 2 MG Tablet 0.5 tablet Orally Once a day , Not-Taking/PRN Milk of Magnesia 400 MG/5ML Suspension 5 ml as needed Orally Four times a day , Not-Taking/PRN DULoxetine HCl 60 MG Capsule Delayed Release Particles TK 1 C PO QAM Oral , Not-Taking/PRN Furosemide 20 MG Tablet 1 tablet Orally Once a day , Not-Taking/PRN metOLazone 2.5 MG Tablet 1 tablet Orally Once a day , Not-Taking/PRN Diprolene AF 0.05 % Cream 1 application to affected area Externally Once a day , Discontinued predniSONE 20 MG Tablet 1 tablet with food or milk Orally Once a day , Discontinued Gabapentin 100 MG Capsule 1 capsule Orally twice a day , Discontinued Symbicort 160-4.5 MCG/ACT Aerosol 2 puffs Inhalation Twice a day , Discontinued Omeprazole 20 MG Capsule Delayed Release 1 capsule 30 minutes before morning meal Orally Once a day , Discontinued predniSONE 10 MG Tablet 1 tablet with food or milk Orally 4 tabs for 3 days,3tabs for 3 days, 2 tabs for 3 days, and 1 tab for 3 days , Medication List reviewed and reconciled with the patient * Allergies:?Caramel Flavor: U TI, Lactose: Diarrhea, Piperacillin Sod-Tazobactam So: swelling, Heparin (Porcine) in NaCl: swelling, Burr Flavor: rash, amoxicillin: rash, walnuts: rash SOB, sesame seeds: rash SOB, Prozac: hives, cherries: tongue swelling, raspberries: rash, Penicillin G Benzathine: Rash, Hydrocodone Bitartrate: severe vomiting, Omeprazole: only with the villa flavored, selwyn: hives, Ibuprofen: hives. Objective: * Vitals:?Ht: 66, Wt: 214, BMI :34.54, BP:128/84, Wt-k.07. weight is up 34 pounds since 06-19-24. * Examination: ???General Examination: ?GENERAL APPEARANCE:?alert, well hydrated, in no distress.?HEAD:?normocephalic.?HEART:?regular rate and rhythm, no murmurs, rubs, gallops.?LUNGS:?no wheezes, rales, rhonchi, good air movement, clear to auscultation bilaterally.?ABDOMEN:?abnormal with tenderness in the epigastrum.? Assessment: * Assessment: 1.?Abdominal pain - R10.9 (P rimary)???2.?Constipation - K59.00???3.?Dehydration - E86.0??? Plan: * Treatment: 2.?Constipation? Notes: will need some xrays?? 3.?Dehydration? Notes: will send to the er for evaluation?? * * The named appointment provid er may or may not be the originator of this progress note, and it is not deemed complete until electronically signed by the appointment provider. Sign off status: Pending * Provider:?Félix Zelaya MD Date:?0 09/22/2024 Generated for Ofe garza/Sarina/Christianitting on:?09/22/2024 06:06 PM EDT History and Physical Notes * HPI (History of Present Illness) Category Sub-Category Detail Notes Category Not es Symptom(s) patient is a 49 yo female here for complaint of constipation/ having pain in epigastrum to ribs. is vomiting as well. taking na bicarb Examination Category Sub-Category Detail Notes Category Not es General Examination GENERAL APPEARANCE: alert, w ell hydrated, in no distress HEAD: normocephalic HEART: regular rate and rhy thm, no murmurs, rubs, gallops LUNGS: no wheezes, rales, r honchi, good air movement, clear to auscultation bilaterally ABDOMEN: abnormal with tender ness in the epigastrum
[2024-09-22] MEDS: iohexoL 350 MG/ML 100 ML INFUS..BTL IV (18:07)
[2024-09-22 18:13] VITALS: BP 123/67; PULSE 64; RESP 16; TEMP 36.4; O2SAT 92
--- NOTE | 2024-09-22 19:33 | PC.NURSE ---
this rn assumed care of pt, pt resting in stretcher, no acute distress noted, awaiting ct results
[2024-09-22] MEDS: Magnesium Hydrox/Alum Hydrox 30 ML ORAL.SUSP PO (19:47)
[2024-09-22] MEDS: Lidocaine HCl Viscous 2 % 15 ML SOLUTION MUCOUS MEM (19:47)
--- NOTE | 2024-09-22 19:50 | PC.NURSE ---
pt medicated per mar, tolerated well
[2024-09-22 20:04] VITALS: BP 132/77; PULSE 66; RESP 17; TEMP 36.6; O2SAT 96
== END 2024-09-22 20:05 | disposition home or self-care (01) ==
PROVIDERS: Physician Assistant Medical; Emergency Provider Internal Medicine; PCP Internal Medicine
DX: K29.00 Acute gastritis without bleeding (principal); R10.12 Left upper quadrant pain; Z87.891 Personal history of nicotine dependence
CPT/HCPCS: 36415; 74018; 74177; 80053; 81001; 83690; 83735; 84484; 85025; 93005; 96361; 96374; 96375; 99284; 99285; J1308; J2270; J2405; Q9967

== ENCOUNTER → 2024-09-22 15:39 | Outpatient (BNV) | payer BC, MEDICARE, SELFPAY | PROVIDERS: Emergency Provider Internal Medicine; PCP Internal Medicine; Visit Provider Internal Medicine Cardiovascular Disease | DX: R94.31 Abnormal electrocardiogram [ECG] [EKG] (principal); R10.13 Epigastric pain | CPT/HCPCS: 93010 ==

== ENCOUNTER → 2024-09-22 15:45 | Outpatient (BNV) | payer BC, OTHER, SELFPAY | PROVIDERS: Emergency Provider Internal Medicine; PCP Internal Medicine; Visit Provider Radiology Diagnostic Radiology | DX: R10.84 Generalized abdominal pain (principal); K59.00 Constipation, unspecified | CPT/HCPCS: 74018; 74177 ==

== ENCOUNTER 2024-10-06 10:44 | Outpatient (REF) | payer BC, MEDICARE, SELFPAY ==
--- OUTSIDE RECORDS SUMMARY | 2024-09-26 07:50 | XMS_ITS ---
Author Organization Félix Zelaya MD Address [address] [place] [id number] Care Team Providers Care Sales Floor Manager Name Role Phone Félix Zelaya Primary Care Provider [phone] REASON FOR VISIT ER Encounters Encounter Location Date Provider Diagnosis Félix Zelaya MD [address] [facility] [address] [place] [phone] 09/26/2024 Félix Zelaya Plan Of Treatment Next Appt Details Provider Name:Félix guardado, 10/13/2024 11:30:00 AM, [address], [address] [facility], [place], [place], [phone], Progress Notes * Stacey PLUNKETTB:1975 (49 yo F)Acc No.[id number]:09/26/2024 Patient: Dora DOUGLAS :1975 A ge:49 Y S ex:Female Address:[address] [place] [id number] * true * Date: Generated for Ofe garza/Sarina/Mary Carmen on: 0 10/06/2024 11:30 AM EDT
[2024-10-06 10:49] LABS: MANUAL DIFF FLAG NO
[2024-10-06 11:01] LABS: Basophils Absolute Auto 0.1 X10*3/uL (0.0-0.2); Basophils Percent Auto 0.8 % (0-2); Eosinophils Absolute Auto 0.2 X10*3/uL (0.0-0.4); Eosinophils Percent Auto 2.3 % (0-4); Hematocrit 42.6 % (37.0-47.0); Hemoglobin 13.9 g/dl (12.0-16.0); Imm Gran Abs Auto 0.03 X10*3/uL (0.00-0.03); Imm Gran Pct Auto 0.3 % (0.0-0.4); Lymphocytes Absolute Auto 2.4 X10*3/uL (1.2-4.9); Lymphocytes Percent Auto 24.8 % (20-40); Mean Corpuscular HGB Conc 32.6 g/dl (31.0-35.0); Mean Corpuscular Volume 85.9 fL (80.0-98.0); Mean Platelet Volume 10.9 fL (9.4-12.3); Monocytes Absolute Auto 0.6 X10*3/uL (0.1-1.2); Monocytes Percent Auto 6.6 % (2-11); Neutrophils Absolute Auto 6.2 x10*3/uL (2.0-8.3); Neutrophils Percent Auto 65.2 % (45-73); Platelet Count 312 X10*3/uL (160-400); Red Blood Count 4.96 X10*6/uL (4.20-5.50); Red Cell Distribution Width 12.9 % (11.0-16.0); White Blood Count 9.5 X10*3/uL (4.8-10.8)
[2024-10-06 11:19] LABS: Alanine Aminotransferase 15 U/L (0-31); Albumin Level 4.4 g/dL (3.5-5.0); Alkaline Phosphatase 84 U/L (39-117); Amylase 24 U/L (28-100); Anion Gap 13 (12-20); Aspartate Amino Transferase 27 U/L (5-31); Bilirubin Total 0.5 mg/dL (0.0-1.0); Blood Urea Nitrogen 8 mg/dL (9-16); Calcium 9.8 mg/dL (8.4-10.2); Carbon Dioxide 23 mmol/L (22-29); Chloride 105 mmol/L (96-108); Estimated Glomerular Filt Rate > 60; Glucose Fasting 94 mg/dL (60-99); Lipase 14 U/L (8-78); Potassium 4.4 mmol/L (3.3-5.1); Sodium 137 mmol/L (135-145); Total Protein 7.6 g/dL (6.5-8.0)
== END 2024-10-06 10:45 | disposition home or self-care (01) ==
LOC: HO.LNP 10:44
PROVIDERS: Visit Provider Internal Medicine
DX: K29.70 Gastritis, unspecified, without bleeding (principal)
CPT/HCPCS: 80053; 82150; 83690; 85025

== ENCOUNTER 2024-10-22 07:25 | Outpatient (REF) | payer BC, MEDICARE, SELFPAY ==
--- NOTE | ~2024-10-22 | FL_ITS ---
EXAMINATION: XR FLUOROSCOPY UPPER GI SERIES CLINICAL INFORMATION: Epigastric abdominal pain. Patient also complaining of regurgitation of solid food x2-3 weeks. History of gastric bypass. COMPARISON: No prior. Correlation made with CT abdomen and pelvis 09/22/2024. TECHNIQUE: Fluoroscopic air contrast upper GI examination was performed utilizing standard techniques with thin and thick barium and effervescent granules. Numerous spot images were obtained. Several fluoroscopic image hold cine sequences were also obtained. FINDINGS: UPPER GI SERIES: Lateral cine images of the oropharynx and hypopharynx demonstrate normal swallow mechanism with normal epiglottic inversion and soft palate elevation. No laryngeal penetration, glottic or subglottic aspiration identified. No nasopharyngeal reflux present. Hypopharyngeal structures appear normal without evidence of mass or diverticulum. There was no significant cricopharyngeal achalasia. Dual and single contrast images of the esophagus demonstrate normal caliber, contour, and mucosal pattern. No evidence of stricture, mass, or ulcerations identified. Esophageal peristalsis mild to moderately disordered. Small to moderate-sized type I hiatus hernia. Episodic gastroesophageal reflux to the level of the aortic arch noted during the exam. Imaging of the gastric remnant is somewhat limited due to postoperative appearance. Expected postoperative changes of gastric bypass procedure. The gastric pouch and gastrojejunostomy demonstrated expected appearance, with no gross ulceration, mass, or postoperative stricture. There was gastric rugal fold thickening involving the pouch, suggesting gastritis. Contrast freely passed into the gastrojejunostomy and proximal small bowel without delay. Imaging of the proximal small bowel demonstrates normal mucosal fold pattern and caliber. The distal anastomosis has an unremarkable appearance. No reflux of contrast into the gastric remnant. There are cholecystectomy clips noted. FLUOROSCOPY TIME: 2 minutes, 36 seconds Number of Spot Images:9 Number of cines obtained: 10 DOSE AREA PRODUCT: 3252 uGy-m2 (microgray-meter squared) FL/FL upper GI w air IMPRESSION: 1. Mild to moderately disordered esophageal peristalsis. 2. Small to moderate-sized type I hiatus hernia. 3. Episodic gastroesophageal reflux to the level of the aortic arch. 4. Expected appearance of the gastric pouch secondary to gastric bypass procedure. Gastric rugal fold thickening involving the pouch suggests underlying gastritis. Correlation with EGD may be of benefit. 5. Normal-appearing proximal small bowel and distal anastomosis. No reflux of contrast into the gastric remnant. Electronically signed by: Jaguar Velasquez MD 10/22/2024 08:51 AM EDT RP
== END 2024-10-22 07:26 | disposition home or self-care (01) ==
LOC: HO.XRAY 07:25
PROVIDERS: PCP Internal Medicine; Visit Provider Internal Medicine
DX: K29.70 Gastritis, unspecified, without bleeding (principal)
CPT/HCPCS: 74246

== ENCOUNTER → 2024-10-22 07:27 | Outpatient (BNV) | payer BC, MEDICARE, SELFPAY | PROVIDERS: PCP Internal Medicine; Visit Provider Radiology Diagnostic Radiology | DX: K22.4 Dyskinesia of esophagus (principal) | CPT/HCPCS: 74246 ==

== ENCOUNTER 2024-10-30 12:42 | Day surgery (SDC) | payer BC, MEDICARE, SELFPAY ==
--- OUTSIDE RECORDS SUMMARY | 2024-10-27 05:15 | XMS_ITS ---
Author Organization Félix Zelaya MD Address [address] [place], [place] [id number] Care Team Providers Care Political Researcher Name Role Phone Félix Zelaya Primary Care [...] Active ibuprofen Ibuprofen hives Drug Allergy Active [place] Flavor rash Drug Allergy Active piperacillin [...] (uncoded) rash Allergy Active REASON FOR VISIT 2 week Medications Medication SIG (Take, Route, Frequency, Duration) Notes Start Date End Date Status Diprolene AF 0.05 % 1 application to affected area Externally Once a day for 30 Not-Taking DULoxetine HCl 60 MG TK 1 C PO QAM Oral for 60 Not-Taking Milk of Magnesia 400 MG/5ML 5 ml as needed Orally Four times a day Not-Taking metOLazone 2.5 MG 1 tablet Orally Once a day for 30 Not-Taking Furosemide 20 MG 1 tablet Orally Once a day 10/02/2013 Not-Taking Tylenol Childrens 160 MG/5ML Orally Active Clobetasol Propionate 0.05 % 1 application Externally Twice a day for 10 day(s) 11/23/2022 Active Spiriva Respimat 2.5 MCG/ACT 2 puffs Inhalation Once a day for 30 days Active Abilify 2 MG 0.5 tablet Orally On ce a day Not-Taking EpiPen 2-Jose Cruz 0.3 MG/0.3ML as directed In jection once for 1 dose 08/14/2011 Active Tylenol 325 MG 1 tablet as needed Orally every 6 hrs Active Concerta 27 MG 1 tablet in the morning Orally Once a day Active Vitamin D-3 5000 UNIT 1 tablet Orally On ce a day Active Albuterol Sulfate (2.5 MG/3ML) 0.083% 3 ml as needed Inhalation every 4 hrs for 30 days 11/10/2010 Active Escitalopram Oxalate 20 MG 1 tablet Oral ly Once a day Active Carafate 1 GM/10ML 10 mL 1 hour before meals and at bedtime on an empty stomach Orally Four times a day Active Omeprazole 40 MG 1 capsule 1/2 to 1 hour before morning meal Orally Once a day for 30 days Active Methylphenidate HCl 10 MG 3tablet on emp ty stomach Orally Once a day Active hydrOXYzine HCl 25 MG 1 tablet as needed Orally Once a day for 30 day(s) Active traZODone HCl 100 MG 1 tablet at bedtime Orally Once a day for 30 day(s) Active Vital Signs Blood pressure systolic 92 mm Hg 10/28/19 25 Blood pressure diastolic 66 mm Hg 025 Height 66 in 10/27/2024 Weight 195 lbs 10/27/2024 BMI 31.47 kg/m2 10/27/2024 weight is down 3 pounds sinc e 10-13-24 Encounters Encounter Location Date Provider Diagnosis Félix Zelaya MD [address] [place], [place] [id number] 10/27/2024 Félix Zelaya Gastritis K29.70 and Mesenteric adenitis I88.0 Assessments Encounter Date Diagnosis (ICD Code) Assessment Notes Treatment Notes Treatment Clinical Notes Section Notes 10/27/2024 Gastritis (ICD-10 - K29.70) seems a little better with omeprazole increased 10/27/2024 Mesenteric adenitis (ICD-10 - I88.0) awaiting gi consult Plan Of Treatment Treatment Notes Assessment Notes Gastritis seems a little chantell r with omeprazole increased Mesenteric adenitis awaiting gi consult Next Appt Details Follow Up: 4 Weeks, Reason: Provider Name:Félix Matthews ier, 11/28/2024 09:15:00 AM, [address] [place] [address] Drive, [address], [place], [place], [id number], Progress Notes * Chris PLUNKETTFloriB:1975 (49 yo F)Acc No.[id number]:10/27/2024 Progress Notes Patient: Dora DOUGLAS Provider: Naomi Zelaya MD :1975 A ge:49 Y S ex:Female Date:10/27/2024 Address:[address] [place], [place] [id number] Subjective: * Chief Complaints: * 1 . 2 week. * HPI: S ymptom(s): patient is a 49 yo female here for 2 week follow up visit. * ROS: G eneral/Constitutional: Denies C hills. D enies F atigue. D enies F ever. D enies H eadache. E NT: Denies S ore throat. R espiratory: Denies C ough. D enies S hortness of breath at rest. A dmits S hortness of breath with exertion. G astrointestinal: Admits A bdominal pain. D enies B lood in stool.?Denies C onstipation. A dmits D iarrhea. D enies N ausea. * Medical History: R espiratory failure from flu, Asthmatic bronchitis, Nontraumatic rupture of tendons of biceps (long head). * Medications: T aking Omeprazole 40 MG Capsule Delayed Release 1 capsule 1/2 to 1 hour before morning meal Orally Once a day , Taking Carafate 1 GM/10ML Suspension 10 mL 1 hour before meals and at bedtime on an empty stomach Orally Four times a day , Taking traZODone HCl 100 MG Tablet 1 [...] affected area Externally Once a day , Medication List reviewed and reconciled with the patient * Allergies: C aramel Flavor: UTI, Lactose: Diarrhea, Piperacillin Sod-Tazobactam So: swelling, Heparin (Porcine) in NaCl: swelling, [place] Flavor: rash, amoxicillin: rash, walnuts: rash SOB, sesame seeds: rash SOB, Prozac: hives, cherries: tongue swelling, raspberries: rash, Penicillin G Benzathine: Rash, Hydrocodone Bitartrate: severe vomiting, Omeprazole: only with the villa flavored, [place]: hives, Ibuprofen: hives. Objective: * Vitals: H t: 66, Wt: 195, BMI:31.47, BP:92/66, Wt-k.45. weight is down 3 pounds since 10-13-24. * Examination: G eneral Examination: GENERAL APPEARANCE: a lert, well hydrated, in no distress.? HEAD: n ormocephalic. SKIN: g ood turgor. HEART: r egular rate and rhythm, no murmurs, rubs, gallops.? LUNGS: n o wheezes, rales, rhonchi, good air movement, clear to auscultation bilaterally. ABDOMEN: s oft, nontender, nondistended, no rebound tenderness, no organomegaly. Assessment: * Assessment: 1. G astritis - K29.70 (Primary) 2 . M esenteric adenitis - I88.0 ? Plan: * Treatment: 2. M esenteric adenitis Notes: awaiting gi consult * Follow Up: 4 Weeks * * The named appointment provid er may or may not be the originator of this progress note, and it is not deemed complete until electronically signed by the appointment provider. Sign off status: Pending * Provider: Naomi Zelaya MD Date: 0 10/27/2024 Generated for Ofe garza/Sarina/Christianitting on: 10/30/2024 05:59 AM EDT History and Physical Notes * HPI (History of Present Illness) Category Sub-Category Detail Notes Category Not es Symptom(s) patient is a 49 yo female here for 2 week follow up visit Examination Category Sub-Category Detail Notes Category Not es General Examination GENERAL APPEARANCE: alert, w ell hydrated, in no distress HEAD: normocephalic HEART: regular rate and rhy thm, no murmurs, rubs, gallops LUNGS: no wheezes, rales, r honchi, good air movement, clear to auscultation bilaterally ABDOMEN: soft, nontender, non distended, no rebound tenderness, no organomegaly SKIN: good turgor
--- OUTSIDE RECORDS SUMMARY | 2024-10-30 06:00 | XMS_ITS | Encounter Summary ---
Author Organization [employer] Address [address] [place] [address] [address] [place] [address] Care Team Providers Care Tool Grinder Operator Surface Name Role Phone Unavailable Primary Care Provider Unavailabl e Reason for Visit * Reason Onset Date Comments insurance 10/31/2022 Encounter Details Date Type Department Care Team ([facility] st Contact Info) Description 10/31/2022 Telephone [facility] [address] [place] [address] Nolan Morrison DDS [address] [place] [address] insurance Social History Tobacco Use Types Packs/Day [...] sent to [facility] located on [address] [place] [address] [address] [place] [address] . and fax # [phone]. Please call pt once referral is completed . * Telephone Encounter - Brii Kirby - 10/31/2022 10:09 AM EDT I recahed out to billing because the patient states to have [facility] and provided ID number [id number] but when I went to add the [...]
--- OUTSIDE RECORDS SUMMARY | 2024-10-30 06:00 | XMS_ITS | Clinical Summary ---
Author Organization [facility] Address [address] [place] [address] Care Team Providers Care Plastic Tile Layer Name Role Phone Félix Zelaya MD Primary Care Provider Surgical History Surgery Date Site/Laterality Comments OTHER SURGICAL HISTORY 04/2010 PROCEDURE: HISTORY OTHER; COMMENT: tracheotomy OTHER SURGICAL HISTORY 04/2010 PROCEDURE: GASTROSTOMY/JEJUNOSTOMY TUBE OTHER SURGICAL HISTORY PROCEDURE: HISTORY OTHER; COMMENT: bariatric surgery Medical History Medical History Date Comments History of bariatric surgery 05/08/2018 DX: History of bariatric surgery Interstitial lung disease ([place]/HCC V24, [place]/HCC V28) 02/20/2018 DX:Interstitial lung disease (HCC) BETHANY (obstructive sleep apnea) 02/20/2018 DX :BETHANY (obstructive sleep apnea); COMMENT: [facility] [place] Polysomnogram treatment study. Date 04/17/2018. SE 76 [...] Brother at 1month Coronary artery disease Father [place] Relation Name Status Comments Aunt Brother Father [...] Smear 1994 Colorectal Cancer Screening: Colonoscopy 03/11/2022 HIV Screening 03/11/2022 Hepatitis C Screening 03/11/2022 Social Influencers of Health Screening 03/11/2022 Pneumococcal Vaccine: 50+ Ye ars (1 of 1 - PCV) 07/19/2023 Zoster Vaccines (1 of 2) 07/19/2023 COVID-19 Vaccine ( - 2023-2 5 season) 2023 Depression Screening 04/09/2024 Influenza Vaccine (#1) 2024 HIB Vaccines Aged Out No longer [...] Documents on File Type Date Recorded Patient Network Contract Manager Expl anation Health Care Decision (hx) 06/02/2010 AD MARTINEZ DIRECTIVE Health Care Decision (hx) 06/02/2010 AD MARTINEZ DIRECTIVE Health Care Decision (hx) 06/02/2010 AD MARTINEZ DIRECTIVE Care Teams Plastic Tile Layer Relationship Specialty Start Date End Date Félix Zelaya MD PCP - General Internal Medicine 01/17/18
--- OUTSIDE RECORDS SUMMARY | 2024-10-30 06:00 | XMS_ITS | Patient Health Record ---
Author Organization [facility] Address [address] [place] [address] Care Team Providers Care Vocal Teacher Name Role Phone Félix Zelaya MD Primary Care Provider Jose Solis [phone] Allergies Allergen (clinical drug ingredient) Drug/Non Drug Allergy documented on EMR Reaction Allergy Type Onset Date Status Heparin Unknown Drug Allergy Active ibuprofen Ibuprofen Unknown Drug Allergy Active Strawberries Unknown Allergy Active Reason For Referral No Information Medications Medication SIG (Take, Route, Frequency, Duration) Notes Start Date End Date Status Sucralfate 1 GM/10ML TAKE 10 ML ORALLY 4 TIMES A DAY SWISH IN MOUTH AND SWALLOW USE AFTER FOOD/DRINK Oral for 13 Days Not-Taking Amphetamine-Dextroamphet ER 30 MG Oral for 30 Days Active Albuterol Sulfate 108 (90 Base) MCG/ACT 1 puff as needed Inhalation every 4 hrs 10/29/2024 Active Trelegy Ellipta 100-62.5-25 MCG/ACT 1 puff Inhalation Once a day Active Tylenol 325 MG 1 tablet as needed Orally every 6 hrs 10/29/2024 Active Dextroamphetamine Sulfate ER 5 MG 1 capsule in the morning Orally Once a day Active Omeprazole 40 MG Oral for 90 Days Active hydrOXYzine HCl 25 MG Oral for 90 Days Active Escitalopram Oxalate 20 MG Oral for 90 Days Active traZODone HCl 100 MG Oral for 90 Days Active traZODone HCl 100 MG TAKE 1 TABLET BY MOUTH EVERY DAY AT BEDTIME NEEDED Oral for 90 Days Active Topiramate 25 MG TAKE 1 TABLET BY MOUTH TWICE A DAY Oral for 90 Days Active Immunizations Vaccine Route Administration Date Status Comme nts Influenza Unknown 01/29/2024 Administered Social History Tobacco Use: Social History Observation Description Date Details (start date - stop date) Current Smoker NA - NA Tobacco Control (Standard) Question Answer Notes Tobacco use: Current smoker AUDIT-C (Standard) Question Answer Notes Did you have a drink containing alcohol in the p ast year? No Points 0 Interpretation Negative Section Notes: Recovering alcoholic since 2 022 Problems Problem Type SNOMED Code ICD Code Onset Dates Problem Status W/U Status Risk Notes Problem Colon cancer screening (217745123) Colon cancer screening (Z12.11) Active confirmed Problem Epigastric pain (87457198) Epigastric abdominal pain (R10.13) Active confirmed Problem Dysphagia (55976679) Dysphagia (R13.10) Active confirmed Problem Gastroesophageal reflux disease (536395905) GERD (gastroesophag eal reflux disease) (K21.9) Active confirmed Problem Vomiting (920316049) Vomiting (R11.10) Active confirmed Vital Signs Temperature 98.4 degrees Fahrenheit 10/29/2024 Blood pressure diastolic 01 mm Hg 10/29/2024 Height 64 in 10/29/2024 Blood pressure systolic 001 mm Hg 10/29/2024 Weight 193.4 lbs 10/29/2024 BMI 33.19 kg/m2 10/29/2024 Procedures Procedure Date Ordered Date Performed Result Body Sit e UPPER GI ENDOSCOPY BALLOOON DILATION OF ESOPH 10/29/2024 N/A Encounters Encounter Location Date Provider Diagnosis [facility] [address] [place] [address] 10/29/2024 Jose Ferro Colon cancer screening Z12.11 ; GERD (gastroesophageal reflux disease) K21.9 ; Epigastric abdominal pain R10.13 ; Dysphagia R13.10 and Vomiting R11.10 Assessments Encounter Date Diagnosis (ICD Code) Assessment Notes Treatment Notes Treatment Clinical Notes Section Notes 10/29/2024 Colon cancer screening (ICD-10 - Z12.11) We will do your colonoscopy down the road after we settle the upper GI issues Given Todd's ongoing upper GI complaints I did recommend an upper endoscopy for evaluation to rule out any component of an esophageal stricture, anastomotic ulcer, or any other upper GI pathology that may not have been seen on her recent imaging studies including the CT scan and upper GI series. If she happens to have an esophageal stricture I can perform balloon dilation at that time. Full consent has been obtained from her for this, including risks of bleeding and perforation. The procedure will be done with monitored anesthesia care. We shall try to get the procedure done in the very near future. I did advise her that once we have settled her upper GI issues I would then recommend a screening colonoscopy as she has never had one and she is now over 48 years old. We did review the rationale for that in regard to colorectal cancer prevention. Todd was comfortable with this plan. Thank you again for allowing me to participate in Todd's care. I shall continue to keep you advised of her progress. 10/29/2024 GERD (gastroesophag eal reflux disease) (ICD-10 - K21.9) Given Todd's ongoing upper GI complaints I did recommend an upper endoscopy for evaluation to rule out any component of an esophageal stricture, anastomotic ulcer, or any other upper GI pathology that may not have been seen on her recent imaging studies including the CT scan and upper GI series. If she happens to have an esophageal stricture I can perform balloon dilation at that time. Full consent has been obtained from her for this, including risks of bleeding and perforation. The procedure will be done with monitored anesthesia care. We shall try to get the procedure done in the very near future. I did advise her that once we have settled her upper GI issues I would then recommend a screening colonoscopy as she has never had one and she is now over 48 years old. We did review the rationale for that in regard to colorectal cancer prevention. Todd was comfortable with this plan. Thank you again for allowing me to participate in Todd's care. I shall continue to keep you advised of her progress. 10/29/2024 Epigastric abdominal pain (ICD-10 - R10.13) Given Todd's ongoing upper GI complaints I did recommend an upper endoscopy for evaluation to rule out any component of an esophageal stricture, anastomotic ulcer, or any other upper GI pathology that may not have been seen on her recent imaging studies including the CT scan and upper GI series. If she happens to have an esophageal stricture I can perform balloon dilation at that time. Full consent has been obtained from her for this, including risks of bleeding and perforation. The procedure will be done with monitored anesthesia care. We shall try to get the procedure done in the very near future. I did advise her that once we have settled her upper GI issues I would then recommend a screening colonoscopy as she has never had one and she is now over 48 years old. We did review the rationale for that in regard to colorectal cancer prevention. Todd was comfortable with this plan. Thank you again for allowing me to participate in Todd's care. I shall continue to keep you advised of her progress. 10/29/2024 Dysphagia (ICD-10 - R13.10) Given Todd's ongoing upper GI complaints I did recommend an upper endoscopy for evaluation to rule out any component of an esophageal stricture, anastomotic ulcer, or any other upper GI pathology that may not have been seen on her recent imaging studies including the CT scan and upper GI series. If she happens to have an esophageal stricture I can perform balloon dilation at that time. Full consent has been obtained from her for this, including risks of bleeding and perforation. The procedure will be done with monitored anesthesia care. We shall try to get the procedure done in the very near future. I did advise her that once we have settled her upper GI issues I would then recommend a screening colonoscopy as she has never had one and she is now over 48 years old. We did review the rationale for that in regard to colorectal cancer prevention. Todd was comfortable with this plan. Thank you again for allowing me to participate in Todd's care. I shall continue to keep you advised of her progress. 10/29/2024 Vomiting (ICD-10 - R11.10) Given Todd's ongoing upper GI complaints I did recommend an upper endoscopy for evaluation to rule out any component of an esophageal stricture, anastomotic ulcer, or any other upper GI pathology that may not have been seen on her recent imaging studies including the CT scan and upper GI series. If she happens to have an esophageal stricture I can perform balloon dilation at that time. Full consent has been obtained from her for this, including risks of bleeding and perforation. The procedure will be done with monitored anesthesia care. We shall try to get the procedure done in the very near future. I did advise her that once we have settled her upper GI issues I would then recommend a screening colonoscopy as she has never had one and she is now over 48 years old. We did review the rationale for that in regard to colorectal cancer prevention. Todd was comfortable with this plan. Thank you again for allowing me to participate in Tawnys care. I shall continue to keep you advised of her progress. Plan Of Treatment Pending Test Test Name Order Date UPPER GI ENDOSCOPY BALLOOON DILATION OF ESOPH 10/29/2024 Next Appt Details Provider Name:Jose Ferro , 10/30/2024 02:00:00 PM, [address] , [place], [place], [id number], Insurance Providers Payer Name Payer Address Payer Phone Subscriber Number Group Number Insured Name Patient Relationship to Insured Coverage Start Date Coverage End Date [facility] [address] [place] [phone] [id number] MIRZA TODD Self - patient is the insured 6 [employer] [address] [place] [address] [id number] Self - patient is the insured 6 Medical (General) History Medical History History ICD Code ARDS--3 month hospitalization at [facility] 2010 with Trach and PEG COPD Denies UT,DM,CVA,renal disease Depression/Bipolar/ADHD Recovering alcoholic since 2021 Pulmonary embolism GI bleed 2016 Surgical History Surgery Date(Month/Year) Back CC2018 Gastric Bypass at [facility] 2016 G-tube and Trach during an ICU stay 2010
[2024-10-30 12:58] VITALS: BMI 33.0
[2024-10-30 13:01] VITALS: BP 105/76; PULSE 85; RESP 16; TEMP 36.4; O2SAT 95
[2024-10-30] MEDS: Lactated Ringers 1,000 ML 50 ML IVCONT (13:18)
--- NOTE | 2024-10-30 14:23 | HO.ANESPROP2 ---
[facility] Active Problems Active Problems: All Active Problems Calcific tendinitis of right shoulder (Acute) Spondylosis of lumbar region without myelopathy or radiculopathy (Acute) Sacroiliitis (Acute) Chronic left sacroiliac joint pain (Acute) BETHANY (obstructive sleep apnea) (Acute) Avascular necrosis of bone of left hip (Acute) Avascular necrosis of bone of right hip (Acute) Alcohol abuse (Acute) ADHD (attention deficit hyperactivity disorder) (Acute) MDD (major depressive disorder) (Acute) ARDS (adult respiratory distress syndrome) (Acute) Past Medical History Medical History DDD (degenerative disc disease), lumbar Mass of shoulder region Bipolar 1 disorder GERD (gastroesophageal reflux disease) ADHD Depression History of pulmonary embolism History of GI bleed History of sepsis Foreign body (FB) in soft tissue Psoriatic arthritis Avascular necrosis COPD (chronic obstructive pulmonary disease) ARDS (adult respiratory distress syndrome) Functional capacity: independent ambulation Patient : No Family History Family history of problems with anesthesia: No Surgical History Surgical History History of cholecystectomy History of back surgery History of gastric bypass History of tracheostomy History of Problems with Anesthesia: No Social History Social History Household Members: Spouse Housing: House Do you presently have visiting nurse or other home services: No Alcohol intake: never Patient Tobacco Use Status: Current someday Tobacco user Tobacco use type: Cigarette Second Hand Smoke Exposure: No service: No Current occupational status: unemployed Current occupation: right hand dominant Sexual orientation: Straight/Heterosexual Meds Allergies Allergy/AdvReac Type Severity Reaction Status Date / Time amoxicillin (AMOXICILLIN) Allergy Unknown RASH Verified 09/22/24 15:24 fluoxetine (From PROZAC) Allergy Unknown RASH Verified 09/22/24 15:24 heparin (HEPARIN) Allergy Unknown JAUN Verified 09/22/24 15:24 SYNDROME heparin (porcine) Allergy Unknown swelling, Verified 09/22/24 15:24 red hydrocodone (HYDROCODONE) Allergy Unknown PROJECTILE Verified 09/22/24 15:24 VOMITING ibuprofen (From Motrin) Allergy Unknown Shortness Verified 09/22/24 15:24 of Breath naproxen Allergy Unknown Stomach Verified 09/22/24 15:24 Upset omeprazole (OMEPRAZOLE) Allergy Unknown RASH, head Verified 10/30/24 12:58 to toe rash penicillin G (PENICILLIN G) Allergy Unknown RASH Verified 09/22/24 15:24 penicillin V Allergy Unknown rash Verified 09/22/24 15:24 piperacillin (From ZOSYN) Allergy Unknown RASH Verified 09/22/24 15:24 strawberry (STRAWBERRY) Allergy Unknown SOB,RASH, Verified 09/22/24 15:24 ANAPHYLAXISIS tazobactam (From ZOSYN) Allergy Unknown RASH Verified 09/22/24 15:24 walnut Allergy Unknown Difficulty Verified 09/22/24 15:24 Breathing Caramelized Food coloring Allergy Unknown Itching Uncoded 05/07/23 14:24 CARMALIZED FOOD COLORING Allergy Unknown RASH Uncoded 05/07/23 14:24 Hydrocodone Bitartrate Allergy Unknown severe Uncoded 05/07/23 14:24 vomiting Mangos Allergy Unknown Difficulty Uncoded 05/07/23 14:24 Breathing Piperacillin Sod-Tazobactam Allergy Unknown swelling Uncoded 05/07/23 14:24 So Strawberries Allergy Unknown Blister Uncoded 05/07/23 14:24 Active Medications: Current Medications Lactated Ringer's (Lr) 1,000 mls @ 50 mls/hr IVCONT .Q20H PEGGY Last Admin: 10/30/24 13:18 Dose: 50 mls/hr Home Medications ?Medication ?Instructions ?Recorded ?Confirmed ?Last Taken ?Type fluticasone fur. 200 mcg-umeclid 1 ea inhalation DAILY 06/07/23 10/30/24 Unknown History 62.5 mcg-vilant 25 mcg inhalat.powder (Trelegy Ellipta) dextroamphetamine-amphetamine ER 1 cap PO DAILY 08/22/24 10/30/24 Unknown History 30 mg 24hr capsule,extend release dextroamphetamine-amphetamine 10 1 tab PO BID 10/30/24 10/30/24 Unknown History mg tablet topiramate 25 mg tablet 25 mg PO BID 10/30/24 10/30/24 Unknown History Exam Height,Weight and Vital Signs: Height 5 ft 4 in Weight 87.3 kg Last Vital Signs Temp 97.6 F 10/30/24 13:01 Pulse 85 10/30/24 13:01 Resp 16 10/30/24 13:01 BP 105/76 10/30/24 13:01 Pulse Ox 95 10/30/24 13:01 O2 Del Method Room Air 10/30/24 13:01 Airway Mallampati Class: III TM Dist: >3cm Neck ROM: Full Heart: RRR Lungs: CTA Assessment and Plan Assessment Anesthesia Assessment: Anesthesia Plan Discussed and Chart Reviewed Final Anesthetic Review Family History of Problems with Anesthesia: No History of Problems with Anesthesia: No ASA Class: III Final Preanesthetic Review: Meds/Allgs Chart Reviewed, Consent Obtained/Reviewed and Anes Risks/Benef Reviewed Patient Risk: Intermediate Procedure Risk: Low Anesthetic Plan Anesthetic Plan: MAC: Disposition: Standard PACU
[2024-10-30 15:11] VITALS: BP 115/94; PULSE 70; RESP 16; TEMP 36.7; O2SAT 98
--- NOTE | 2024-10-30 15:19 | P.BOP_ITS ---
Brief Operative Note Date of Service: 10/30/24 Pre-op diagnosis: Abdominal pain, vomiting Post-op diagnosis: other (Anastomotic ulcer, Hiatal hernia, GERD) Procedure: EGD with biopsies Surgeon: Jose Ferro MD Anesthesia: MAC Was an Nuclear Design Engineer used for this Procedure?: No Estimated blood loss (mL): 2.0 Pathology: other (A. Gastric remnant B. EG Junction at 33cm) Condition: stable Disposition: PACU
--- NOTE | 2024-10-30 15:28 | HO.POSTANES ---
Post Anesthesia Evaluation Post Anesthesia Evaluation Date of Service: 10/30/24 Vital Signs: Vital Signs Temp Pulse Resp BP Pulse Ox O2 Del Method 10/30/24 15:11 98.1 F 70 16 115/94 H 98 Room Air 10/30/24 13:01 97.6 F 85 16 105/76 95 Room Air Anesthesia: Monitored Mental Status: Awake Pain Control: Satisfactory Nausea/Vomiting: None Hydration: Adequate Anesthesia-Related Issues: No Anes. Related Issues
[2024-10-30 15:30] VITALS: BP 111/76; PULSE 71; RESP 18; TEMP 36.7; O2SAT 100
--- NOTE | 2024-10-31 01:09 | OP_ITS ---
DATE OF SERVICE: 10/30/2024 SURGEON: Jose Ferro MD INDICATIONS: The patient presents for evaluation of epigastric discomfort, postprandial abdominal pain, and sense of dysphagia. Full consent has been obtained from her for this, including risks of bleeding and perforation. PREOPERATIVE DIAGNOSIS: Abdominal pain, postprandial abdominal discomfort, and dysphagia. POSTOPERATIVE DIAGNOSIS: Abdominal pain, postprandial abdominal discomfort, and dysphagia, anastomotic ulcer with narrowing of anastomosis and inflammatory changes of small bowel. PROCEDURE PERFORMED: Esophagogastroduodenoscopy with biopsies. ESTIMATED BLOOD LOSS: COMPLICATIONS: ANESTHESIA: Monitored anesthesia care. ASSISTANTS: SPECIMENS: DESCRIPTION OF PROCEDURE: The patient was placed in the left lateral decubitus position. The Olympus video gastroscope was passed in the posterior oropharynx and upper esophagus under direct vision. The scope was passed slowly to the distal esophagus. The gastroesophageal junction appeared at 33 cm. There was some slight irregularity consistent with reflux, but no evidence of any esophagitis nor any definitive Peter's esophagus. The scope entered the stomach. There was a small hiatal hernia. The gastric remnant was carefully inspected. At approximately 40 cm was the anastomosis, but this was narrowed and associated with ulceration. With insufflation of air, the anastomosis did open and then allowed fairly easy passage of the scope into the small bowel. The proximal portion of the small bowel had some overlying ulcerations, but more the distal bowel appeared normal. The scope was withdrawn back to the region of the anastomosis. There was an ulcer crater with overlying exudate, but no sign of any bleeding. Some suture material was noted as well. The scope was withdrawn back into the gastric remnant. The gastric remnant appeared normal both in the forward viewing and retroflexed positions. Biopsies were obtained. Given the ulceration of the anastomosis, no dilation of the anastomosis was performed. The scope was withdrawn back in the esophagus. Biopsies were obtained at the EG junction at 33 cm. Proximal to that the esophageal mucosa appeared normal. The scope was withdrawn from the patient. She tolerated the procedure well and was returned to recovery area in stable condition. IMPRESSION: 1. Anastomotic ulceration and relative narrowing of the anastomosis with associated inflammatory changes of proximal small bowel just distal to the anastomosis. 2. Hiatal hernia, gastroesophageal reflux. PLAN: The results of the biopsies will be checked. Given this finding, I suspect this is certainly the cause of her ongoing upper GI complaints of postprandial pain and vomiting. She has been on omeprazole 40 mg daily. She had recently been given a prescription for sucralfate from the ER but has not been using that. I will have her resume that at 1 g 4 times a day and will give her a new prescription for that. She does smoke and I suspect that is contributing to the anastomotic ulceration. I did advise her to stop smoking. I will plan to have her be seen by Dr. Gómez such that if this does not resolve and her symptoms persist she may need a surgical revision of the anastomosis. She was advised to avoid all aspirin and NSAIDs long-term. She needs to avoid alcohol as well. She has now been reportedly abstinent from alcohol since 2021. Hopefully that will continue. This has all been discussed with her in detail as well. MD MCKENZIE Arriaga/MIRI / [id number] MTDD
== END 2024-10-30 15:33 | disposition home or self-care (01) ==
PROVIDERS: PCP Internal Medicine; Visit Provider Internal Medicine
PROC: (CPT 43239; principal; 2024-10-30 14:00)
DX: R10.13 Epigastric pain (principal); R10.84 Generalized abdominal pain; R11.10 Vomiting, unspecified; R13.10 Dysphagia, unspecified; K91.89 Other postprocedural complications and disorders of digestive system; K28.9 Gastrojejunal ulcer, unspecified as acute or chronic, without hemorrhage or perforation; Z98.0 Intestinal bypass and anastomosis status; K44.9 Diaphragmatic hernia without obstruction or gangrene; J44.9 Chronic obstructive pulmonary disease, unspecified; K21.9 Gastro-esophageal reflux disease without esophagitis; F32.A Depression, unspecified; F10.21 Alcohol dependence, in remission; Z86.711 Personal history of pulmonary embolism; Z79.51 Long term (current) use of inhaled steroids; Z79.899 Other long term (current) drug therapy; Z88.6 Allergy status to analgesic agent; Z88.8 Allergy status to other drugs, medicaments and biological substances; F17.210 Nicotine dependence, cigarettes, uncomplicated
CPT/HCPCS: 43239; 88305; 88313; 88342; J2003; J2250; J2704

== ENCOUNTER 2024-11-03 14:18 | Outpatient (AMB) | payer BC, MEDICARE, SELFPAY ==
--- OUTSIDE RECORDS SUMMARY | 2024-10-13 07:30 | XMS_ITS ---
Author Organization Félix Zelaya MD Address [address] [place], [place] [id number] Care Team Providers Care Chiseler Head Name Role Phone Félix Zelaya Primary Care [...] Active ibuprofen Ibuprofen hives Drug Allergy Active [place] Flavor rash Drug Allergy Active piperacillin / [...] (uncoded) rash Allergy Active REASON FOR VISIT 1 week Medications Medication SIG (Take, Route, Frequency, Duration) Notes Start Date End Date Status metOLazone 2.5 MG 1 tablet Orally Once a day for 30 Not-Taking Diprolene AF 0.05 % 1 application to affected area Externally Once a day for 30 Not-Taking DULoxetine HCl 60 MG TK 1 C PO QAM Oral for 60 Not-Taking Furosemide 20 MG 1 tablet Orally Once a day 10/02/2013 Not-Taking Milk of Magnesia 400 MG/5ML 5 ml as needed Orally Four times a day Not-Taking Tylenol Childrens 160 MG/5ML Orally Active EpiPen 2-Jose Cruz 0.3 MG/0.3ML as directed In jection once for 1 dose 08/14/2011 Active Spiriva Respimat 2.5 MCG/ACT 2 puffs Inhalation Once a day for 30 days Active Clobetasol Propionate 0.05 % 1 application Externally Twice a day for 10 day(s) 11/23/2022 Active Abilify 2 MG 0.5 tablet Orally On ce a day Not-Taking Concerta 27 MG 1 tablet in the morning Orally Once a day Active Vitamin D-3 5000 UNIT 1 tablet Orally On ce a day Active Tylenol 325 MG 1 tablet as needed Orally every 6 hrs Active Escitalopram Oxalate 20 MG 1 tablet Oral ly Once a day Active Albuterol Sulfate (2.5 MG/3ML) 0.083% 3 ml as needed Inhalation every 4 hrs for 30 days 11/10/2010 Active Methylphenidate HCl 10 MG 3tablet on emp ty stomach Orally Once a day Active hydrOXYzine HCl 25 MG 1 tablet as needed Orally Once a day for 30 day(s) Active Carafate 1 GM/10ML 10 mL 1 hour before meals and at bedtime on an empty stomach Orally Four times a day Active traZODone HCl 100 MG 1 tablet at bedtime Orally Once a day for 30 day(s) Active Omeprazole 40 MG 1 capsule 1/2 to 1 hour before morning meal Orally Once a day for 30 days Active Vital Signs Blood pressure systolic 102 mm Hg 10/14/19 25 Blood pressure diastolic 70 mm Hg 025 Height 66 in 10/13/2024 Weight 198 lbs 10/13/2024 BMI 31.95 kg/m2 10/13/2024 weight is down 5 pounds sinc e 10-06-24 Encounters Encounter Location Date Provider Diagnosis Félix Zelaya MD [address] [place], [place] [id number] 10/13/2024 Félix Zelaya Gastritis K29.70 and Mesenteric adenitis I88.0 Assessments Encounter Date Diagnosis (ICD Code) Assessment Notes Treatment Notes Treatment Clinical Notes Section Notes 10/13/2024 Gastritis (ICD-10 - K29.70) try calling her surgeon for the intestinal 10/13/2024 Mesenteric adenitis (ICD-10 - I88.0) Plan Of Treatment Treatment Notes Assessment Notes Gastritis try calling her surg osman for the intestinal Next Appt Details Follow Up: 2 Weeks, Reason: Provider Name:Félix Matthews ier, 11/28/2024 09:15:00 AM, [address], [address], [place], [place], [id number], Progress Notes * Chris PLUNKETTFloriB:1975 (49 yo F)Acc No.[id number]:10/13/2024 Progress Notes Patient: Dora DOUGLAS Provider: Naomi Zelaya MD :1975 A ge:49 Y S ex:Female Date:10/13/2024 Address:[address] [place], [place] [id number] Subjective: * Chief Complaints: * 1 week * HPI: S ymptom(s): patient is a 49 yo female here for one week follow up visit/ still not hearing from gi. they are booking in january/ able to keep fluids down. taking protein shakes using info from after surgery. is going to try [place]. * ROS: G eneral/Constitutional: Denies C hills. D enies F atigue. D enies F ever. D enies H eadache. E NT: Denies S ore throat. R espiratory: Denies C ough. D enies S hortness of breath at rest. D enies S hortness of breath with exertion. G astrointestinal: Admits A bdominal pain. D enies B lood in stool.?Denies C onstipation. A dmits D iarrhea. A dmits N ausea. D enies V omiting. A dmits W eight loss. * Medical History: * Surgical History: * Hospitalization/Major Diagno stic Procedure: * Medications: T akingOmeprazole 40 MG Capsule Delayed Release 1 capsule 1/2 to 1 hour before morning meal Orally Once a day Carafate 1 GM/10ML Suspension 10 mL 1 hour before meals and at bedtime on an empty stomach Orally Four times a day traZODone HCl 100 MG Tablet [...] Cream 1 application Externally Twice a day Tylenol Childrens 160 MG/5ML Suspension Orally EpiPen 2- Jose Cruz 0.3 MG/0.3ML Device as directed Injection once Taking Omeprazole 40 MG Capsule Delayed Release 1 capsule 1/2 to 1 hour before morning meal Orally Once a day Taking Carafate 1 GM/10ML Suspension 10 mL 1 hour before meals and at bedtime on an empty stomach Orally Four times a day Taking traZODone HCl 100 MG [...] 1 application Externally Twice a day Taking Tylenol Childrens 160 MG/5ML Suspension Orally Taking EpiPen 2-Jose Cruz 0.3 MG/0.3ML Device as directed Injection once Not-Taking/PRNAbilify 2 MG Tablet 0.5 tablet Orally [...] Medication List reviewed and reconciled with the patientNot- Taking/PRN Abilify 2 MG Tablet 0.5 tablet Orally Once a day Not-Taking/PRN Milk of Magnesia 400 MG/5ML Suspension 5 ml as needed Orally Four times a day Not-Taking/PRN DULoxetine HCl 60 MG Capsule Delayed Release Particles TK 1 C PO QAM Oral Not-Taking/PRN Furosemide 20 MG Tablet 1 tablet Orally Once a day Not-Taking/PRN metOLazone 2.5 MG Tablet 1 tablet Orally Once a day Not-Taking/PRN Diprolene AF 0.05 % Cream 1 application to affected area Externally Once a day Medication List reviewed and reconciled with the patient * Allergies: C aramel Flavor: UTILactose: DiarrheaPiperacillin Sod-Tazobactam So: swellingHeparin (Porcine) in NaCl: swellingStrawberry Flavor: rashamoxicillin: rashwalnuts: rash SOBsesame seeds: rash SOBProzac: hivescherries: tongue swellingraspberries: rashPenicillin G Benzathine: RashHydrocodone Bitartrate: severe vomitingOmeprazole: only with the villa flavoredmango: hivesIbuprofen: hivesyes[Allergies Verified] Objective: * Vitals: H t: 66, Wt: 198, BMI:31.95, BP:102/70, Wt-k.81. weight is down 5 pounds since 10-06-24. * Examination: G eneral Examination: GENERAL APPEARANCE: a lert, well hydrated, in no distress.? HEAD: n ormocephalic. SKIN: g ood turgor, abnormal with eczema on foot and arm and psoriasis. HEART: r egular rate and rhythm, no murmurs, rubs, gallops.? LUNGS: n o wheezes, rales, rhonchi, good air movement, clear to auscultation bilaterally. ABDOMEN: s oft, nontender, nondistended. ? Assessment: * Assessment: 1. G astritis - K29.70 (Primary) 2 . M esenteric adenitis - I88.0 ? Plan: * Treatment: * Procedure Codes: * Follow Up: 2 Weeks * * Sign off status: Completed true * Provider: Naomi Zelaya MD Date: 10/13/2024 Generated for Ofe garza/Sarina/Mayasmitting on: 11/03/2024 03:03 PM EDT History and Physical Notes * HPI (History of Present Illness) Category Sub-Category Detail Notes Category Not es Symptom(s) patient is a 49 yo female here for one week follow up visit/ still not hearing from gi. they are booking in january/ able to keep fluids down. taking protein shakes using info from after surgery. is going [place] try [place] Examination Category Sub-Category Detail Notes Category Not es General Examination GENERAL APPEARANCE: alert, w ell hydrated, in no distress HEAD: normocephalic HEART: regular rate and rhy thm, no murmurs, rubs, gallops LUNGS: no wheezes, rales, r honchi, good air movement, clear to auscultation bilaterally ABDOMEN: soft, nontender, non distended SKIN: good turgor, abnorma l with eczema on foot and arm and psoriasis
--- NOTE | 2024-11-03 14:20 | MHC.OFFVISWM ---
VS Expanded 11/03/24 14:28 BP 119/79 Blood Pressure Location Rt brachial Blood Pressure Position Sitting Pulse 122 H Pulse Source Pulse Oximeter Temp 95.1 F L Temperature Source Temporal Artery Scan Pulse Oximetry 93 Oxygen Delivery Method Room Air Height 5 ft 4 in Weight 188 lb 12.8 oz BMI 32.4 Body Fat % 46.3 Body Fat Mass 88.4 Fat Free Mass 100.4 Visceral Fat Rating 11.0 Body Water % 37.37 Body Water Mass 71.4 Muscle Mass/Score 95.2 Basal Metabolic Rate/Score 1,426 Intake Visit Reasons: OV PO LSG LRYGBP 2015 Allergies amoxicillin (AMOXICILLIN) Allergy (Unknown, Verified 11/03/24 14:24) RASH fluoxetine (From PROZAC) Allergy (Unknown, Verified 11/03/24 14:24) RASH heparin (HEPARIN) Allergy (Unknown, Verified 11/03/24 14:24) JAUN SYNDROME heparin (porcine) Allergy (Unknown, Verified 11/03/24 14:24) swelling, red hydrocodone (HYDROCODONE) Allergy (Unknown, Verified 11/03/24 14:24) PROJECTILE VOMITING ibuprofen (From Motrin) Allergy (Unknown, Verified 11/03/24 14:24) Shortness of Breath naproxen Allergy (Unknown, Verified 11/03/24 14:24) Stomach Upset omeprazole (OMEPRAZOLE) Allergy (Unknown, Verified 11/03/24 14:24) RASH, head to toe rash penicillin G (PENICILLIN G) Allergy (Unknown, Verified 11/03/24 14:24) RASH penicillin V Allergy (Unknown, Verified 11/03/24 14:24) rash piperacillin (From ZOSYN) Allergy (Unknown, Verified 11/03/24 14:24) RASH strawberry (STRAWBERRY) Allergy (Unknown, Verified 11/03/24 14:24) SOB,RASH, ANAPHYLAXISIS tazobactam (From ZOSYN) Allergy (Unknown, Verified 11/03/24 14:24) RASH walnut Allergy (Unknown, Verified 11/03/24 14:24) Difficulty Breathing Caramelized Food coloring Allergy (Unknown, Uncoded 05/07/23 14:24) Itching CARMALIZED FOOD COLORING Allergy (Unknown, Uncoded 05/07/23 14:24) RASH Hydrocodone Bitartrate Allergy (Unknown, Uncoded 01/29/24 14:24) severe vomiting Mangos Allergy (Unknown, Uncoded 05/07/23 14:24) Difficulty Breathing Piperacillin Sod-Tazobactam So Allergy (Unknown, Uncoded 05/07/23 14:24) swelling Strawberries Allergy (Unknown, Uncoded 05/07/23 14:24) Blister HPI Comments Details: 49-year-old female returns to the office today in follow-up. She is status post gastric bypass in 2016. She has not been seen since at least 2019. She was seen by GI last week for complaints of abdominal pain. [place] text was received from Dr Ferro: She had a gastric bypass with you in approximately 2016. She has a history of alcohol abuse, although with sobriety for about three years, as well as continued smoking. I met her yesterday yesterday in the office as she was referred by her PCP, Félix Zelaya, for abdominal pain and vomiting. She had an upper G.I. series and CT scan that weren?t particularly revealing. Due to her symptoms when I saw her yesterday I had her undergo an upper endoscopy with me today. I found what looks like a significant anastomotic ulcer on the small bowel side with some definite narrowing of the anastomosis. However, I was able to get the scope past it into the small bowel. The gastric remnant and esophagus looked OK, although I did biopsies of each. She has been on omeprazole right along and did receive some Carafate from the ER recently so I told her to continue both of those, and advised her to obviously try to stop smoking, continue to avoid alcohol, and avoid all NSAIDs. She really can?t tolerate any solid food as she gets almost immediate postprandial fullness, pain, and vomiting. I told her to stay on full liquids with nutritional supplements for now. I told her that I would be in touch with you such that you could arrange follow up as I think she may need to be evaluated by you for a possible revision of the anastomosis if this doesn?t heal relatively soon,although obviously that would be a big deal. I did review all of this with her and her today after the procedure. The contact number I have for her is [phone]. Please let me know if you need me to do anything else for her in the meantime. Thanks very much. Discussed the case with Dr. Gómez and then spoke with the patient. She is agreeable to be seen in our clinic. She has not been seen since at least 2018. She was advised very clearly and explicitly to immediately stop smoking and start 5 shakes per day using 2 premier protein ready to drink shakes, 8 oz per shake and 2 celebrate rebuild powder shakes with 2 scoops each in 8 oz of water (her preferred liquid of choice) and 1 celebrate rebuild powder 1 scoop in 8 oz of water. She was prescribed pantoprazole 40 mg p.o. b.i.d. and sucralfate 10 mL p.o. q.i.d.. She may have water, Gatorade 0 although no soup no broth no yogurt no solids. She was made aware that if she is unable to tolerate the shakes or worsens in any way she will need a PICC line for TPN and lipids. Additionally, she will be scheduled for repeat upper endoscopy in 1 month. I will have the office call her to arrange for follow-up appointment in the office next week. Additionally, I gave her my cell phone number to communicate by text if she is having any problems and I made her aware that I would be calling her daily over the next several days. She was in agreement with the plan. Since the plan was initiated on Sunday, I spoke with the patient daily and she has been tolerating the meal plan without any difficulty. No complaints of abdominal pain, nausea, vomiting. Meal plan: Using premier protein ready to drink shake 8 oz 8 oz Celebrate rebuild protein powder Two scoops in 8 oz of water Two scoops in 8 oz of water One scoop in 8 oz of water. [facility] Medical History (Updated 11/03/24 @ 14:48 by UQE Sanders) DDD (degenerative disc disease), lumbar Mass of shoulder region Bipolar 1 disorder GERD (gastroesophageal reflux disease) ADHD Depression History of pulmonary embolism History of GI bleed History of sepsis Foreign body (FB) in soft tissue Psoriatic arthritis Avascular necrosis COPD (chronic obstructive pulmonary disease) ARDS (adult respiratory distress syndrome) Surgical History (Updated 11/03/24 @ 14:25 by Betsy Goodrich CMA) Hx of bladder endoscopy History of cholecystectomy History of back surgery History of gastric bypass History of tracheostomy Social History (Updated 11/03/24 @ 14:26 by RACHEL Vega Household Members: Spouse Housing: House Do you presently have visiting nurse or other home services: No Alcohol intake: never Patient Tobacco Use Status: Former Tobacco user Tobacco use type: Cigarette Second Hand Smoke Exposure: No service: No Current occupational status: unemployed Current occupation: right hand dominant Sexual orientation: Straight/Heterosexual Physical Exam Vital Signs: Last Vital Signs Temp 95.1 F L 11/03/24 14:28 Pulse 122 H 11/03/24 14:28 BP 119/79 11/03/24 14:28 Pulse Ox 93 11/03/24 14:28 Oxygen Delivery Method Room Air 11/03/24 14:28 BMI result Body Mass Index 32.4 Const General: healthy appearing and no acute distress Resp Effort & Inspection: normal respiratory effort Auscultation: clear to auscultation bilaterally Cardio Rate: regular rate Rhythm: regular rhythm GI Auscultation: normal bowel sounds Extrem General: Yes normal to inspection Assessment & Plan Assessment & Plan (1) Marginal ulcer: Code(s): K28.9 - Gastrojejunal ulcer, unspecified as acute or chronic, without hemorrhage or perforation Category: Medical Plan: Patient is tolerating high-dose PPI and sucralfate. She is tolerating her shakes. She is having no soups, no broth, no solids. She is drinking adequate fluids. She is not having any further nausea or vomiting. We will continue her current meal plan, have her return to the office in approximately 3 weeks and plan for upper endoscopy by Dr. Gómez about 1 month after her recent upper endoscopy with GI. She has my cell phone number, we have been communicating on a daily basis. She has been encouraged to text with any questions or concerns.
[2024-11-03 14:28] VITALS: BP 119/79; PULSE 122; TEMP 35.1; O2SAT 93; BMI 32.4
--- OUTSIDE RECORDS SUMMARY | 2024-11-03 15:03 | XMS_ITS | Encounter Summary ---
Author Organization [employer] Address [address] [place] [address] 7 [place] [address] Care Team Providers Care Collective Bargaining Specialist Name Role Phone Unavailable Primary Care Provider Unavailabl e Reason for Visit * Reason Onset Date Comments insurance 10/31/2022 Encounter Details Date Type Department Care Team ([facility] st Contact Info) Description 10/31/2022 Telephone C [facility] [address] [place] [address] Nolan Morrison DDS [address] [place] [address] insurance Social History Tobacco Use Types Packs/Day [...] sent to [facility] located on [address] [place] [address] [address] [place] [address] . and fax # [phone]. Please call pt once referral is completed . * Telephone Encounter - Brii Kirby - 10/31/2022 10:09 AM EDT I recahed out to billing because the patient states to have [facility] and provided ID number [id number] but when I went to add the [...]
--- OUTSIDE RECORDS SUMMARY | 2024-11-03 15:03 | XMS_ITS | Clinical Summary ---
Author Organization [facility] Address [address] [place] [address] Care Team Providers Care Cook Ice Cream Name Role Phone Félix Zelaya MD Primary Care Provider [phone] Surgical History Surgery Date Site/Laterality Comments OTHER SURGICAL HISTORY 04/2010 PROCEDURE: HISTORY OTHER; COMMENT: tracheotomy OTHER SURGICAL HISTORY 04/2010 PROCEDURE: GASTROSTOMY/JEJUNOSTOMY TUBE OTHER SURGICAL HISTORY PROCEDURE: HISTORY OTHER; COMMENT: bariatric surgery Medical History Medical History Date Comments History of bariatric surgery 05/08/2018 DX: History of bariatric surgery Interstitial lung disease (C TX/HCC V24, CMS/HCC V28) 02/20/2018 DX:Interstitial lung disease (HCC) BETHANY (obstructive sleep apnea) 02/20/2018 DX :BETHANY (obstructive sleep apnea); COMMENT: [facility] [place] study. Date 04/17/2018. SE 78 [...] Brother at 1month Coronary artery disease Father [place] Relation Name Status Comments Aunt Brother Father [...] Documents on File Type Date Recorded Patient Bench Shear Operator Expl anation Health Care Decision (hx) 06/02/2010 AD MARTINEZ DIRECTIVE Health Care Decision (hx) 06/02/2010 AD MARTINEZ DIRECTIVE Health Care Decision (hx) 06/02/2010 AD MARTINEZ DIRECTIVE Care Teams Cook Ice Cream Relationship Specialty Start Date End Date Félix Zelaya MD PCP - General Internal Medicine 01/17/18
--- OUTSIDE RECORDS SUMMARY | 2024-11-03 15:03 | XMS_ITS | Data Portability ---
Author Organization [facility] [address] Address [address] [place] [address] Assessment No assessment recorded. Plan of Treatment Reminders Order Date Submit Date Provider Last Modified By Organization Details Last Modified Time Details Appointments None recorded. Lab None recorded. Referral None recorded. Procedures None recorded. Surgeries None recorded. Imaging None recorded. Medication Orders prednisone 20 mg tablet 2022 023 [facility]/Pharmacy #[id number], [address] [place], [address], 18:10:49 Zithromax Z-Jose Cruz 250 mg tablet 2022 023 [facility]arm[facility] #[id number], [address] [place], [address], 18:10:49 Patient TargetsNo targets recorded. Patient Instructions Encounter Date Encounter Id Patient Instructions Last Modified By Organization Details Last Modified Time 01/11/2023 [id number] Treatment is antibiotics as prescribed, inhaler and [...] Organization Details Recorded Time Disorder of lung 32164737 Active 2022 h/o pneumonia, scarring cdc couldn;t figure out since 2010--pt is on O2 continuous [facility] 17:49:53 Attention deficit hyperactiv ity disorder 393671021 Active 2022 QUE [facility] 17:52:47 Osteonecro sis 645470196 Active 2022 [facility] 17:53:07 Psoriatic arthritis 079974385 Active 2022 BUDDY GOMEZ abelino, [place] - [facility] 17:53:15 Problem Notes None recorded. Medical Equipment None Reported. Allergies Allergen ID Allergen Name Allergen Category Reaction Reaction Severity Criticality Documentation Date Start Date Code Code System Note Provider Name and Address Organization Details Recorded Time 651930 ibuprofen medicatio n anaphylax is Not available Not available 01/11/2023 5640 RxNorm BUDDY JASON roca, [place] - [facility] 17:50:23 162637 heparin medicatio n other Not available Not [...] Updated DateTime 3 162.56 cm 29.5 kg/m2 58154.8 9 g 18 /min 97.3 [degF] 95 % 95 % 2 L/min 99 /min 5 107/77 mm[Hg] BUDDY GREY [facility] 17:56:59 Social History Question Answer Notes LastModified by [employer] Details LastModified Time Tobacco Smoking Status Never Smoker BUDDY roca PA [facility] 01/11/2023 17:54:31 Have You Recently Traveled Abroad? No [email or web address] Information not available 01/11/2023 Sex: Unknown Functional Status Question Answer Note LastModified by [employer] Details LastModified Time Do you use any illicit or recreational drugs? No [email or web address] Information not available 01/11/2023 Do you or have you ever used any other forms of tobacco or nicotine? No [email or web address] Information not available 01/11/2023 What is your level of alcohol consumption? None [email or web address] Information not available 01/11/2023 Mental Status None recorded. Family History Relationship Description Onset Age of this Age Resolved Age Notes LastModified by Organization Details LastModified Time Brother Bipolar disorder [email or web address] Not available 2022 17:53:36 Father Heart disease iscemi c heart valve d/t agent orange Not available 01/11/2023 17:54:14 Medical History No medical history recorded. Gynecological History Statement/Question Response Date of LMP Obstetrics History GPAL:G 0 P 0 0 0 0 Past Encounters Encounter ID Performer Location Encounter Start Date Encounter Closed Date Diagnosis/Indication Diagnosis SNOMED-CT Code Diagnosis ICD10 Code Diagnosis Note [id number] [address] [place] [address] 03/07/2021 12:21:54 03/07/2021 15:44:35 [id number] [place] [address] [place] [address] 01/11/2023 17:27:57 01/11/2023 18:14:11 Acute lower respiratory tract infection 065773977 J22 Health Concerns Section Related Observation LastModified by Organization Detai ls LastModified Time None Recorded Concern Status LastModified by Organization Details LastModified Time None Recorded Advance Directives Directive None Recorded Payers Insurance Date Sequence Insurance Name Policy Number Policy Sunshine Covered Member ID Sunshine Member ID Guarantor Name 01/11/2023 1 [place] [employer] - [facility] (PP[facility]) Camron Plunkett [id number] Dora Plunkett 01/11/2023 2 MEDICARE B-[place]: [facility] Dora Plunkett [id number] Dora Plunkett OBGyn Episode No OBEpisode recorded.
--- OUTSIDE RECORDS SUMMARY | 2024-11-03 15:03 | XMS_ITS | Patient Health Record ---
Author Organization [facility] Address [address] [place] [id number] Care Team Providers Care Presentation Manager Name Role Phone Félix Zelaya MD Primary Care Provider Jose Solis [phone] Allergies Allergen (clinical drug ingredient) Drug/Non Drug [...] needed Orally every 6 hrs 10/29/2024 Active Sucralfate 1 GM 1 tablet on an empty stomach--you can dissolve it in a few ounces ounces of warm water if need be to facilitate swallowing it Orally 4 times a day before breakfast, lunch, supper, and bedtime. for 30 days 10/30/2024 Active Dextroamphetamine Sulfate ER 5 MG 1 [...] Status Risk Notes Problem Colon cancer screening (011185551) Colon cancer screening (Z12.11) Active confirmed Problem Epigastric pain (60322818) Epigastric abdominal pain (R10.13) Active confirmed Problem Dysphagia (98114352) Dysphagia (R13.10) Active confirmed Problem Gastroesophageal reflux disease (952639011) GERD (gastroesophag eal reflux disease) (K21.9) Active confirmed Problem Vomiting (734911408) Vomiting (R11.10) Active confirmed Vital Signs Temperature 98.4 degrees Fahrenheit 10/29/2024 Blood pressure diastolic 01 mm Hg 10/29/2024 Height 64 in 10/29/2024 Blood pressure systolic 001 mm Hg 10/29/2024 Weight 193.4 lbs 10/29/2024 BMI 33.19 kg/m2 10/29/2024 Procedures Procedure Date Ordered Date Performed Result Body Sit e UPPER GI ENDOSCOPY BALLOOON DILATION OF ESOPH 10/29/2024 N/A Encounters Encounter Location Date Provider Diagnosis [facility] Outpatient [address], [place] [id number] 10/30/2024 Jose Ferro [facility] [address] [place] [phone] 10/29/2024 Jose Ferro Colon cancer screening Z12.11 ; GERD (gastroesophageal reflux disease) K21.9 ; Epigastric abdominal pain R10.13 ; Dysphagia R13.10 and Vomiting R11.10 [facility] [address] [place] [phone] 10/30/2024 Jose Ferro Assessments Encounter Date Diagnosis (ICD Code) Assessment [...] GI ENDOSCOPY BALLOOON DILATION OF ESOPH 10/29/2024 Insurance Providers Payer Name Payer Address Payer Phone Subscriber Number Group Number Insured Name Patient Relationship to Insured Coverage Start Date Coverage End Date [facility] [address] [place] [address] [phone] [id number] TODD BLUE Self - patient is the insured 6 [place] [employer] [facility] [address] NOAH VIVAS [phone] [id number] 1 TODD BLUE Self - patient is the insured 6 Medical (General) History Medical History History ICD Code ARDS--3 month hospitalization at [facility] 2010 with Trach and PEG COPD Denies AR,DM,CVA,renal disease Depression/Bipolar/ADHD Recovering alcoholic since 2021 Pulmonary embolism GI bleed 2016 Surgical History Surgery Date(Month/Year) Back 2018 Gastric Bypass at [facility] 2016 G-tube and Trach during an ICU stay 2010
--- OUTSIDE RECORDS SUMMARY | 2024-11-03 15:03 | XMS_ITS | Clinical Summary ---
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 0 Active Albuterol Sulfate 108 (90 BASE) MCG/ACT AEROSOL POWDER,BREATH ACTIVATED Inhale into the lungs. 0 Active aripiprazole (ABILIFY) 5 MG tablet Take 1 Tablet by mouth daily. 1/2 tab daily 0 03/07/2023 Active escitalopram (LEXAPRO) 20 MG tablet Take 1 Tablet by mouth daily. 0 03/29/2023 Active hydrOXYzine (ATARAX) 25 MG tablet TAKE 1 TABLET BY MOUTH TWICE A DAY NEEDED 0 03/07/2023 Active methylphenidate (RITALIN) 10 MG tablet TAKE 1 TABLET BY MOUTH THREE TIMES A DAY 0 05/07/2023 Active methylphenidate 27 MG CR tablet TAKE 1 TABLET BY MOUTH EVERY DAY IN THE MORNING 0 05/08/2023 Active omeprazole (PRILOSEC) 20 MG capsule TAKE 1 CAPSULE BY MOUTH EVERY DAY 30 MINUTES BEFORE MORNING MEAL FOR 90 DAYS 0 04/06/2023 Active Denta 5000 Plus 1.1 % Cream PLEASE USE TWICE A DAY WHEN BRUSHING TEETH 0 04/07/2023 Active tramadol (ULTRAM) 50 MG tablet TAKE 1 TABLET BY MOUTH EVERY DAY NEEDED 0 04/03/2023 Active trazodone (DESYREL) 100 MG tablet TAKE 1 TABLET BY MOUTH EVERY DAY AT BEDTIME NEEDED 0 03/30/2023 Active Multiple Vitamin (Multivitamin Adult) Tab Take by mouth. 0 Active Calcium-Magnesium 300-300 MG Tab Take by mouth. 0 Active Iron-Vitamin C 65-125 MG Tab Take by mouth. 0 Active Vitamin D, Cholecalciferol, 25 MCG (1000 UT) Tab Take by mouth. 0 Act emma B Complex Vitamins (VITAMIN B COMPLEX OR) Take by mouth. 0 Active Active Problems Problem Noted Date History of bariatric surgery 05/08/2018 Supplemental oxygen dependent 05/08/2018 Overview: 02/2018 With moderate activity and at night only BETHANY mild AHI 12 02/20/2018 [place] [facility] [place]. Date 04/17/2018. SE 78 % SM 91 %; spent 22 % of the study in REM. On CPAP @ 12; RDI 1.7 (AHI 1.7), Central apneas 1; Obstructive apneas 0; Mixed apneas 0; hypopneas 0; RERAs 0; and, average oxygen saturation was 95%. For the entire study, PLMs ~21. Interstitial lung disease 02/20/2018 Restrictive lung disease 02/20/2018 Psoriatic arthritis 02/20/2018 Family History Medical History Relation Name Comments Cancer of the Stomach Aunt w/meta stasis Other, reverse chest Brother at 1month CAD Father SC Relation Name Status Comments Aunt Brother Father Alive Mother Alive Social History Tobacco Use Types Packs/Day Years Used Date Smoking Tobacco: Former Smokeless Tobacco: Never Tobacco Cessation:Counseling Given: Not Answered Alcohol Use Standard Drinks/Week Comments No 0 (1 standard drink = 0.6 oz pur e alcohol) Sex Assigned at Date Recorded Not on file Job Start Date Occupation Industry Not on file Not on file Not on file Last Filed Vital Signs Vital Sign Reading Time Taken Comments Blood Pressure 116/80 07/20/2023 11:54 AM EDT Pulse 79 07/20/2023 11:54 AM EDT Temperature 36.3 C (97.4 F) 07/20/2023 11:54 AM EDT Respiratory Rate 16 07/20/2023 11:54 AM EDT Oxygen Saturation 96% 07/20/2023 11:54 AM EDT Inhaled Oxygen Concentration - - Weight 83.9 kg (185 lb) 07/20/2023 11:54 AM EDT Height 162.6 cm (5' 4 ) 07/20/2023 11:54 AM EDT Body Mass Index 31.76 07/20/2023 11:54 AM EDT Plan of Treatment Health Maintenance Due Date Last Done Comments Covid-19 Vaccine (#1) 01/17/1974 DEPRESSION SCREEN 1985 HEPATITIS C SCREENING 07/19/1991 CHOLESTEROL SCREENING 1993 CERVICAL CANCER SCREENING 1994 BASELINE HEALTH EXAM 40-64 2013 MAMMOGRAM 2013 COLON CANCER SCREENING 07/19/2023 SHINGLES VACCINE (1 of 2) 07/19/2023 BMI CHECK/ADVISE 04/09/2024 INFLUENZA (#1) 2024 03/20/2017, 01/25/2016 DTAP/TDAP/TD (2 - Td or Tdap) 12/29/2029 12/30/2019 PNEUMOCOCCAL VACCINE FOR HIG H RISK PATIENTS (#1) 2038 01/13/2016 Care Teams Photoengraving Helper Relationship Specialty Start Date End Date Félix Zelaya MD PCP - General Internal Medicine 01/17/18
== END 2024-11-03 14:49 | disposition home or self-care (01) ==
LOC: HO.HBS 14:18
PROVIDERS: PCP Internal Medicine; Visit Provider Physician Assistant Surgical
DX: K28.9 Gastrojejunal ulcer, unspecified as acute or chronic, without hemorrhage or perforation (principal)
CPT/HCPCS: 99214

== ENCOUNTER 2024-11-28 13:16 | Outpatient (AMB) | payer BC, MEDICARE, SELFPAY ==
--- OUTSIDE RECORDS SUMMARY | 2024-11-28 13:20 | XMS_ITS | Patient Health Record ---
Author Organization Félix Zelaya MD Address [address] [place], [place] [id number] Care Team Providers Care Turnstile Attendant Name Role Phone Félix Zelaya Primary Care Provider Allergies Allergen (clinical drug ingredient) Drug/Non Drug Allergy documented on EMR Reaction Allergy Type Onset Date Status fluoxetine Prozac (uncoded) hives Allergy Ac tive sesame seed allergenic extract sesame seeds (uncoded) rash SOB Allergy Active walnuts (uncoded) rash SOB Allergy Ac tive amoxicillin amoxicillin (uncoded) rash Allergy Active ibuprofen Ibuprofen hives Drug Allergy Active [place] Flavor rash Drug Allergy Active piperacillin / [...] Active cherries (uncoded) tongue swelling Allergy Active Results Component Value Reference Range Notes Complete Blood Count Auto Di ff Reviewed date:10/07/2024 04:50:17 PM Interpretation: Performing Lab:[facility], [address] [place] [phone] Notes/Report: White Blood Count 9.5 4.8-10.8 X10*3/uL Red Blood Count 4.96 4.20-5.50 X10*6/uL Hemoglobin 13.9 12.0-16.0 g/dl Hematocrit 42.6 37.0-47.0 % Mean Corpuscular Volume 85.9 80.0-98.0 fL Mean Corpuscular Hemoglobin 28.0 27.0-33.0 pg Mean Corpuscular HGB Conc 32.6 31.0-35.0 g/dl Red Cell Distribution Width 12.9 11.0-16.0 % Platelet Count 312 160-400 X10*3/uL Mean Platelet Volume 10.9 9.4-12.3 fL Neutrophils Percent Auto 65.2 45-73 % Imm Gran Pct Auto 0.3 0.0-0.4 % Lymphocytes Percent Auto 24.8 20-40 % Monocytes Percent Auto 6.6 2-11 % Eosinophils Percent Auto 2.3 0-4 % Basophils Percent Auto 0.8 0-2 % NRBC Pct Auto 0.0 0.0-0.2 /100WBC Neutrophils Absolute Auto 6.2 2.0-8.3 x10*3/uL Imm Gran Abs Auto 0.03 0.00-0.03 X10*3/uL Lymphocytes Absolute Auto 2.4 1.2-4.9 X10*3/uL Monocytes Absolute Auto 0.6 0.1-1.2 X10*3/uL Eosinophils Absolute Auto 0.2 0.0-0.4 X10*3/uL Basophils Absolute Auto 0.1 0.0-0.2 X10*3/uL NRBC Abs Auto 0.000 0.0-0.012 X10*3/uL Comprehensive Chana. Panel Fa st Reviewed date:10/06/2024 01:01:51 PM Interpretation: Performing Lab:[facility], [address] [place] [phone] Notes/Report: Sodium 137 135-145 mmol/L Potassium 4.4 3.3-5.1 mmol/L Chloride 105 96-108 mmol/L Carbon Dioxide 23 22-29 mmol/L Anion Gap 13 12-20 Blood Urea Nitrogen 8 9-16 mg/dL Creatinine 0.81 0.5-1.4 mg/dL Estimated Glomerular Filt Rate > 60 Chronic Kidney Disease: Estimated GFR < 60 mL/min/1.73m2 Severe Kidney Disease: Estimated GFR < 15 mL/min/1.73m2 Glucose Fasting 94 60-99 mg/dL Calcium 9.8 8.4-10.2 mg/dL Bilirubin Total 0.5 0.0-1.0 mg/dL Aspartate Amino Transferase 27 5-31 U/L Alanine Aminotransferase 15 0-31 U/L Total Protein 7.6 6.5-8.0 g/dL Albumin Level 4.4 3.5-5.0 g/dL Alkaline Phosphatase 84 39-117 U/L Amylase Reviewed date:10/06/2024 01:27:07 PM Interpretation: Performing Lab:[facility], [address] [place] [phone] Notes/Report: Amylase 24 28-100 U/L Lipase Reviewed date:10/06/2024 01:01:32 PM Interpretation: Performing Lab:[facility], [address] [place] [phone] Notes/Report: Lipase 14 8-78 U/L XR shoulder RT min 2V Reviewed date:06/16/2024 12:46:55 PM Interpretation: Performing Lab: Notes/Report: [address] [address] XRay Report Signed Patient: Dora Plunkett MR#: [id number] : 1975 Acct:[id number] Age/Sex: 48 / F ADM Date: 06/15/24 Loc: .ED Attending Dr: Ordering Physician: David Fountain Date of Service: 06/15/24 Procedure(s): XR shoulder RT min 2V Accession Number(s): [id number] cc: David Fountain; Félix Zelaya MD CLINICAL [...] OV> 06/15/24 1503 DD/ 1502 TD/TT: 06/15/24 150 Motel Keeper: [address] [address] XRay Report Signed Patient: Chris Plunkett MR#: [id number] : 1975 Acct:[id number] Age/Sex: 48 / F ADM Date: 06/15/24 Loc: HO.ED Attending Dr: Ordering Physician: David Fountain Date of Service: 06/15/24 Procedure(s): XR rishi ulder RT min 2V Accession Number(s): [id number] cc: David Fountain; Félix Zelaya MD CLINICAL [...] 06/15/24 1503 DD/ 1502 TD/TT: 06/15/24 1502 Motel Keeper: XR forearm RT 2V Reviewed date:06/16/2024 12:47:32 PM Interpretation: Performing Lab: Notes/Report: [address] [address] XRay Report Signed Patient: Dora Plunkett MR#: [id number] : 1975 Acct:[id number] Age/Sex: 48 / F ADM Date: 06/15/24 Loc: .ED Attending Dr: Ordering Physician: David Fountain Date of Service: 06/15/24 Procedure(s): XR forearm RT 2V Accession Number(s): [id number] cc: David Fountain; Félix Zelaya MD CLINICAL [...] 06/15/24 1501 DD/ 1459 TD/TT: 06/15/24 145 Motel Keeper: [address] [address] XRay Report Signed Patient: Chris Plunkett MR#: [id number] : 1975 Acct:[id number] Age/Sex: 48 / F ADM Date: 06/15/24 Loc: .ED Attending Dr: Ordering Physician: David Fountain Date of Service: 06/15/24 Procedure(s): XR for earm RT 2V Accession Number(s): [id number] cc: David Fountain; Félix Zelaya MD CLINICAL HISTORY: pain 2 view right forearm Comparison: None Findings: No fractures or dislocations. No joint effusion. No significant arthr itic change. No radiopaque foreig n body. IMPRESSION: 1. Normal right forearm This document has be en electronically signed by: Kamilla Gonzalez MD on 06/15/2024 14:59:57 Dictated By: Kamilla Gonzalez MD Signed By: <Electron icaeliana signed by Kamilla Gonzalez MD in OV> 06/15/24 1501 DD/ 1459 TD/TT: 06/15/24 1459 Motel Keeper: XR elbow RT min 3V Reviewed date:06/16/2024 12:47:14 PM Interpretation: Performing Lab: Notes/Report: [address] [address] XRay Report Signed Patient: Dora Plunkett MR#: [id number] : 1975 Acct:[id number] Age/Sex: 48 / F ADM Date: 06/15/24 Loc: HO.ED Attending Dr: Ordering Physician: David Fountain Date of Service: 06/15/24 Procedure(s): XR elbow RT min 3V Accession Number(s): [id number] cc: David Fountain; Félix Zelaya MD CLINICAL [...] 06/15/24 1502 DD/ 1500 TD/TT: 06/15/24 1500 Motel Keeper: [address] [address] XRay Report Signed Patient: Chris Plunkett MR#: [id number] : 1975 Acct:[id number] Age/Sex: 48 / F ADM Date: 06/15/24 Loc: HO.ED Attending Dr: Ordering Physician: David Fountain Date of Service: 06/15/24 Procedure(s): XR elb ow RT min 3V Accession Number(s): [id number] cc: David Fountain; Félix Zelaya MD CLINICAL HISTORY: pain 3 view right elbow Comparison: None Findings: No acute fractures o r dislocations. No significant arthr itic change or erosions. No joint effusion. No radiopaque foreig n body. IMPRESSION: 1. No acute findings This document has be en electronically signed by: Kamilla Gonzalez MD on 06/15/2024 15:00:59 Dictated By: Kamilla Gonzalez MD Signed By: <Florencio rangel signed by Kamilla Gonzalez MD in OV> 06/15/24 1502 DD/ 1500 TD/TT: 06/15/24 1500 Motel Keeper: Complete Blood Count Auto Di ff Reviewed date:09/22/2024 04:34:20 PM Interpretation: Performing Lab:[facility], [address] [place] [phone] Notes/Report: White Blood Count 6.5 4.8-10.8 X10*3/uL Red Blood Count 4.19 4.20-5.50 X10*6/uL Hemoglobin 12.1 12.0-16.0 g/dl Hematocrit 35.9 37.0-47.0 % Mean Corpuscular Volume 85.7 80.0-98.0 fL Mean Corpuscular Hemoglobin 28.9 27.0-33.0 pg Mean Corpuscular HGB Conc 33.7 31.0-35.0 g/dl Red Cell Distribution Width 13.2 11.0-16.0 % Platelet Count 248 160-400 X10*3/uL Mean Platelet Volume 9.2 9.4-12.3 fL Neutrophils Percent Auto 58.9 45-73 % Imm Gran Pct Auto 0.5 0.0-0.4 % Lymphocytes Percent Auto 29.3 20-40 % Monocytes Percent Auto 8.4 2-11 % Eosinophils Percent Auto 2.3 0-4 % Basophils Percent Auto 0.6 0-2 % NRBC Pct Auto 0.0 0.0-0.2 /100WBC Neutrophils Absolute Auto 3.8 2.0-8.3 x10*3/uL Imm Gran Abs Auto 0.03 0.00-0.03 X10*3/uL Lymphocytes Absolute Auto 1.9 1.2-4.9 X10*3/uL Monocytes Absolute Auto 0.5 0.1-1.2 X10*3/uL Eosinophils Absolute Auto 0.2 0.0-0.4 X10*3/uL Basophils Absolute Auto 0.0 0.0-0.2 X10*3/uL NRBC Abs Auto 0.000 0.0-0.012 X10*3/uL Comprehensive Met. Panel Reviewed date:09/22/2024 04:31:10 PM Interpretation: Performing Lab:[address] [phone] Notes/Report: Sodium 143 135-145 mmol/L Potassium 4.2 3.3-5.1 mmol/L Chloride 107 96-108 mmol/L Carbon Dioxide 28 22-29 mmol/L Anion Gap 12 12-20 Blood Urea Nitrogen 8 9-16 mg/dL Creatinine 0.73 0.5-1.4 mg/dL Creatinine Clr Calc Pharmacy 103.2 Provided height and weight: 162.56 cm, 97.2 kg. eGFR (calculated from the MDRD study equation) and eCrCl (calculated from the Cockcroft-Gault equation) are based on different parameters and may not yield comparable results. If eCrCl result is absurd, please check patient's height/weight. Estimated Glomerular Filt Rate > 60 Chronic Kidney Disease: Estimated GFR < 60 mL/min/1.73m2 Severe Kidney Disease: Estimated GFR < 15 mL/min/1.73m2 Glucose Random 90 60-115 mg/dL Calcium 8.9 8.4-10.2 mg/dL Bilirubin Total 0.3 0.0-1.0 mg/dL Aspartate Amino Transferase 18 5-31 U/L Alanine Aminotransferase 10 0-31 U/L Total Protein 6.1 6.5-8.0 g/dL Albumin Level 3.6 3.5-5.0 g/dL Alkaline Phosphatase 65 39-117 U/L Magnesium Reviewed date:09/22/2024 04:25:25 PM Interpretation: Performing Lab:[facility], [address] [place] [phone] Notes/Report: Magnesium 1.8 1.6-2.6 mg/dL Troponin-I High Sensitivity Reviewed date:09/22/2024 04:30:35 PM Interpretation: Performing Lab:[address] [address] Notes/Report: Troponin-I High Sensitivity < 2.7 <3.5-17.0 ng/L The Peña high sensitivity Troponin-I results should be used in conjunction with other diagnostic information such as ECG, clinical observations and information, and patient symptoms to aid in the diagnosis of OR. Lipase Reviewed date:09/22/2024 04:25:16 PM Interpretation: Performing Lab:[address] [address] Notes/Report: Lipase 11 8-78 U/L UA CC w/rflx Micro + Cult Reviewed date:09/23/2024 12:43:01 PM Interpretation: Performing Lab:[address] [address] Notes/Report: Urine, Clean Catch Color Urine Yellow Appearance Urine Clear PH >= 9.0 5.0-9.0 Glucose Urine UA Negative Negative mg/dL Urine Blood Negative Negative Specific [place] - Urine 1.020 1.005-1.025 Urine Protein 30 (1+) Neg-Trace mg/dL Urine Ketones Negative Negative mg/dL Nitrite Urine Negative Negative Leukocyte Esterase Urine Negative Negative UA ClnCatch+Micro w/rflx Cul t Reviewed date:09/23/2024 10:12:39 AM Interpretation: Performing Lab:[facility], [address] [place] [phone] Notes/Report: Urine, Clean Catch Color Urine Yellow Appearance Urine Clear PH >= 9.0 5.0-9.0 Glucose Urine UA Negative Negative mg/dL Urine Blood Negative Negative Specific [place] - Urine 1.020 1.005-1.025 Urine Protein 30 (1+) Neg-Trace mg/dL Urine Ketones Negative Negative mg/dL Nitrite Urine Negative Negative Leukocyte Esterase Urine Negative Negative RBC Urine 0-2 0-2 /HPF WBC Urine 0-5 0-5 /HPF Squamous Epithelial Cell Urine 6-10 0-2 /HPF Bacteria Urine None Seen None Seen Hyaline Casts Urine 0-2 0-2 /LPF CT abdomen pelvis w con Reviewed date:09/23/2024 10:12:18 AM Interpretation: Performing Lab: Notes/Report: [address] [place] [address] CT Scan Report Signed Patient: Dora Plunkett MR#: [id number] : 1975 Acct:[id number] Age/Sex: 49 / F ADM Date: 09/22/24 Loc: HO.ED Attending Dr: Ordering Physician: Cali Haney MD Date of Service: 09/22/24 Procedure(s): CT abdomen pelvis w IV con Accession Number(s): [id number] cc: Félix Zelaya MD; Cali Haney MD Report Number: [id number]: Total DLP = 799.00 mGy-cm CLINICAL HISTORY: upper abd miles CT abdomen and pelvis with IV contrast. COMPARISON: None FINDINGS: Mild bronchiectasis and septal thickening along the lung bases. Small hiatal hernia. No focal hepatic lesion. Cholecystectomy. Normal spleen. Normal adrenal glands. Symmetric renal enhancement. No hydronephrosis. Status post gastric bypass. There is mild edema along the gastric remnant and pancreas. Pancreatic duct is not dilated. No pancreatic head mass identified Normal appendix. Mild colonic stool burden. No bowel obstruction. Multiple normal-sized and enlarged mesenteric lymph nodes primarily along the mesenteric root. For example mesenteric lymph node measuring 1.5 x 1.3 x 2.6 cm (series 4, image 301). Mild aortoiliac atherosclerotic vascular calcifications. Normal appearance of the urinary bladder. No adnexal mass. No acute fracture or suspicious bone lesion. Mild lower lumbar spondylosis. IMPRESSION: 1. Mild edema along the gastric remnant and pancreas may possibly represent gastritis (favored) versus mild pancreatitis. No free intraperitoneal air or organizing fluid collection. Pancreatic duct is not dilated. No evidence of pancreatic head mass. 2. Multiple normal-sized and enlarged mesenteric lymph nodes primarily along the mesenteric root. These are most likely reactive in the absence of known malignancy. Recommend correlation clinically. 3. Mild pulmonary fibrosis along the partially visualized lung bases. This document has been electronically signed by: Urbano Steward MD on 09/22/2024 18:41:43 Dictated By: Urbano Steward MD Signed By: <Electronically signed by Urbano Steward MD in OV> 09/22/241842 DD/ 40 TD/TT: 09/22/241840 Motel Keeper: [address] [address] [address] Scan Report Signed Patient: Chris Plunkett MR#: [id number] : 1975 Acct:[id number] Age/Sex: 49 / F ADM Date: 09/22/24 Loc: HO.ED Attending Dr: Ordering Physician: Cali Haney MD Date of Service: 09/22/24 Procedure(s): CT abd omen pelvis w IV con Accession Number(s): [id number] cc: Félix Zelaya MD; Cali Haney MD Report Number: [id number]: Total DLP = 799.00 mGy-cm CLINICAL HISTORY: up per abd miles CT abdomen and pelvi s with IV contrast. COMPARISON: None FINDINGS: Mild bronchiectasis and septal thickening along the lung bases. Small hiatal hernia. No focal hepatic les ion. Cholecystectomy. Normal spleen. Normal adrenal glands. Symmetric renal enhancement. No hydronephrosis. Status post gastric bypass. There is mild edema along the gastric remnant and pancreas. Pancre atic duct is not dilated. No pancreatic head mass identified Normal appendix. Mil d colonic stool burden. No bowel obstruction. Multiple normal-size d and enlarged mesenteric lymph nodes primarily along the mesenteric root. For example mesenteric lymph node measuring 1.5 x 1.3 x 2.6 cm (series 4, image 301). Mild aortoiliac atherosclerotic vascular calcifications. Normal appearance of the urinary bladder. No adnexal mass. No acute fracture or suspicious bone lesion. Mild lower lumbar spondylosis. IMPRESSION: 1. Mild edema along the gastric remnant and pancreas may possibly represent gastritis (favored) versus mild pancreatitis. No free intraperitoneal air or organizing fluid collection. Pancreatic duct is not dilated. No evidence of pancreatic head mass. 2. Multiple normal-s ized and enlarged mesenteric lymph nodes primarily along the mesenteric root. These are most likely reactive in the absence of known malignancy. Recommend correlation clinically. 3. Mild pulmonary fi brosis along the partially visualized lung bases. This document has be en electronically signed by: Urbano Steward MD on 09/22/2024 18:41:43 Dictated By: Consuelo Steward MD Signed By: <Florencio rangel signed by Urbano Steward MD in OV> 09/22/241842 DD/ 40 TD/TT: 09/22/241840 Motel Keeper: CONNIE VEGA Reviewed date:09/22/2024 04:30:20 PM Interpretation: Performing Lab: Notes/Report: [address] [address] XRay Report Signed Patient: Dora Plunkett MR#: [id number] : 1975 Acct:[id number] Age/Sex: 49 / F ADM Date: 09/22/24 Loc: HO.ED Attending Dr: Ordering Physician: Generic ED Physician Date of Service: 09/22/24 Procedure(s): XR KUB Accession Number(s): [id number] cc: Félix Zelaya MD; Generic ED Physician EXAMINATION: XR ABDOMEN KUB CLINICAL INDICATION: Constipation. COMPARISON: None available. TECHNIQUE: AP view of the abdomen. FINDINGS: Bowel gas pattern is normal/nonspecific. There is no focally dilated loop. There is no significant stool burden present within the colon. No organomegaly. Lung bases are clear. No abnormal soft tissue calcifications. Numerous surgical clips in the epigastric region, right mid abdomen, and right upper quadrant. No bony abnormalities. XR/XR KUB IMPRESSION: No significant constipation or evidence of bowel obstruction. No acute findings. Electronically signed by: Jaguar Velasquez MD 09/22/2024 04:02 PM EDT Dictated By: Jaguar Velasquez MD Signed By: <Electronically signed by Jaguar Velasquez MD in OV> 09/22/24 1602 DD/ 1545 TD/TT: 09/22/24 1550 Motel Keeper: [address] [address] XRay Report Signed Patient: Chris Plunkett MR#: [id number] : 1975 Acct:[id number] Age/Sex: 49 / F ADM Date: 09/22/24 Loc: HO.ED Attending Dr: Ordering Physician: Generic ED Physician Date of Service: 09/22/24 Procedure(s): XR KUB Accession Number(s): [id number] cc: Félix Zelaya MD; Generic ED Physician EXAMINATION: XR ABDOMEN KUB CLINICAL INDICATION: Constipation. COMPARISON: None available. TECHNIQUE: AP view of the abdomen. FINDINGS: Bowel gas pattern is normal/nonspecific. There is no focally dilated loop. There is no significant stool burden present within the colon. No organomegaly. Tamir g bases are clear. No abnormal soft tis melchor calcifications. Numerous surgical cl ips in the epigastric region, right mid abdomen, and right upper quadrant. No bony abnormalities. X R/XR KUB IMPRESSION: No significant constipation or evidence of bowel obstruction. No acute findings. Electronically barbara d by: Jaguar Velasquez MD 09/22/2024 04:02 PM EDT RP Dictated By: Jaguar Jensen MD Signed By: <Florencio icallmegan signed by Jaguar Velasquez MD in OV> 09/22/24 1602 DD/ 1545 TD/TT: 09/22/24 1550 Motel Keeper: Sharifa Mcintosh Reviewed date:10/06/2024 01:27:16 PM Interpretation: Performing Lab:[facility], [address] [place] [phone] Notes/Report: Sharifa Mcintosh See Note Specimen held untested for 24 hours; Call to request Chemistry testing. HI upper GI w air Reviewed date:10/22/2024 03:52:25 PM Interpretation: Performing Lab: Notes/Report: [address] [place] [address] Fluoroscopy Report Signed Patient: Dora Plunkett MR#: [id number] : 1975 Acct:[id number] Age/Sex: 49 / F ADM Date: 10/22/24 Loc: HO.XRAY Attending Dr: Félix Zelaya MD Ordering Physician: Félix Zelaya MD Date of Service: 10/22/24 Procedure(s): HI upper GI w air Accession Number(s): [id number] cc: Félix Zelaya MD EXAMINATION: XR FLUOROSCOPY UPPER GI SERIES CLINICAL INFORMATION: Epigastric abdominal pain. Patient also complaining of regurgitation of solid food x2-3 weeks. History of gastric bypass. COMPARISON: No prior. Correlation made with CT abdomen and pelvis 09/22/2024. TECHNIQUE: Fluoroscopic air contrast upper GI examination was performed utilizing standard techniques with thin and thick barium and effervescent granules. Numerous spot images were obtained. Several fluoroscopic image hold cine sequences were also obtained. FINDINGS: UPPER GI SERIES: Lateral cine images of the oropharynx and hypopharynx demonstrate normal swallow mechanism with normal epiglottic inversion and soft palate elevation. No laryngeal penetration, glottic or subglottic aspiration identified. No nasopharyngeal reflux present. Hypopharyngeal structures appear normal without evidence of mass or diverticulum. There was no significant cricopharyngeal achalasia. Dual and single contrast images of the esophagus demonstrate normal caliber, contour, and mucosal pattern. No evidence of stricture, mass, or ulcerations identified. Esophageal peristalsis mild to moderately disordered. Small to moderate-sized type I hiatus hernia. Episodic gastroesophageal reflux to the level of the aortic arch noted during the exam. Imaging of the gastric remnant is somewhat limited due to postoperative appearance. Expected postoperative changes of gastric bypass procedure. The gastric pouch and gastrojejunostomy demonstrated expected appearance, with no gross ulceration, mass, or postoperative stricture. There was gastric rugal fold thickening involving the pouch, suggesting gastritis. Contrast freely passed into the gastrojejunostomy and proximal small bowel without delay. Imaging of the proximal small bowel demonstrates normal mucosal fold pattern and caliber. The distal anastomosis has an unremarkable appearance. No reflux of contrast into the gastric remnant. There are cholecystectomy clips noted. FLUOROSCOPY TIME: 2 minutes, 36 seconds Number of Spot Images:9 Number of cines obtained: 10 DOSE AREA PRODUCT: 3252 uGy-m2 (microgray-meter squared) FL/FL upper GI w air IMPRESSION: 1. Mild to moderately disordered esophageal peristalsis. 2. Small to moderate-sized type I hiatus hernia. 3. Episodic gastroesophageal reflux to the level of the aortic arch. 4. Expected appearance of the gastric pouch secondary to gastric bypass procedure. Gastric rugal fold thickening involving the pouch suggests underlying gastritis. Correlation with EGD may be of benefit. 5. Normal-appearing proximal small bowel and distal anastomosis. No reflux of contrast into the gastric remnant. Electronically signed by: Jaguar Velasquez MD 10/22/2024 08:51 AM EDT Dictated By: Jaguar Velasquez MD Signed By: <Electronically signed by Jaguar Velasquez MD in OV> 10/22/24 0851 DD/ 0805 TD/TT: 10/22/24 0827 Motel Keeper: [address] [address] Fluoroscopy Report Signed Patient: Chris Plunkett MR#: [id number] : 1975 Acct:[id number] Age/Sex: 49 / F ADM Date: 10/22/24 Loc: HO.XRAY Attending Dr: Félix Zelaya MD Ordering Physician: Félix Zelaya MD Date of Service: 10/22/24 Procedure(s): FL upp er GI w air Accession Number(s): [id number] cc: Félix Zelaya MD EXAMINATION: XR FLUOROSCOPY UPPER GI SERIES CLINICAL INFORMATION: Epigastric abdominal pain. Patient also complaining of regurgitation of solid food x2-3 weeks. History of gastric bypass. COMPARISON: No prior. Correlation made wit h CT abdomen and pelvis 09/22/2024. TECHNIQUE: Fluoroscopic air con trast upper GI examination was performed utilizing standard techniques with thin and thick barium and effervescent granules. Numerous s pot images were obtained. Several fluoroscopic image hold cine sequ ences were also obtained. FINDINGS: UPPER GI SERIES: Lateral cine images of the oropharynx and hypopharynx demonstrate normal swallow mecha nism with normal epiglottic inversion and soft palate elevation. No laryngeal penetration, glottic or subglottic aspiration identifie d. No nasopharyngeal reflux present. Hypopharyngeal structures appear no rmal without evidence of mass or diverticulum. There was no signifi cant cricopharyngeal achalasia. Dual and single cont rast images of the esophagus demonstrate normal caliber, contour, an d mucosal pattern. No evidence of stricture, mass, or ulcerations ident ified. Esophageal peristalsis mild to moderately disordered. Small to moderate-si zed type I hiatus hernia. Episodic gastroesophageal reflux to the level of the aortic arch noted during the exam. Imaging of the gastr ic remnant is somewhat limited due to postoperative appearance. Expected postoperative changes of gastric bypass procedure. The gastric pouch an d gastrojejunostomy demonstrated expected appearance, with no gross ulceration, mass, or postoperative stricture. There was gastric ru gal fold thickening involving the pouch, suggesting gastritis. Contrast freely passed into the gastrojejunostomy and proximal small bowel without delay. Imaging of the proxi mal small bowel demonstrates normal mucosal fold pattern and caliber. The distal anastomosis has an unremarkable appearance. No reflu x of contrast into the gastric remnant. There are cholecyste ctomy clips noted. FLUOROSCOPY TIME: 2 minutes, 36 seconds Number of Spot Images:9 Number of cines obta ined: 10 DOSE AREA PRODUCT: 3252 uGy-m2 (microgray-meter squared) F L/FL upper GI w air IMPRESSION: 1. Mild to moderatel y disordered esophageal peristalsis. 2. Small to moderate -sized type I hiatus hernia. 3. Episodic gastroesophageal reflux to the level of the aortic arch. 4. Expected appearan ce of the gastric pouch secondary to gastric bypass procedure. Gastric r ugal fold thickening involving the pouch suggests underlying gastritis . Correlation with EGD may be of benefit. 5. Normal-appearing proximal small bowel and distal anastomosis. No reflux of contrast i nto the gastric remnant. Electronically barbara d by: Jaguar Velasquez MD 10/22/2024 08:51 AM EDT Dictated By: Jaguar Jensen MD Signed By: <Florencio rangel signed by Jaguar Velasquez MD in OV> 10/22/24 0851 DD/ 4 TD/TT: 10/22/24 0827 Motel Keeper: Pathology Reviewed date:11/03/2024 05:35:35 PM Interpretation: Performing Lab:[facility], [address] [place] [id number] Notes/Report: ------ Name: Dora Plunkett Age/Sex: 49/F : 1975 Unit#: [id number] Attend Dr: Jose Ugalde MD Re10/30/24 Status : [facility] Location: [facility] Disch: ------ SPEC : [id number] RECD : 10/30/24 STATUS: MARIAN MCGILL NUM: [id number] MARLYN: 10/30/24-[address]: Jose Ugalde MD ENTERED: 10/30/24- 55 SP TYPE: Surgical OTHR DR: Félix Zelaya MD ORDERED: HE Stain/6, Gross Micro L4/2, IHC, Special st. 2/2, H. pylori, AB/PAS/2 Diagnosis A. Gastric remnant, biopsy: Oxyntic mucosa with mild chronic inactive inflammation; no Helicobacter organis ms seen. B. EG junction, 33 c m, biopsy: - Cardiac-type mucos a with moderate chronic inactive inflammation; no intestinal metaplasia seen. - Active esophagitis (scattered eosinophils and neutrophils).Squamous epithelium within normal limits. Clinical History Pre-Op Dx: GERD, dysphagia, epigastric pain Post-Op Dx: Anastomo tic ulcer, hiatal hernia Microscopic Description A, B. Microscopic se ctions examined. No metaplastic changes are seen, supported by AB/PAS stains (A and B); no Helicobacter organisms are seen, supported by H. pylori immunostain (A). Material Received A. Gastric remnant biopsies B. EG junction at 33 centimeter biopsies Gross Description Received in 2 parts. A. Received in forma magnus labeled ?gastric remnant biopsies? are 3 fragments of pink white soft tissue measurin g 0.4-0.6 centimeter in greatest dimension which are wrapped in lens paper and entirely submitted for microscopic examination, 3 pieces in cassette A. B. Received in forma magnus labeled ?EG junction at 33 centimeter biopsies? are 3 fragments of santana-white soft tissu e measuring 0.2-0.4 centimeter in greatest dimension which are wrapped in lens paper and en tirely submitted for microscopic examination, 3 pieces in cassette B. ([facility]) Special studies orde red and performed: Immunostain for H. pylori on A; AB/PAS stains on A and B CONTINUED ON NEXT PAGE ------ Name: Dora Plunkett Age/Sex: 49/F : 1975 Unit#: [id number] Attend Dr: Jose Ugalde MD Re10/30/24 Status : [facility] Location: [facility] Disch: ------ SPEC : [id number] RECD : 10/30/24 STATUS: MARIAN MCGILL NUM: [id number] MARLYN: 10/30/24-[address]: Jose Ugalde MD ENTERED: 10/30/24 55 SP TYPE: Surgical OTHR DR: Félix Zelaya MD ORDERED: HE Stain/6, Gross Micro L4/2, IHC, Special st. 2/2, H. pylori, AB/PAS/2 IHC S/NG Disclaimer NOTE: Unless otherwi se stated, all tissue is formalin-fixed and paraffin-embedded. Some or all of the immunohistochemical tests reported herein may have been developed and their performance characteristics determined by [facility]. They have not been cleared or appr bhumi by the U.S. Food and Drug Administration (FDA). However, the FDA has determined that such clearance or approval is not necessary. This laboratory is certified under the Clinical Laboratory Improvement Amendments of 1988 (CLIA) as qualified to perform high comp lexity clinical laboratory testing. Copies To: Félix Zelaya MD [facility] [address] [place] [id number] Jose Ugalde MD [facility] [address] [place] [address] [address] [place] [address] ------ Signed (signature on file) Dread Good MD 11/03/24 1530 ------ END OF REPORT Reason For Referral Reason Gastritis Diagnosis 1 Gastritis (K29.70) Referral Organization Félix Zelaya MD Referring Provider First Name Félix Referring Provider Last Name Garcia Referring Provider Speciality Internal M edicine Referred Provider Jose Ugalde Referred Provider Specialty Gastroentero logy General Notes Sharon Henley 0 09/29/2024 11:47:39 AM >referral info faxed, Sharon Henley 10/06/2024 09:21:36 AM > notes being reviewed by Lory Barlow Annette 10/17/2024 01:13:54 PM >was told Dr. Ugalde is reviewing paper work, Sharon Henley 10/24/2024 03:11:02 PM >was told still being reviewed, Sharon Henley 10/28/2024 10:42:38 AM >was told patient is aware of Timothy sahni Patti A 10/30/2024 09:34:04 AM >OFFICE NOTE RECD Referral Priority Routine Referral Appointment Date 10/29/2024 Medications Medication SIG (Take, Route, Frequency, Duration) Notes Start Date End Date Status hydrOXYzine HCl 25 MG 1 tablet as needed Orally Once a day for 30 day(s) Active Carafate 1 GM/10ML 10 mL 1 hour before meals and at bedtime on an empty stomach Orally Four times a day Active Tylenol Childrens 160 MG/5ML Orally Active traZODone HCl 100 MG 0.5 tab at bedtime Orally Once a day for 30 days Active EpiPen 2-Jose Cruz 0.3 MG/0.3ML as directed In jection once for 1 dose 08/14/2011 Active Pantoprazole Sodium 20 MG 1 tablet 1/2 t o 1 hour before morning meal Orally Once a day Active Spiriva Respimat 2.5 MCG/ACT 2 puffs Inhalation Once a day for 30 days Active Clobetasol Propionate 0.05 % 1 application Externally Twice a day for 10 day(s) 11/23/2022 Active Vitamin D-3 5000 UNIT 1 tablet Orally On ce a day Active Diprolene AF 0.05 % 1 application to affected area Externally Once a day for 30 Not-Taking Tylenol 325 MG 1 tablet as needed Orally every 6 hrs Active Escitalopram Oxalate 20 MG 1 tablet Oral ly Once a day Active Furosemide 20 MG 1 tablet Orally Once a day 10/02/2013 Not-Taking Albuterol Sulfate (2.5 MG/3ML) 0.083% 3 ml as needed Inhalation every 4 hrs for 30 days 11/10/2010 Active metOLazone 2.5 MG 1 tablet Orally Once a day for 30 Not-Taking Methylphenidate HCl 10 MG 3tablet on emp ty stomach Orally Once a day Active Milk of Magnesia 400 MG/5ML 5 ml as needed Orally Four times a day Not-Taking Concerta 27 MG 1 tablet in the morning Orally Once a day Active DULoxetine HCl 60 MG TK 1 C PO QAM Oral for 60 Not-Taking predniSONE 10 MG 1 tablet with food o r milk Orally 4 tabs for 3 days,3tabs for 3 days, 2 tabs for 3 days, and 1 tab for 3 days for 14 days 11/28/2024 Active Abilify 2 MG 0.5 tablet Orally On ce a day Not-Taking Immunizations Vaccine Route Administration Date Status Comme nts Flu Vaccine Unknown 12/08/2010 Administered PPSV23 (Pnemovax) Unknown 12/08/2010 Administered Flu Vaccine Unknown 01/28/[address] [employer] Flu Vaccine IM Intramuscular 02/03/2014 Administered Fluarix Quadrivalent IM Intramuscular 01/04/2015 Administered PPSV23 (Pnemovax) IM Intramuscular 01/13/2016 Administered Flu Vaccine IM Intramuscular 01/25/2016 Administered pt wa s given the vaccine at [facility] in [place], it was multidose flu Fluarix Quadrivalent IM Intramuscular 02/26/2018 Administered pt was given th e vaccine at [facility] in [place]. Fluarix Quadrivalent Unknown 12/30/2019 Administered [facility] s TDaP Unknown 12/30/2019 Administered [facility]'s Tetanus Unknown 12/30/2019 Administered SARS-COV-2 Moderna Unknown [...] W/U Status Risk Notes Problem Anxiety state (279656491) Anxiety unspecified (300.00) Active confirmed Problem Eczema (47240708) Eczema (692.9) Active confirm ed Problem 62943186 Hypokalemia (E87.6) Active confirmed Problem 919503582 Reflux esophagit is (K21.00) Active confirmed Problem Constipation (58389415) Constipation (K59.00) Active confirmed Problem Gastritis (1809826) Gastritis (K29.70) Active confirmed Problem 92689420 Vitamin D deficiency (E55.9) Active confirmed Problem 48022945 Chronic respiratory failure, unspecified whether with hypoxia or hypercapnia (J96.10) Active confirmed Problem Ulcer of esophagus (23273704) Ulcer of esophagus without bleeding (K22.10) Active confirmed Problem 656522468 Other postprocedural complications and disorders of digestive system (K91.89) Active confirmed Problem 603056882618031 Loose body in knee, right knee (M23.41) Active confirmed Problem 452267631 Lumbar disc disease (M51.9) Active confirmed Problem 131205781 AVN (avascular necrosis of bone) (M87.00) Active confirmed Problem 5294209 Psoriasis (L40.9) Active confirmed Problem 540813854 History of pulmonary embolism (Z86.711) Active confirmed Problem 118067279 Environmental allergies (Z91.09) Active confirmed Problem Alcohol abuse (18473028) Alcohol abuse (F10.10) Active confirmed Problem 870100405 Psoriatic arthritis (L40.50) Active confirmed Problem 725582739 Morbid obesity d ue to excess calories (E66.01) Active confirmed Problem 93288945 Intrinsic eczema (L20.84) Active confirmed Problem 99125065 Current smoker (F17.200) Active confirmed Problem 584452432 Leukocytosis, unspecified type (D72.829) Active confirmed Problem 36467330 Sleep apnea, unspecified type (G47.30) Active confirmed Problem 425251890936282 Moderate persistent asthmatic bronchitis with acute exacerbation (J45.41) Active confirmed Problem 13880095 Multiple subsegmental pulmonary emboli without acute cor pulmonale (I26.94) Active confirmed Problem 632208520 History of cholecystectomy (Z90.49) Active confirmed Problem 94927518 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) Active confirmed Problem 280606740 Marginal ulcers (K28.9) Active confirmed Problem 07675895 BETHANY on CPAP (G47.33) Active confirmed Vital Signs Blood pressure diastolic 74 mm Hg 11/28/2024 markell ght is down 10 pounds since 10-27-24 Height 66 in 11/28/2024 weight is down 10 pounds since 10-27-24 Blood pressure systolic 108 mm Hg 11/28/2024 weig ht is down 10 pounds since 10-27-24 Weight 185 lbs 11/28/2024 weight is down 10 pounds since 10-27-24 BMI 29.86 kg/m2 11/28/2024 weight is down 10 pounds since 10-27-24 Encounters Encounter Location Date Provider Diagnosis Félix Zelaya MD [address] [place] [id number] 11/28/2024 Félix Zelaya Ulcer of esophagus without bleeding K22.10 and Eczema L30.9 Félix Zelaya MD [address] [place] [id number] 06/19/2024 Félix Zelaya Shoulder pain M25.51 9 Félix Zelaya MD [address] [place] [id number] 09/22/2024 Félix Zelaya Abdominal pain R10.9 ; Constipation K59.00 and Dehydration E86.0 Félix Zelaya MD [address] [id number] 09/29/2024 Félix Zelaya Gastritis K29.70 Félix Zelaya MD [address] [id number] 10/06/2024 Félix Lauryardier Gastritis K29.70 and Mesenteric adenitis I88.0 Félix Zelaya MD [address] [place] [id number] 10/13/2024 Félix Bombardier Gastritis K29.70 and Mesenteric adenitis I88.0 Félix Zelaya MD [address] [place] [id number] 10/27/2024 Félix Bombardier Gastritis K29.70 and Mesenteric adenitis I88.0 Félix Zelaya MD [address] [place] [id number] 11/27/2024 Félix Zelaya MD [address] [place] [id number] 09/26/2024 Félix Zelaya Assessments Encounter Date Diagnosis (ICD Code) Assessment Notes Treatment Notes Treatment Clinical Notes Section Notes 11/28/2024 Ulcer of esophagus without bleeding (ICD-10 - K22.10) is being treated and hopefully the prednisone won't bother 11/28/2024 Eczema (ICD-10 - L30.9) patient verba.ized understanding of medication and directions for use 06/19/2024 Shoulder pain (ICD-10 - M25.519) has improved with the prednisone so will taper off and send her to walkin at [facility] 09/22/2024 Abdominal pain (ICD-10 - R10.9) needs iv fluids 09/22/2024 Constipation (ICD-10 - K59.00) will need some xrays 09/29/2024 Gastritis (ICD-10 - K29.70) needs urgent referral to dr ugalde or jaydon/ had a lap band and am not sure whether this could be the result. the cat scan showed some nodes in the mesentary and some fluid around tosha stomach. needs endoscopic evaluation. was not able to make connections with the [facility] group so will try another 10/06/2024 Gastritis (ICD-10 - K29.70) pending diagnostic testing 10/06/2024 Mesenteric adenitis (ICD-10 - I88.0) may be related to the abdominal distress 10/13/2024 Gastritis (ICD-10 - K29.70) try calling her surgeon for the intestinal 10/27/2024 Gastritis (ICD-10 - K29.70) seems a little better with omeprazole increased 09/22/2024 Dehydration (ICD-10 - E86.0) will send to the er for evaluation 10/13/2024 Mesenteric adenitis (ICD-10 - I88.0) 10/27/2024 Mesenteric adenitis (ICD-10 - I88.0) awaiting gi consult Plan Of Treatment Pending Test Test Name Order Date XR GI SERIES 10/06/2024 MAMMOGRAM DIGITAL BILATERAL SCREEN 12/28 Next Appt Details Provider Name:Félix Matthews ier, 12/29/2024 11:15:00 AM, [address] [place] [address], [address], [place], [place], [id number], Insurance Providers Payer Name Payer Address Payer Phone Subscriber Number Group Number Insured Name Patient Relationship to Insured Coverage Start Date Coverage End Date [employer] [address] [place], [place] [phone] [id number] Dora Plunkett Self - patient is the [facility] [address] NOAH Rodriguez [phone] [id number] Dora Plunkett Self - patient is the insured Medical (General) History Medical History History ICD Code respiratory failure from flu Asthmatic bronchitis Nontraumatic rupture of tendons of bicep s (long head) Surgical History Surgery Date(Month/Year) Bariatric Operation 03/2016
--- OUTSIDE RECORDS SUMMARY | 2024-11-28 13:20 | XMS_ITS | Patient Health Record ---
Author Organization [facility] Address [address] [place] [address] Care Team Providers Care Flare Maker Name Role Phone Félix Zelaya MD Primary Care Provider Jose Solis [phone] Allergies Allergen (clinical drug ingredient) Drug/Non Drug Allergy documented on EMR Reaction Allergy Type Onset Date Status Heparin Unknown Drug Allergy Active ibuprofen Ibuprofen Unknown Drug Allergy Active Strawberries Unknown Allergy Active Results Component Value Reference Range Notes Pathology Reviewed date:11/05/2024 06:07:58 PM Interpretation: Performing Lab:[facility], [address] [place] [phone] Notes/Report: Reason For Referral No Information Medications Medication [...] Status Risk Notes Problem Colon cancer screening (130557007) Colon cancer screening (Z12.11) Active confirmed Problem Epigastric pain (71037659) Epigastric abdominal pain (R10.13) Active confirmed Problem Dysphagia (99006380) Dysphagia (R13.10) Active confirmed Problem Gastroesophageal reflux disease (140680720) GERD (gastroesophag eal reflux disease) (K21.9) Active confirmed Problem Vomiting (544252593) Vomiting (R11.10) Active confirmed Vital Signs Temperature 98.4 degrees Fahrenheit 10/29/2024 Blood pressure diastolic 01 mm Hg 10/29/2024 Height 64 in 10/29/2024 Blood pressure systolic 001 mm Hg 10/29/2024 Weight 193.4 lbs 10/29/2024 BMI 33.19 kg/m2 10/29/2024 Procedures Procedure Date Ordered Date Performed Result Body Sit e UPPER GI ENDOSCOPY BALLOOON DILATION OF ESOPH 10/29/2024 N/A Encounters Encounter Location Date Provider Diagnosis [facility] [address] [place], [place] [id number] 10/30/2024 Jose Ferro [facility] [address] [facility] [address] [place] [address] 10/29/2024 Jose Ferro Colon cancer screening Z12.11 ; GERD (gastroesophageal reflux disease) K21.9 ; Epigastric abdominal pain R10.13 ; Dysphagia R13.10 and Vomiting R11.10 [facility] [address] [place] [address] 10/30/2024 Jose Ferro [facility] [address] [place] [address] 11/06/2024 Jose Ferro Assessments Encounter Date Diagnosis (ICD [...] that in regard to colorectal cancer prevention. oTdd was comfortable with this plan. Thank you [...] ESOPH 10/29/2024 Next Appt Details Provider Name:Jose Jackson Kasie , 03/17/2025 10:30:00 AM, [address] [place] [address], [address], [place], [address], Insurance Providers Payer Name Payer Address Payer Phone Subscriber Number Group Number Insured Name Patient Relationship to Insured Coverage Start Date Coverage End Date [facility] [address] [place] [address] [phone] [id number] TODD BLUE Self - patient is the insured 6 [employer] [employer] [facility] [address] [place] [address] [id number] 1 TODD BLUE Self - patient is the insured 6 Medical (General) History Medical History History ICD Code ARDS--3 month hospitalization at [facility] 2010 with Trach and PEG COPD Denies AR,DM,CVA,renal disease Depression/Bipolar/ADHD Recovering alcoholic since 2021 Pulmonary embolism GI bleed 2015 Surgical History Surgery Date(Month/Year) Back 2018 Gastric Bypass at [facility] 2016 G-tube and Trach during an ICU stay 2010
--- OUTSIDE RECORDS SUMMARY | 2024-11-28 13:20 | XMS_ITS | Encounter Summary ---
Author Organization [employer] Address [address] [place] [address] [address] [place] [address] Care Team Providers Care Back End Web Developer Name Role Phone Unavailable Primary Care Provider Unavailabl e Reason for Visit * Reason Onset Date Comments insurance 10/31/2022 Encounter Details Date Type Department Care Team ([facility] st Contact Info) Description 10/31/2022 Telephone [facility] [address] [place] [address] Nolan Morrison DDS [address] [place] [address] insurance Social History Tobacco Use Types Packs/Day [...] sent to [facility] located on [address] [place] [address] [address] [place] [address] . and fax # [phone]. Please call pt once referral is completed . * Telephone Encounter - Brii Kirby - 10/31/2022 10:09 AM EDT I recahed out to billing because the patient states to have [facility] and provided ID number [id number] but when I went to add the [...]
--- OUTSIDE RECORDS SUMMARY | 2024-11-28 13:20 | XMS_ITS | Clinical Summary ---
Author Organization [facility] Address [address] [place] [address] Care Team Providers Care Diamond Powder Mixer Name Role Phone Félix Zelaya MD Primary Care Provider Surgical History Surgery Date Site/Laterality Comments OTHER SURGICAL HISTORY 04/2010 PROCEDURE: HISTORY OTHER; COMMENT: tracheotomy OTHER SURGICAL HISTORY 04/2010 PROCEDURE: GASTROSTOMY/JEJUNOSTOMY TUBE OTHER SURGICAL HISTORY PROCEDURE: HISTORY OTHER; COMMENT: bariatric surgery Medical History Medical History Date Comments History of bariatric surgery 05/08/2018 DX: History of bariatric surgery Interstitial lung disease (C IN/HCC V24, CMS/HCC V28) 02/20/2018 DX:Interstitial lung disease (HCC) BETHANY (obstructive sleep apnea) 02/20/2018 DX :BETHANY (obstructive sleep apnea); COMMENT: [facility] Polysomnogram treatment study. Date 04/17/2018. SE 78 [...] Brother at 1month Coronary artery disease Father [place] Relation Name Status Comments Aunt Brother Father [...] Documents on File Type Date Recorded Patient Pharmacy Technician Infusion Expl anation Health Care Decision (hx) 06/02/2010 AD MARTINEZ DIRECTIVE Health Care Decision (hx) 06/02/2010 AD MARTINEZ DIRECTIVE Health Care Decision (hx) 06/02/2010 AD MARTINEZ DIRECTIVE Care Teams Diamond Powder Mixer Relationship Specialty Start Date End Date Félix Zelaya MD PCP - General Internal Medicine 01/17/18
--- NOTE | 2024-11-28 13:36 | A.OFFVIS_ITS ---
VS Expanded 11/28/24 13:42 BP 128/86 Blood Pressure Location Rt brachial Blood Pressure Position Sitting Pulse 131 H Pulse Source Pulse Oximeter Temp 96 F L Temperature Source Temporal Artery Scan Pulse Oximetry 97 Oxygen Delivery Method Room Air Height 5 ft 4 in Weight 183 lb 6.4 oz BMI 31.5 Body Fat % 44.8 Body Fat Mass 82.0 Fat Free Mass 101.2 Visceral Fat Rating 11.0 Body Water % 39.2 Body Water Mass 71.8 Muscle Mass/Score 96.2 Basal Metabolic Rate/Score 1,426 Intake Visit Reasons: OV PO LSG LRYGBP 2015 Environmental Compliance Engineer Required: No Allergies amoxicillin (AMOXICILLIN) Allergy (Unknown, Verified 11/28/24 13:38) RASH fluoxetine (From PROZAC) Allergy (Unknown, Verified 11/28/24 13:38) RASH heparin (HEPARIN) Allergy (Unknown, Verified 11/28/24 13:38) JAUN SYNDROME heparin (porcine) Allergy (Unknown, Verified 11/28/24 13:38) swelling, red hydrocodone (HYDROCODONE) Allergy (Unknown, Verified 11/28/24 13:38) PROJECTILE VOMITING ibuprofen (From Motrin) Allergy (Unknown, Verified 11/28/24 13:38) Shortness of Breath naproxen Allergy (Unknown, Verified 11/28/24 13:38) Stomach Upset omeprazole (OMEPRAZOLE) Allergy (Unknown, Verified 11/28/24 13:38) RASH, head to toe rash penicillin G (PENICILLIN G) Allergy (Unknown, Verified 11/28/24 13:38) RASH penicillin V Allergy (Unknown, Verified 11/28/24 13:38) rash piperacillin (From ZOSYN) Allergy (Unknown, Verified 11/28/24 13:38) RASH strawberry (STRAWBERRY) Allergy (Unknown, Verified 11/28/24 13:38) SOB,RASH, ANAPHYLAXISIS tazobactam (From ZOSYN) Allergy (Unknown, Verified 11/28/24 13:38) RASH walnut Allergy (Unknown, Verified 11/28/24 13:38) Difficulty Breathing Caramelized Food coloring Allergy (Unknown, Uncoded 05/07/23 14:24) Itching CARMALIZED FOOD COLORING Allergy (Unknown, Uncoded 05/07/23 14:24) RASH Hydrocodone Bitartrate Allergy (Unknown, Uncoded 05/07/23 14:24) severe vomiting Mangos Allergy (Unknown, Uncoded 05/07/23 14:24) Difficulty Breathing Piperacillin Sod-Tazobactam So Allergy (Unknown, Uncoded 05/07/23 14:24) swelling Strawberries Allergy (Unknown, Uncoded 05/07/23 14:24) Blister Medication List - Last Reconciled 11/28/24 by QUE Sanders acetaminophen (Tylenol) 650 mg (2 x 325 mg) PO QID PRN dextroamphetamine-amphetamine 10 mg 1 tab PO BID dextroamphetamine-amphetamine 30 mg ER 1 cap PO DAILY escitalopram oxalate 20 mg PO DAILY [id number]-gpocgwowc-nrwgmzpj 200-62.5-25 mcg (Trelegy Ellipta) 1 ea inhalation DAILY hydroxyzine HCl 25 mg PO TID PRN pantoprazole 40 mg PO BID 60 days sucralfate 10 mL PO QID topiramate 25 mg PO BID trazodone 50 mg PO BEDTIME PRN white petrolatum-mineral oil (Dermacerin (petrolatum-mineral oil) topical cream) 1 appl See Protocol topical DAILY HPI Comments Details: 49-year-old female returns to the office today in follow-up. She is status post gastric bypass in 2016. She has not been seen since at least 2019. She was seen by GI last week for complaints of abdominal pain. [place] text was received from Dr Ferro: She had a gastric bypass with you in approximately 2016. She has a history of alcohol abuse, although with sobriety for about three years, as well as continued smoking. I met her yesterday yesterday in the office as she was referred by her PCP, Félix Zelaya, for abdominal pain and vomiting. She had an upper G.I. series and CT scan that weren?t particularly revealing. Due to her symptoms when I saw her yesterday I had her undergo an upper endoscopy with me today. I found what looks like a significant anastomotic ulcer on the small bowel side with some definite narrowing of the anastomosis. However, I was able to get the scope past it into the small bowel. The gastric remnant and esophagus looked OK, although I did biopsies of each. She has been on omeprazole right along and did receive some Carafate from the ER recently so I told her to continue both of those, and advised her to obviously try to stop smoking, con tinue to avoid alcohol, and avoid all NSAIDs. She really can?t tolerate any solid food as she gets almost immediate postprandial fullness, pain, and vomiting. I told her to stay on full liquids with nutritional supplements for now. I told her that I would be in touch with you such that you could arrange follow up as I think she may need to be evaluated by you for a possible revision of the anastomosis if this doesn?t heal relatively soon,although obviously that would be a big deal. I did review all of this with her and her today after the procedure. The contact number I have for her is [phone]. Please let me know if you need me to do anything else for her in the meantime. Thanks very much. Discussed the case with Dr. Gómez and then spoke with the patient. She is agreeable to be seen in our clinic. She has not been seen since at least 2018. She was advised very clearly and explicitly to immediately stop smoking and start 5 shakes per day using 2 premier protein ready to drink shakes, 8 oz per shake and 2 celebrate rebuild powder shakes with 2 scoops each in 8 oz of water (her preferred liquid of choice) and 1 celebrate rebuild powder 1 scoop in 8 oz of water. She was prescribed pantoprazole 40 mg p.o. b.i.d. and sucralfate 10 mL p.o. q.i.d.. She may have water, Gatorade 0 although no soup no broth no yogurt no solids. She was made aware that if she is unable to tolerate the shakes or worsens in any way she will need a PICC line for TPN and lipids. Additionally, she will be scheduled for repeat upper endoscopy 12/23/24. Weight today is 183.4 lb with a BMI of 31.5. Meal plan: Using premier protein ready to drink shake 8 oz 8 oz Celebrate rebuild protein powder Two scoops in 8 oz of water Two scoops in 8 oz of water One scoop in 8 oz of water. [facility] Medical History DDD (degenerative disc disease), lumbar Mass of shoulder region Bipolar 1 disorder GERD (gastroesophageal reflux disease) ADHD Depression History of pulmonary embolism History of GI bleed History of sepsis Foreign body (FB) in soft tissue Psoriatic arthritis Avascular necrosis COPD (chronic obstructive pulmonary disease) ARDS (adult respiratory distress syndrome) Surgical History Hx of bladder endoscopy History of cholecystectomy History of back surgery History of gastric bypass History of tracheostomy Social History Household Members: Spouse Housing: House Do you presently have visiting nurse or other home services: No Alcohol intake: never Patient Tobacco Use Status: Former Tobacco user Tobacco use type: Cigarette Second Hand Smoke Exposure: No service: No Current occupational status: unemployed Current occupation: right hand dominant Sexual orientation: Straight/Heterosexual Physical Exam Vital Signs: Last Vital Signs Temp 96 F L 11/28/24 13:42 Pulse 131 H 11/28/24 13:42 BP 128/86 11/28/24 13:42 Pulse Ox 97 11/28/24 13:42 Oxygen Delivery Method Room Air 11/28/24 13:42 BMI result Body Mass Index 31.5 Assessment & Plan Assessment & Plan (1) Marginal ulcer: Code(s): K28.9 - Gastrojejunal ulcer, unspecified as acute or chronic, without hemorrhage or perforation Category: Medical Plan: Patient continues to follow the plans exactly. She is not smoking. She is not having any solid foods. She is taking her medications as prescribed. She is scheduled for repeat upper endoscopy on December 23. Continue current plans until then.
[2024-11-28 13:42] VITALS: BP 128/86; PULSE 131; TEMP 35.5; O2SAT 97; BMI 31.5
== END 2024-11-28 14:28 | disposition home or self-care (01) ==
LOC: HO.HBS 13:17
PROVIDERS: PCP Internal Medicine; Visit Provider Physician Assistant Surgical
DX: K28.9 Gastrojejunal ulcer, unspecified as acute or chronic, without hemorrhage or perforation (principal)
CPT/HCPCS: 99213

== ENCOUNTER 2024-12-23 15:34 | Inpatient (IN) | payer BC, MEDICARE, SELFPAY ==
--- OUTSIDE RECORDS SUMMARY | 2024-10-27 05:15 | XMS_ITS ---
Author Organization Félix Zelaya MD Address [address] [place], [place] [phone] Care Team Providers Care Paste Thinner Name Role Phone Félix Zelaya Primary Care [...] Active ibuprofen Ibuprofen hives Drug Allergy Active [place] Flavor rash Drug Allergy Active piperacillin / [...] Date Provider Diagnosis Félix Zelaya MD [address] [place], [place] [phone] 10/27/2024 Félix Zelaya Gastritis K29.70 and Mesenteric [...] Provider Name:Félix Matthews ier, 11/28/2024 09:15:00 AM, [address] [place] [address] Drive, [address], [place], [place], [phone], Progress Notes * Chris PLUNKETTFloriB:1975 (49 yo F)Acc No.[id number]:10/27/2024 Progress Notes Patient: Dora DOUGLAS Provider: Naomi Zelaya MD :1975 A ge:49 Y S ex:Female Date:10/27/2024 Address:[address] [place], [place] [phone] Subjective: * Chief Complaints: * 1 . [...] So: swelling, Heparin (Porcine) in NaCl: swelling, [place] Flavor: rash, amoxicillin: rash, walnuts: rash SOB, [...] Pending * Provider: Naomi Zelaya MD Date: 10/27/2024 Generated for Ofe garza/Sarina/Christianitting on: 10/31/2024 01:31 PM EDT History and Physical Notes * [...]
--- OUTSIDE RECORDS SUMMARY | 2024-10-30 10:00 | XMS_ITS ---
Author Organization [facility] Address [address] [place] [address] Care Team Providers Care Market President Name Role Phone Félix Zelaya MD Primary Care Provider Jose Solis [phone] REASON FOR VISIT gerd,dysphagia. epigastric pain Medications Medication SIG (Take, Route, Frequency, Duration) Notes Start Date End Date Status traZODone HCl 100 MG TAKE 1 TABLET BY MOUTH EVERY DAY AT BEDTIME NEEDED Oral for 90 Days Active Topiramate 25 MG TAKE 1 TABLET BY MOUTH TWICE A DAY Oral for 90 Days Active Sucralfate 1 GM/10ML TAKE 10 ML ORALLY 4 TIMES A DAY SWISH IN MOUTH AND SWALLOW USE AFTER FOOD/DRINK Oral for 13 Days Not-Taking Amphetamine-Dextroamphet ER 30 MG Oral for 30 Days Active Albuterol Sulfate 108 (90 Base) MCG/ACT 1 puff as needed Inhalation every 4 hrs 10/29/2024 Active hydrOXYzine HCl 25 MG Oral for 90 Days Active Escitalopram Oxalate 20 MG Oral for 90 Days Active traZODone HCl 100 MG Oral for 90 Days Active Dextroamphetamine Sulfate ER 5 MG 1 capsule in the morning Orally Once a day Active Omeprazole 40 MG Oral for 90 Days Active Trelegy Ellipta 100-62.5-25 MCG/ACT 1 puff Inhalation Once a day Active Tylenol 325 MG 1 tablet as needed Orally every 6 hrs 10/29/2024 Active Encounters Encounter Location Date Provider Diagnosis [facility] [address] [place] [id number] 10/30/2024 Jose Ferro Plan Of Treatment No Information Progress Notes * WINSOME BLUE:1975 (49 yo F)Acc No.[id number]:10/30/2024 EGD/MAC Patient: TODD DOUGLAS Provider: Herbie Ferro MD :1975 A ge:49 Y S ex:Female Date:10/30/2024 Address:[facility] Pcp:Félix Zelaya MD Subjective: * Chief Complaints: * 1 . Gerd,dysphagia. epigastric pain. * Medical History: * Medications: T aking Trelegy Ellipta 100-62.5-25 MCG/ACT Aerosol Powder Breath Activated 1 puff Inhalation Once a day , Taking Dextroamphetamine Sulfate ER 5 MG Capsule Extended Release 24 Hour 1 capsule in the morning Orally Once a day , Taking Omeprazole 40 MG Capsule Delayed Release Oral , Taking hydrOXYzine HCl 25 MG Tablet Oral , Taking Escitalopram Oxalate 20 MG Tablet Oral , Taking traZODone HCl 100 MG Tablet Oral , Taking traZODone HCl 100 MG Tablet TAKE 1 TABLET BY MOUTH EVERY DAY AT BEDTIME NEEDED Oral , Taking Topiramate 25 MG Tablet TAKE 1 TABLET BY MOUTH TWICE A DAY Oral , Taking Amphetamine-Dextroamphet ER 30 MG Capsule Extended Release 24 Hour Oral , Taking Albuterol Sulfate 108 (90 Base) MCG/ACT Aerosol Powder Breath Activated 1 puff as needed Inhalation every 4 hrs , Taking Tylenol 325 MG Tablet 1 tablet as needed Orally every 6 hrs , Not-Taking/PRN Sucralfate 1 GM/10ML Suspension TAKE 10 ML ORALLY 4 TIMES A DAY SWISH IN MOUTH AND SWALLOW USE AFTER FOOD/DRINK Oral Objective: * Vitals: Assessment: Plan: * Treatment: * * The named appointment provid er may or may not be the originator of this progress note, and it is not deemed complete until electronically signed by the appointment provider. Sign off status: Pending * Provider: Herbie Ferro MD Date: 10/30/2024 Generated for Ofe garza/Sarina/Christianitting on: 10/31/2024 01:31 PM EDT
--- OUTSIDE RECORDS SUMMARY | 2024-10-31 13:32 | XMS_ITS | Clinical Summary ---
Author Organization [facility] Address [address] [place] [address] Care Team Providers Care Brake Repairer Railroad Name Role Phone Félix Zelaya MD Primary Care Provider Surgical History Surgery Date Site/Laterality Comments OTHER SURGICAL HISTORY 04/2010 PROCEDURE: HISTORY OTHER; COMMENT: tracheotomy OTHER SURGICAL HISTORY 04/2010 PROCEDURE: GASTROSTOMY/JEJUNOSTOMY TUBE OTHER SURGICAL HISTORY PROCEDURE: HISTORY OTHER; COMMENT: bariatric surgery Medical History Medical History Date Comments History of bariatric surgery 05/08/2018 DX: History of bariatric surgery Interstitial lung disease (C NM/HCC V24, CMS/HCC V28) 02/20/2018 DX:Interstitial lung disease (HCC) BETHANY (obstructive sleep apnea) 02/20/2018 DX :BETHANY (obstructive sleep apnea); COMMENT: [facility] Polysomnogram treatment study. Date 04/17/2018. SE 76 [...] Brother at 1month Coronary artery disease Father NM Relation Name Status Comments Aunt Brother Father [...] Documents on File Type Date Recorded Patient Jacquard Loom Card Changer Expl anation Health Care Decision (hx) 06/02/2010 AD MARTINEZ DIRECTIVE Health Care Decision (hx) 06/02/2010 AD MARTINEZ DIRECTIVE Health Care Decision (hx) 06/02/2010 AD MARTINEZ DIRECTIVE Care Teams Brake Repairer Railroad Relationship Specialty Start Date End Date Félix Zelaya MD PCP - General Internal Medicine 01/17/18
--- OUTSIDE RECORDS SUMMARY | 2024-10-31 13:32 | XMS_ITS | Data Portability ---
Author Organization [facility] [address] Address [address] [place] [address] Assessment No assessment recorded. Plan of Treatment Reminders Order Date Submit Date Provider Last Modified By Organization Details Last Modified Time Details Appointments None recorded. Lab None recorded. Referral None recorded. Procedures None recorded. Surgeries None recorded. Imaging None recorded. Medication Orders prednisone 20 mg tablet 2022 023 [facility]/Pharmacy #[id number], [address] [place], [address], 18:10:49 Zithromax Z-Jose Cruz 250 mg tablet 2022 023 [facility]/Pharmacy #[id number], [address] [place], [address], 18:10:49 Patient TargetsNo targets recorded. Patient Instructions Encounter Date Encounter Id Patient Instructions Last Modified By Organization Details Last Modified Time 01/11/2023 [id number] Treatment is antibiotics as prescribed, inhaler and [...] Organization Details Recorded Time Disorder of lung 78254627 Active 2022 h/o pneumonia, scarring cdc couldn;t figure out since 2010--pt is on O2 continuous [facility] 17:49:53 Attention deficit hyperactiv ity disorder 173616735 Active 2022 [facility] 17:52:47 Osteonecro sis 694948364 Active 2022 [facility] 17:53:07 Psoriatic arthritis 158001313 Active 2022 BUDDY GOMEZ abelino, [place] - [facility] 17:53:15 Problem Notes None recorded. Medical Equipment None Reported. Allergies Allergen ID Allergen Name Allergen Category Reaction Reaction Severity Criticality Documentation Date Start Date Code Code System Note Provider Name and Address Organization Details Recorded Time 935557 ibuprofen medicatio n anaphylax is Not available Not available 01/11/2023 5640 RxNorm BUDDY JASON roca, [place] - [facility] 17:50:23 035726 heparin medicatio n other Not available Not available 01/11/2023 5224 RxNorm whole body swell ed redm an syndr ome BUDDY JASON roca, [place] - [facility] 17:51:01 Medications [...] verbal numeric rating [Score] - Reported Systolic And Diastolic Provider Name and Address Organization Details Last Updated DateTime 3 162.56 cm 29.5 kg/m2 08778.8 9 g 18 /min 97.3 [degF] 95 % 95 % 2 L/min 99 /min 5 107/77 mm[Hg] BUDDY GREY [facility] 17:56:59 Social History Question Answer Notes LastModified by Axxana Details LastModified Time Tobacco Smoking Status Never Smoker BUDDY roca PA [facility] 01/11/2023 17:54:31 Have You Recently Traveled Abroad? No [email or web address] Information not available 01/11/2023 Sex: Unknown Functional Status Question Answer Note LastModified by Axxana Details LastModified Time Do you use any illicit or recreational drugs? No [email or web address] Information not available 01/11/2023 Do you or have you ever used any other forms of tobacco or nicotine? No [email or web address] Information not available 01/11/2023 What is your level of alcohol consumption? None [email or web address] Information not available 01/11/2023 Mental Status None recorded. Family History Relationship Description Onset Age of this Age Resolved Age Notes LastModified by Organization Details LastModified Time Brother Bipolar disorder [email or web address] Not available 2022 17:53:36 Father Heart disease iscemi c heart valve d/t agent orange [email or web address] Not available 01/11/2023 17:54:14 Medical History No medical history recorded. Gynecological History Statement/Question Response Date of LMP Obstetrics History GPAL:G 0 P 0 0 0 0 Past Encounters Encounter ID Performer Location Encounter Start Date Encounter Closed Date Diagnosis/Indication Diagnosis SNOMED-CT Code Diagnosis ICD10 Code Diagnosis Note [id number] [address] [place] [address] 03/07/2021 12:21:54 03/07/2021 15:44:35 [id number] [place] [address] [place] [address] 01/11/2023 17:27:57 01/11/2023 18:14:11 Acute lower respiratory tract infection 174836253 J22 Health Concerns Section Related Observation LastModified by Organization Detai ls LastModified Time None Recorded Concern Status LastModified by Organization Details LastModified Time None Recorded Advance Directives Directive None Recorded Payers Insurance Date Sequence Insurance Name Policy Number Policy Sunshine Covered Member ID Sunshine Member ID Guarantor Name 01/11/2023 1 BCBS-[place] [facility] (PP[facility]) Camron Plunkett [id number] Dora Plunkett 01/11/2023 2 MEDICARE B-NM: [facility] Dora Plunkett [id number] Dora Plunkett Notes Date Note Type Note Provider Name and Address Organization Details Recorded Time 3 text/html Ear Pain Brief HPIReported by PatientHPIFor quality, patient reportsaching painbut reportsno itching,no discharge from the ears, andno burning. For severity, patient reportsinterferes with daily activitiesandinterferes with ability to sleepbut reportsno feverandgetting worse. For context, patient reportsrecent uri,recent ear infection, andimmunocompromisebut reportsno recent trauma,no recent swimming,no dental problems,no recent airplane travel,no scuba diving, andnon-smoker. For associated symptoms, patient reportscough,nasal congestion, andsense of fullness/pressurebut reportsno jaw popping or clicking,no decreased appetite,no discharge from ear,no hearing loss,no sore throat,no dental pain,no jaw pain,no tinnitus,no decreased hearing, andno muffled hearing. For location, patient reportsbilateral(47 year old female presented stating she has chronic lung disease and is on oxygen continuous 2 liters. explaining when she get allergies ,sinusitis or productive cough she is usually put on 12 day prednisone taper and z-jose cruz otherwise there is high risk of developing pneumonia. her pcp on vacation. denies any fever or sob, chest pain.). For onset/timing, patient reportsnew onset,started 3days ago, andsudden onset. For duration, patient reportsoccurs daily. For alleviating factors, patient reportsoral antibiotics,antihistamine, anddecongestant. For aggravating factors, patient reportscold weather,sinus infections, andallergies. Gerald Grullon NP [address] [place], [address], [place] - [facility] 01/11/2023 18:11:20 OBGyn Episode No OBEpisode recorded.
--- OUTSIDE RECORDS SUMMARY | 2024-10-31 13:32 | XMS_ITS | Encounter Summary ---
Author Organization [employer] Address [address] [place] [address] 7 [place] [address] Care Team Providers Care Utility Bagger Name Role Phone Unavailable Primary Care Provider Unavailabl e Reason for Visit * Reason Onset Date Comments insurance 10/31/2022 Encounter Details Date Type Department Care Team ([facility] st Contact Info) Description 10/31/2022 Telephone C [facility] [address] [place] [address] Nolan Morrison DDS [address] [place] [address] insurance Social History Tobacco Use Types Packs/Day [...] sent to [facility] located on [address] [place] [address] [address] [place] [address] . and fax # [phone]. Please call pt once referral is completed . * Telephone Encounter - Brii Kirby - 10/31/2022 10:09 AM EDT I recahed out to billing because the patient states to have [facility] and provided ID number [id number] but when I went to add the [...]
--- NOTE | 2024-12-19 14:17 | HO.ANESPROP2 ---
Documented by User: Teri Jiménez NP 12/19/24 14:18 HPI - Anesthesia Eval Consult details Narrative: 49yo F for Upper Endoscopy s/p EGD with dilation 10/2024 with TIVA 2019 PE 2011 ARDS with trach PMFSH Active Problems Active Problems: All Active Problems Marginal ulcer (Acute) Calcific tendinitis of right shoulder (Acute) Spondylosis of lumbar region without myelopathy or radiculopathy (Acute) Sacroiliitis (Acute) Chronic left sacroiliac joint pain (Acute) BETHANY (obstructive sleep apnea) (Acute) Avascular necrosis of bone of left hip (Acute) Avascular necrosis of bone of right hip (Acute) Alcohol abuse (Acute) ADHD (attention deficit hyperactivity disorder) (Acute) MDD (major depressive disorder) (Acute) ARDS (adult respiratory distress syndrome) (Acute) Past Medical History Medical History DDD (degenerative disc disease), lumbar Mass of shoulder region Bipolar 1 disorder GERD (gastroesophageal reflux disease) ADHD Depression History of pulmonary embolism History of GI bleed History of sepsis Foreign body (FB) in soft tissue Psoriatic arthritis Avascular necrosis COPD (chronic obstructive pulmonary disease) ARDS (adult respiratory distress syndrome) Family History Family history of problems with anesthesia: No Surgical History Surgical History History of esophagogastroduodenoscopy Hx of bladder endoscopy History of cholecystectomy History of back surgery History of gastric bypass History of tracheostomy History of Problems with Anesthesia: No Social History Social History Household Members: Spouse Housing: House Do you presently have visiting nurse or other home services: No Alcohol intake: never Patient Tobacco Use Status: Former Tobacco user Tobacco use type: Cigarette Second Hand Smoke Exposure: No Have you been hit, kicked, punched, or otherwise hurt by someone within the past year? If so, by whom?: No Are you DNR?: No Advance Directives: No Advance Directives Information Provided: Yes Patient : No service: No Current occupational status: unemployed Current occupation: right hand dominant Sexual orientation: Straight/Heterosexual Meds Allergies Allergy/AdvReac Type Severity Reaction Status Date / Time amoxicillin (AMOXICILLIN) Allergy Unknown RASH Verified 11/28/24 13:38 fluoxetine (From PROZAC) Allergy Unknown RASH Verified 11/28/24 13:38 heparin (HEPARIN) Allergy Unknown JAUN Verified 11/28/24 13:38 SYNDROME heparin (porcine) Allergy Unknown swelling, Verified 11/28/24 13:38 red hydrocodone (HYDROCODONE) Allergy Unknown PROJECTILE Verified 11/28/24 13:38 VOMITING ibuprofen (From Motrin) Allergy Unknown Shortness Verified 11/28/24 13:38 of Breath naproxen Allergy Unknown Stomach Verified 11/28/24 13:38 Upset omeprazole (OMEPRAZOLE) Allergy Unknown RASH, head Verified 11/28/24 13:38 to toe rash penicillin G (PENICILLIN G) Allergy Unknown RASH Verified 11/28/24 13:38 penicillin V Allergy Unknown rash Verified 11/28/24 13:38 piperacillin (From ZOSYN) Allergy Unknown RASH Verified 11/28/24 13:38 strawberry (STRAWBERRY) Allergy Unknown SOB,RASH, Verified 11/28/24 13:38 ANAPHYLAXISIS tazobactam (From ZOSYN) Allergy Unknown RASH Verified 11/28/24 13:38 walnut Allergy Unknown Difficulty Verified 11/28/24 13:38 Breathing Caramelized Food coloring Allergy Unknown Itching Uncoded 05/07/23 14:24 CARMALIZED FOOD COLORING Allergy Unknown RASH Uncoded 05/07/23 14:24 Hydrocodone Bitartrate Allergy Unknown severe Uncoded 05/07/23 14:24 vomiting Mangos Allergy Unknown Difficulty Uncoded 05/07/23 14:24 Breathing Piperacillin Sod-Tazobactam Allergy Unknown swelling Uncoded 05/07/23 14:24 So Strawberries Allergy Unknown Blister Uncoded 05/07/23 14:24 Home Medications ?Medication ?Instructions ?Recorded ?Confirmed ?Last Taken ?Type fluticasone fur. 200 mcg-umeclid 1 ea inhalation DAILY 06/07/23 12/23/24 12/20/24 History 62.5 mcg-vilant 25 mcg inhalat.powder (Trelegy Ellipta) dextroamphetamine-amphetamine ER 1 cap PO DAILY 08/22/24 12/23/24 12/20/24 History 30 mg 24hr capsule,extend release dextroamphetamine-amphetamine 10 1 tab PO BID 10/30/24 12/23/24 12/20/24 History mg tablet topiramate 25 mg tablet 25 mg PO BID 10/30/24 12/23/24 12/15/24 History Assessment and Plan Assessment Anesthesia Assessment: Chart Reviewed Final Anesthetic Review Family History of Problems with Anesthesia: No History of Problems with Anesthesia: No Documented by User: Rose Elias MD 12/23/24 14:32 [facility] Past Medical History Medical History DDD (degenerative disc disease), lumbar Mass of shoulder region Bipolar 1 disorder GERD (gastroesophageal reflux disease) ADHD Depression History of pulmonary embolism History of GI bleed History of sepsis Foreign body (FB) in soft tissue Psoriatic arthritis Avascular necrosis COPD (chronic obstructive pulmonary disease) ARDS (adult respiratory distress syndrome) Surgical History Surgical History History of esophagogastroduodenoscopy Hx of bladder endoscopy History of cholecystectomy History of back surgery History of gastric bypass History of tracheostomy Social History Social History Household Members: Spouse Housing: House Do you presently have visiting nurse or other home services: No Alcohol intake: never Patient Tobacco Use Status: Former Tobacco user Tobacco use type: Cigarette Second Hand Smoke Exposure: No Have you been hit, kicked, punched, or otherwise hurt by someone within the past year? If so, by whom?: No Are you DNR?: No Advance Directives: No Advance Directives Information Provided: Yes Patient : No service: No Current occupational status: unemployed Current occupation: right hand dominant Sexual orientation: Straight/Heterosexual Meds Allergies Allergy/AdvReac Type Severity Reaction Status Date / Time amoxicillin (AMOXICILLIN) Allergy Unknown RASH Verified 11/28/24 13:38 fluoxetine (From PROZAC) Allergy Unknown RASH Verified 11/28/24 13:38 heparin (HEPARIN) Allergy Unknown JAUN Verified 11/28/24 13:38 SYNDROME heparin (porcine) Allergy Unknown swelling, Verified 11/28/24 13:38 red hydrocodone (HYDROCODONE) Allergy Unknown PROJECTILE Verified 11/28/24 13:38 VOMITING ibuprofen (From Motrin) Allergy Unknown Shortness Verified 11/28/24 13:38 of Breath naproxen Allergy Unknown Stomach Verified 11/28/24 13:38 Upset omeprazole (OMEPRAZOLE) Allergy Unknown RASH, head Verified 11/28/24 13:38 to toe rash penicillin G (PENICILLIN G) Allergy Unknown RASH Verified 11/28/24 13:38 penicillin V Allergy Unknown rash Verified 11/28/24 13:38 piperacillin (From ZOSYN) Allergy Unknown RASH Verified 11/28/24 13:38 strawberry (STRAWBERRY) Allergy Unknown SOB,RASH, Verified 11/28/24 13:38 ANAPHYLAXISIS tazobactam (From ZOSYN) Allergy Unknown RASH Verified 11/28/24 13:38 walnut Allergy Unknown Difficulty Verified 11/28/24 13:38 Breathing Caramelized Food coloring Allergy Unknown Itching Uncoded 05/07/23 14:24 CARMALIZED FOOD COLORING Allergy Unknown RASH Uncoded 05/07/23 14:24 Hydrocodone Bitartrate Allergy Unknown severe Uncoded 05/07/23 14:24 vomiting Mangos Allergy Unknown Difficulty Uncoded 05/07/23 14:24 Breathing Piperacillin Sod-Tazobactam Allergy Unknown swelling Uncoded 05/07/23 14:24 So Strawberries Allergy Unknown Blister Uncoded 05/07/23 14:24 Home Medications ?Medication ?Instructions ?Recorded ?Confirmed ?Last Taken ?Type fluticasone fur. 200 mcg-umeclid 1 ea inhalation DAILY 06/07/23 12/23/24 12/20/24 History 62.5 mcg-vilant 25 mcg inhalat.powder (Trelegy Ellipta) dextroamphetamine-amphetamine ER 1 cap PO DAILY 08/22/24 12/23/24 12/20/24 History 30 mg 24hr capsule,extend release dextroamphetamine-amphetamine 10 1 tab PO BID 10/30/24 12/23/24 12/20/24 History mg tablet topiramate 25 mg tablet 25 mg PO BID 10/30/24 12/23/24 12/15/24 History Exam Airway Mallampati Class: III TM Dist: >3cm Neck ROM: Full Loose/Missing/Broken Teeth: No Heart: RRR Lungs: CTA Assessment and Plan Assessment Anesthesia Assessment: Anesthesia Plan Discussed Final Anesthetic Review NPO: Yes ASA Class: III Final Preanesthetic Review: Meds/Allgs Chart Reviewed, Consent Obtained/Reviewed and Anes Risks/Benef Reviewed Patient Risk: Intermediate Procedure Risk: Intermediate Anesthetic Plan Anesthetic Plan: MAC: Disposition: Standard PACU
[2024-12-23] VITALS (8 sets, daily range): BP systolic 98–116; BP diastolic 41–82; PULSE 65–86; RESP 14–18; TEMP 36.1–36.7; O2SAT 96–100; BMI 30.9; BMI 31.6; BMI 32.0
[2024-12-23] MEDS: Lactated Ringers 1,000 ML 100 ML IVCONT ×2 (12:54→17:43)
--- NOTE | 2024-12-23 14:54 | P.HPSUR_ITS ---
Pre-Procedural Eval Section A - 24 Hr Update-Section A only Date of Service: 12/23/24 The patient is an INPATIENT: No The patient has been examined within 24 hours of the surgical procedure. The History & Physical has been completed within 30 days and I have reviewed it.: Yes Section B - Complete if H&P > 30 days Chief Complaint: Bariatric surgery status Details of Present Illness: Anastomotic ulcer Relevant Family History (Specify if Yes): No Relevant Social History: None Present Medications: None Medical History: No relevant PMH History of Previous Operations: Relevant previous surgery/procedure and date(s) (laparoscopic gastric bypass) Allergies: Allergies Allergy/AdvReac Type Severity Reaction Status Date / Time amoxicillin (AMOXICILLIN) Allergy Unknown RASH Verified 11/28/24 13:38 fluoxetine (From PROZAC) Allergy Unknown RASH Verified 11/28/24 13:38 heparin (HEPARIN) Allergy Unknown JAUN Verified 11/28/24 13:38 SYNDROME heparin (porcine) Allergy Unknown swelling, Verified 11/28/24 13:38 red hydrocodone (HYDROCODONE) Allergy Unknown PROJECTILE Verified 11/28/24 13:38 VOMITING ibuprofen (From Motrin) Allergy Unknown Shortness Verified 11/28/24 13:38 of Breath naproxen Allergy Unknown Stomach Verified 11/28/24 13:38 Upset omeprazole (OMEPRAZOLE) Allergy Unknown RASH, head Verified 11/28/24 13:38 to toe rash penicillin G (PENICILLIN G) Allergy Unknown RASH Verified 11/28/24 13:38 penicillin V Allergy Unknown rash Verified 11/28/24 13:38 piperacillin (From ZOSYN) Allergy Unknown RASH Verified 11/28/24 13:38 strawberry (STRAWBERRY) Allergy Unknown SOB,RASH, Verified 11/28/24 13:38 ANAPHYLAXISIS tazobactam (From ZOSYN) Allergy Unknown RASH Verified 11/28/24 13:38 walnut Allergy Unknown Difficulty Verified 11/28/24 13:38 Breathing Caramelized Food coloring Allergy Unknown Itching Uncoded 05/07/23 14:24 CARMALIZED FOOD COLORING Allergy Unknown RASH Uncoded 05/07/23 14:24 Hydrocodone Bitartrate Allergy Unknown severe Uncoded 05/07/23 14:24 vomiting Mangos Allergy Unknown Difficulty Uncoded 05/07/23 14:24 Breathing Piperacillin Sod-Tazobactam Allergy Unknown swelling Uncoded 05/07/23 14:24 So Strawberries Allergy Unknown Blister Uncoded 05/07/23 14:24 Review of Systems Sugical H&P ROS: Negative: Constitution, Cardiovascular, Respiratory, Neurologi anitha, Psychiatric, Hem-Onc, Allergic/Immunologic, Gastrointestinal, Genitourinary, Musculoskeletal, Integumentary, Endocrine and Eyes/Ears/Nose/Throat Exam Surgical H&P Exam: Normal: HEENT, Normal: Heart, Normal: Lungs, Normal: Extremities, Normal: Abdomen, Normal: Skin and Normal: Neurological Plan Diagnosis/Plan: Unchanged (Upper endoscopy to assess the status of the anastomotic ulcer. Risks of bleeding and perforation were discussed) I have reviewed the history and physical and performed a pertinent physical examination on my patient. No changes have occurred unless specified. Time Spent With Patient Time: Total time managing care of this patient today ____ minutes.
--- NOTE | 2024-12-23 15:37 | PM.OP ---
Brief Operative Note Date of Service: 12/23/24 Pre-op diagnosis: Anastomotic ulcer Post-op diagnosis: same Procedure: PROCEDURE DATE: 12/23/2024 PREOPERATIVE DIAGNOSIS: Anastomotic ulcer, s/p gastric bypass POSTOPERATIVE DIAGNOSIS: ?Same as above. 1) Deep anastomotic ulcer with mild stricture at GJ anastomosis, 2) esophagitis PROCEDURE: [id number] Surgeon: ?Tereso Gómez M.D.. Ph.D. Pottery Striper: ?None ? Anesthesia: IV sedation Estimated blood loss: ?Minimal FINDINGS AND PROCEDURE: ? OPERATIVE INDICATIONS: ?The patient is a 49 year old female known to me who underwent a laparoscopic gastric bypass by me. The patient had excellent weight loss and was able to get of the home oxygen on which she was preoperatively.?The patient presented in the summer complaining of abdominal pain and an endoscopy was performed by Dr. Ferro on 10/31/24 that showed a deep anastomotic ulcer and stricture at the anastomosis. The patient was placed on a liquid high protein diet and PPI therapy and presents today for a follow-up endoscopy. She continues to have abdominal pain. Based on this information I recommended an upper endoscopy to evaluate the patient's symptoms.? Risks and complications of the surgery were discussed with the patient in advance particularly the possibility of perforation or bleeding that may require surgical intervention. The patient understood the risks and was in agreement with the plan. ? PROCEDURE: After informed consent was obtained by the patient, the patient was ?transferred to the Operating Room and was placed in the supine position.? After successful induction of IV sedation, a mouth block was placed and the patient was placed in the left lateral decubitus position. An upper endoscopy was performed next, the oropharynx and esophagus appeared within the normal limits. There was no hiatal hernia.? The z-line was irregular coated with exudates. The small pouch was entered, appeared to be of normal size. There was no gastritis and the gastrojejunostomy was patent. The GJ anastomosis was narrowed due to a small in diameter but deep anastomotic ulcer at about 9pm position.?The Ben limb was situated at 3pm position and I was able to get through to the Ben limb without any significant difficulty. At that point the scope was advanced into the proximal small intestine (proximal Ben limb) for about another 10cm which appeared to be normal as well. The Ben limb and the pouch were decompressed and the scope was withdrawn from the patient's mouth. The patient was awaken and was transferred in stable condition to the Recovery Room for further care. I was present and performed all steps of the procedure. There were no residents to assist with this case. Due to depth of the ulcer and the lack of improvement, the patient will be admitted for PICC line and TPN. Tereso Gómez M.D., Ph.D. Surgeon: Kingston Gómez MD Anesthesia: MAC Was an Pottery Striper used for this Procedure?: No Estimated blood loss (mL): 0 IV fluids (mL): 400 Urine output (mL): 0 (No Santos to record output) Pathology: none sent Condition: stable Disposition: PACU
--- NOTE | 2024-12-23 15:59 | PM.HPGS ---
History of Present Illness History of Present Illness Date of Service: 12/23/24 Chief complaint: anastomotic ulcer Narrative: Dora Plunkett is a 49 year old female who is s/p RYGB [address] Gómez. She had not followed up with our practice since 2019. She has a history of alcohol abuse, although with sobriety for about three years, as well as continued smoking up until a few months ago. She was found to have an anastomotic ulcer and narrowing of the anastomosis by Dr. Ferro earlier this year and was referred back to our practice. She was advised to follow a nutrition plan including only protein shakes and clear liquids. She was placed on pantoprazole and carafate. She underwent repeat EGD today by Dr. Gómez and findings includeda deep anastomotic ulcer with mild stricture at GJ anastomosis and esophagitis. Decision was made to admit the patient for TPN. Review of Systems Constitutional: Constitutional: Reports as per HPI Eyes: Eyes: Reports no additional eye complaints ENT: Reports system reviewed and no additional complaints, except as documented Cardiovascular: Cardiovascular: Reports no additional cardiovascular complaints Respiratory: Respiratory: Reports no additional respiratory complaints Gastrointestinal: Gastrointestinal: Reports abdominal pain, Reports nausea and Reports vomiting Genitourinary: Genitourinary: Reports no additional female genitourinary complaints Musculoskeletal: Musculoskeletal: Reports no additional musculoskeletal complaints Integumentary/Breasts: Skin/Breast: Reports system reviewed and no additional complaints, except as docu Neurologic: Reports system reviewed and no additional complaints, except as documented Psychiatric: Psychiatric: Reports no additional psychiatric complaints Endocrine: Endocrine: Reports no additional endocrine complaints Hematologic/Lymphatic: Hematologic/Lymphatic: Reports no additional hematologic/lymphatic complaints Allergic/Immunologic: Allergic/Immunologic: Reports no additional allergic/immunologic complaints [facility] Past Medical History Medical History DDD (degenerative disc disease), lumbar Mass of shoulder region Bipolar 1 disorder GERD (gastroesophageal reflux disease) ADHD Depression History of pulmonary embolism History of GI bleed History of sepsis Foreign body (FB) in soft tissue Psoriatic arthritis Avascular necrosis COPD (chronic obstructive pulmonary disease) ARDS (adult respiratory distress syndrome) Surgical History Surgical History History of esophagogastroduodenoscopy Hx of bladder endoscopy History of cholecystectomy History of back surgery History of gastric bypass History of tracheostomy Social History Social History Household Members: Spouse Housing: House Do you presently have visiting nurse or other home services: No Alcohol intake: never Patient Tobacco Use Status: Former Tobacco user Tobacco use type: Cigarette Second Hand Smoke Exposure: No Have you been hit, kicked, punched, or otherwise hurt by someone within the past year? If so, by whom?: No Are you DNR?: No Advance Directives: No Advance Directives Information Provided: Yes Patient : No service: No Current occupational status: unemployed Current occupation: right hand dominant Sexual orientation: Straight/Heterosexual Meds Allergies Allergy/AdvReac Type Severity Reaction Status Date / Time amoxicillin (AMOXICILLIN) Allergy Unknown RASH Verified 11/28/24 13:38 fluoxetine (From PROZAC) Allergy Unknown RASH Verified 11/28/24 13:38 heparin (HEPARIN) Allergy Unknown JAUN Verified 11/28/24 13:38 SYNDROME heparin (porcine) Allergy Unknown swelling, Verified 11/28/24 13:38 red hydrocodone (HYDROCODONE) Allergy Unknown PROJECTILE Verified 11/28/24 13:38 VOMITING ibuprofen (From Motrin) Allergy Unknown Shortness Verified 11/28/24 13:38 of Breath naproxen Allergy Unknown Stomach Verified 11/28/24 13:38 Upset omeprazole (OMEPRAZOLE) Allergy Unknown RASH, head Verified 11/28/24 13:38 to toe rash penicillin G (PENICILLIN G) Allergy Unknown RASH Verified 11/28/24 13:38 penicillin V Allergy Unknown rash Verified 11/28/24 13:38 piperacillin (From ZOSYN) Allergy Unknown RASH Verified 11/28/24 13:38 strawberry (STRAWBERRY) Allergy Unknown SOB,RASH, Verified 11/28/24 13:38 ANAPHYLAXISIS tazobactam (From ZOSYN) Allergy Unknown RASH Verified 11/28/24 13:38 walnut Allergy Unknown Difficulty Verified 11/28/24 13:38 Breathing Caramelized Food coloring Allergy Unknown Itching Uncoded 05/07/23 14:24 CARMALIZED FOOD COLORING Allergy Unknown RASH Uncoded 05/07/23 14:24 Hydrocodone Bitartrate Allergy Unknown severe Uncoded 05/07/23 14:24 vomiting Mangos Allergy Unknown Difficulty Uncoded 05/07/23 14:24 Breathing Piperacillin Sod-Tazobactam Allergy Unknown swelling Uncoded 05/07/23 14:24 So Strawberries Allergy Unknown Blister Uncoded 05/07/23 14:24 Active Medications: Current Medications Albuterol Sulfate (Albuterol Sulfate (0.083%) 2.5 Mg/3 Ml Vial.Neb) 2.5 mg INHALE ONCE PRN PRN Reason: Shortness of Breath/Wheezing Diazepam (Diazepam 10 Mg/2 Ml Cartridge) 2.5 mg IVPUSH Q6H PRN PRN Reason: Anxiety Lactated Ringer's (Lr) 1,000 mls @ 100 mls/hr IVCONT .Q10H [facility] Last Admin: 12/23/24 12:54 Dose: 100 mls/hr Lactated Ringer's (Lr) 1,000 mls @ 80 mls/hr IVCONT .Q13G46M [facility] Last Admin: 12/23/24 12:55 Dose: Not Given Naloxone HCl (Naloxone Hcl 0.4 Mg/Ml Vial) 0.04 mg IVPUSH Q5M PRN PRN Reason: Excessive sedation or RR < 8 Home Medications ?Medication ?Instructions ?Recorded ?Confirmed ?Last Taken ?Type fluticasone fur. 200 mcg-umeclid 1 ea inhalation DAILY 06/07/23 12/23/24 12/20/24 History 62.5 mcg-vilant 25 mcg inhalat.powder (Trelegy Ellipta) dextroamphetamine-amphetamine ER 1 cap PO DAILY 08/22/24 12/23/24 12/20/24 History 30 mg 24hr capsule,extend release dextroamphetamine-amphetamine 10 1 tab PO BID 10/30/24 12/23/24 12/20/24 History mg tablet topiramate 25 mg tablet 25 mg PO BID 10/30/24 12/23/24 12/15/24 History Physical Exam Vital Signs: Vital Signs: Last Vital Signs Temp 98.1 F 12/23/24 15:53 Pulse 80 12/23/24 15:53 Resp 18 12/23/24 15:53 BP 102/80 12/23/24 15:53 Pulse Ox 98 12/23/24 15:53 O2 Del Method Room Air 12/23/24 15:53 BMI result Body Mass Index 31.6 Const: General: cooperative, comfortable and no acute distress Resp: Effort & Inspection: normal respiratory effort GI: Other: soft, nondistended, epigastric tenderness Extrem: General: Yes no calf tenderness and No edema Psych: Other: A+Ox3 Assessment and Plan (1) Marginal ulcer: Status: Acute (2) Gastric bypass status for obesity: Status: Acute Plan -NPO/IVF, LR@ 100cc/hr -TPN/nutrition consult, to start tomorrow -PICC line -IV PPI BID, PO liquid sucralfate -Home meds on hold -Folic acid, B12, thiamine -Daily labs Discussed with Dr. Gómez. Quality Stroke Does the patient have a stroke diagnosis?: No VTE Prior VTE?: No VTE Risk Level:: Surgical - low VTE Device Contraindication: N/A - Device Ordered VTE Drug Contraindication: Treatment Not Indicated Procedures Date of Service Date of Service: 12/23/24
[2024-12-23 16:30] LABS: Hematocrit 42.3 % (37.0-47.0); Hemoglobin 13.8 g/dl (12.0-16.0)
[2024-12-23 16:47] LABS: Anion Gap 18 (12-20); Blood Urea Nitrogen 20 mg/dL (9-16); Calcium 9.7 mg/dL (8.4-10.2); Carbon Dioxide 27 mmol/L (22-29); Chloride 105 mmol/L (96-108); Creatinine Clr Calc Pharmacy 122.0; Estimated Glomerular Filt Rate > 60; Potassium 3.5 mmol/L (3.3-5.1); Sodium 146 mmol/L (135-145)
[2024-12-23] MEDS: Thiamine HCL 100 MG in 0.9 % Sodium Chloride 100 ML 202 MG IV (17:48)
[2024-12-23] MEDS: Sucralfate Oral Suspension 1 GM/10 ML ORAL.SUSP PO ×2 (17:52→20:58)
[2024-12-23] MEDS: 0.9 % Sodium Chloride Flush 3 ML SYRINGE IVFLUSH ×2 (17:54→19:06)
--- NOTE | 2024-12-23 17:57 | PHA.MEDREC ---
Pharmacy Consult ? Medication Reconciliation RN has completed the medication reconciliation, [facility] reviewed.
[2024-12-23] MEDS: diazePAM 10 MG/2 ML CARTRIDGE 2.5 MG IVPUSH (21:43)
[2024-12-24] VITALS (7 sets, daily range): BP systolic 91–119; BP diastolic 52–73; PULSE 50–66; RESP 16–18; TEMP 35.9–36.6; O2SAT 96–99; BMI 32.0
[2024-12-24] MEDS: Lactated Ringers 1,000 ML 100 ML IVCONT ×3 (02:19→22:07)
[2024-12-24 06:17] LABS: MANUAL DIFF FLAG NO
[2024-12-24 06:21] LABS: Hematocrit 36.6 % (37.0-47.0); Hemoglobin 11.8 g/dl (12.0-16.0); Imm Gran Abs Auto 0.01 X10*3/uL (0.00-0.03); Imm Gran Pct Auto 0.2 % (0.0-0.4); Lymphocytes Absolute Auto 2.3 X10*3/uL (1.2-4.9); Mean Corpuscular HGB Conc 32.2 g/dl (31.0-35.0); Mean Corpuscular Hemoglobin 27.2 pg (27.0-33.0); Mean Corpuscular Volume 84.3 fL (80.0-98.0); NRBC Abs Auto 0.000 X10*3/uL (0.0-0.012); NRBC Pct Auto 0.0 /100WBC (0.0-0.2); Platelet Count 200 X10*3/uL (160-400); Red Blood Count 4.34 X10*6/uL (4.20-5.50); White Blood Count 5.9 X10*3/uL (4.8-10.8)
[2024-12-24 06:36] LABS: Magnesium 2.1 mg/dL (1.6-2.6)
[2024-12-24 06:38] LABS: Anion Gap 11 (12-20); Blood Urea Nitrogen 17 mg/dL (9-16); Calcium 8.9 mg/dL (8.4-10.2); Carbon Dioxide 24 mmol/L (22-29); Chloride 110 mmol/L (96-108); Creatinine Clr Calc Pharmacy 118.6; Estimated Glomerular Filt Rate > 60; Potassium 4.2 mmol/L (3.3-5.1); Sodium 141 mmol/L (135-145)
--- NOTE | 2024-12-24 08:09 | HO.POSTANES ---
Post Anesthesia Evaluation Post Anesthesia Evaluation Date of Service: 12/24/24 Vital Signs: Vital Signs Temp Pulse Resp BP Pulse Ox O2 Del Method 12/24/24 06:45 97.9 F 50 16 101/52 L 96 Room Air 12/24/24 03:46 97.5 F 54 16 115/58 L 98 Room Air 12/24/24 00:00 96.7 F L 58 18 91/58 L 98 Room Air Anesthesia: Monitored Mental Status: Awake Pain Control: Satisfactory Nausea/Vomiting: None Hydration: Adequate Anesthesia-Related Issues: No Anes. Related Issues
[2024-12-24] MEDS: 0.9 % Sodium Chloride Flush 3 ML SYRINGE IVFLUSH ×3 (08:19→21:45)
[2024-12-24] MEDS: Sucralfate Oral Suspension 1 GM/10 ML ORAL.SUSP PO ×4 (08:19→20:28)
[2024-12-24 09:29] LABS: Albumin Level 3.4 g/dL (3.5-5.0)
--- NOTE | 2024-12-24 10:01 | MHC.CLN ---
Addendum entered by Rachna Griffin, POONAM 12/24/24 10:58: PICC LINE ORDERED BUT NOT YET PLACED. IF NO CENTRAL LINE, RECOMMEND START PPN AT 50 ML PER HOUR TO PROVIDE 51 G PROTEIN, 120 G DEXTROSE, 612 KCALS. CONTINUE TO MONITOR FOR PLAN OF CARE. Original Note: NUTRITION NPO REQUIRING TPN DUE TO ANASTOMOTIC ULCER. HAS PICC FOR TPN. PER MD, GOAL IS 1.5 G/KG PROTEIN AND 1500 KCALS. RECOMMEND START TPN AT 50 ML/HOUR TO PROVIDE 60 G PROTEIN, 180 G DEXTROSE, 852 KCALS. REPLETE LYTES NEEDED. CHECK TRIGLYCERIDES. ADVANCE ON 12/25/24 TO MAX GOAL RATE ABLE: TPN AT 75 ML PER HOUR, ADD 20 G LIPIDS TO PROVIDE 1478 TOTAL KCALS (23.8 G/KG CMW), 90 G PROTEIN (1.45 G/KG CMW), 270 G DEXTROSE. FOLLOW FOR TPN TOLERANCE, LABS, PLAN OF CARE. SEE CLINICAL NUTRITION ASSESSMENT 12/24/24.
--- NOTE | 2024-12-24 10:42 | MHC.CM.PN ---
Patient lives at home w/ . Functionally independent. Denies use of DME or services. Hx ETOH abuse, sober x 3 years. PCP Félix Zelaya MD Reports she has an HCP naming her , Camron, as HCA. Copy requested. DP: Patient will require TPN on dc. Discussed with patient who is comfortable w/ plan and states her can assist PRN. Has not started TPN at this time. Awaiting PICC line. Per dietitian, if starts to TPN tonight may be able to advance to max goal rate tomorrow. Referral sent to [facility]. Per [facility] RN, patient's primary insurance covers 70%, secondary Tammy will require a 20% coinsurance until deductible is met. [facility] is working on estimating out of pocket cost to patient, but states she will not have to pay up front. [facility] diet[facility] will coordinate w/ [facility] dietitian Coco [phone]. Referrals sent to VNA's. No accepting at this time. [facility] can provide nursing if unable to secure accepting VNA. will transport at dc. CM will continue to follow.
--- NOTE | 2024-12-24 11:04 | PM.PNGS ---
Subjective Subjective Date of Service: 12/24/24 Interval history: Pt without overnight events. No new complaints today. Continues to have epigastric pain. No N/V. Voiding without difficulty. Has not ambulated. Remains NPO. Physical Exam Vital Signs: Vital Signs: Last Vital Signs Temp 97.9 F 12/24/24 06:45 Pulse 50 12/24/24 06:45 Resp 16 12/24/24 06:45 BP 101/52 L 12/24/24 06:45 Pulse Ox 96 12/24/24 06:45 O2 Del Method Room Air 12/24/24 06:45 BMI result Body Mass Index 32.0 Const: General: cooperative, comfortable and no acute distress Orientation/consciousness: patient oriented x3 GI: Other: soft, nondistended, epigastric tenderness Neuro: General: patient oriented x3 Extrem: General: Yes no pedal edema and Yes no calf tenderness Objective Data Active Medications Diazepam (Diazepam 10 Mg/2 Ml Cartridge) 2.5 mg IVPUSH Q6H PRN PRN Reason: Anxiety Last Admin: 12/23/24 21:43 Dose: 2.5 mg Documented By: FELY Fluticasone/Umeclidinium/Vilanterol (Fluticasone/Umeclidinium/Vilanterol 200/.5/ Blst.W.Dev) 1 puff INHALE RDAILY COUNTS INCLUDE 234 BEDS AT THE [facility] Last Admin: 12/24/24 07:44 Dose: Not Given Documented By: THERESA Non-Admin Reason: Patient Refused Hydromorphone HCl (Hydromorphone Hcl 0.5 Mg/0.5 Ml Syringe) 0.25 mg IVPUSH Q4H PRN; Protocol PRN Reason: Pain, Severe (Pain Scale 7-10) Lactated Ringer's (Lr) 1,000 mls @ 100 mls/hr IVCONT .Q10H COUNTS INCLUDE 234 BEDS AT THE [facility] Last Admin: 12/24/24 02:19 Dose: 100 mls/hr Documented By: FELY Acetaminophen (Ofirmev) 1,000 mg in 100 mls @ 16.7 mls/hr IV .Q6H COUNTS INCLUDE 234 BEDS AT THE [facility] Last Admin: 12/24/24 06:34 Dose: 16.7 mls/hr Documented By: FELY Nutrition (Parenteral) (Parenteral Nutrition) 1,200 mls @ 50 mls/hr IV .Q24H COUNTS INCLUDE 234 BEDS AT THE [facility]; Protocol Stop: 12/25/24 20:59 Metoclopramide HCl (Metoclopramide Hcl 10 Mg/2 Ml Vial) 10 mg IVPUSH Q6H PRN PRN Reason: Nausea Ondansetron HCl (Ondansetron Hcl 4 Mg/2 Ml Vial) 4 mg IVPUSH Q8H PRN PRN Reason: Nausea Pantoprazole Sodium (Pantoprazole Sodium 40 Mg/10 Ml Vial) 40 mg IVPUSH BID@0630,1630 COUNTS INCLUDE 234 BEDS AT THE [facility] Last Admin: 12/24/24 05:30 Dose: 40 mg Documented By: LEFEBGIULIANO Sodium Chloride (0.9 % Sodium Chloride Flush 3 Ml Syringe) 3 ml IVFLUSH QSHIFT COUNTS INCLUDE 234 BEDS AT THE [facility] Last Admin: 12/24/24 08:19 Dose: 3 ml Documented By: CYNDY Sucralfate (Sucralfate Oral Suspension 1 Gm/10 Ml Oral.Susp) 1 gm PO QID COUNTS INCLUDE 234 BEDS AT THE [facility] Last Admin: 12/24/24 08:19 Dose: 1 gm Documented By: CYNDY Labs 12/24/24 05:28 12/24/24 05:28 Labs: Laboratory Results - last 24 hr 12/23/24 12/24/24 16:21 05:28 MCV 84.3 MCH 27.2 MCHC 32.2 RDW 13.3 Plt Count 200 D MPV 10.6 Immature Gran % (Auto) 0.2 Neut % (Auto) 48.3 Lymph % (Auto) 39.6 [place] % (Auto) 8.2 Eos % (Auto) 3.2 Baso % (Auto) 0.5 Lymph # (Auto) 2.3 [place] # (Auto) 0.5 Eos # (Auto) 0.2 Baso # (Auto) 0.0 Abs Immat Gran (auto) 0.01 Absolute Neuts (auto) 2.8 Absolute Nucleated RBC 0.000 Nucleated RBC % (auto) 0.0 Anion Gap 18 11 L Estim Creat Clear Calc 122.0 118.6 Estimated GFR > 60 > 60 Random Glucose 88 74 Calcium 9.7 8.9 D Phosphorus 4.1 Magnesium 2.1 Albumin 3.4 L Procedures Date of Service Date of Service: 12/24/24 Progress Note: A&P Assessment and plan (1) Marginal ulcer: Status: Acute (2) Gastric bypass status for obesity: Status: Acute Plan 49 year old female who is s/p RYGB [address] Gómez. Found to have an anastomotic ulcer and narrowing of the anastomosis by Dr. Ferro earlier this year; underwent repeat EGD 12/23/[address] Gómez and findings includeda deep anastomotic ulcer with mild stricture at GJ anastomosis and esophagitis. Plan: -Continue NPO, IVF -Appreciate nutrition involvement, TPN to start tonight -PICC line to be placed today -IV PPI BID, PO liquid sucralfate -Home meds on hold -Daily labs -Encouraged pt to ambulate in hallways -Appreciate case management involvement for plan for home TPN Time Spent With Patient Time: Total time managing care of this patient today ____ minutes. Quality Stroke Does the patient have a stroke diagnosis?: No VTE Prior VTE?: No VTE Risk Level:: Surgical - low VTE Device Contraindication: N/A - Device Ordered VTE Drug Contraindication: Treatment Not Indicated
--- NOTE | 2024-12-24 18:28 | P.PICC_ITS ---
PICC Line Insertion NPICC Diagnosis: Gastric ulcer Indication: TPN Pertinent Labs: reviewed Technique: Following informed consent including risks, benefits and alternatives and using sterile technique including cap and mask, sterile gown, glove and drape, the right arm was prepped and draped in the usual sterile fashion of full barrier technique with CHG. Following completion of [place] Protocol the skin and soft tissues were anesthetized with 1% Lidocaine plain. Using ultrasound guidance, right basilic vein access was obtained. Over an 0.018 wire through peel-away sheath, a 5fr triple lumen PASV PICC line was positioned. Catheter length is 41cm internal length, 0cm external length, for a total trimmed length of 41cm. The procedure was performed in [facility]. Tip verification was performed by Alex Pinon with Sherlock 3CG. Tip located in SVC. Ultrasound was used to document vein patency and for needle entry. A formal ultrasound picture and cardiac rhythm strip was recorded. [employer] has released the line for use and it is currently dressed with a StatLock, Tegaderm, and CHG disc. Verification has been performed for blood return and line patency. Arm Circumference: 32cm Equipment: [employer] POWER PICC with sherlock 3cg tip Catheter Type: 5FR triple lumen PASV Lot #: [id number]
[2024-12-24] MEDS: Parenteral Nutrition 1,200 ML 50 ML IV (21:28)
[2024-12-24] MEDS: diazePAM 10 MG/2 ML CARTRIDGE 2.5 MG IVPUSH (21:43)
[2024-12-25] VITALS (7 sets, daily range): BP systolic 108–132; BP diastolic 60–82; PULSE 50–69; RESP 16–18; TEMP 36–36.4; O2SAT 95–98
[2024-12-25 07:21] LABS: Alanine Aminotransferase < 6 U/L (0-31); Albumin Level 3.1 g/dL (3.5-5.0); Alkaline Phosphatase 60 U/L (39-117); Anion Gap 13 (12-20); Aspartate Amino Transferase 18 U/L (5-31); Blood Urea Nitrogen 14 mg/dL (9-16); Calcium 8.4 mg/dL (8.4-10.2); Carbon Dioxide 25 mmol/L (22-29); Chloride 108 mmol/L (96-108); Creatinine Clr Calc Pharmacy 122.7; Estimated Glomerular Filt Rate > 60; Magnesium 1.9 mg/dL (1.6-2.6); Potassium 3.8 mmol/L (3.3-5.1); Sodium 142 mmol/L (135-145); Total Protein 5.4 g/dL (6.5-8.0); Triglycerides 89 mg/dL (<150)
[2024-12-25] MEDS: Fluticasone/Umeclidinium/Vilanterol 200/62.5/25 BLST.W.DEV 1 PUFF INHALE (07:57)
[2024-12-25] MEDS: Lactated Ringers 1,000 ML 100 ML IVCONT (08:31)
[2024-12-25] MEDS: Sucralfate Oral Suspension 1 GM/10 ML ORAL.SUSP PO ×4 (08:33→20:07)
--- NOTE | 2024-12-25 09:31 | MHC.CLN ---
F/U PICC LINE PLACED AND CONFIRMED PPN RUNNING NPO REQUIRING TPN DUE TO ANASTOMOTIC ULCER REVIEWED LABS-TRIGS WNL DISCUSSED WITH PHARMACY RECOMMEND TPN AT MAX GOAL RATE 75 ML PER HOUR WITH 20 G LIPIDS TO PROVIDE 1478 TOTAL KCALS (23.8 G/KG CMW), 90 G PROTEIN (1.45 G/KG CMW), 270 G DEXTROSE REPLETE LYTES NEEDED
--- NOTE | 2024-12-25 10:29 | PM.PNGS ---
Subjective Subjective Date of Service: 12/25/24 Interval history: Pt without overnight events. Pain is the same. No nausea. Had PICC placed yesterday and started TPN. Physical Exam Vital Signs: Vital Signs: Last Vital Signs Temp 96.8 F 12/25/24 07:26 Pulse 52 12/25/24 07:58 Resp 17 12/25/24 07:58 BP 109/60 12/25/24 07:26 Pulse Ox 95 12/25/24 07:26 O2 Del Method Room Air 12/25/24 07:26 BMI result Body Mass Index 32.0 Const: General: cooperative, comfortable and no acute distress Orientation/consciousness: patient oriented x3 GI: Other: soft, nondistended, epigastric tenderness Neuro: General: patient oriented x3 Extrem: General: Yes no pedal edema and Yes no calf tenderness Objective Data Active Medications Diazepam (Diazepam 10 Mg/2 Ml Cartridge) 2.5 mg IVPUSH Q6H PRN PRN Reason: Anxiety Last Admin: 12/24/24 21:43 Dose: 2.5 mg Documented By: LEFEBGIULIANO Fluticasone/Umeclidinium/Vilanterol (Fluticasone/Umeclidinium/Vilanterol 200/62.5/25 Blst.W.Dev) 1 puff INHALE RDAILY [facility] Last Admin: 12/25/24 07:57 Dose: 1 puff Documented By: SAEED Hydromorphone HCl (Hydromorphone Hcl 0.5 Mg/0.5 Ml Syringe) 0.25 mg IVPUSH Q4H PRN; Protocol PRN Reason: Pain, Severe (Pain Scale 7-10) Lactated Ringer's (Lr) 1,000 mls @ 100 mls/hr IVCONT .Q10H [facility] Last Admin: 12/25/24 08:31 Dose: 100 mls/hr Documented By: SANTIAGO Acetaminophen (Ofirmev) 1,000 mg in 100 mls @ 16.7 mls/hr IV .Q6H [facility] Last Admin: 12/25/24 08:31 Dose: 16.7 mls/hr Documented By: SANTIAGO Nutrition (Parenteral) (Parenteral Nutrition) 1,200 mls @ 50 mls/hr IV .Q24H [facility]; Protocol Stop: 12/25/24 20:59 Last Admin: 12/24/24 21:28 Dose: 50 mls/hr Documented By: FELY Nutrition (Parenteral) (Parenteral Nutrition) 1,800 mls @ 75 mls/hr IV .Q24H [facility]; Protocol Stop: 12/26/24 20:59 Metoclopramide HCl (Metoclopramide Hcl 10 Mg/2 Ml Vial) 10 mg IVPUSH Q6H PRN PRN Reason: Nausea Ondansetron HCl (Ondansetron Hcl 4 Mg/2 Ml Vial) 4 mg IVPUSH Q8H PRN PRN Reason: Nausea Pantoprazole Sodium (Pantoprazole Sodium 40 Mg/10 Ml Vial) 40 mg IVPUSH BID@0630,1630 [facility] Last Admin: 12/25/24 05:32 Dose: 40 mg Documented By: FELY Pharmacy Consult (Consult Rx Parenteral Nutrition Ordering) 1 each MISCELLANE DAILY PRN PRN Reason: Consult order Sodium Chloride (0.9 % Sodium Chloride Flush 3 Ml Syringe) 3 ml IVFLUSH [facility] Last Admin: 12/25/24 07:29 Dose: Not Given Documented By: SANTIAGO Non-Admin Reason: IV Running Sodium Chloride (0.9 % Sodium Chloride Flush 5 Ml Syringe) 5 ml IVFLUSH [facility] Last Admin: 12/25/24 07:29 Dose: Not Given Documented By: SANTIAGO Non-Admin Reason: IV Running Sucralfate (Sucralfate Oral Suspension 1 Gm/10 Ml Oral.Susp) 1 gm PO QID [facility] Last Admin: 12/25/24 08:33 Dose: 1 gm Documented By: SANTIAGO Labs 12/24/24 05:28 12/25/24 06:12 Labs: Laboratory Results - last 24 hr 12/25/24 06:12 Hold Purple Top SEE NOTE Anion Gap 13 Estim Creat Clear Calc 122.7 Estimated GFR > 60 Random Glucose 99 Calcium 8.4 Phosphorus 4.3 Magnesium 1.9 Total Bilirubin 0.4 AST 18 ALT < 6 Alkaline Phosphatase 60 Total Protein 5.4 L Albumin 3.1 L Triglycerides 89 Procedures Date of Service Date of Service: 12/25/24 Progress Note: A&P Assessment and plan (1) Marginal ulcer: Status: Acute (2) Gastric bypass status for obesity: Status: Acute Plan 49 year old female who is s/p RYGB [address] Gómez. Found to have an anastomotic ulcer and narrowing of the anastomosis by Dr. Ferro earlier this year; underwent repeat EGD 12/23/[address] Gómez and findings included a deep anastomotic ulcer with mild stricture at GJ anastomosis and esophagitis. Plan: -Continue NPO, IVF -Appreciate nutrition involvement, continue TPN -IV PPI BID, PO liquid sucralfate -Home meds on hold -Daily labs -Encouraged pt to ambulate in hallways -Appreciate case management involvement for plan for home TPN -Plan for discharge tomorrow on home TPN. Per case mgmt TPN can be cycled at home. Pt to remain NPO at home, continue PO PPI and carafate at home, hold home meds. Plan for endoscopy in 1 month to reassess ulcer. Discussed with Dr. Gómez. Time Spent With Patient Time: Total time managing care of this patient today __30__ minutes. Quality Stroke Does the patient have a stroke diagnosis?: No VTE Prior VTE?: No VTE Risk Level:: Surgical - low VTE Device Contraindication: N/A - Device Ordered VTE Drug Contraindication: Treatment Not Indicated
[2024-12-25] MEDS: Lactated Ringers 1,000 ML 50 ML IVCONT (10:57)
--- NOTE | 2024-12-25 13:22 | MHC.CM.PN ---
[facility] RN to bedside for teach. Patient feels comfortable managing. No accepting VNA at this time. [facility] will provide SN. Plan to dc home tomorrow. Will need to follow up w/ [facility] tomorrow morning for orders. CM will continue to follow.
[2024-12-25] MEDS: diazePAM 10 MG/2 ML CARTRIDGE 2.5 MG IVPUSH (20:06)
[2024-12-25] MEDS: 0.9 % Sodium Chloride Flush 3 ML SYRINGE IVFLUSH (20:07)
[2024-12-25] MEDS: Parenteral Nutrition 1,800 ML 75 ML IV (21:32)
[2024-12-26 03:56] VITALS: BP 103/54; PULSE 52; RESP 18; TEMP 36.4; O2SAT 96
[2024-12-26] MEDS: Lactated Ringers 1,000 ML 50 ML IVCONT (05:16)
[2024-12-26 05:50] LABS: Alanine Aminotransferase < 6 U/L (0-31); Albumin Level 3.3 g/dL (3.5-5.0); Alkaline Phosphatase 64 U/L (39-117); Anion Gap 10 (12-20); Aspartate Amino Transferase 16 U/L (5-31); Blood Urea Nitrogen 11 mg/dL (9-16); Calcium 8.7 mg/dL (8.4-10.2); Carbon Dioxide 27 mmol/L (22-29); Chloride 109 mmol/L (96-108); Creatinine Clr Calc Pharmacy 127.2; Estimated Glomerular Filt Rate > 60; Magnesium 2.0 mg/dL (1.6-2.6); Potassium 3.8 mmol/L (3.3-5.1); Sodium 142 mmol/L (135-145); Total Protein 5.6 g/dL (6.5-8.0)
[2024-12-26 07:43] VITALS: PULSE 56; RESP 18; O2SAT 96
[2024-12-26] MEDS: Fluticasone/Umeclidinium/Vilanterol 200/62.5/25 BLST.W.DEV 1 PUFF INHALE (07:43)
[2024-12-26 08:00] VITALS: BP 97/60; PULSE 57; RESP 16; TEMP 36.7; O2SAT 96
--- NOTE | 2024-12-26 08:15 | P.PNGS_ITS ---
Subjective Subjective Date of Service: 12/26/24 Interval history: Feels well PICC line was placed. TPN was initiated Pain has improved Physical Exam 2 Vital Signs: Vital Signs: Last Vital Signs Temp 98.1 F 12/26/24 08:00 Pulse 57 12/26/24 08:00 Resp 16 12/26/24 08:00 BP 97/60 12/26/24 08:00 Pulse Ox 96 12/26/24 08:00 O2 Del Method Room Air 12/26/24 03:56 BMI result Body Mass Index 32.0 GI: Inspection: Yes normal to inspection and Yes incision (well healed) P alpation (GI): Soft to palpation Extrem: General: Yes other (PICC line in place, site is clean) Objective Data Active Medications Diazepam (Diazepam 10 Mg/2 Ml Cartridge) 2.5 mg IVPUSH Q6H PRN PRN Reason: Anxiety Last Admin: 12/25/24 20:06 Dose: 2.5 mg Documented By: FELY Fluticasone/Umeclidinium/Vilanterol (Fluticasone/Umeclidinium/Vilanterol 200/62.5/ Blst.W.Dev) 1 puff INHALE RDAILY [facility] Last Admin: 12/26/24 07:43 Dose: 1 puff Documented By: SAEED Hydromorphone HCl (Hydromorphone Hcl 0.5 Mg/0.5 Ml Syringe) 0.25 mg IVPUSH Q4H PRN; Protocol PRN Reason: Pain, Severe (Pain Scale 7-10) Acetaminophen (Ofirmev) 1,000 mg in 100 mls @ 16.7 mls/hr IV .Q6H [facility] Last Admin: 12/26/24 02:28 Dose: 16.7 mls/hr Documented By: FELY Nutrition (Parenteral) (Parenteral Nutrition) 1,800 mls @ 75 mls/hr IV .Q24H [facility]; Protocol Stop: 12/26/24 20:59 Last Admin: 12/25/24 21:32 Dose: 75 mls/hr Documented By: FELY Lactated Ringer's (Lr) 1,000 mls @ 50 mls/hr IVCONT .Q20H [facility] Last Admin: 12/26/24 05:16 Dose: 50 mls/hr Documented By: FELY Metoclopramide HCl (Metoclopramide Hcl 10 Mg/2 Ml Vial) 10 mg IVPUSH Q6H PRN PRN Reason: Nausea Ondansetron HCl (Ondansetron Hcl 4 Mg/2 Ml Vial) 4 mg IVPUSH Q8H PRN PRN Reason: Nausea Pantoprazole Sodium (Pantoprazole Sodium 40 Mg/10 Ml Vial) 40 mg IVPUSH BID@0630,1630 [facility] Last Admin: 12/26/24 05:47 Dose: 40 mg Documented By: FELY Pharmacy Consult (Consult Rx Parenteral Nutrition Ordering) 1 each MISCELLANE DAILY PRN PRN Reason: Consult order Sodium Chloride (0.9 % Sodium Chloride Flush 3 Ml Syringe) 3 ml IVFLUSH [facility] Last Admin: 12/25/24 20:07 Dose: 3 ml Documented By: FELY Sodium Chloride (0.9 % Sodium Chloride Flush 5 Ml Syringe) 5 ml IVFLUSH [facility] Last Admin: 12/25/24 22:25 Dose: Not Given Documented By: FELY Non-Admin Reason: IV Running Sucralfate (Sucralfate Oral Suspension 1 Gm/10 Ml Oral.Susp) 1 gm PO QID [facility] Last Admin: 12/25/24 20:07 Dose: 1 gm Documented By: FELY Labs 12/24/24 05:28 12/26/24 05:20 Labs: Laboratory Results - last 24 hr 12/26/24 05:20 Hold Purple Top SEE NOTE Anion Gap 10 L Estim Creat Clear Calc 127.2 Estimated GFR > 60 Random Glucose 123 H Calcium 8.7 Phosphorus 4.3 Magnesium 2.0 Total Bilirubin 0.3 AST 16 ALT < 6 Alkaline Phosphatase 64 Total Protein 5.6 L Albumin 3.3 L Procedures Date of Service Date of Service: 12/26/24 Progress Note: A&P Assessment and plan (1) Marginal ulcer: Status: Acute Assessment and Plan: Discharge today on home TPN, NPO except Pantoprazole and Sucralfate Fondaparinux once per day for VTE prophylaxis Repeat EGD in one month Time Spent With Patient Time: Total time managing care of this patient today ____ minutes. Quality Stroke Does the patient have a stroke diagnosis?: No VTE Prior VTE?: No VTE Risk Level:: Surgical - low VTE Device Contraindication: N/A - Device Ordered VTE Drug Contraindication: Treatment Not Indicated
[2024-12-26] MEDS: Sucralfate Oral Suspension 1 GM/10 ML ORAL.SUSP PO ×2 (08:56→12:54)
--- NOTE | 2024-12-26 09:17 | P.DS_ITS ---
DS: Providers Provider Date of Service: 12/26/24 Date of admission: 12/23/24 15:34 Date of discharge: 12/26/24 Primary care physician: Félix Zelaya MD DS: Diagnosis Discharge Diagnosis (1) Marginal ulcer: Status: Acute DS: Summary Hospital Course Hospital Course: ADMITTING DIAGNOSIS: s/p gastric bypass, previous anastomotic ulcer, obesity DISCHARGE DIAGNOSIS: same, worsening anastomotic ulcer with stricture PAST SURGICAL HISTORY:? History of esophagogastroduodenoscopy Hx of bladder endoscopy History of cholecystectomy History of back surgery History of gastric bypass History of tracheostomy PROCEDURE: upper endoscopy DISCHARGE SUMMARY: History of Present Illness: The patient is a?49 year-old woman who is s/p RYGB [address] Gómez. She had not followed up with our practice since 2019. She has a history of alcohol abuse, although with sobriety for about three years, as well as continued smoking up until a few months ago. She was found to have an anastomotic ulcer and narrowing of the anastomosis by Dr. Ferro earlier this year and was referred back to our practice. She was advised to follow a nutrition plan including only protein shakes and clear liquids. She was placed on pantoprazole and carafate. She underwent repeat EGD 12/23/[address] Gómez and findings included a deep anastomotic ulcer with mild stricture at GJ anastomosis and esophagitis. Decision was made to admit the patient for TPN. Hospital Course: Patient was admitted and kept NPO. She was started on IV pantoprazole BID and carafate QID. She was hydrated with IVF and administered folic acid, B12, and thiamine. PICC line was placed, and TPN was initiated. Labs were monitored, and vital signs remained stable. Patient was able to be discharged on 12/26/2024. The patient was given instructions to call the office for any fever over 101, persistent abdominal pain, nausea, vomiting, GERD, symptoms of DVT such as calf tenderness, or leg swelling, or pulmonary embolism such as chest pain or shortness of breath.?She will receive TPN at home, remain NPO aside from PO pantoprazole and carafate, and was started on fondaparinux 2.5mg SQ daily for VTE prophylaxis while PICC line was in place. All of these instructions were given to the patient personally. All questions were answered and the patient understood all instructions; the instructions were also given to the patient in print. Time Attestation Discharge Coordination Time (in mins): 30 Quality: Safe Use of Opioids Does Pt have an Active Cancer Diagnosis on the Problem List?: No Quality: Stroke Does the patient have a stroke diagnosis?: No Physical Exam Vital Signs: Vital Signs: Last Vital Signs Temp 98.1 F 12/26/24 08:00 Pulse 57 12/26/24 08:00 Resp 16 12/26/24 08:00 BP 97/60 12/26/24 08:00 Pulse Ox 96 12/26/24 08:00 O2 Del Method Room Air 12/26/24 03:56 BMI result Body Mass Index 32.0 DS: Data Data Completed and Pending Labs on day of discharge: Laboratory Results - last 24 hr 12/26/24 05:20 Hold Purple Top SEE NOTE Sodium 142 Potassium 3.8 Chloride 109 H Carbon Dioxide 27 Anion Gap 10 L BUN 11 Creatinine 0.55 Estim Creat Clear Calc 127.2 Estimated GFR > 60 Random Glucose 123 H Calcium 8.7 Phosphorus 4.3 Magnesium 2.0 Total Bilirubin 0.3 AST 16 ALT < 6 Alkaline Phosphatase 64 Total Protein 5.6 L Albumin 3.3 L Discharge Plan Discharge Anticipated Discharge Date/Time: 12/26/24 08:18 Patient Disposition: Home Health Service Discharge Diagnosis: Anastomotic ulcer Referrals: Félix Zelaya MD [Primary Care Provider, Medical] - 1 Week Discharge Medications: Continued pantoprazole 40 mg tablet,delayed release (DR/EC) 40 mg PO BID 60 Days Qty: 120 0RF sucralfate 100 mg/mL suspension 10 ml PO QID Qty: 420 6RF Trelegy Ellipta 200-62.5-25 mcg blister with device 1 ea inhalation DAILY Discontinued escitalopram oxalate 20 mg Tablet 20 mg PO DAILY Qty: 30 0RF trazodone 50 mg Tablet 50 mg PO BEDTIME PRN (Reason: Insomnia) Qty: 30 0RF Dermacerin(petrolatum-min.oil) Cream 1 appl topical DAILY Qty: 0 0RF Protocol: Apply to: Apply to: face and other dry areas hydroxyzine HCl 25 mg tablet 25 mg PO TID PRN (Reason: anxiety) Qty: 90 0RF acetaminophen [Tylenol] 325 mg tablet 650 mg PO QID PRN (Reason: pain) Qty: 56 0RF dextroamphetamine-amphetamine 10 mg tablet 1 tab PO BID topiramate 25 mg tablet 25 mg PO BID dextroamphetamine-amphetamine 30 mg capsule,extended release 24hr 1 cap PO DAILY No Action fondaparinux 2.5 mg/0.5 mL syringe 2.5 mg subcut DAILY Qty: 5 6RF Rx Instructions: until PICC line is removed Discharge Orders: Discharge Order (Routine); Ordered 12/26/24 Ordered By: Kingston Gómez Activity on Discharge: As tolerated Stand Alone Forms: Patient Portal Discharge page Print Language: [place]se Care Plan Goals: Heal the ulcer Health Concerns: Prevent PICC line Plan of Treatment: NPO on TPN throu PICC line Assessment: PICC line is clean Patient Instructions: How to Care for Your PICC (Peripherally Inserted Central Catheter) (DC)
--- NOTE | 2024-12-26 11:01 | MHC.CM.PN ---
Patient medically cleared for dc. [facility] has received signed orders. Per OC, patient will cycle to 20hrs and can be off of TPN for 4 hours. Plan to dc 1-2pm, as TPN will be delivered ~5pm. RN aware. [facility] will provide nursing. Mother will transport home. Patient aware and comfortable w/ plan.
== END 2024-12-26 13:40 | disposition home or self-care (01) | DRG 241 ==
LOC: HO.S3 15:43
PROVIDERS: Absent Provider Physician Assistant Surgical; Admitting Provider Physician Assistant Surgical; PCP Internal Medicine; Visit Provider Surgery
PROC: 0DJ08ZZ Inspection of Upper Intestinal Tract, Via Natural or Artificial Opening Endoscopic (ICD-10-PCS; CPT 43235; principal; 2024-12-23 15:10)
DX: K28.9 Gastrojejunal ulcer, unspecified as acute or chronic, without hemorrhage or perforation (principal); F10.11 Alcohol abuse, in remission; K20.90 Esophagitis, unspecified without bleeding; Z91.199 Patient's noncompliance with other medical treatment and regimen due to unspecified reason; Z98.84 Bariatric surgery status; Z79.899 Other long term (current) drug therapy
CPT/HCPCS: 36415; 36573; 80048; 80053; 82040; 83735; 84100; 84478; 85014; 85018; 85025; 94640; C1751; J0131; J1808; J2003; J2470; J2704; J3360; J3411; J3420; J7120

== ENCOUNTER → 2024-12-23 15:34 | Outpatient (BNV) | payer BC, MEDICARE, SELFPAY | PROVIDERS: Absent Provider Physician Assistant Surgical; Admitting Provider Physician Assistant Surgical; PCP Internal Medicine; Visit Provider Surgery | DX: K28.9 Gastrojejunal ulcer, unspecified as acute or chronic, without hemorrhage or perforation (principal); Z98.84 Bariatric surgery status | CPT/HCPCS: 99232 ==

== ENCOUNTER 2025-02-12 12:51 | Day surgery (SDC) | payer BC, MEDICARE, SELFPAY ==
--- OUTSIDE RECORDS SUMMARY | 2024-12-25 13:50 | XMS_ITS | Encounter Summary ---
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 and fax # [phone]. Please call pt once referral is completed . * Telephone Encounter - Brii Kirby - 10/31/2022 10:09 AM EDT I recahed out to billing because the patient states to have [facility] and provided ID number [id number] but when I went to add the insurance only [facility] was coming up as an option, unless Walt missing something. Mykle told me to reach out to Elida [...]
--- OUTSIDE RECORDS SUMMARY | 2024-12-25 13:50 | XMS_ITS | Clinical Summary ---
Author Organization [facility] [employer] Address [address] [place] [address] [address] [place] [address] Care Team Providers Care Laundry Aide Name Role Phone Unavailable Primary Care Provider Unavailabl e Allergies Active Allergy Reactions Criticality Noted Date Comments [place] Flavoring Agent (Non-Screening) Rash Low 07/27/2022 Hydrocodone 07/27/2022 Other reaction(s): severe vomiting Penicillin G Benzathine Rash Low 07/27/2022 Shellfish Allergy 11/01/2022 Other reaction(s): projectile vomit sweating [place] Flavoring Agent (Non-Screening) Rash Low 07/27/2022 Medications [...] Panel 1973 SDOH Screening 1973 Sigmoidoscopy 1973 Disability Screening 1973 Alcohol/Substance Use Screening 1985 Tobacco Screening 1985 Family Planning (PISQ) 1988 Hepatitis C Screening 07/19/1991 Hepatitis B Vaccines (1 of 3 - 19+ 3-dose series) 1992 Pap Smear 1994 Cervical Cancer Screening 07/19/2003 HPV/Cotest 07/19/2003 Mammogram 2013 Pneumococcal Vaccine: 50+ Years (2 of 2 - PCV) 07/19/2023 01/13/2016 Zoster Vaccines (1 of 2) 07/19/2023 Dental X-Ray: Bitewings 11/03/2023 11/01/2022, 11/01 COVID-19 Vaccine (3 - 2024- season) 2024 08/20/2020, 07/23/2020 Influenza Vaccine (#1) 2024 , 12/30/2019, 02/26/2018, Additional history exists DTaP/Tdap/Td Vaccines (3 - Td or Tdap) 12/29/2029 12/30/2019, 12/30/2019 RSV Patients and Patients Aged 60 [...] Relevant to Health Maintenance Insurance DENTAL - [facility]
--- OUTSIDE RECORDS SUMMARY | 2024-12-25 13:50 | XMS_ITS | Clinical Summary ---
Author Organization [facility] Address [address] [place] [address] Care Team Providers Care It Professional Name Role Phone Félix Zelaya MD Primary Care Provider Surgical History Surgery Date Site/Laterality Comments OTHER SURGICAL HISTORY 04/2010 PROCEDURE: HISTORY OTHER; COMMENT: tracheotomy OTHER SURGICAL HISTORY 04/2010 PROCEDURE: GASTROSTOMY/JEJUNOSTOMY TUBE OTHER SURGICAL HISTORY PROCEDURE: HISTORY OTHER; COMMENT: bariatric surgery Medical History Medical History Date Comments History of bariatric surgery 05/08/2018 DX: History of bariatric surgery Interstitial lung disease (C [place]/HCC V24, CMS/HCC V28) 02/20/2018 DX:Interstitial lung disease (HCC) BETHANY (obstructive sleep apnea) 02/20/2018 DX :BETHANY (obstructive sleep apnea); COMMENT: [facility] Polysomnogram treatment study. Date 04/17/2018. 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
[2025-01-15 11:08] VITALS: BMI 31.4
--- NOTE | 2025-01-15 14:13 | HO.ANESPROP2 ---
HPI - Anesthesia Eval Consult details Narrative: Pending reschedule 49yo F for Upper Endoscopy s/p EGD 12/2024 with MAC s/p EGD with dilation 10/2024 with TIVA 2019 PE 2011 ARDS with trach C admit 12/23-12/26/24 with worsening anastomotic ulcer with stricture: Hospital course Patient was admitted and kept NPO. She was started on IV pantoprazole BID and carafate QID. She was hydrated with IVF and administered folic acid, B12, and thiamine. PICC line was placed, and TPN was initiated. Labs were monitored, and vital signs remained stable. Patient was able to be discharged on 12/26/2024. The patient was given instructions to call the office for any fever over 101, persistent abdominal pain, nausea, vomiting, GERD, symptoms of DVT such as calf tenderness, or leg swelling, or pulmonary embolism such as chest pain or shortness of breath.?She will receive TPN at home, remain NPO aside from PO pantoprazole and carafate, and was started on fondaparinux 2.5mg SQ daily for VTE prophylaxis while PICC line was in place. PMF Active Problems Active Problems: All Active Problems Gastric bypass status for obesity (Acute) Marginal ulcer (Acute) Calcific tendinitis of right shoulder (Acute) Spondylosis of lumbar region without myelopathy or radiculopathy (Acute) Sacroiliitis (Acute) Chronic left sacroiliac joint pain (Acute) BETHANY (obstructive sleep apnea) (Acute) Avascular necrosis of bone of left hip (Acute) Avascular necrosis of bone of right hip (Acute) Alcohol abuse (Acute) ADHD (attention deficit hyperactivity disorder) (Acute) MDD (major depressive disorder) (Acute) ARDS (adult respiratory distress syndrome) (Acute) Past Medical History Medical History (Updated 01/03/25 @ 00:01 by Vinicius Licea) DDD (degenerative disc disease), lumbar Mass of shoulder region Bipolar 1 disorder GERD (gastroesophageal reflux disease) ADHD Depression History of pulmonary embolism History of GI bleed History of sepsis Foreign body (FB) in soft tissue Psoriatic arthritis Avascular necrosis COPD (chronic obstructive pulmonary disease) ARDS (adult respiratory distress syndrome) Family History Family history of problems with anesthesia: No Surgical History Surgical History (Updated 01/15/25 @ 09:52 by Mena Diaz RN) History of esophagogastroduodenoscopy Hx of bladder endoscopy History of cholecystectomy History of back surgery History of gastric bypass History of tracheostomy History of Problems with Anesthesia: No Social History Social History Household Members: Spouse Housing: House Do you presently have visiting nurse or other home services: No Alcohol intake: never Patient Tobacco Use Status: Former Tobacco user Tobacco use type: Cigarette Second Hand Smoke Exposure: No service: No Current occupational status: unemployed Current occupation: right hand dominant Sexual orientation: Straight/Heterosexual Meds Allergies Allergy/AdvReac Type Severity Reaction Status Date / Time amoxicillin (AMOXICILLIN) Allergy Unknown RASH Verified 11/28/24 13:38 fluoxetine (From PROZAC) Allergy Unknown RASH Verified 11/28/24 13:38 heparin (HEPARIN) Allergy Unknown JAUN Verified 11/28/24 13:38 SYNDROME heparin (porcine) Allergy Unknown swelling, Verified 11/28/24 13:38 red hydrocodone (HYDROCODONE) Allergy Unknown PROJECTILE Verified 11/28/24 13:38 VOMITING ibuprofen (From Motrin) Allergy Unknown Shortness Verified 11/28/24 13:38 of Breath naproxen Allergy Unknown Stomach Verified 11/28/24 13:38 Upset omeprazole (OMEPRAZOLE) Allergy Unknown RASH, head Verified 11/28/24 13:38 to toe rash penicillin G (PENICILLIN G) Allergy Unknown RASH Verified 11/28/24 13:38 penicillin V Allergy Unknown rash Verified 11/28/24 13:38 piperacillin (From ZOSYN) Allergy Unknown RASH Verified 11/28/24 13:38 strawberry (STRAWBERRY) Allergy Unknown SOB,RASH, Verified 11/28/24 13:38 ANAPHYLAXISIS tazobactam (From ZOSYN) Allergy Unknown RASH Verified 11/28/24 13:38 walnut Allergy Unknown Difficulty Verified 11/28/24 13:38 Breathing Caramelized Food coloring Allergy Unknown Itching Uncoded 05/07/23 14:24 CARMALIZED FOOD COLORING Allergy Unknown RASH Uncoded 05/07/23 14:24 Hydrocodone Bitartrate Allergy Unknown severe Uncoded 05/07/23 14:24 vomiting Mangos Allergy Unknown Difficulty Uncoded 05/07/23 14:24 Breathing Piperacillin Sod-Tazobactam Allergy Unknown swelling Uncoded 05/07/23 14:24 So Strawberries Allergy Unknown Blister Uncoded 05/07/23 14:24 Home Medications ?Medication ?Instructions ?Recorded ?Confirmed ?Last Taken ?Type fluticasone fur. 200 mcg-umeclid 1 ea inhalation DAILY 06/07/23 01/15/25 12/20/24 History 62.5 mcg-vilant 25 mcg inhalat.powder (Trelegy Ellipta) Exam Height,Weight and Vital Signs: Height 5 ft 4 in Weight 83.007 kg Pertinent Lab Results Pertinent Lab Results: Laboratory Tests 12/24/24 12/26/24 05:28 05:20 WBC 5.9 Hgb 11.8 L Hct 36.6 L Plt Count 200 D Sodium 142 Potassium 3.8 Chloride 109 H Carbon Dioxide 27 BUN 11 Creatinine 0.55 Narrative Narrative: EKG 09/2024 Vent. Rate : 63 BPM Atrial Rate : 63 BPM P-R Int : 138 ms QRS Dur : 80 ms QT Int : 396 ms P-R-T Axes : 36 3 16 degrees QTcB Int : 405 ms Normal sinus rhythm Nonspecific T wave abnormality Abnormal ECG When compared with ECG of 25-Jan-2023 09:39, No significant change was found Assessment and Plan Assessment Anesthesia Assessment: Chart Reviewed Final Anesthetic Review Family History of Problems with Anesthesia: No History of Problems with Anesthesia: No
--- NOTE | 2025-02-10 11:50 | HO.ANESPROP2 ---
Documented by User: Teri Jiménez NP 02/10/25 11:50 HPI - Anesthesia Eval Consult details Narrative: Pending reschedule 49yo F for Upper Endoscopy s/p EGD 12/2024 with MAC s/p EGD with dilation 10/2024 with TIVA 2018 PE 2011 ARDS with trach C admit 12/23-12/26/24 with worsening anastomotic ulcer with stricture: Hospital course Patient was admitted and kept NPO. She was started on IV pantoprazole BID and carafate QID. She was hydrated with IVF and administered folic acid, B12, and thiamine. PICC line was placed, and TPN was initiated. Labs were monitored, and vital signs remained stable. Patient was able to be discharged on 12/26/2024. The patient was given instructions to call the office for any fever over 101, persistent abdominal pain, nausea, vomiting, GERD, symptoms of DVT such as calf tenderness, or leg swelling, or pulmonary embolism such as chest pain or shortness of breath.?She will receive TPN at home, remain NPO aside from PO pantoprazole and carafate, and was started on fondaparinux 2.5mg SQ daily for VTE prophylaxis while PICC line was in place. PMFSH Active Problems Active Problems: All Active Problems Gastric bypass status for obesity (Acute) Marginal ulcer (Acute) Calcific tendinitis of right shoulder (Acute) Spondylosis of lumbar region without myelopathy or radiculopathy (Acute) Sacroiliitis (Acute) Chronic left sacroiliac joint pain (Acute) BETHANY (obstructive sleep apnea) (Acute) Avascular necrosis of bone of left hip (Acute) Avascular necrosis of bone of right hip (Acute) Alcohol abuse (Acute) ADHD (attention deficit hyperactivity disorder) (Acute) MDD (major depressive disorder) (Acute) ARDS (adult respiratory distress syndrome) (Acute) Past Medical History Medical History DDD (degenerative disc disease), lumbar Mass of shoulder region Bipolar 1 disorder GERD (gastroesophageal reflux disease) ADHD Depression History of pulmonary embolism History of GI bleed History of sepsis Foreign body (FB) in soft tissue Psoriatic arthritis Avascular necrosis COPD (chronic obstructive pulmonary disease) ARDS (adult respiratory distress syndrome) Family History Family history of problems with anesthesia: No Surgical History Surgical History History of esophagogastroduodenoscopy Hx of bladder endoscopy History of cholecystectomy History of back surgery History of gastric bypass History of tracheostomy History of Problems with Anesthesia: No Social History Social History Household Members: Spouse Housing: House Do you presently have visiting nurse or other home services: No Alcohol intake: never Patient Tobacco Use Status: Former Tobacco user Tobacco use type: Cigarette Second Hand Smoke Exposure: No Use of substances other than those prescribed or required for medical reasons: No Advance Directives: No Advance Directives Information Provided: Yes service: No Current occupational status: unemployed Current occupation: right hand dominant Sexual orientation: Straight/Heterosexual Meds Allergies Allergy/AdvReac Type Severity Reaction Status Date / Time amoxicillin (AMOXICILLIN) Allergy Unknown RASH Verified 11/28/24 13:38 fluoxetine (From PROZAC) Allergy Unknown RASH Verified 11/28/24 13:38 heparin (HEPARIN) Allergy Unknown JAUN Verified 11/28/24 13:38 SYNDROME heparin (porcine) Allergy Unknown swelling, Verified 11/28/24 13:38 red hydrocodone (HYDROCODONE) Allergy Unknown PROJECTILE Verified 11/28/24 13:38 VOMITING ibuprofen (From Motrin) Allergy Unknown Shortness Verified 11/28/24 13:38 of Breath naproxen Allergy Unknown Stomach Verified 11/28/24 13:38 Upset omeprazole (OMEPRAZOLE) Allergy Unknown RASH, head Verified 11/28/24 13:38 to toe rash penicillin G (PENICILLIN G) Allergy Unknown RASH Verified 11/28/24 13:38 penicillin V Allergy Unknown rash Verified 11/28/24 13:38 piperacillin (From ZOSYN) Allergy Unknown RASH Verified 11/28/24 13:38 strawberry (STRAWBERRY) Allergy Unknown SOB,RASH, Verified 11/28/24 13:38 ANAPHYLAXISIS tazobactam (From ZOSYN) Allergy Unknown RASH Verified 11/28/24 13:38 walnut Allergy Unknown Difficulty Verified 11/28/24 13:38 Breathing Caramelized Food coloring Allergy Unknown Itching Uncoded 05/07/23 14:24 CARMALIZED FOOD COLORING Allergy Unknown RASH Uncoded 05/07/23 14:24 Hydrocodone Bitartrate Allergy Unknown severe Uncoded 05/07/23 14:24 vomiting Mangos Allergy Unknown Difficulty Uncoded 05/07/23 14:24 Breathing Piperacillin Sod-Tazobactam Allergy Unknown swelling Uncoded 05/07/23 14:24 So Strawberries Allergy Unknown Blister Uncoded 05/07/23 14:24 Home Medications ?Medication ?Instructions ?Recorded ?Confirmed ?Last Taken ?Type fluticasone fur. 200 mcg-umeclid 1 ea inhalation DAILY 06/07/23 01/15/25 12/20/24 History 62.5 mcg-vilant 25 mcg inhalat.powder (Trelegy Ellipta) Exam Height,Weight and Vital Signs: Height 5 ft 4 in Weight 83.007 kg Pertinent Lab Results Pertinent Lab Results: Laboratory Tests 12/24/24 12/26/24 05:28 05:20 WBC 5.9 Hgb 11.8 L Hct 36.6 L Plt Count 200 D Sodium 142 Potassium 3.8 Chloride 109 H Carbon Dioxide 27 BUN 11 Creatinine 0.55 Narrative Narrative: EKG 09/2024 Vent. Rate : 63 BPM Atrial Rate : 63 BPM P-R Int : 138 ms QRS Dur : 80 ms QT Int : 396 ms P-R-T Axes : 36 3 16 degrees QTcB Int : 405 ms Normal sinus rhythm Nonspecific T wave abnormality Abnormal ECG When compared with ECG of 25-Jan-2023 09:39, No significant change was found Assessment and Plan Assessment Anesthesia Assessment: Chart Reviewed Final Anesthetic Review Family History of Problems with Anesthesia: No History of Problems with Anesthesia: No Documented by User: Rose Elias MD 02/12/25 15:22 [facility] Past Medical History Medical History DDD (degenerative disc disease), lumbar Mass of shoulder region Bipolar 1 disorder GERD (gastroesophageal reflux disease) ADHD Depression History of pulmonary embolism History of GI bleed History of sepsis Foreign body (FB) in soft tissue Psoriatic arthritis Avascular necrosis COPD (chronic obstructive pulmonary disease) ARDS (adult respiratory distress syndrome) Surgical History Surgical History History of esophagogastroduodenoscopy Hx of bladder endoscopy History of cholecystectomy History of back surgery History of gastric bypass History of tracheostomy Social History Social History Household Members: Spouse Housing: House Do you presently have visiting nurse or other home services: No Alcohol intake: never Patient Tobacco Use Status: Former Tobacco user Tobacco use type: Cigarette Second Hand Smoke Exposure: No Use of substances other than those prescribed or required for medical reasons: No Advance Directives: No Advance Directives Information Provided: Yes service: No Current occupational status: unemployed Current occupation: right hand dominant Sexual orientation: Straight/Heterosexual Meds Allergies Allergy/AdvReac Type Severity Reaction Status Date / Time amoxicillin (AMOXICILLIN) Allergy Unknown RASH Verified 11/28/24 13:38 fluoxetine (From PROZAC) Allergy Unknown RASH Verified 11/28/24 13:38 heparin (HEPARIN) Allergy Unknown JAUN Verified 11/28/24 13:38 SYNDROME heparin (porcine) Allergy Unknown swelling, Verified 11/28/24 13:38 red hydrocodone (HYDROCODONE) Allergy Unknown PROJECTILE Verified 11/28/24 13:38 VOMITING ibuprofen (From Motrin) Allergy Unknown Shortness Verified 11/28/24 13:38 of Breath naproxen Allergy Unknown Stomach Verified 11/28/24 13:38 Upset omeprazole (OMEPRAZOLE) Allergy Unknown RASH, head Verified 11/28/24 13:38 to toe rash penicillin G (PENICILLIN G) Allergy Unknown RASH Verified 11/28/24 13:38 penicillin V Allergy Unknown rash Verified 11/28/24 13:38 piperacillin (From ZOSYN) Allergy Unknown RASH Verified 11/28/24 13:38 strawberry (STRAWBERRY) Allergy Unknown SOB,RASH, Verified 11/28/24 13:38 ANAPHYLAXISIS tazobactam (From ZOSYN) Allergy Unknown RASH Verified 11/28/24 13:38 walnut Allergy Unknown Difficulty Verified 11/28/24 13:38 Breathing Caramelized Food coloring Allergy Unknown Itching Uncoded 05/07/23 14:24 CARMALIZED FOOD COLORING Allergy Unknown RASH Uncoded 05/07/23 14:24 Hydrocodone Bitartrate Allergy Unknown severe Uncoded 05/07/23 14:24 vomiting Mangos Allergy Unknown Difficulty Uncoded 05/07/23 14:24 Breathing Piperacillin Sod-Tazobactam Allergy Unknown swelling Uncoded 05/07/23 14:24 So Strawberries Allergy Unknown Blister Uncoded 05/07/23 14:24 Home Medications ?Medication ?Instructions ?Recorded ?Confirmed ?Last Taken ?Type fluticasone fur. 200 mcg-umeclid 1 ea inhalation DAILY 06/07/23 01/15/25 12/20/24 History 62.5 mcg-vilant 25 mcg inhalat.powder (Trelegy Ellipta) Exam Airway Mallampati Class: II TM Dist: >3cm Neck ROM: Full Loose/Missing/Broken Teeth: Yes, Upper and Lower Heart: RRR Lungs: CTA Assessment and Plan Assessment Anesthesia Assessment: Anesthesia Plan Discussed Final Anesthetic Review NPO: Yes ASA Class: III Final Preanesthetic Review: Meds/Allgs Chart Reviewed, Consent Obtained/Reviewed and Anes Risks/Benef Reviewed Patient Risk: Intermediate Procedure Risk: Intermediate Anesthetic Plan Anesthetic Plan: MAC: Disposition: Standard PACU
[2025-02-12] VITALS (9 sets, daily range): BP systolic 106–123; BP diastolic 54–79; PULSE 64–84; RESP 16–18; TEMP 36.1–36.4; O2SAT 99–100; BMI 30.1
[2025-02-12] MEDS: Lactated Ringers 1,000 ML 80 ML IVCONT (13:45)
--- NOTE | 2025-02-12 15:19 | MHC.SHP ---
Pre-Procedural Eval Section A - 24 Hr Update-Section A only Date of Service: 02/12/25 The patient is an INPATIENT: No The patient has been examined within 24 hours of the surgical procedure. The History & Physical has been completed within 30 days and I have reviewed it.: Yes Section B - Complete if H&P > 30 days Chief Complaint: Acute gastrojejunal ulcer with hemorrhage Relevant Family History (Specify if Yes): No Relevant Social History: None Present Medications: None Medical History: No relevant PMH History of Previous Operations: Relevant previous surgery/procedure and date(s) (Laparoscopic gastric bypass) Allergies: Allergies Allergy/AdvReac Type Severity Reaction Status Date / Time amoxicillin (AMOXICILLIN) Allergy Unknown RASH Verified 11/28/24 13:38 fluoxetine (From PROZAC) Allergy Unknown RASH Verified 11/28/24 13:38 heparin (HEPARIN) Allergy Unknown JAUN Verified 11/28/24 13:38 SYNDROME heparin (porcine) Allergy Unknown swelling, Verified 11/28/24 13:38 red hydrocodone (HYDROCODONE) Allergy Unknown PROJECTILE Verified 11/28/24 13:38 VOMITING ibuprofen (From Motrin) Allergy Unknown Shortness Verified 11/28/24 13:38 of Breath naproxen Allergy Unknown Stomach Verified 11/28/24 13:38 Upset omeprazole (OMEPRAZOLE) Allergy Unknown RASH, head Verified 11/28/24 13:38 to toe rash penicillin G (PENICILLIN G) Allergy Unknown RASH Verified 11/28/24 13:38 penicillin V Allergy Unknown rash Verified 11/28/24 13:38 piperacillin (From ZOSYN) Allergy Unknown RASH Verified 11/28/24 13:38 strawberry (STRAWBERRY) Allergy Unknown SOB,RASH, Verified 11/28/24 13:38 ANAPHYLAXISIS tazobactam (From ZOSYN) Allergy Unknown RASH Verified 11/28/24 13:38 walnut Allergy Unknown Difficulty Verified 11/28/24 13:38 Breathing Caramelized Food coloring Allergy Unknown Itching Uncoded 05/07/23 14:24 CARMALIZED FOOD COLORING Allergy Unknown RASH Uncoded 05/07/23 14:24 Hydrocodone Bitartrate Allergy Unknown severe Uncoded 05/07/23 14:24 vomiting Mangos Allergy Unknown Difficulty Uncoded 05/07/23 14:24 Breathing Piperacillin Sod-Tazobactam Allergy Unknown swelling Uncoded 05/07/23 14:24 So Strawberries Allergy Unknown Blister Uncoded 05/07/23 14:24 Review of Systems Sugical H&P ROS: Negative: Constitution, Cardiovascular, Respiratory, Neurological, Psychiatric, Hem-Onc, Allergic/Immunologic, Gastrointestinal, Genitourinary, Musculoskeletal, Integumentary, Endocrine and Eyes/Ears/Nose/Throat Exam Surgical H&P Exam: Normal: HEENT, Normal: Heart, Normal: Lungs, Normal: Extremities, Normal: Skin and Normal: Neurological and Significant Findings: Abdomen (small mass at left lower abdomen from fondaparinux injections) Plan Diagnosis/Plan: Unchanged (EGD to assess the status of the ulcer. Risks of bleeding and perforation were discussed with the patient and she is in agreement with the plan.) I have reviewed the history and physical and performed a pertinent physical examination on my patient. No changes have occurred unless specified. Time Spent With Patient Time: Total time managing care of this patient today ____ minutes.
--- NOTE | 2025-02-12 15:20 | P.BOP_ITS ---
Brief Operative Note Date of Service: 02/12/25 Pre-op diagnosis: Anastomotic ulcer Post-op diagnosis: same Procedure: PROCEDURE DATE: 02/12/2025 PREOPERATIVE DIAGNOSIS: Anastomotic ulcer, s/p gastric bypass POSTOPERATIVE DIAGNOSIS: ?Same as above. 1) Healing anastomotic ulcer with mild stricture at GJ anastomosis PROCEDURE: [id number] Surgeon: ?Tereso Gómez M.D.. Ph.D. Construction Equipment Overhauler: ?None ? Anesthesia: IV sedation Estimated blood loss: ?Minimal FINDINGS AND PROCEDURE: ? OPERATIVE INDICATIONS: ?The patient is a 49 year old female known to me who underwent a laparoscopic gastric bypass by me. The patient had excellent weight loss and was able to get of the home oxygen on which she was preoperatively.?The patient presented in the summer complaining of abdominal pain and an endoscopy was performed by Dr. Ferro on 10/31/24 that showed a deep anastomotic ulcer and stricture at the anastomosis. The patient was placed on a liquid high protein diet and PPI therapy and presented for a follow-up endoscopy in December. A deep ulcer with GJ stenosis was found. The patient was placed on TPN. Before however a follow-up EGD was performed the patient was admited at [facility] for hypotension. She was discharged recently without the PICC line and I placed her on 5 protein shakes per day which she is tolerating very well. Based on this information I recommended an upper endoscopy to evaluate the ulcer.? Risks and complications of the surgery were discussed with the patient in advance particularly the possibility of perforation or bleeding that may require surgical intervention. The patient understood the risks and was in agreement with the plan. ? PROCEDURE: After informed consent was obtained by the patient, the patient was ?transferred to the Operating Room and was placed in the supine position.? After successful induction of IV sedation, a mouth block was placed and the patient was placed in the left lateral decubitus position. An upper endoscopy was performed next, the oropharynx and esophagus appeared within the normal limits. There was no hiatal hernia.? The z-line was smooth. The small pouch was entered, appeared to be of normal size. There was no gastri tis and the gastrojejunostomy was patent. The GJ anastomosis was narrowed due to an anastomotic ulcer at about 9pm position.?The ulcer has improved from previous endoscopy. The Ben limb was situated at 3pm position and I was able to get through to the Ben limb without any significant difficulty. At that point the scope was advanced into the proximal small intestine (proximal Ben limb) for about another 10cm which appeared to be normal as well. The Ben limb and the pouch were decompressed and the scope was withdrawn from the patient's mouth. The patient was awaken and was transferred in stable condition to the Recovery Room for further care. I was present and performed all steps of the procedure. There were no residents to assist with this case. Tereso Gómez M.D., Ph.D. Surgeon: Kingston Gómez MD Anesthesia: MAC Was an Construction Equipment Overhauler used for this Procedure?: No Estimated blood loss (mL): 0 IV fluids (mL): 400 Urine output (mL): 0 (No Santos to record output) Pathology: none sent Condition: stable Disposition: PACU
[2025-02-12] MEDS: Thiamine HCL 100 MG in 0.9 % Sodium Chloride 100 ML 202 MG IV (16:01)
== END 2025-02-12 17:26 | disposition home or self-care (01) ==
PROVIDERS: PCP Internal Medicine; Visit Provider Surgery
PROC: 0DJ08ZZ Inspection of Upper Intestinal Tract, Via Natural or Artificial Opening Endoscopic (ICD-10-PCS; CPT 43235; principal; 2025-02-12 15:30)
DX: K91.89 Other postprocedural complications and disorders of digestive system (principal); K28.7 Chronic gastrojejunal ulcer without hemorrhage or perforation; Y83.2 Surgical operation with anastomosis, bypass or graft as the cause of abnormal reaction of the patient, or of later complication, without mention of misadventure at the time of the procedure; Z98.0 Intestinal bypass and anastomosis status; Z98.84 Bariatric surgery status; K21.9 Gastro-esophageal reflux disease without esophagitis; J44.9 Chronic obstructive pulmonary disease, unspecified; J80 Acute respiratory distress syndrome; F10.11 Alcohol abuse, in remission; L40.50 Arthropathic psoriasis, unspecified; M87.9 Osteonecrosis, unspecified; F32.A Depression, unspecified; Z87.19 Personal history of other diseases of the digestive system; Z86.711 Personal history of pulmonary embolism; Z79.51 Long term (current) use of inhaled steroids; Z79.899 Other long term (current) drug therapy; Z88.0 Allergy status to penicillin; Z88.1 Allergy status to other antibiotic agents; Z88.8 Allergy status to other drugs, medicaments and biological substances; Z88.5 Allergy status to narcotic agent; Z88.6 Allergy status to analgesic agent; Z93.0 Tracheostomy status; Z90.49 Acquired absence of other specified parts of digestive tract; Z98.890 Other specified postprocedural states; Z87.891 Personal history of nicotine dependence; Z56.0 Unemployment, unspecified
CPT/HCPCS: 43235; J1808; J2003; J2704; J3411; J3420

== ENCOUNTER → 2025-02-12 12:51 | Outpatient (BNV) | payer BC, MEDICARE, SELFPAY | PROVIDERS: PCP Internal Medicine; Visit Provider Surgery | DX: K28.9 Gastrojejunal ulcer, unspecified as acute or chronic, without hemorrhage or perforation (principal) | CPT/HCPCS: 43235 ==

== ENCOUNTER 2025-03-12 06:17 | Day surgery (SDC) | payer BC, MEDICARE, SELFPAY ==
--- NOTE | 2025-03-09 12:43 | HO.ANESPROP2 ---
Documented by User: Teri Jiménez NP 03/09/25 12:44 HPI - Anesthesia Eval Consult details Narrative: 49yo F for Upper Endoscopy s/p EGD 02/2025 with MAC 2019 PE 2010 ARDS with trach C admit 12/23-12/26/24 with worsening anastomotic ulcer with stricture: Hospital course Patient was admitted and kept NPO. She was started on IV pantoprazole BID and carafate QID. She was hydrated with IVF and administered folic acid, B12, and thiamine. PICC line was placed, and TPN was initiated. Labs were monitored, and vital signs remained stable. Patient was able to be discharged on 12/26/2024. The patient was given instructions to call the office for any fever over 101, persistent abdominal pain, nausea, vomiting, GERD, symptoms of DVT such as calf tenderness, or leg swelling, or pulmonary embolism such as chest pain or shortness of breath.?She will receive TPN at home, remain NPO aside from PO pantoprazole and carafate, and was started on fondaparinux 2.5mg SQ daily for VTE prophylaxis while PICC line was in place. REPLACED BY [facility] Active Problems Active Problems: All Active Problems Gastric bypass status for obesity (Acute) Marginal ulcer (Acute) Calcific tendinitis of right shoulder (Acute) Spondylosis of lumbar region without myelopathy or radiculopathy (Acute) Sacroiliitis (Acute) Chronic left sacroiliac joint pain (Acute) BETHANY (obstructive sleep apnea) (Acute) Avascular necrosis of bone of left hip (Acute) Avascular necrosis of bone of right hip (Acute) Alcohol abuse (Acute) ADHD (attention deficit hyperactivity disorder) (Acute) MDD (major depressive disorder) (Acute) ARDS (adult respiratory distress syndrome) (Acute) Past Medical History Medical History DDD (degenerative disc disease), lumbar Mass of shoulder region Bipolar 1 disorder GERD (gastroesophageal reflux disease) ADHD Depression History of pulmonary embolism History of GI bleed History of sepsis Foreign body (FB) in soft tissue Psoriatic arthritis Avascular necrosis COPD (chronic obstructive pulmonary disease) ARDS (adult respiratory distress syndrome) Family History Family history of problems with anesthesia: No Surgical History Surgical History History of esophagogastroduodenoscopy Hx of bladder endoscopy History of cholecystectomy History of back surgery History of gastric bypass History of tracheostomy History of Problems with Anesthesia: No Social History Social History Household Members: Spouse Housing: House Do you presently have visiting nurse or other home services: No Alcohol intake: never Patient Tobacco Use Status: Former Tobacco user Tobacco use type: Cigarette Second Hand Smoke Exposure: No Use of substances other than those prescribed or required for medical reasons: No Have you been hit, kicked, punched, or otherwise hurt by someone within the past year? If so, by whom?: No Are you DNR?: No Advance Directives: No Advance Directives Information Provided: Yes Patient : No (patient states no period for 10 years- + menapause) service: No Current occupational status: unemployed Current occupation: right hand dominant Sexual orientation: Straight/Heterosexual Meds Allergies Allergy/AdvReac Type Severity Reaction Status Date / Time amoxicillin (AMOXICILLIN) Allergy Unknown RASH Verified 03/12/25 06:44 fluoxetine (From PROZAC) Allergy Unknown RASH Verified 03/12/25 06:44 heparin (HEPARIN) Allergy Unknown JAUN Verified 03/12/25 06:44 SYNDROME heparin (porcine) Allergy Unknown swelling, Verified 03/12/25 06:44 red hydrocodone (HYDROCODONE) Allergy Unknown PROJECTILE Verified 03/12/25 06:44 VOMITING ibuprofen (From Motrin) Allergy Unknown Shortness Verified 03/12/25 06:44 of Breath naproxen Allergy Unknown Stomach Verified 03/12/25 06:44 Upset omeprazole (OMEPRAZOLE) Allergy Unknown RASH, head Verified 03/12/25 06:44 to toe rash penicillin G (PENICILLIN G) Allergy Unknown RASH Verified 03/12/25 06:44 penicillin V Allergy Unknown rash Verified 03/12/25 06:44 piperacillin (From ZOSYN) Allergy Unknown RASH Verified 03/12/25 06:44 strawberry (STRAWBERRY) Allergy Unknown SOB,RASH, Verified 03/12/25 06:44 ANAPHYLAXISIS tazobactam (From ZOSYN) Allergy Unknown RASH Verified 03/12/25 06:44 walnut Allergy Unknown Difficulty Verified 03/12/25 06:44 Breathing Caramelized Food coloring Allergy Unknown Itching Uncoded 03/12/25 06:44 CARMALIZED FOOD COLORING Allergy Unknown RASH Uncoded 03/12/25 06:44 Hydrocodone Bitartrate Allergy Unknown severe Uncoded 03/12/25 06:44 vomiting Mangos Allergy Unknown Difficulty Uncoded 03/12/25 06:44 Breathing Piperacillin Sod-Tazobactam Allergy Unknown swelling Uncoded 03/12/25 06:44 So Strawberries Allergy Unknown Blister Uncoded 03/12/25 06:44 Home Medications ?Medication ?Instructions ?Recorded ?Confirmed ?Last Taken ?Type fluticasone fur. 200 mcg-umeclid 1 ea inhalation DAILY 06/07/23 03/12/25 12/20/24 History 62.5 mcg-vilant 25 mcg inhalat.powder (Trelegy Ellipta) Exam Pertinent Lab Results Pertinent Lab Results: Laboratory Tests 12/24/24 12/26/24 05:28 05:20 WBC 5.9 Hgb 11.8 L Hct 36.6 L Plt Count 200 D Sodium 142 Potassium 3.8 Chloride 109 H Carbon Dioxide 27 BUN 11 Creatinine 0.55 Narrative Narrative: EKG 09/2024 Vent. Rate : 63 BPM Atrial Rate : 63 BPM P-R Int : 138 ms QRS Dur : 80 ms QT Int : 396 ms P-R-T Axes : 36 3 16 degrees QTcB Int : 405 ms Normal sinus rhythm Nonspecific T wave abnormality Abnormal ECG When compared with ECG of 25-Jan-2023 09:39, No significant change was found Assessment and Plan Assessment Anesthesia Assessment: Chart Reviewed Final Anesthetic Review Family History of Problems with Anesthesia: No History of Problems with Anesthesia: No Documented by User: [place] MD 03/12/25 07:46 PMFSH Past Medical History Medical History DDD (degenerative disc disease), lumbar Mass of shoulder region Bipolar 1 disorder GERD (gastroesophageal reflux disease) ADHD Depression History of pulmonary embolism History of GI bleed History of sepsis Foreign body (FB) in soft tissue Psoriatic arthritis Avascular necrosis COPD (chronic obstructive pulmonary disease) ARDS (adult respiratory distress syndrome) Surgical History Surgical History History of esophagogastroduodenoscopy Hx of bladder endoscopy History of cholecystectomy History of back surgery History of gastric bypass History of tracheostomy Social History Social History Household Members: Spouse Housing: House Do you presently have visiting nurse or other home services: No Alcohol intake: never Patient Tobacco Use Status: Former Tobacco user Tobacco use type: Cigarette Second Hand Smoke Exposure: No Use of substances other than those prescribed or required for medical reasons: No Have you been hit, kicked, punched, or otherwise hurt by someone within the past year? If so, by whom?: No Are you DNR?: No Advance Directives: No Advance Directives Information Provided: Yes Patient : No (patient states no period for 10 years- + menapause) service: No Current occupational status: unemployed Current occupation: right hand dominant Sexual orientation: Straight/Heterosexual Meds Allergies Allergy/AdvReac Type Severity Reaction Status Date / Time amoxicillin (AMOXICILLIN) Allergy Unknown RASH Verified 03/12/25 06:44 fluoxetine (From PROZAC) Allergy Unknown RASH Verified 03/12/25 06:44 heparin (HEPARIN) Allergy Unknown JAUN Verified 03/12/25 06:44 SYNDROME heparin (porcine) Allergy Unknown swelling, Verified 03/12/25 06:44 red hydrocodone (HYDROCODONE) Allergy Unknown PROJECTILE Verified 03/12/25 06:44 VOMITING ibuprofen (From Motrin) Allergy Unknown Shortness Verified 03/12/25 06:44 of Breath naproxen Allergy Unknown Stomach Verified 03/12/25 06:44 Upset omeprazole (OMEPRAZOLE) Allergy Unknown RASH, head Verified 03/12/25 06:44 to toe rash penicillin G (PENICILLIN G) Allergy Unknown RASH Verified 03/12/25 06:44 penicillin V Allergy Unknown rash Verified 03/12/25 06:44 piperacillin (From ZOSYN) Allergy Unknown RASH Verified 03/12/25 06:44 strawberry (STRAWBERRY) Allergy Unknown SOB,RASH, Verified 03/12/25 06:44 ANAPHYLAXISIS tazobactam (From ZOSYN) Allergy Unknown RASH Verified 03/12/25 06:44 walnut Allergy Unknown Difficulty Verified 03/12/25 06:44 Breathing Caramelized Food coloring Allergy Unknown Itching Uncoded 03/12/25 06:44 CARMALIZED FOOD COLORING Allergy Unknown RASH Uncoded 03/12/25 06:44 Hydrocodone Bitartrate Allergy Unknown severe Uncoded 03/12/25 06:44 vomiting Mangos Allergy Unknown Difficulty Uncoded 03/12/25 06:44 Breathing Piperacillin Sod-Tazobactam Allergy Unknown swelling Uncoded 03/12/25 06:44 So Strawberries Allergy Unknown Blister Uncoded 03/12/25 06:44 Home Medications ?Medication ?Instructions ?Recorded ?Confirmed ?Last Taken ?Type fluticasone fur. 200 mcg-umeclid 1 ea inhalation DAILY 06/07/23 03/12/25 12/20/24 History 62.5 mcg-vilant 25 mcg inhalat.powder (Trelegy Ellipta) Exam Airway Mallampati Class: II TM Dist: >3cm Neck ROM: Full Heart: rrr Lungs: cta Assessment and Plan Assessment Anesthesia Assessment: Anesthesia Plan Discussed Final Anesthetic Review NPO: Yes ASA Class: III Final Preanesthetic Review: No Changes in Pt Med Stat, Meds/Allgs Chart Reviewed, Consent Obtained/Reviewed and Anes Risks/Benef Reviewed Patient Risk: Intermediate Procedure Risk: Low Anesthetic Plan Anesthetic Plan: MAC: and Agree w/ Assess. and Plan Disposition: Standard PACU
[2025-03-12 06:43] VITALS: BMI 28.3
[2025-03-12 06:53] VITALS: BP 110/73; PULSE 74; RESP 17; TEMP 36.2; O2SAT 97
[2025-03-12 06:54] VITALS: BMI 28.3
[2025-03-12] MEDS: Lactated Ringers 1,000 ML 80 ML IVCONT (06:59)
--- NOTE | 2025-03-12 07:50 | MHC.SHP ---
Pre-Procedural Eval Section A - 24 Hr Update-Section A only Date of Service: 03/12/25 The patient is an INPATIENT: No The patient has been examined within 24 hours of the surgical procedure. The History & Physical has been completed within 30 days and I have reviewed it.: No Section B - Complete if H&P > 30 days Chief Complaint: Acute gastrojejunal ulcer with hemorrhage Relevant Family History (Specify if Yes): No Relevant Social History: None Present Medications: None Medical History: No relevant PMH History of Previous Operations: Relevant previous surgery/procedure and date(s) (s/p laparoscopic gastric bypass) Allergies: Allergies Allergy/AdvReac Type Severity Reaction Status Date / Time amoxicillin (AMOXICILLIN) Allergy Unknown RASH Verified 03/12/25 06:44 fluoxetine (From PROZAC) Allergy Unknown RASH Verified 03/12/25 06:44 heparin (HEPARIN) Allergy Unknown JAUN Verified 03/12/25 06:44 SYNDROME heparin (porcine) Allergy Unknown swelling, Verified 03/12/25 06:44 red hydrocodone (HYDROCODONE) Allergy Unknown PROJECTILE Verified 03/12/25 06:44 VOMITING ibuprofen (From Motrin) Allergy Unknown Shortness Verified 03/12/25 06:44 of Breath naproxen Allergy Unknown Stomach Verified 03/12/25 06:44 Upset omeprazole (OMEPRAZOLE) Allergy Unknown RASH, head Verified 03/12/25 06:44 to toe rash penicillin G (PENICILLIN G) Allergy Unknown RASH Verified 03/12/25 06:44 penicillin V Allergy Unknown rash Verified 03/12/25 06:44 piperacillin (From ZOSYN) Allergy Unknown RASH Verified 03/12/25 06:44 strawberry (STRAWBERRY) Allergy Unknown SOB,RASH, Verified 03/12/25 06:44 ANAPHYLAXISIS tazobactam (From ZOSYN) Allergy Unknown RASH Verified 03/12/25 06:44 walnut Allergy Unknown Difficulty Verified 03/12/25 06:44 Breathing Caramelized Food coloring Allergy Unknown Itching Uncoded 03/12/25 06:44 CARMALIZED FOOD COLORING Allergy Unknown RASH Uncoded 03/12/25 06:44 Hydrocodone Bitartrate Allergy Unknown severe Uncoded 03/12/25 06:44 vomiting Mangos Allergy Unknown Difficulty Uncoded 03/12/25 06:44 Breathing Piperacillin Sod-Tazobactam Allergy Unknown swelling Uncoded 03/12/25 06:44 So Strawberries Allergy Unknown Blister Uncoded 03/12/25 06:44 Review of Systems Sugical H&P ROS: Negative: Constitution, Cardiovascular, Respiratory, Neurological, Psychiatric, Hem-Onc, Allergic/Immunologic, Gastrointestinal, Genitourinary, Musculoskeletal, Integumentary, Endocrine and Eyes/Ears/Nose/Throat Exam Surgical H&P Exam: Normal: HEENT, Normal: Heart, Normal: Lungs, Normal: Extremities, Normal: Abdomen, Normal: Skin and Normal: Neurological Plan Diagnosis/Plan: Unchanged (EGD to assess the status of the anastomotic ulcer. Risks of bleeding and perforation were discussed with the patient and she is in agreement with the plan.) I have reviewed the history and physical and performed a pertinent physical examination on my patient. No changes have occurred unless specified. Time Spent With Patient Time: Total time managing care of this patient today ____ minutes.
--- NOTE | 2025-03-12 07:52 | PM.OP ---
Brief Operative Note Date of Service: 03/12/25 Pre-op diagnosis: Anastomotic ulcer Post-op diagnosis: same Procedure: PROCEDURE DATE: 03/12/2025 PREOPERATIVE DIAGNOSIS: Anastomotic ulcer, s/p gastric bypass POSTOPERATIVE DIAGNOSIS: ?Same as above. 1) Healed anastomotic ulcer with mild stricture at GJ anastomosis PROCEDURE: [id number] Surgeon: ?Tereso Gómez M.D.. Ph.D. Case Specialist: ?None ? Anesthesia: IV sedation Estimated blood loss: ?Minimal FINDINGS AND PROCEDURE: ? OPERATIVE INDICATIONS: ?The patient is a 49 year old female known to me who underwent a laparoscopic gastric bypass by me. The patient had excellent weight loss and was able to get of the home oxygen on which she was preoperatively.?The patient presented in the summer complaining of abdominal pain and an endoscopy was performed by Dr. Ferro on 10/31/24 that showed a deep anastomotic ulcer and stricture at the anastomosis. The patient was placed on a liquid high protein diet and PPI therapy and presented for a follow-up endoscopy in December. A deep ulcer with GJ stenosis was found. The patient was placed on TPN. Before however a follow-up EGD was performed the patient was admited at [facility] [place] for hypotension. She was discharged without the PICC line and I placed her on 5 protein shakes per day which she was tolerating very well. An endoscopy was performed on 02/12/25 which showed that the ulcer was improving and there was still a mild stricture at the anastomosis. The patient continued on 5 shakes per day. Based on this information I recommended an upper endoscopy to evaluate the ulcer again.? Risks and complications of the surgery were discussed with the patient in advance particularly the possibility of perforation or bleeding that may require surgical intervention. The patient understood the risks and was in agreement with the plan. ? PROCEDURE: After informed consent was obtained by the patient, the patient was ?transferred to the Operating Room and was placed in the supine position.? After successful induction of IV sedation, a mouth block was placed and the patient was placed in the left lateral decubitus position. An upper endoscopy was performed next, the oropharynx and esophagus appeared within the normal limits. There was no hiatal hernia.? The z-line was smooth. The small pouch was entered, appeared to be of normal size. There was no gastritis and the gastrojejunostomy was patent. The GJ anastomosis was narrowed but the scope could easily pass through.?The ulcer has now healed. The Ben limb was situated at 3pm position and I was able to get through to the Ben limb without any significant difficulty. At that point the scope was advanced into the proximal small intestine (proximal Ben limb) for about another 10cm which appeared to be normal as well. The Ben limb and the pouch were decompressed and the scope was withdrawn from the patient's mouth. The patient was awaken and was transferred in stable condition to the Recovery Room for further care. I was present and performed all steps of the procedure. There were no residents to assist with this case. Tereso Gómez M.D., Ph.D. Surgeon: Kingston Gómez MD Anesthesia: MAC Was an Case Specialist used for this Procedure?: No Estimated blood loss (mL): 0 IV fluids (mL): 400 Urine output (mL): 0 (No Santos to record output) Pathology: none sent Condition: stable Disposition: PACU
[2025-03-12 08:12] VITALS: BP 124/69; PULSE 70; RESP 12; TEMP 36.2; O2SAT 97
[2025-03-12 08:27] VITALS: BP 100/67; PULSE 65; RESP 16; TEMP 36.2; O2SAT 98
[2025-03-12 08:42] VITALS: BP 101/66; PULSE 61; RESP 16; TEMP 36.1; O2SAT 99
== END 2025-03-12 09:32 | disposition home or self-care (01) ==
PROVIDERS: PCP Internal Medicine; Visit Provider Surgery
PROC: 0DJ08ZZ Inspection of Upper Intestinal Tract, Via Natural or Artificial Opening Endoscopic (ICD-10-PCS; CPT 43235; principal; 2025-03-12 08:00)
DX: K91.89 Other postprocedural complications and disorders of digestive system (principal); Z98.84 Bariatric surgery status; Z87.11 Personal history of peptic ulcer disease; Y83.2 Surgical operation with anastomosis, bypass or graft as the cause of abnormal reaction of the patient, or of later complication, without mention of misadventure at the time of the procedure; K21.9 Gastro-esophageal reflux disease without esophagitis; J44.9 Chronic obstructive pulmonary disease, unspecified; J80 Acute respiratory distress syndrome; Z93.0 Tracheostomy status; Z86.711 Personal history of pulmonary embolism; L40.50 Arthropathic psoriasis, unspecified; F31.9 Bipolar disorder, unspecified; F10.11 Alcohol abuse, in remission; M87.9 Osteonecrosis, unspecified; Z79.51 Long term (current) use of inhaled steroids; Z79.899 Other long term (current) drug therapy; Z88.0 Allergy status to penicillin; Z90.49 Acquired absence of other specified parts of digestive tract; Z98.890 Other specified postprocedural states; Z87.891 Personal history of nicotine dependence; Z56.0 Unemployment, unspecified
CPT/HCPCS: 43235; J2003; J2704; J3010

== ENCOUNTER → 2025-03-12 06:17 | Outpatient (BNV) | payer BC, MEDICARE, SELFPAY | PROVIDERS: PCP Internal Medicine; Visit Provider Surgery | DX: K28.9 Gastrojejunal ulcer, unspecified as acute or chronic, without hemorrhage or perforation (principal) | CPT/HCPCS: 43235 ==